=== PATIENT | male | born 1940 | race Caucasian/White ===

== ENCOUNTER → 2020-06-30 10:16 | Outpatient (BNVA) | payer MEDICARE, BC, SELFPAY | PROVIDERS: PCP Internal Medicine; Referring Provider Internal Medicine; Visit Provider Internal Medicine Cardiovascular Disease | DX: I42.9 Cardiomyopathy, unspecified (principal); I49.3 Ventricular premature depolarization; I71.4 Abdominal aortic aneurysm, without rupture; I10 Essential (primary) hypertension | CPT/HCPCS: 99214 ==

== ENCOUNTER 2020-07-20 07:56 | Outpatient (REF) | payer MEDICARE, BC, SELFPAY ==
--- NOTE | 2020-07-20 08:01 | US_ITS ---
EXAMINATION: US RETROPERITONEAL LIMITED (AORTA) CLINICAL INFORMATION: AAA without rupture. COMPARISON: None. TECHNIQUE: Farley-scale, color Doppler and spectral Doppler evaluation of the abdominal aorta. FINDINGS: The aorta is normal. The measurements of the aorta in maximum AP and transverse dimensions respectively are as follows: Proximal: 3.7 x 3.3 cm. Mid: 2.8 x 3.1 cm. Distal: 4.2 x 4.3 cm. PSV: 39.1 cm/s. The measurements of the common iliac arteries in maximum AP and TRV dimensions are as follows: AP: Right: 1.6 cm. Left: 1.6 cm. TRANS: Right: 1.8 cm. Left: 1.7 cm. US/US aorta IMPRESSION: Distal abdominal aortic aneurysm measuring 4.3 cm. The lumen measures 3.5 cm in AP and 3.8 cm in transverse dimension. There is surrounding thrombus noted.
--- NOTE | 2020-07-20 08:33 | CA_ITS ---
Transthoracic Echocardiogram Patient (Last, First, Middle): Hill Lin A Gender: Male Date of : 1940 Age: 80 Procedure Date: 07/20/2020 Procedure Type: Transthoracic Echocardiogram Location: OP Height: 180.34 cm Weight: 90.72 kg BSA: 2.11 m2 Heart Rate: bpm BP: 134 / 70 mmHg Platform Loader: Lauro MD: Irineo Kimble MD Symptoms: I42.9 - Cardiomyopathy, unspecified Conclusions: - The left ventricular systolic function is mildly decreased. Estimated LVEF about 50%. - There is mild calcification of the aortic valve. - No obvious valvular pathology seen on this study. Findings Left Ventricle Normal left ventricular cavity size. There is normal left ventricular wall thickness. The left ventricular systolic function is mildly decreased. There is no evidence of regional wall motion abnormalities. Evidence suggests grade I (mild) diastolic dysfunction. Estimated LVEF about 50%. Right Ventricle Normal right ventricular cavity size. There is low normal right ventricular systolic function. Atria Both atria are normal in size. Aortic Valve There is a normal trileaflet aortic valve. There is mild calcification of the aortic valve. There is no aortic valve stenosis. Mitral Valve The mitral valve appears normal. There is trace mitral valve regurgitation. There is no mitral valve stenosis. Pulmonic Valve The pulmonic valve was not well visualized. There is trace pulmonic valve regurgitation. Tricuspid Valve Normal tricuspid valve structure. There is mild tricuspid valve regurgitation. The pulmonary artery systolic pressure is normal. Great Vessels The asc aorta is normal in size. Venous The inferior vena cava is normal in size and collapses greater than 50% with inspiration. Pericardium/Pleural There is no evidence of pericardial effusion. Prior Study Comparison No prior study available for comparison. Recommendations, Care & Conclusions No obvious valvular pathology seen on this study. Measurements 2D Linear Measurements RVADd: 0.57 RVIDd: 3.23 IVSd: 0.95 0.6-0.9/0.6-1.0 cm LVIDd: 5.31 3.9-5.3/4.2-5.9 cm LVIDs: 3.72 2.0-3.6 cm LVPWd: 1.12 0.7-1.1 cm Ao Root: 3.80 2.1-3.5 cm LA Diam: 4.50 2.7-3.8/3.0-4.0 cm LV Mass: 263.15 67-162/88-224 g LVOT Diam: 2.53 3.0+(-)1.3 cm Mitral Valve MV Pk E: 0.40 MV PK A: 0.65 MV Decel Time: 327.30 E/A: 0.61 E'Lateral: 0.06 E'Medial: 0.05 Decel Trego: 1.22 Aortic Valve AoV Pk Will: 1.90 AoV Mn Will: 1.27 AoV VTI: 0.41 AoV Pk Grad: 14.44 Aov Mn Grad: 7.26 LVOT LVOT Pk Will: 0.97 LVOT Mn Will: 0.62 LVOT VTI: 0.20 LVOT Pk Grad: 3.78 LVOT Mn Grad: 1.80 LVOT Diam: 2.53 LVOT Area: 5.01 Diastolic Function MV Pk E: 0.40 MV Pk A: 0.65 E/A: 0.61 E'Medial: 0.05 E' Laterial: 0.06 Right Ventricle TAPSE (mm): 160.00 Tricuspid Valve TR Pk Will: 2.49 TR Pk Grad: 24.72 RA Press: 8.00 Great Vessels Aorta Ao Root-2D: 3.80 2.0-3.7 cm Ao Asc: 3.47 2.1-3.4 cm Ao Arch: 3.70 Updated in Other Vendor System with Status of Final Kirt Valerio MD electronically signed on 07/20/2020 11:16:35 AM with status of Final
--- NOTE | 2020-07-20 08:33 | ECG_ITS ---
Hook-up date: 2020-07-20 09:40:00 Duration: 25:57:00 Test Indications: CARDIOMYOPATHY, UNSPEC. Medications: 015705 QRS complexes 52256 Ventricular ectopics which represent 11 % of total QRS comp. 106 Supraventricular ectopics which represent <1 % of total QRS comp. * Paced QRS complexs which represent % of total QRS comp. VENTRICULAR ECTOPY 8030 Isolated 163 Bigeminal Cycles 1731 Couplets 76 Runs 230 Beats in Runs 4 Beats LONGEST at 154 BPM at 10:58:25 2020-07-20 3 Beats FASTEST at 166 BPM at 10:43:39 2020-07-20 SUPRAVENTRICULAR ECTOPY 98 Isolated 4 Couplets 0 Runs 0 Beats in Runs * Beats LONGEST at * BPM at :: -- * Beats FASTEST at * BPM at :: -- HEART RATES 46 MIN at 01:52:54 2020-07-21 66 AVG 101 MAX at 08:48:57 2020-07-21 LONGEST RR 1.3040 secs at 07:23:46 2020-07-21 S-T LEVELS Channel 1 - 128 mm at 09:40:00 2020-07-20 - 128 mm at 09:40:00 2020-07-20 Channel 2 - 128 mm at 09:40:00 2020-07-20 - 128 mm at 09:40:00 2020-07-20 Channel 3 - 128 mm at 02:85:91 -- - 128 mm at 02:85:91 Basic rhythm Normal sinus rhythm No long pause or profound bradycardia Frequent Premature ventricular complexes , 12% of total beats Frequent NSVT with longest 4 beat at 154 bpm Patient did not report any symptoms in the diary Referred By: Irineo Kimble Overread By: MICHAEL FAULKNER MD
== END 2020-07-20 07:57 | disposition home or self-care (01) ==
LOC: HO.US 07:56
PROVIDERS: PCP Internal Medicine; Visit Provider Internal Medicine Cardiovascular Disease
DX: I71.4 Abdominal aortic aneurysm, without rupture (principal); I49.3 Ventricular premature depolarization; I42.9 Cardiomyopathy, unspecified
CPT/HCPCS: 76775; 93225; 93226; 93306

== ENCOUNTER → 2020-08-05 09:24 | Outpatient (BNVA) | payer MEDICARE, BC, SELFPAY | PROVIDERS: PCP Internal Medicine; Visit Provider Internal Medicine Cardiovascular Disease | DX: I42.9 Cardiomyopathy, unspecified (principal); I49.3 Ventricular premature depolarization; I71.4 Abdominal aortic aneurysm, without rupture; I10 Essential (primary) hypertension; Z79.899 Other long term (current) drug therapy | CPT/HCPCS: 99212 ==

== ENCOUNTER 2020-09-21 10:30 | Outpatient (REF) | payer MEDICARE, BC, SELFPAY ==
--- NOTE | 2020-09-21 10:37 | XR_ITS ---
EXAMINATION: XR KNEE, RIGHT CLINICAL INFORMATION: Pain COMPARISON: None TECHNIQUE: Two views of the right knee. FINDINGS: Bone alignment is normal. No fracture or dislocation is seen. There are small osteophytes at the patellofemoral joint. There is a small joint effusion. XR/XR knee RT 2V IMPRESSION: Degenerative changes of the patellofemoral joint and small joint effusion.
== END 2020-09-21 10:31 | disposition home or self-care (01) ==
LOC: HO.HMGCLDS 10:30
PROVIDERS: PCP Internal Medicine; Visit Provider Internal Medicine
DX: M25.561 Pain in right knee (principal)
CPT/HCPCS: 73560

== ENCOUNTER → 2020-10-04 12:05 | Outpatient (BNVA) | payer MEDICARE, BC, SELFPAY | PROVIDERS: PCP Internal Medicine; Visit Provider Orthopaedic Surgery | DX: M25.561 Pain in right knee (principal) | CPT/HCPCS: 20610; 99202; J1100 ==

== ENCOUNTER 2020-11-23 09:43 | Outpatient (REF) | payer MEDICARE, BC, SELFPAY ==
[2020-11-23 12:07] LABS: Alanine Aminotransferase 18 U/L (0-40); Albumin Level 4.2 g/dL (3.5-5.0); Alkaline Phosphatase 94 U/L (39-117); Aspartate Amino Transferase 17 U/L (5-37); Bilirubin Direct 0.2 mg/dL (0.0-0.5); Bilirubin Total 0.5 mg/dL (0.0-1.0); Total Protein 6.5 g/dL (6.5-8.0)
== END 2020-11-23 09:44 | disposition home or self-care (01) ==
LOC: HO.HMGCLDS 09:43
PROVIDERS: PCP Internal Medicine; Visit Provider Internal Medicine
DX: R79.89 Other specified abnormal findings of blood chemistry (principal)
CPT/HCPCS: 36415; 80076

== ENCOUNTER → 2020-11-30 11:35 | Outpatient (BNVA) | payer MEDICARE, BC, SELFPAY | PROVIDERS: PCP Internal Medicine; Visit Provider Physician Assistant | DX: K57.92 Diverticulitis of intestine, part unspecified, without perforation or abscess without bleeding (principal); R68.81 Early satiety | CPT/HCPCS: 99212 ==

== ENCOUNTER → 2020-12-02 09:18 | Outpatient (BNVA) | payer MEDICARE, BC, SELFPAY | PROVIDERS: PCP Internal Medicine; Visit Provider Surgery Vascular Surgery | DX: I71.4 Abdominal aortic aneurysm, without rupture (principal) | CPT/HCPCS: 99202 ==

== ENCOUNTER → 2020-12-13 14:32 | Outpatient (BNVA) | payer MEDICARE, BC, SELFPAY | PROVIDERS: PCP Internal Medicine; Visit Provider Internal Medicine Cardiovascular Disease | DX: I49.3 Ventricular premature depolarization (principal); I42.9 Cardiomyopathy, unspecified; I10 Essential (primary) hypertension | CPT/HCPCS: 99212 ==

== ENCOUNTER → 2020-12-16 08:26 | Outpatient (REF) | payer MEDICARE, BC, SELFPAY ==
--- NOTE | ~2020-12-16 | NM_ITS ---
EXERCISE MYOCARDIAL PERFUSION STUDY INDICATION: Abnormal EKG, cardiomyopathy, assess for coronary disease and ischemia TECHNIQUE: The patient was brought in for an exercise perfusion study on 12/16/2020. Patient performed exercise as per Joby protocol and was injected 30 mCi of sestamibi once target heart rate was achieved. Images were obtained using the SPECT gamma camera interlaced with the gating device. Images were obtained in supine position. Resting perfusion study was performed on 12/17/2020. Patient was administered 30 mCi of sestamibi intravenously at rest. Images were then obtained in supine position. Total DLP 48mGy-cm. Images were processed with the software and compared side to side in short axis, horizontal long axis and vertical long axis views. FINDINGS: Raw images were reviewed. The stress perfusion study showed mildly diminished tracer uptake in the distal inferior wall. With CT attenuation correction this abnormality still present. Gating not performed due to PVCs. Resting study shows diminished tracer uptake along the inferior wall most prominent towards the distal part. Gating not performed due to PVCs. The findings are consistent with no reversible defects. Fixed defect in the distal inferior wall. NM/NM cardiolite stress test IMPRESSION: 1. Myocardial perfusion imaging study shows no evidence of any ischemia. Fixed defect in the distal inferior wall. This could be either artifactual or from a nontransmural infarct. Due to lack of gating, cannot differentiate. 2. Gated not performed due to PVCs. EKG component of the test reported separately.
--- NOTE | 2020-12-16 08:29 | CA_ITS ---
Acquisition Time: 2020-12-16 08:35:02 Total Exercise Time: 00:05:02 Test Indications: Abnormal ECG Medications: Protocol: MICHELLE Max HR: 146 BPM 105% of Pred: 139 BPM Max BP: 172/082 mmHG Max Work Load: 7.0 METS Exercise stress test using Michelle protocol, total of 5 min 2 sec. METS 7.00 and TAPHR up to 105 %. Pt tolerated well, denies any anginal sx. EKG with PVC at rest that incresed during exercise, and were unchanged during recovery. Pt denies any sx with it during rest, exercsie or in recovery. Mild upsloping ST depressions seen in leads V4 and V5, and mild horizontal ST depressions seen in lead 2,3 and V6. Suggestive of ischemia, however freqent PVC's, hard to read. Nuclear images to follow. Normotensive response to exercsie. Test reviewed with Dr. Valerio. Referred By: Irineo Kimble Overread By: Sapna Sims NP
== END ==
LOC: HO.CARD 08:26
PROVIDERS: Visit Provider Internal Medicine Cardiovascular Disease
DX: I42.9 Cardiomyopathy, unspecified (principal)
CPT/HCPCS: 78452; 93016; 93017; 93018; A9500

== ENCOUNTER → 2020-12-21 10:50 | Outpatient (BNVA) | payer MEDICARE, BC, SELFPAY | PROVIDERS: PCP Internal Medicine; Visit Provider Nurse Practitioner Family | DX: I49.3 Ventricular premature depolarization (principal); I42.9 Cardiomyopathy, unspecified; I10 Essential (primary) hypertension; R94.39 Abnormal result of other cardiovascular function study; Z79.899 Other long term (current) drug therapy | CPT/HCPCS: 99212 ==

== ENCOUNTER 2020-12-22 09:15 | Outpatient (REF) | payer MEDICARE, BC, SELFPAY ==
[2020-12-22 11:27] LABS: Prothrombin Time 11.6 SEC (10.8-13.0)
[2020-12-22 11:28] LABS: Hematocrit 44.3 % (42-52); Hemoglobin 14.1 g/dl (14.0-18.0); Mean Corpuscular HGB Conc 31.8 g/dl (31.0-36.0); Mean Corpuscular Volume 97.4 fL (80-98); Mean Platelet Volume 10.9 fL (9.4-12.4); Platelet Count 180 X10*3/uL (160-400); Red Blood Count 4.55 X10*6/uL (4.60-5.80); Red Cell Distribution Width 13.3 % (11.0-16.0); White Blood Count 6.1 X10*3/uL (4.8-10.8)
[2020-12-22 11:45] LABS: Anion Gap 16 (12-20); Blood Urea Nitrogen 14 mg/dL (9-16); Calcium 8.7 mg/dL (8.4-10.2); Carbon Dioxide 27 mmol/L (22-29); Chloride 104 mmol/L (96-108); Estimated Glomerular Filt Rate > 60; Glucose Random 105 mg/dL (60-115); Potassium 4.8 mmol/L (3.3-5.1); Sodium 142 mmol/L (135-145)
== END 2020-12-22 09:16 | disposition home or self-care (01) ==
LOC: HO.HMGCLDS 09:15
PROVIDERS: PCP Internal Medicine; Visit Provider Internal Medicine Cardiovascular Disease
DX: R94.39 Abnormal result of other cardiovascular function study (principal)
CPT/HCPCS: 36415; 80048; 85027; 85610

== ENCOUNTER 2021-04-08 09:00 | Inpatient (IN) | payer MEDICARE, BC, SELFPAY ==
[2021-04-08] VITALS (8 sets, daily range): BP systolic 92–146; BP diastolic 55–86; PULSE 89–107; RESP 16–26; TEMP 36.8–38.7; O2SAT 91–98; BMI 27.8
--- NOTE | ~2021-04-08 | US_ITS ---
EXAMINATION: US RETROPERITONEAL LIMITED (RENAL ONLY) CLINICAL INFORMATION: Question pyelonephritis. COMPARISON: None TECHNIQUE: Real-time imaging of the kidneys. FINDINGS: RIGHT KIDNEY: 13.8 x 6.1 x 5.4 cm (SAG x AP x TRV). The kidney is normal in size, contour, and echogenicity. Renal cortical thickness is normal. There is a large 7 x 8 x 6 cm cyst exophytic to the lower pole. There is a smaller subcentimeter cyst in the midpole. No renal calculi or hydronephrosis. There is no perinephric collection. LEFT KIDNEY: 10.4 x 5.0 x 4.5 cm (SAG x AP x TRV). The kidney is normal in size, contour, and echogenicity. Renal cortical thickness is normal. No calculi or focal parenchymal lesions. No hydronephrosis. There is no perinephric collection. US/US renal BI IMPRESSION: Right renal cysts. No ultrasound evidence of biloma nephritis seen.
--- NOTE | ~2021-04-08 | CT_ITS ---
EXAMINATION: CT ABDOMEN AND PELVIS WITH CONTRAST CLINICAL INFORMATION: Fever/bacteremia of unknown origin. COMPARISON: Renal ultrasound dated 04/08/2021. TECHNIQUE: Multidetector CT volumetric acquisition of the abdomen and pelvis was performed after the administration of 85 mL of intravenous Omnipaque 350. The data set was reformatted in the sagittal and coronal planes and reviewed on an independent workstation. This CT examination was performed using dose optimization techniques as appropriate, variously including the following: *Automated exposure control *Adjustment of mA and/or kV according to patient size (this includes techniques or standardized protocols for targeted exams where dose is matched to indication/reason for exam; i.e. extremities or head) *Use of iterative reconstruction technique DLP: 739 mGy-cm. FINDINGS: LOWER CHEST: Bilateral pleural calcifications are seen. Mild scattered atelectatic changes in the lung bases are also noted. LIVER, GALLBLADDER, BILIARY TREE: Liver normal size and attenuation. No focal cystic or solid mass or intra-or extrahepatic ductal dilatation. Hepatic and portal veins patent. Gallbladder partially distended and within normal limits. PANCREAS: Normal. No ductal dilatation, mass, or surrounding stranding. SPLEEN: Normal size and appearance. Splenic vein patent. ADRENAL GLANDS AND KIDNEYS: Adrenal glands normal. Kidneys bilaterally symmetric in size and function. There is a thin-walled exophytic lower pole right renal 7.7 x 7 cm benign-appearing cyst with no wall thickening or nodularity or enhancing component. Other scattered smaller sub one half centimeters sized low-attenuation masses are seen in the kidneys bilaterally, too small to characterize, presumably representing tiny cysts. No suspicious focal mass, hydronephrosis, nephrolithiasis or perinephric stranding. URETERS AND BLADDER: Ureters decompressed and within normal limits diffuse bladder wall thickening is seen, of uncertain significance, presumably simply related to near complete decompression. However, there does appear to be subtle pericystic fat stranding and edema and subtle interstitial cystitis cannot be entirely excluded. A fibrous urachal remnant is seen extending up to the umbilicus. PELVIC ORGANS: Unremarkable. GASTROINTESTINAL TRACT: There is moderate sigmoid colonic diverticulosis. A duodenal diverticulum is seen in the vicinity of the pancreatic head. Additional small diverticula are seen in the proximal small bowel. Small and large bowel loops decompressed. Appendix in right lower quadrant normal. ABDOMINAL WALL: There is a tiny fat-containing umbilical hernia. LYMPHOVASCULAR STRUCTURES: There is aneurysmal dilatation of the distal descending thoracic aorta with maximal AP diameter of 3.5 cm.. Abdominal aorta is also aneurysmal, measuring 3.5 cm proximally with fusiform enlargement to 4.5 x 4.4 cm distally. Eccentric soft thrombus is seen within the distal abdominal aortic aneurysm. Dense atherosclerotic calcifications are noted. There is also ectasia and aneurysmal dilatation of the iliac arteries bilaterally with dense atherosclerotic calcification seen. No periaortic collections. No abdominal or pelvic adenopathy or free fluid collection. BONES: The patient is status post intervertebral disc spacer placement and posterior spinal fusion at L4-5 and L5-S1. Grade 1 anterolisthesis of L4 on L5 and L5 on S1 is noted. Mild to moderate degenerative disc disease is seen throughout the lumbar spine. Osteopenia is noted. CT/CT abdomen pelvis w con IMPRESSION: 1. Question of subtle diffuse bladder wall thickening and minimal surrounding pericystic fat infiltration versus artifactual appearance related to underdistention of the bladder. Close clinical correlation is requested.. Findings poorly assessed due to underdistention of the bladder but do raise the suspicion of subtle interstitial cystitis. 2. Multiple incidental findings, including the following: - Descending thoracic and abdominal aortic aneurysm. Distal abdominal aorta measures up to 4.5 cm in maximum diameter. Associated atherosclerotic dense calcifications noted. - Aneurysmal dilatation of both iliac arteries. -Bilateral renal cysts, appearing benign and requires no specific imaging follow-up. -Moderate sigmoid colonic diverticulosis and duodenum/proximal small bowel diverticula.
--- NOTE | ~2021-04-08 | XR_ITS ---
EXAMINATION: XR CHEST CLINICAL INFORMATION: Weakness COMPARISON: None TECHNIQUE: Frontal view of the chest was obtained. FINDINGS: Patient is rotated to the left. The cardiac and silhouette does not appear enlarged. The aortic arch may be tortuous and ectatic. Some of these changes may be due to patient positioning. Hilar and mediastinal contours are otherwise unremarkable. The lungs are clear. There is no pleural effusion or pneumothorax. Old bilateral clavicle fractures. XR/XR chest 1V IMPRESSION: No evidence for acute disease in the chest.
--- NOTE | 2021-04-08 09:27 | ED_ITS ---
HPI - Male Genitourinary General Chief complaint: Urogenital-Male Stated complaint: urinary Problem Time Seen by Provider: 04/08/21 09:26 Source: patient and old records reviewed Mode of arrival: ambulatory Limitations: no limitations History of Present Illness HPI Narrative: 80 yo male with hx of GERD, cardiomyopathy, PVCs, AAA, HTN here with 1 day of dysuria, weakness, chills - no prior UTI no recent instrumentation MD Complaint: dysuria Onset (ago): day(s) (1) Duration: constant and progressively worsening Location: penis Severity: moderate Quality: burning Relieving factors: none Exacerbating factors: none Associated symptoms: Reports fever (100.4), nausea/vomiting and other (chills, weakness) Related Data Home Medications Medication Instructions Recorded Confirmed calcium carbonate 600 mg calcium 600 mg PO DAILY tab 06/30/20 03/22/21 (1,500 mg) tablet latanoprost 0.005 % eye drops drp OPHTHALMIC (EYE) DAILY ml 06/30/20 03/22/21 flu vacc 2019-(65yr IM 09/21/20 03/22/21 up)-MF59C(PF) 60 mcg(15 mcgx4)/0.5 mL IM syringe aspirin 81 mg tablet,delayed 81 mg PO DAILY 12/13/20 03/22/21 release lisinopril 5 mg tablet 5 mg PO DAILY 03/22/21 03/22/21 metoprolol succinate 25 mg 25 mg PO QPM 03/22/21 03/22/21 tablet,extended release 24 hr Allergies Allergy/AdvReac Type Severity Reaction Status Date / Time timolol [From Betimol] AdvReac Affected Verified 03/22/21 09:59 vision Review of Systems Review of Systems: Constitutional : No Weight loss, pos Fever, pos Chills, No Fatigue, No Malaise ENT/Mouth : No sore throat, No Rhinorrhea Eyes: No Eye Pain, No Swelling, No Redness Cardiovascular : No Chest Pain, No SOB, No Dyspnea on Exertion, No Orthopnea, No Edema, No Palpitations Respiratory : No Cough, No Sputum, No Wheezing Gastrointestinal : pos Nausea, No Vomiting, No Diarrhea, No Constipation, No abdominal Pain, No Hematochezia, No Melena Genitourinary : pos Dysuria, No Urinary Frequency, No Hematuria, Musculoskeletal : No joint pain, No Myalgias, No Joint Swelling Skin : No Skin Lesions, No rash Neuro : pos Weakness, No Numbness, No Dizziness, No Headache Psych : No Anxiety/Panic, No Depression Heme/Lymph: No Bruising, No Bleeding,No Lymphadenopathy Endocrine : No Polyuria, No Polydipsia All other systems reviewed and are negative FOR[facility]LY [facility], [facility] Past Medical History Attestation statement: The following information was validated with the patient. Medical History AAA (abdominal aortic aneurysm) Cardiomyopathy Hypertension Knee pain, right PVC (premature ventricular contraction) Surgical History History of hand surgery (~2001) History of prostate surgery (~2013) History of spinal fusion (~2016) Family History Family History Father No problems noted. Mother No problems noted. Other Substance use disorder Social History Social History Household Members: Spouse Alcohol intake: never Substance Use Type: Marijuana Advance Directives: No Advance Directives Information Provided: No Current occupational status: retired Current occupation: right handed Physical Exam Vital Signs: Vital Signs: Last Vital Signs Temp 98.4 F 04/08/21 09:53 Pulse 107 H 04/08/21 09:53 Resp 16 04/08/21 09:53 BP 146/86 H 04/08/21 09:53 Pulse Ox 93 04/08/21 09:53 Body Mass Index 27.8 Appearance: Alert. Oriented X3. + chills mild acute distress. Eyes: Pupils equal, round and reactive to light. ENT: Pharynx mild dry MM Neck: Normal inspection. Neck supple. CVS: tachycardic heart rate and rhythm. Pulses normal. Respiratory: No respiratory distress. Breath sounds normal. Abdomen: Soft and nontender. Back: no CVA ttp Skin: Skin warm and dry. Normal skin color. Normal skin turgor. Extremities: No lower extremity edema. No calf ttp Neuro: Oriented X 3. No motor deficit. No sensory deficit. Course Course Course Narrative: elevated WBC count, HR 110 + UTI patient looks unwell will admit for UTI likely sepsis MDM - Male Genitourinary MDM Narrative Medical decision making narrative: 80 yo male with hx of GERD, cardiomyopathy, PVCs, AAA, HTN here with 1 day of dysuria, weakness, chills - no prior UTI no recent instrumentation at this time suspected UTI will obtain basic labs, cultures, lactic acid, empiric rocephin he has no pain or CVA ttp to suggest obstructive lesion such as stone, dispo per results and findings. Lab Data Result diagrams: 04/08/21 09:59 04/08/21 10:00 Labs: Lab Results 04/08/21 04/08/21 04/08/21 Range/Units 09:59 10:00 10:00 WBC 19.7 H (4.8-10.8) X10*3/uL RBC 4.54 L (4.60-5.80) X10*6/uL Hgb 14.3 (14.0-18.0) g/dl Hct 42.8 (42-52) % MCV 94.3 (80-98) fL MCH 31.5 (27.0-33.0) pg MCHC 33.4 (31.0-36.0) g/dl RDW 13.2 (11.0-16.0) % Plt Count 160 (160-400) X10*3/uL MPV 9.9 (9.4-12.4) fL Immature Gran % (Auto) 0.7 H (0.0-0.4) % Neut % (Auto) 89.4 H (45-73) % Lymph % (Auto) 4.9 L (20-40) % [place] % (Auto) 4.8 (2-11) % Eos % (Auto) 0.1 (0-4) % Baso % (Auto) 0.1 (0-2) % Lymph # (Auto) 1.0 L (1.2-4.9) X10*3/uL [place] # (Auto) 0.9 (0.1-1.2) X10*3/uL Eos # (Auto) 0.0 (0.0-0.4) X10*3/uL Baso # (Auto) 0.0 (0.0-0.2) X10*3/uL Abs Immat Gran (auto) 0.13 H (0.00-0.03) X10*3/uL Absolute Neuts (auto) 17.6 H (2.0-8.3) X10*3/uL Absolute Nucleated RBC 0.000 (0.0-0.012) X10*3/uL Nucleated RBC % (auto) 0.0 (0.0-0.2) /100WBC Sodium 140 (135-145) mmol/L Potassium 4.3 (3.3-5.1) mmol/L Chloride 103 (96-108) mmol/L Carbon Dioxide 26 (22-29) mmol/L Anion Gap 15 (12-20) BUN 13 (9-16) mg/dL Creatinine 1.06 (0.5-1.4) mg/dL Estim Creat Clear Calc 62.9 Estimated GFR > 60 Random Glucose 132 H (60-115) mg/dL Lactic Acid (0.5-2.0) mmol/L Calcium 9.3 D (8.4-10.2) mg/dL Magnesium 1.8 (1.6-2.6) mg/dL Total Bilirubin 1.1 H (0.0-1.0) mg/dL Direct Bilirubin 0.4 (0.0-0.5) mg/dL AST 15 (5-37) U/L ALT 13 (0-40) U/L Alkaline Phosphatase 126 H D (39-117) U/L Total Protein 6.7 (6.5-8.0) g/dL Albumin 4.3 (3.5-5.0) g/dL Lipase 17 (8-78) U/L Urine Color Urine Appearance Urine pH (5.0-8.0) Ur Specific [place] (1.005-1.025) Urine Protein (NEG-TRACE) MG/DL Urine Glucose (UA) (NEG) MG/DL Urine Ketones (NEG) MG/DL Urine Blood (NEG) Urine Nitrite (NEG) Ur Leukocyte Esterase (NEG) Urine RBC (0) /HPF Urine WBC (0-4) /HPF Ur Squamous Epith Cells /LPF Urine Bacteria /LPF Urine Mucus /LPF COVID-19 (JESSICA) (Negative) COVID-19 Clin Com 04/08/21 04/08/21 04/08/21 Range/Units 10:00 10:00 10:00 WBC (4.8-10.8) X10*3/uL RBC (4.60-5.80) X10*6/uL Hgb (14.0-18.0) g/dl Hct (42-52) % MCV (80-98) fL MCH (27.0-33.0) pg MCHC (31.0-36.0) g/dl RDW (11.0-16.0) % Plt Count (160-400) X10*3/uL MPV (9.4-12.4) fL Immature Gran % (Auto) (0.0-0.4) % Neut % (Auto) (45-73) % Lymph % (Auto) (20-40) % [place] % (Auto) (2-11) % Eos % (Auto) (0-4) % Baso % (Auto) (0-2) % Lymph # (Auto) (1.2-4.9) X10*3/uL [place] # (Auto) (0.1-1.2) X10*3/uL Eos # (Auto) (0.0-0.4) X10*3/uL Baso # (Auto) (0.0-0.2) X10*3/uL Abs Immat Gran (auto) (0.00-0.03) X10*3/uL Absolute Neuts (auto) (2.0-8.3) X10*3/uL Absolute Nucleated RBC (0.0-0.012) X10*3/uL Nucleated RBC % (auto) (0.0-0.2) /100WBC Sodium (135-145) mmol/L Potassium (3.3-5.1) mmol/L Chloride (96-108) mmol/L Carbon Dioxide (22-29) mmol/L Anion Gap (12-20) BUN (9-16) mg/dL Creatinine (0.5-1.4) mg/dL Estim Creat Clear Calc Estimated GFR Random Glucose (60-115) mg/dL Lactic Acid 1.8 (0.5-2.0) mmol/L Calcium (8.4-10.2) mg/dL Magnesium (1.6-2.6) mg/dL Total Bilirubin (0.0-1.0) mg/dL Direct Bilirubin (0.0-0.5) mg/dL AST (5-37) U/L ALT (0-40) U/L Alkaline Phosphatase (39-117) U/L Total Protein (6.5-8.0) g/dL Albumin (3.5-5.0) g/dL Lipase (8-78) U/L Urine Color DARK YELLOW Urine Appearance TURBID Urine pH 7.0 (5.0-8.0) Ur Specific [place] 1.015 (1.005-1.025) Urine Protein 2+ H (NEG-TRACE) MG/DL Urine Glucose (UA) NEG (NEG) MG/DL Urine Ketones NEG (NEG) MG/DL Urine Blood 3+ H (NEG) Urine Nitrite NEG (NEG) Ur Leukocyte Esterase 2+ H (NEG) Urine RBC 10-14 H (0) /HPF Urine WBC TNTC H (0-4) /HPF Ur Squamous Epith Cells 1+ /LPF Urine Bacteria 3+ /LPF Urine Mucus 1+ /LPF COVID-19 (JESSICA) Negative (Negative) COVID-19 Clin Com See Note ECG Data Attestation: I personally reviewed and interpreted this ECG as follows: ECG interpretation date: 04/08/21 ECG interpretation time: 09:44 Interpretation: Rate: 107 Rhythm: sinus tachycardia [place]: left, LVH Normal P waves. Normal RAFA. Normal QRS complex. ST T wave : no ROSALBA, inverted in I and aVL qTC: normal prior studies: no significant change The study has been interpreted contemporaneously by me. . Discharge Plan Discharge Clinical Impression: Urinary tract infection, Leukocytosis, Weakness Patient Disposition: Admitted As Inpatient Prescriptions: No Action Fluad Quad (65y up)(PF) 60 mcg (15 mcg x 4)/0.5 mL syringe IM RF: 0 metoprolol succinate 25 mg tablet extended release 24 hr 25 mg PO QPM RF: 0 lisinopril 5 mg tablet 5 mg PO DAILY RF: 0 latanoprost 0.005 % drops ophthalmic (eye) DAILY RF: 0 calcium carbonate [Calcium 600] 600 mg calcium (1,500 mg) tablet 600 mg PO DAILY RF: 0 aspirin [Adult Low Dose Aspirin] 81 mg tablet,delayed release (DR/EC) 81 mg PO DAILY RF: 0
--- NOTE | 2021-04-08 09:32 | ECG_ITS ---
Test Reason : GENERAL MEDICINE Blood Pressure : / mmHG Vent. Rate : 107 BPM Atrial Rate : 107 BPM P-R Int : 174 ms QRS Dur : 132 ms QT Int : 342 ms P-R-T Axes : 010 -40 111 degrees QTc Int : 456 ms Sinus tachycardia Left axis deviation Left ventricular hypertrophy with QRS widening and repolarization abnormality Abnormal ECG No previous ECGs available Referred By: Marylin Blanca Electronically Signed By:Irineo Kimble
[2021-04-08 10:13] LABS: MANUAL DIFF FLAG NO
[2021-04-08] MEDS: 0.9 % Sodium Chloride 500 ML IV (10:14)
[2021-04-08] MEDS: Acetaminophen 325 MG TABLET 650 MG PO ×2 (10:19→18:06)
[2021-04-08] MEDS: cefTRIAXone sodium 1 GM in 0.9 % Sodium Chloride 50 ML IV (10:19)
[2021-04-08] MEDS: ondansetron HCL 4 MG/2 ML VIAL IVPUSH (10:20)
[2021-04-08 10:21] LABS: Glucose Urine UA NEG (NEG); Leukocyte Esterase Urine 2+ (NEG); Nitrite Urine NEG (NEG); Specific Gravity - Urine 1.015 (1.005-1.025); UACC Culture Trigger YES; Urine Blood 3+ (NEG); Urine Ketones NEG (NEG); Urine Protein 2+ MG/DL (NEG-TRACE)
[2021-04-08 10:21] LABS: Basophils Percent Auto 0.1 % (0-2); Eosinophils Percent Auto 0.1 % (0-4); Hematocrit 42.8 % (42-52); Hemoglobin 14.3 g/dl (14.0-18.0); Imm Gran Abs Auto 0.13 X10*3/uL (0.00-0.03); Imm Gran Pct Auto 0.7 % (0.0-0.4); Lymphocytes Percent Auto 4.9 % (20-40); Mean Corpuscular HGB Conc 33.4 g/dl (31.0-36.0); Mean Corpuscular Hemoglobin 31.5 pg (27.0-33.0); Mean Corpuscular Volume 94.3 fL (80-98); Mean Platelet Volume 9.9 fL (9.4-12.4); Monocytes Absolute Auto 0.9 X10*3/uL (0.1-1.2); Monocytes Percent Auto 4.8 % (2-11); Neutrophils Absolute Auto 17.6 X10*3/uL (2.0-8.3); Neutrophils Percent Auto 89.4 % (45-73); Platelet Count 160 X10*3/uL (160-400); Red Blood Count 4.54 X10*6/uL (4.60-5.80); Red Cell Distribution Width 13.2 % (11.0-16.0); White Blood Count 19.7 X10*3/uL (4.8-10.8)
[2021-04-08 10:29] LABS: COVID-19 Test Negative (Negative); IDNOW Serial# 9DD0AD1C
[2021-04-08 10:32] LABS: Lactic Acid 1.8 mmol/L (0.5-2.0)
[2021-04-08 10:37] LABS: Anion Gap 15 (12-20); Blood Urea Nitrogen 13 mg/dL (9-16); Calcium 9.3 mg/dL (8.4-10.2); Carbon Dioxide 26 mmol/L (22-29); Chloride 103 mmol/L (96-108); Creatinine Clr Calc Pharmacy 62.9; Estimated Glomerular Filt Rate > 60; Glucose Random 132 mg/dL (60-115); Potassium 4.3 mmol/L (3.3-5.1); Sodium 140 mmol/L (135-145)
[2021-04-08 10:38] LABS: Appearance Urine TURBID; Color Urine DARK YELLOW
[2021-04-08 10:39] LABS: Bacteria Urine 3+ /LPF; Mucus Urine 1+ /LPF; Squamous Epithelial Cell Urine 1+ /LPF; WBC Urine TNTC /HPF (0-4)
[2021-04-08 10:40] LABS: Alanine Aminotransferase 13 U/L (0-40); Albumin Level 4.3 g/dL (3.5-5.0); Alkaline Phosphatase 126 U/L (39-117); Aspartate Amino Transferase 15 U/L (5-37); Bilirubin Direct 0.4 mg/dL (0.0-0.5); Bilirubin Total 1.1 mg/dL (0.0-1.0); Lipase 17 U/L (8-78); Magnesium 1.8 mg/dL (1.6-2.6); Total Protein 6.7 g/dL (6.5-8.0)
[2021-04-08] MEDS: Enoxaparin Sodium 40 MG/0.4 ML SYRINGE SUBCUT (13:57)
--- NOTE | 2021-04-08 14:10 | P.HPHOSP_ITS ---
History of Present Illness Date of Service: 04/08/21 Chief Complaint: fever, malaise, dysuria Mr Lin is an 80 year-old male patient of Dr Cantu with history of cardiomyopathy (low-normal EF), frequent PVCs, AAA, and prostatism s/p laser TURP who presents with a 2-day history of fever to 101, chills, malaise, dysuria, incomplete voiding, and urinary urgency. No recent urinary catheterization and no history of nephrolithiasis. No rectal pain. No prior UTI or pyelonephritis. He denies hematuria or flank pain. No chest pain or dyspnea. In the ED, he was septic by virtue of leukocytosis and tachycardia. Urinalysis showed pyuria and bacteruria. He was given a dose of ceftriaxone along with 500 mL of NS. BP was 113/57. Review of Systems Review of Systems: Yes all other systems are reviewed and are negative [facility] Medical History AAA (abdominal aortic aneurysm) Cardiomyopathy Hypertension Knee pain, right PVC (premature ventricular contraction) Family History Father No problems noted. Mother No problems noted. Other Substance use disorder Surgical History History of hand surgery (~2001) History of prostate surgery (~2013) History of spinal fusion (~2017) Social History Household Members: Spouse Alcohol intake: never Patient Tobacco Use Status: Never used Tobacco Use of substances other than those prescribed or required for medical reasons: No Substance Use Type: Marijuana Advance Directives: No Advance Directives Information Provided: No Current occupational status: retired Current occupation: right handed Meds Allergies Allergy/AdvReac Type Severity Reaction Status Date / Time timolol [From Betimol] AdvReac Affected Verified 03/22/21 09:59 vision Active Medications: Current Medications Generic Name Dose Route Start Last Admin Trade Name Freq PRN Reason Stop Dose Admin Acetaminophen 650 mg 04/08/21 13:31 Acetaminophen 325 Mg Tablet PO Q6H PRN Pain, Mild (Pain Scale 1-3) Aspirin 81 mg 04/09/21 09:00 Aspirin Enteric Coated 81 Mg Tablet.Dr PO DAILY [facility] Calcium Carbonate 500 mg 04/09/21 09:00 Calcium Carbonate 500 Mg Tablet PO DAILY [facility] Enoxaparin Sodium 40 mg 04/08/21 13:45 04/08/21 13:57 Enoxaparin Sodium 40 Mg/0.4 Ml Syringe SUBCUT 40 mg Q24H [facility] Administration Ceftriaxone Sodium 1 gm/ 50 mls @ 100 mls/hr 04/09/21 10:00 Sodium Chloride IV Q24H [facility] Latanoprost 1 drop 04/08/21 21:00 Latanoprost 0.005 % Ophth Carleen 2.5 Ml Drops EYE-BOTH BEDTIME [facility] Lisinopril 5 mg 04/09/21 09:00 Lisinopril 5 Mg Tablet PO DAILY [facility] Protocol Metoprolol Succinate 12.5 mg 04/08/21 21:00 Metoprolol Succinate Er 12.5 Mg Halftab.Er.24h PO BEDTIME [facility] Protocol Ondansetron HCl 4 mg 04/08/21 13:31 Ondansetron Hcl 4 Mg/2 Ml Vial IVPUSH Q8H PRN Nausea and Vomiting Pharmacy Consult 1 each 04/08/21 11:13 Consult Rx Perform Med Rec MISCELLANE ONCE PRN Consult order Sodium Chloride 3 ml 04/08/21 16:00 0.9 % Sodium Chloride Flush 3 Ml Syringe IVFLUSH QSHIFT [facility] Home Medications Medication Instructions Recorded Confirmed Last Taken Type latanoprost 0.005 % eye drops 1 drp OPHTHALMIC (EYE) BEDTIME ml 06/30/20 0 04/08/21 04/07/21 History aspirin 81 mg tablet,delayed 81 mg PO DAILY 12/13/20 04/08/21 04/07/21 History release metoprolol succinate 25 mg 12.5 mg PO QPM 03/22/21 04/08/21 04/07/21 History tablet,extended release 24 hr calcium carbonate 500 mg PO DAILY 04/08/21 04/08/21 04/07/21 History lisinopril 0.5 tab PO DAILY 04/08/21 04/08/21 04/07/21 History Physical Exam Vital Signs and Narrative: Vital Signs: Last Vital Signs Temp 98.9 F 04/08/21 13:00 Pulse 90 04/08/21 13:00 Resp 16 04/08/21 13:00 BP 113/57 L 04/08/21 13:00 Pulse Ox 96 04/08/21 13:00 Body Mass Index 27.8 Gen: tired-appearing but ambulatory HEENT: sclera anicteric, dry mucus membranes Neck: supplen, no adenopathy or goiter Lungs: clear to auscultation bilaterally Heart: regular rate and rhythm, no murmurs Abd: soft, non-tender, non-distended : no CVA tenderness Ext: no edema Skin: warm/well-perfused Neuro: alert and oriented x3, no focal findings Psych: appropriate affect Results Labs CBC and Chem 7: 04/08/21 09:59 04/08/21 10:00 Labs: Laboratory Results - last 24 hr 04/08/21 04/08/21 04/08/21 09:59 10:00 10:00 MCV 94.3 MCH 31.5 MCHC 33.4 RDW 13.2 Plt Count 160 MPV 9.9 Immature Gran % (Auto) 0.7 H Neut % (Auto) 89.4 H Lymph % (Auto) 4.9 L [place] % (Auto) 4.8 Eos % (Auto) 0.1 Baso % (Auto) 0.1 Lymph # (Auto) 1.0 L [place] # (Auto) 0.9 Eos # (Auto) 0.0 Baso # (Auto) 0.0 Abs Immat Gran (auto) 0.13 H Absolute Neuts (auto) 17.6 H Absolute Nucleated RBC 0.000 Nucleated RBC % (auto) 0.0 Anion Gap 15 Estim Creat Clear Calc 62.9 Estimated GFR > 60 Random Glucose 132 H Lactic Acid Calcium 9.3 D Magnesium 1.8 Total Bilirubin 1.1 H Direct Bilirubin 0.4 AST 15 ALT 13 Alkaline Phosphatase 126 H D Total Protein 6.7 Albumin 4.3 Lipase 17 Urine Color Urine Appearance Urine pH Ur Specific Reading Urine Protein Urine Glucose (UA) Urine Ketones Urine Blood Urine Nitrite Ur Leukocyte Esterase Urine RBC Urine WBC Ur Squamous Epith Cells Urine Bacteria Urine Mucus COVID-19 (JESSICA) COVID-19 Clin Com 04/08/21 04/08/21 04/08/21 10:00 10:00 10:00 MCV MCH MCHC RDW Plt Count MPV Immature Gran % (Auto) Neut % (Auto) Lymph % (Auto) [place] % (Auto) Eos % (Auto) Baso % (Auto) Lymph # (Auto) [place] # (Auto) Eos # (Auto) Baso # (Auto) Abs Immat Gran (auto) Absolute Neuts (auto) Absolute Nucleated RBC Nucleated RBC % (auto) Anion Gap Estim Creat Clear Calc Estimated GFR Random Glucose Lactic Acid 1.8 Calcium Magnesium Total Bilirubin Direct Bilirubin AST ALT Alkaline Phosphatase Total Protein Albumin Lipase Urine Color DARK YELLOW Urine Appearance TURBID Urine pH 7.0 Ur Specific Reading 1.015 Urine Protein 2+ H Urine Glucose (UA) NEG Urine Ketones NEG Urine Blood 3+ H Urine Nitrite NEG Ur Leukocyte Esterase 2+ H Urine RBC 10-14 H Urine WBC TNTC H Ur Squamous Epith Cells 1+ Urine Bacteria 3+ Urine Mucus 1+ COVID-19 (JESSICA) Negative COVID-19 Clin Com See Note Imaging Radiologist's Impressions: Impressions Chest X-Ray 04/08/21 09:32 IMPRESSION: No evidence for acute disease in the chest. Assessment and Plan (1) Sepsis: Status: Acute 80 year-old male with history of cardiomyopathy (low-normal EF), frequent PVCs, AAA, and prostatism s/p laser TURP presenting with sepsis due to UTI # UTI - admit to telemetry, follow BCx/UCx, give ceftriaxone, check renal US, give IV fluids # cardiomyopathy # CAD - continue lisinopril + metoprolol succinate. cardiac cath on 12/28/20 at [facility] [place] 60% RCA stenosis # PVCs - continue metoprolol succinate # VTE ppx - LMWH # code - per pt, DNR/DNI Quality Stroke Does the patient have a stroke diagnosis?: No VTE Prior VTE?: No VTE Risk Level:: Medical - moderate - high VTE Device Contraindication: N/A - Device Ordered VTE Drug Contraindication: N/A - Med Ordered
[2021-04-08] MEDS: 0.9 % Sodium Chloride 1,000 ML 75 ML IVCONT (15:44)
--- NOTE | 2021-04-08 20:44 | PC.NURSE ---
METOPROLOL NOT GIVEN D/T LOW B/P. PT AWAKE AND WATCHING TV. PT DENIES ANY COMPLAINTS. WILL CONTINUE TO MONITOR PT.
--- NOTE | 2021-04-08 22:14 | PC.NURSE ---
report given to floor. Pt awaiting for transport to floor at this time. VS obtained and WNL.
[2021-04-09] VITALS (8 sets, daily range): BP systolic 100–119; BP diastolic 52–64; PULSE 69–82; RESP 18; TEMP 36.4–37.2; O2SAT 92–93
[2021-04-09 06:09] LABS: Hematocrit 35.9 % (42-52); Hemoglobin 11.9 g/dl (14.0-18.0); Mean Corpuscular HGB Conc 33.1 g/dl (31.0-36.0); Mean Corpuscular Hemoglobin 31.9 pg (27.0-33.0); Mean Corpuscular Volume 96.2 fL (80-98); Mean Platelet Volume 10.3 fL (9.4-12.4); Platelet Count 127 X10*3/uL (160-400); Red Blood Count 3.73 X10*6/uL (4.60-5.80); Red Cell Distribution Width 13.4 % (11.0-16.0); White Blood Count 20.7 X10*3/uL (4.8-10.8)
[2021-04-09 06:51] LABS: Anion Gap 14 (12-20); Blood Urea Nitrogen 16 mg/dL (9-16); Calcium 8.1 mg/dL (8.4-10.2); Carbon Dioxide 24 mmol/L (22-29); Chloride 105 mmol/L (96-108); Creatinine Clr Calc Pharmacy 68.8; Estimated Glomerular Filt Rate > 60; Glucose Random 141 mg/dL (60-115); Magnesium 1.7 mg/dL (1.6-2.6); Potassium 3.9 mmol/L (3.3-5.1); Sodium 139 mmol/L (135-145)
[2021-04-09] MEDS: Aspirin Enteric Coated 81 MG TABLET.DR PO (08:25)
[2021-04-09] MEDS: lisinopriL 5 MG TABLET PO (08:25)
[2021-04-09] MEDS: 0.9 % Sodium Chloride Flush 3 ML SYRINGE IVFLUSH ×2 (08:29→16:44)
[2021-04-09] MEDS: iohexoL 350 MG/ML 100 ML INFUS..BTL IV (09:55)
[2021-04-09 10:09] LABS: C Reactive Protein 21.85 mg/dL (< or = 0.50)
[2021-04-09] MEDS: cefTRIAXone sodium 1 GM in 0.9 % Sodium Chloride 50 ML IV (10:47)
--- NOTE | 2021-04-09 12:06 | HO.PM.IMPN ---
Subjective Subjective Date of Service: 04/09/21 Interval History: Febrile to 101.7 overnight but feels better this AM Dysuria + urgency improving UCx + BCx growing GNRs Physical Exam Vital Signs: Vital Signs: Last Vital Signs Temp 69 F L 04/09/21 11:26 Pulse 69 04/09/21 11:26 Resp 18 04/09/21 11:26 BP 103/57 L 04/09/21 11:26 Pulse Ox 92 04/09/21 11:26 Body Mass Index 27.8 Gen: tired-appearing but ambulatory HEENT: sclera anicteric, dry mucus membranes Neck: supple, no adenopathy or goiter Lungs: clear to auscultation bilaterally Heart: regular rate and rhythm, no murmurs Abd: soft, non-tender, non-distended : no CVA tenderness Ext: no edema Skin: warm/well-perfused Neuro: alert and oriented x3, no focal findings Psych: appropriate affect Objective Data Current Medications Generic Name Dose Route Start Last Admin Trade Name Freq PRN Reason Stop Dose Admin Acetaminophen 650 mg 04/08/21 13:31 04/08/21 18:06 Acetaminophen 325 Mg Tablet PO 650 mg Q6H PRN Administration Pain, Mild (Pain Scale 1-3) Aspirin 81 mg 04/09/21 09:00 04/09/21 08:25 Aspirin Enteric Coated 81 Mg Tablet. PO 81 mg DAILY [facility] Administration Calcium Carbonate 500 mg 04/09/21 09:00 04/09/21 08:25 Calcium Carbonate 500 Mg Tablet PO 500 mg DAILY [facility] Administration Enoxaparin Sodium 40 mg 04/08/21 13:45 04/08/21 13:57 Enoxaparin Sodium 40 Mg/0.4 Ml Syringe SUBCUT 40 mg Q24H [facility] Administration Ceftriaxone Sodium 1 gm/ 50 mls @ 100 mls/hr 04/09/21 10:00 04/09/21 11:34 Sodium Chloride IV Infused Q24H [facility] Infusion Latanoprost 1 drop 04/08/21 21:00 04/08/21 20:34 Latanoprost 0.005 % Ophth Carleen 2.5 Ml Drops EYE-BOTH Not Given BEDTIME [facility] Lisinopril 5 mg 04/09/21 09:00 04/09/21 08:25 Lisinopril 5 Mg Tablet PO 5 mg DAILY [facility] Administration Protocol Metoprolol Succinate 12.5 mg 04/08/21 21:00 04/08/21 20:43 Metoprolol Succinate Er 12.5 Mg Halftab.Er.24h PO Not Given BEDTIME [facility] Protocol Ondansetron HCl 4 mg 04/08/21 13:31 Ondansetron Hcl 4 Mg/2 Ml Vial IVPUSH Q8H PRN Nausea and Vomiting Pharmacy Consult 1 each 04/08/21 11:13 Consult Rx Perform Med Rec MISCELLANE ONCE PRN Consult order Sodium Chloride 3 ml 04/08/21 16:00 04/09/21 08:29 0.9 % Sodium Chloride Flush 3 Ml Syringe IVFLUSH 3 ml QSHIFT [facility] Administration Labs CBC & Chem 7: 04/09/21 04:58 04/09/21 04:58 Labs: Laboratory Results - last 24 hr 04/09/21 04/09/21 04:58 04:58 WBC 20.7 H RBC 3.73 L Hgb 11.9 L Hct 35.9 L MCV 96.2 MCH 31.9 MCHC 33.1 RDW 13.4 Plt Count 127 L MPV 10.3 Absolute Nucleated RBC 0.000 Nucleated RBC % (auto) 0.0 Sodium 139 Potassium 3.9 Chloride 105 Carbon Dioxide 24 Anion Gap 14 BUN 16 Creatinine 0.97 Estim Creat Clear Calc 68.8 Estimated GFR > 60 Random Glucose 141 H Calcium 8.1 L D Magnesium 1.7 C-Reactive Protein 21.85 H Impressions Renal Ultrasound 04/08/21 15:48 IMPRESSION: Right renal cysts. No ultrasound evidence of biloma nephritis seen. Microbiology Microbiology Results: Microbiology 04/08/21 Unknown Urine Culture - Preliminary Urine clean catch - Urine alston top Gram negative becca 04/08/21 10:14 Blood Culture - Preliminary Blood - Venous Prelim: GNR Gram Stain only Quality Stroke Does the patient have a stroke diagnosis?: No VTE Prior VTE?: No VTE Risk Level:: Medical - moderate - high VTE Device Contraindication: N/A - Device Ordered VTE Drug Contraindication: N/A - Med Ordered Assessment and Plan (1) Sepsis: Status: Acute (2) Urinary tract infection: Status: Acute Assessment and Plan: hospital d#2 80 year-old male with history of cardiomyopathy (low-normal EF), frequent PVCs, AAA, and prostatism s/p laser TURP in 2014 presenting with sepsis due to UTI/bacteremia # GNR bacteremia/UTI - follow speciation/susceptibilities - ceftriaxone IV d#2 - will obtain CT A/P - bladder scan: 137 mL # prostatism - s/p laser TURP 2014. consider Urology f/u, alpha blockade # cardiomyopathy # CAD - continue lisinopril + metoprolol succinate. cardiac cath on 12/28/20 at [facility] showed 60% RCA stenosis # PVCs - continue metoprolol succinate # VTE ppx - LMWH
[2021-04-09] MEDS: Enoxaparin Sodium 40 MG/0.4 ML SYRINGE SUBCUT (12:59)
[2021-04-09] MEDS: Acetaminophen 325 MG TABLET 650 MG PO (21:27)
[2021-04-09] MEDS: Latanoprost 0.005 % Ophth Sol 2.5 ML DROPS 1 DROP EYE-BOTH (22:13)
[2021-04-10 03:28] VITALS: BP 121/71; PULSE 67; RESP 18; TEMP 36.6; O2SAT 92
[2021-04-10] MEDS: 0.9 % Sodium Chloride Flush 3 ML SYRINGE IVFLUSH ×3 (03:30→16:28)
[2021-04-10 05:21] LABS: Hematocrit 35.4 % (42-52); Hemoglobin 11.7 g/dl (14.0-18.0); Mean Corpuscular HGB Conc 33.1 g/dl (31.0-36.0); Mean Corpuscular Hemoglobin 31.7 pg (27.0-33.0); Mean Corpuscular Volume 95.9 fL (80-98); Mean Platelet Volume 10.5 fL (9.4-12.4); Platelet Count 127 X10*3/uL (160-400); Red Blood Count 3.69 X10*6/uL (4.60-5.80); Red Cell Distribution Width 13.5 % (11.0-16.0); White Blood Count 13.1 X10*3/uL (4.8-10.8)
[2021-04-10 05:50] LABS: Anion Gap 10 (12-20); Blood Urea Nitrogen 14 mg/dL (9-16); Calcium 8.3 mg/dL (8.4-10.2); Carbon Dioxide 28 mmol/L (22-29); Chloride 108 mmol/L (96-108); Creatinine Clr Calc Pharmacy 78.5; Estimated Glomerular Filt Rate > 60; Glucose Random 102 mg/dL (60-115); Potassium 3.9 mmol/L (3.3-5.1); Sodium 142 mmol/L (135-145)
[2021-04-10 07:46] VITALS: BP 119/61; PULSE 71; RESP 18; TEMP 36.6; O2SAT 93
[2021-04-10 08:34] VITALS: BP 119/61; PULSE 71
[2021-04-10] MEDS: lisinopriL 5 MG TABLET PO (08:34)
[2021-04-10] MEDS: Aspirin Enteric Coated 81 MG TABLET.DR PO (08:34)
--- NOTE | 2021-04-10 11:09 | HO.PM.IMPN ---
Subjective Subjective Date of Service: 04/10/21 Interval History: fever resolved dysuria/urgency resolved no abd pain Physical Exam Vital Signs: Vital Signs: Last Vital Signs Temp 97.9 F 04/10/21 07:46 Pulse 71 04/10/21 08:34 Resp 18 04/10/21 07:46 BP 119/61 04/10/21 08:34 Pulse Ox 93 04/10/21 07:46 Body Mass Index 27.8 Gen: NAD HEENT: sclera anicteric, dry mucus membranes Neck: supple, no adenopathy or goiter Lungs: clear to auscultation bilaterally Heart: regular rate and rhythm, no murmurs Abd: soft, non-tender, non-distended : no CVA tenderness Ext: no edema Skin: warm/well-perfused Neuro: alert and oriented x3, no focal findings Psych: appropriate affect Objective Data Current Medications Generic Name Dose Route Start Last Admin Trade Name Freq PRN Reason Stop Dose Admin Acetaminophen 650 mg 04/08/21 13:31 04/09/21 21:27 Acetaminophen 325 Mg Tablet PO 650 mg Q6H PRN Administration Pain, Mild (Pain Scale 1-3) Aspirin 81 mg 04/09/21 09:00 04/10/21 08:34 Aspirin Enteric Coated 81 Mg Tablet.Dr PO 81 mg DAILY [facility] Administration Calcium Carbonate 500 mg 04/09/21 09:00 04/10/21 08:33 Calcium Carbonate 500 Mg Tablet PO 500 mg DAILY [facility] Administration Enoxaparin Sodium 40 mg 04/08/21 13:45 04/09/21 12:59 Enoxaparin Sodium 40 Mg/0.4 Ml Syringe SUBCUT 40 mg Q24H [facility] Administration Ceftriaxone Sodium 1 gm/ 50 mls @ 100 mls/hr 04/09/21 10:00 04/09/21 11:34 Sodium Chloride IV Infused Q24H [facility] Infusion Latanoprost 1 drop 04/08/21 21:00 04/09/21 22:13 Latanoprost 0.005 % Ophth Carleen 2.5 Ml Drops EYE-BOTH 1 drop BEDTIME [facility] Administration Lisinopril 5 mg 04/09/21 09:00 04/10/21 08:34 Lisinopril 5 Mg Tablet PO 5 mg DAILY [facility] Administration Protocol Metoprolol Succinate 12.5 mg 04/08/21 21:00 04/09/21 21:28 Metoprolol Succinate Er 12.5 Mg Halftab.Er.24h PO Not Given BEDTIME [facility] Protocol Ondansetron HCl 4 mg 04/08/21 13:31 Ondansetron Hcl 4 Mg/2 Ml Vial IVPUSH Q8H PRN Nausea and Vomiting Pharmacy Consult 1 each 04/08/21 11:13 Consult Rx Perform Med Rec MISCELLANE ONCE PRN Consult order Sodium Chloride 3 ml 04/08/21 16:00 04/10/21 08:34 0.9 % Sodium Chloride Flush 3 Ml Syringe IVFLUSH 3 ml QSHIFT [facility] Administration Labs CBC & Chem 7: 04/10/21 04:48 04/10/21 04:48 Labs: Laboratory Results - last 24 hr 04/10/21 04/10/21 04:48 04:48 WBC 13.1 H RBC 3.69 L Hgb 11.7 L Hct 35.4 L MCV 95.9 MCH 31.7 MCHC 33.1 RDW 13.5 Plt Count 127 L MPV 10.5 Absolute Nucleated RBC 0.000 Nucleated RBC % (auto) 0.0 Sodium 142 Potassium 3.9 Chloride 108 Carbon Dioxide 28 Anion Gap 10 L BUN 14 Creatinine 0.85 Estim Creat Clear Calc 78.5 Estimated GFR > 60 Random Glucose 102 Calcium 8.3 L Microbiology Microbiology Results: Microbiology 04/08/21 Unknown Urine Culture - Final Urine clean catch - Urine alston top Escherichia coli 04/08/21 10:14 Blood Culture - Preliminary Blood - Venous Gram negative becca 04/08/21 09:59 Blood Culture - Preliminary Blood - Venous No growth after 24 hours. Quality Stroke Does the patient have a stroke diagnosis?: No VTE Prior VTE?: No VTE Risk Level:: Medical - moderate - high VTE Device Contraindication: N/A - Device Ordered VTE Drug Contraindication: N/A - Med Ordered Assessment and Plan (1) Sepsis: Status: Acute (2) Urinary tract infection: Status: Acute Assessment and Plan: hospital d#3 80 year-old male with history of cardiomyopathy (low-normal EF), frequent PVCs, AAA, and prostatism s/p laser TURP in 2014 presenting with sepsis due to E coli UTI/bacteremia # E coli UTI/bacteremia - UCx growing rubio-sensitive E coli; BCx pending speciation - ceftriaxone IV d#3 # prostatism - s/p laser TURP 2014. consider Urology f/u, alpha blockade if retaining urine # cardiomyopathy # CAD - continue lisinopril + metoprolol succinate. cardiac cath on 12/28/20 at [facility] [place] showed 60% RCA stenosis # PVCs - continue metoprolol succinate 12.5 mg daily # AAA - 4.[address] yesterday, 4.3 cm on US 07/14/20, followed yearly by Dr Brown [Vasc Surg] # VTE ppx - LMWH
[2021-04-10] MEDS: cefTRIAXone sodium 1 GM in 0.9 % Sodium Chloride 50 ML IV (11:17)
[2021-04-10 11:27] VITALS: BP 138/63; PULSE 63; RESP 18; TEMP 36.8; O2SAT 95
[2021-04-10] MEDS: Enoxaparin Sodium 40 MG/0.4 ML SYRINGE SUBCUT (13:36)
--- NOTE | 2021-04-10 14:34 | MHC.CM.PN ---
CM MET WITH PT, FAMILY MEMBERS WERE AT BEDSIDE. 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 PT DENIES USE OF DME OR SERVICES. PT REPORTS HE HAS A HCP AT HOME AND HE CONFIRMS HIS PCP IS RASHI CORONA. IMM DELIVERED CURRENT DC PLAN IS HOME WITH NO SERVICES FAMILY TO TRANSPORT
[2021-04-10 15:34] VITALS: BP 123/59; PULSE 56; RESP 18; TEMP 36.9; O2SAT 94
[2021-04-10 19:00] VITALS: BP 125/65; PULSE 60; RESP 18; TEMP 36.9; O2SAT 95
[2021-04-10] MEDS: Latanoprost 0.005 % Ophth Sol 2.5 ML DROPS 1 DROP EYE-BOTH (21:37)
[2021-04-11] VITALS: BP 116/66; PULSE 84; RESP 18; TEMP 37.1; O2SAT 93
[2021-04-11] MEDS: 0.9 % Sodium Chloride Flush 3 ML SYRINGE IVFLUSH ×2 (02:22→08:44)
[2021-04-11 03:07] VITALS: BP 124/71; PULSE 72; RESP 20; TEMP 36.7; O2SAT 92
[2021-04-11 07:23] VITALS: BP 160/96; PULSE 82; RESP 18; TEMP 36.6; O2SAT 96
[2021-04-11 08:44] VITALS: BP 160/96; PULSE 82
[2021-04-11] MEDS: lisinopriL 5 MG TABLET PO (08:44)
[2021-04-11] MEDS: Aspirin Enteric Coated 81 MG TABLET.DR PO (08:44)
[2021-04-11 11:15] VITALS: BP 138/74; PULSE 72; RESP 18; TEMP 36.9; O2SAT 95
[2021-04-11] MEDS: cefTRIAXone sodium 1 GM in 0.9 % Sodium Chloride 50 ML IV (11:32)
--- NOTE | 2021-04-11 12:11 | MHC.CM.PN ---
04/11/21 MALE 80 DX UTI ANTICIPATE DC LATER TODAY PER MD ROUNDS. CULTURES ARE PENDING. ID CONSULT HAS BEEN ORDERED. CM WILL FOLLOW.
--- NOTE | 2021-04-11 14:56 | P.DS_ITS ---
DS: Providers Provider Date of Service: 04/11/21 Date of admission: 04/08/21 13:31 Primary care physician: Crystal Cantu MD Consults: 04/11/21 08:13 Consult to Infectious Diseases Routine Consulting Provider: Liz Delgado Reason for consultation: uti/gram neg bacteremia Has provider been notified: No DS: Diagnosis Discharge Diagnosis (1) Sepsis: Status: Acute (2) Urinary tract infection: Status: Acute DS: Medications Discharge Medications Home Medications: Home Medications Medication Instructions Recorded Confirmed latanoprost 0.005 % eye drops 1 drp OPHTHALMIC (EYE) BEDTIME ml 06/30/20 04/08/21 aspirin 81 mg tablet,delayed 81 mg PO DAILY 12/13/20 04/08/21 release metoprolol succinate 25 mg 12.5 mg PO QPM 03/22/21 04/08/21 tablet,extended release 24 hr calcium carbonate 500 mg PO DAILY 04/08/21 04/08/21 lisinopril 0.5 tab PO DAILY 04/08/21 04/08/21 DS: Summary Hospital Course Hospital Course: 80 year-old male patient of Dr Cantu with history of cardiomyopathy (low-normal EF), frequent PVCs, AAA, and prostatism s/p laser TURP who presents with a 2-day history of fever to 101, chills, malaise, dysuria, incomplete voiding, and urinary urgency. No recent urinary catheterization and no history of nephrolithiasis. No rectal pain. No prior UTI or pyelonephritis. He denies hematuria or flank pain. No chest pain or dyspnea. In the ED, he was septic by virtue of leukocytosis and tachycardia. Urinalysis showed pyuria and bacteruria. He was given a dose of ceftriaxone along with 500 mL of NS. BP was 113/57. Hospital Course problem lugo section: 80 year-old male with history of cardiomyopathy (low-normal EF), frequent PVCs, AAA, and prostatism s/p laser TURP in 2014 presenting with sepsis due to E coli UTI/bacteremia 1.E coli UTI/bacteremia UCx growing rubio-sensitive E coli; BCx -E coli which is also pansensitive Received ceftriaxone IV d#4, Leukocytosis improving, no fever.patient was seen by infectious disease and subsequently switched to p.o. Ceftin upon discharge, complete Ceftin for 10 more days. 2.prostatism - s/p laser TURP 2014. Patient says that he producing urine okay Patient also follow-up with his urologist out patiently. Follow-up CBC and BMP out patiently with PCP. Above management discussed with the patient in detail length he understand and in agreement with the above plan, time spent 50 minutes and 50% time spent on counseling. Significant findings: As above. Procedures performed: None. Treatment and response: As above. Complications: None. Time Spent with Patient Time attestation: Total time spent providing and/or coordinating discharge services: Discharge coordination time: Less than 30 minutes Quality: Stroke Does the patient have a stroke diagnosis?: No Physical Exam Vital Signs: Vital Signs: Last Vital Signs Temp 98.5 F 04/11/21 11:15 Pulse 72 04/11/21 11:15 Resp 18 04/11/21 11:15 BP 138/74 04/11/21 11:15 Pulse Ox 95 04/11/21 11:15 Body Mass Index 27.8 Physical exam: HEENT: sclera anicteric, dry mucus membranes Neck: supple, no adenopathy or goiter Lungs: clear to auscultation bilaterally Heart: regular rate and rhythm, no murmurs Abd: soft, non-tender, non-distended : no CVA tenderness Ext: no edema Skin: warm/well-perfused Neuro: alert and oriented x3, no focal findings Psych: appropriate affect DS: Data Data Completed and Pending Labs on day of discharge: Preliminary micro results at discharge 04/08/21 09:59 Blood Culture - Preliminary Blood - Venous No growth after 48 hours. Discharge Plan Discharge Patient Disposition: Home, Self-Care Discharge Diagnosis: sepsis/uti Referrals: Crystal Cantu MD [Primary Care Provider] - 1 Week Discharge Medications: New cefuroxime axetil 500 mg tablet 500 mg PO BID Qty: 20 RF: 0 Continued lisinopril 10 mg tablet 0.5 tab PO DAILY RF: 0 calcium carbonate 500 mg calcium (1,250 mg) Tablet 500 mg PO DAILY RF: 0 metoprolol succinate 25 mg tablet extended release 24 hr 12.5 mg PO QPM RF: 0 latanoprost 0.005 % drops 1 drp ophthalmic (eye) BEDTIME RF: 0 aspirin [Adult Low Dose Aspirin] 81 mg tablet,delayed release (DR/EC) 81 mg PO DAILY RF: 0 Discharge Orders: Discharge Order (Routine); Ordered 04/11/21 Ordered By: Abhilash Balderrama Diet: low fat, low cholesterol and low salt diet Activity on Discharge: As tolerated Stand Alone Forms: Patient Portal Discharge page Other Ambulatory Orders: Basic Metabolic Panel Fasting (Routine) Timeframe: 1 Week Facility: [facility] - Location: Laboratory Ordered By: Abhilash Balderrama Complete Blood Count no Diff (Routine) Timeframe: 1 Week Facility: [facility] - Location: Laboratory Ordered By: Abhilash Balderrama Care Plan Goals: Patient admitted with UTI/E coli bacteremia-subsequently started on IV antibiotics seems improving. Patient's IV antibiotic -switched to p.o. upon discharge further management outpatient as per PCP. Patient also follow-up with his urologist out patiently. Health Concerns: As above. Plan of Treatment: As above. Assessment: As above.
[2021-04-11 15:25] VITALS: BP 145/91; PULSE 56; RESP 19; TEMP 36.8; O2SAT 99
--- NOTE | 2021-04-11 16:07 | MHC.CM.PN ---
Patient is discharged to home self care. His brother is providing transportation to home.
== END 2021-04-11 16:43 | disposition home or self-care (01) | DRG 872 ==
LOC: HO.ED 11:15 → HO.EDOVER 13:49 → HO.IMC 20:33
PROVIDERS: Admitting Provider Family Medicine; Emergency Provider Emergency Medicine; PCP Internal Medicine; Visit Provider Internal Medicine
DX: A41.51 Sepsis due to Escherichia coli [E. coli] (principal); I42.9 Cardiomyopathy, unspecified; N39.0 Urinary tract infection, site not specified; I25.10 Atherosclerotic heart disease of native coronary artery without angina pectoris; N40.0 Benign prostatic hyperplasia without lower urinary tract symptoms; B96.20 Unspecified Escherichia coli [E. coli] as the cause of diseases classified elsewhere; I71.4 Abdominal aortic aneurysm, without rupture; I49.3 Ventricular premature depolarization; Z20.822 Contact with and (suspected) exposure to COVID-19; D72.829 Elevated white blood cell count, unspecified; Z79.82 Long term (current) use of aspirin; Z79.899 Other long term (current) drug therapy; Z66 Do not resuscitate
CPT/HCPCS: 36415; 71045; 74177; 76775; 80048; 80076; 81001; 81003; 83605; 83690; 83735; 85025; 85027; 86140; 87040; 87077; 87086; 87088; 87186; 87205; 87635; 93005; 97161; 99285; J0696; J1650; J2405; Q9967

== ENCOUNTER 2021-04-18 07:03 | Outpatient (REF) | payer MEDICARE, BC, SELFPAY ==
[2021-04-18 11:22] LABS: Hematocrit 38.8 % (42-52); Hemoglobin 12.7 g/dl (14.0-18.0); Mean Corpuscular HGB Conc 32.7 g/dl (31.0-36.0); Mean Corpuscular Hemoglobin 31.5 pg (27.0-33.0); Mean Corpuscular Volume 96.3 fL (80-98); Platelet Count 273 X10*3/uL (160-400); Red Blood Count 4.03 X10*6/uL (4.60-5.80); Red Cell Distribution Width 13.3 % (11.0-16.0); White Blood Count 5.6 X10*3/uL (4.8-10.8)
[2021-04-18 11:33] LABS: Alanine Aminotransferase 22 U/L (0-40); Albumin Level 3.7 g/dL (3.5-5.0); Alkaline Phosphatase 97 U/L (39-117); Anion Gap 11 (12-20); Aspartate Amino Transferase 17 U/L (5-37); Bilirubin Total 0.4 mg/dL (0.0-1.0); Blood Urea Nitrogen 15 mg/dL (9-16); Calcium 8.9 mg/dL (8.4-10.2); Carbon Dioxide 29 mmol/L (22-29); Chloride 108 mmol/L (96-108); Estimated Glomerular Filt Rate > 60; Glucose Fasting 93 mg/dL (60-99); Potassium 4.5 mmol/L (3.3-5.1); Sodium 143 mmol/L (135-145); Total Protein 5.9 g/dL (6.5-8.0)
== END 2021-04-18 07:04 | disposition home or self-care (01) ==
LOC: HO.HMGCLDS 07:03
PROVIDERS: PCP Internal Medicine; Visit Provider Internal Medicine
DX: I10 Essential (primary) hypertension (principal); I49.3 Ventricular premature depolarization; A41.9 Sepsis, unspecified organism; N39.0 Urinary tract infection, site not specified
CPT/HCPCS: 36415; 80048; 80053; 82248; 85027

== ENCOUNTER 2021-04-25 08:16 | Outpatient (REF) | payer MEDICARE, BC, SELFPAY ==
[2021-04-25 11:31] LABS: Glucose Urine UA NEG (NEG); Leukocyte Esterase Urine NEG (NEG); Nitrite Urine NEG (NEG); Specific Gravity - Urine 1.015 (1.005-1.025); Urine Blood NEG (NEG); Urine Ketones NEG (NEG); Urine Protein NEG (NEG-TRACE)
[2021-04-25 11:39] LABS: Appearance Urine CLEAR; Color Urine YELLOW
== END 2021-04-25 08:17 | disposition home or self-care (01) ==
LOC: HO.HMGCLDS 08:16
PROVIDERS: PCP Internal Medicine; Visit Provider Internal Medicine
DX: N30.01 Acute cystitis with hematuria (principal)
CPT/HCPCS: 81003

== ENCOUNTER → 2021-05-17 14:06 | Outpatient (BNVA) | payer MEDICARE, BC, SELFPAY | PROVIDERS: PCP Internal Medicine; Referring Provider Internal Medicine; Visit Provider Nurse Practitioner Family | DX: Z01.810 Encounter for preprocedural cardiovascular examination (principal); I49.3 Ventricular premature depolarization; I42.9 Cardiomyopathy, unspecified; I10 Essential (primary) hypertension; I25.10 Atherosclerotic heart disease of native coronary artery without angina pectoris | CPT/HCPCS: 99212 ==

== ENCOUNTER → 2021-06-02 12:20 | Day surgery (SDC) | payer MEDICARE, BC, SELFPAY ==
[2021-05-26 08:52] VITALS: BMI 28.5
--- NOTE | 2021-06-01 10:16 | HO.ANESPROP2 ---
HPI - Anesthesia Eval Consult details Narrative: 80yo M for ?Upper Endoscopy and Colonoscopy Cardiac cleared cx'd 06/02/21 d/t poor prep PMFSH Active Problems Active Problems: All Active Problems (Updated 05/26/21 @ 08:59 by Marisel Antonio RN) Diverticulitis (Acute) Hospital discharge follow-up (Acute) LFT elevation (Acute) Acid reflux (Acute) Early satiety (Acute) Abnormal stress test (Acute) Urinary tract infection (Acute) Leukocytosis (Acute) Weakness (Acute) Sepsis (Acute) Preop cardiovascular exam (Acute) Coronary artery disease (Acute) Knee pain, right (Acute) Cardiomyopathy (Acute) PVC (premature ventricular contraction) (Acute) AAA (abdominal aortic aneurysm) (Acute) Hypertension (Acute) Past Medical History Medical History (Updated 05/26/21 @ 08:59 by Marisel Antonio RN) AAA (abdominal aortic aneurysm) Cardiomyopathy Coronary artery disease COVID-19 vaccine series completed Hypertension Knee pain, right PVC (premature ventricular contraction) Family History Family History Father No problems noted. Mother No problems noted. Other Substance use disorder Surgical History Surgical History History of hand surgery (~2001) History of prostate surgery (~2013) History of spinal fusion (~2016) Social History Social History (Updated 05/26/21 @ 09:00 by Marisel Antonio RN) Household Members: Spouse Housing: Condominium Do you presently have visiting nurse or other home services: No Alcohol intake: never Patient Tobacco Use Status: Former Tobacco user Quit Date: 2000 Tobacco use type: Cigarette Years Smoked: 30 e-Cigarette/Vaping Use: Never Used Use of substances other than those prescribed or required for medical reasons: No Substance Use Type: Former Substance User and Marijuana Have you been hit, kicked, punched, or otherwise hurt by someone within the past year? If so, by whom?: No Are you DNR?: No Advance Directives Information Provided: Yes (states is his ) Advance Directives on File: No Recently lost weight without trying: No Eating poorly because of decreased appetite: No Nutrition Risks: Surgical patient >75years Current occupational status: retired Current occupation: right handed Meds Allergies Allergy/AdvReac Type Severity Reaction Status Date / Time timolol [From Betimol] AdvReac hypotension Verified 05/17/21 14:22 Home Medications Medication Instructions Recorded Confirmed Last Taken Type latanoprost 0.005 % eye drops 1 drp OPHTHALMIC (EYE) BEDTIME ml 06/30/20 05/26/21 04/07/21 History aspirin 81 mg tablet,delayed 81 mg PO DAILY 12/13/20 05/26/21 04/07/21 History release (Adult Low Dose Aspirin) calcium carbonate 500 mg calcium 500 mg PO DAILY 04/08/21 05/26/21 04/07/21 History (1,250 mg) tablet Exam Exam Date and Time: June 01, 2021 1016 Height,Weight and Vital Signs: Height 5 ft 11 in Weight 92.986 kg Narrative Narrative: EKG 03/2021: Vent. Rate : 107 BPM ? ? Atrial Rate : 107 BPM ?? P-R Int : 174 ms? QRS Dur : 132 ms ? ? QT Int : 342 ms ? ? ? P-R-T Axes : 010 -40 111 degrees ?? QTc Int : 456 ms ? Sinus tachycardia Left axis deviation Left ventricular hypertrophy with QRS widening and repolarization abnormality Abnormal ECG No previous ECGs available Holter monitor.? PVCs 11%, 3-4 beat NSVT runs noted.? He does report heart palpitations.? Echocardiogram 07/20/2020 shows EF 50%, calcific aortic valve. Exercise stress test on 12/16/2020 showing exercise 5 minutes with an increased PVC burden, borderline EKG changes with nuclear imaging showing no ischemia, fixed inferior wall defect which could be diaphragm attenuation.? cardiac cath on 12/28/20 showing nonobstructive RCA stenosis.? Assessment and Plan Assessment Anesthesia Assessment: Chart Reviewed
[2021-06-02 12:31] VITALS: BP 143/99; PULSE 73; RESP 18; TEMP 36.5; O2SAT 96
== END ==
PROVIDERS: PCP Internal Medicine; Visit Provider Internal Medicine Gastroenterology
DX: K57.92 Diverticulitis of intestine, part unspecified, without perforation or abscess without bleeding (principal); R68.81 Early satiety; Z53.8 Procedure and treatment not carried out for other reasons

== ENCOUNTER → 2021-06-24 11:22 | Outpatient (REF) | payer MEDICARE, BC, SELFPAY ==
--- NOTE | 2021-06-24 11:25 | CA_ITS ---
Transthoracic Echocardiogram Patient (Last, First, Middle): Hill Lin A Gender: Male Date of : 1940 Age: 80 Procedure Date: 06/24/2021 Procedure Type: Transthoracic Echocardiogram Location: OP Height: 180.34 cm Weight: 90.72 kg BSA: 2.11 m2 Heart Rate: bpm BP: 120 / 90 mmHg Hospital Coder: MEHRDAD Referring MD: Sherly Blacn INSTALLER METAL FLOORINGTrudy Symptoms: I25.10 - Atherosclerotic heart disease of [place] coronary... Study Quality: Fair ECG Rhythm: Sinus Conclusions: - Visually estimated LVEF about 50%. - There is mild calcification of the aortic valve. - There is mild dilatation of the ascending aorta measuring 4.00 cm. Findings Left Ventricle Normal left ventricular cavity size. There is mildly increased left ventricular wall thickness. The left ventricular systolic function is mildly decreased. There is borderline global hypokinesis. E/E prime ratio is between 8 and 15 consistent with indeterminate filling pressures. Evidence suggests grade I (mild) diastolic dysfunction. Visually estimated LVEF about 50%. Right Ventricle Normal right ventricular cavity size and systolic function. Atria Both atria are normal in size. Aortic Valve There is a normal trileaflet aortic valve. There is mild calcification of the aortic valve. There is no aortic valve stenosis. There is trace (trivial) aortic valve regurgitation. Mitral Valve The mitral valve appears normal. There is trace mitral valve regurgitation. There is no mitral valve stenosis. Pulmonic Valve The pulmonic valve was not well visualized. There is trace pulmonic valve regurgitation. Tricuspid Valve Normal tricuspid valve structure. There is trace tricuspid valve regurgitation. The pulmonary artery systolic pressure is normal. Great Vessels The asc aorta is normal in size. There is mild dilatation of the ascending aorta measuring 4.00 cm. Venous The inferior vena cava is normal in size and collapses greater than 50% with inspiration. Pericardium/Pleural There is no evidence of pericardial effusion. Prior Study Comparison Changes noted compared to prior study dated: 07/20/2020. Slight increase in ascending aortic size. Measurements 2D Linear Measurements IVSd: 1.22 0.6-0.9/0.6-1.0 cm LVIDd: 3.47 3.9-5.3/4.2-5.9 cm LVIDd Index: 1.64 2.4-3.2/2.2-3.1 cm/m2 LVIDs: 2.73 2.0-3.6 cm LVPWd: 1.08 0.7-1.1 cm Ao Root: 4.10 2.1-3.5 cm LA Diam: 3.70 2.7-3.8/3.0-4.0 cm LAIDs Index: 1.75 1.5-2.3 cm/m2 LV Mass: 156.33 67-162/88-224 g LV Mass Index: 74.09 43-95/49-115 g/m2 LVOT Diam: 2.40 3.0+(-)1.3 cm 2D Systolic Function EF 4C: 50.60 >55% EF 2C: 53.60 >55% EF BiP: 53.00 >55% Mitral Valve MV Pk E: 0.56 MV PK A: 0.82 MV Decel Time: 430.00 E/A: 0.70 E'Lateral: 7.51 E'Medial: 4.03 E/E' Med: 13.90 E/E' Lat: 7.50 PHT: 126.00 MVA PHT: 1.75 Decel [place]: 1.30 Aortic Valve AoV Pk Will: 1.59 AoV Mn Will: 1.12 AoV VTI: 0.32 AoV Pk Grad: 10.00 Aov Mn Grad: 6.00 MARIA ELENA Cont.VTI: 2.34 LVOT LVOT Pk Will: 0.80 LVOT Mn Will: 0.58 LVOT VTI: 0.17 LVOT Pk Grad: 3.00 LVOT Mn Grad: 1.00 LVOT Diam: 2.40 LVOT Area: 4.52 Diastolic Function MV Pk E: 0.56 MV Pk A: 0.82 E/A: 0.70 E'Medial: 4.03 E/E' Med: 13.90 E' Laterial: 7.51 E/E' Lat: 7.50 Right Ventricle TAPSE (mm): 2.35 TVS' Will: 9.14 Tricuspid Valve TR Pk Will: 2.39 TR Pk Grad: 23.00 RA Press: 3.00 RVSP: 26.00 Great Vessels Aorta Ao Root-2D: 4.10 2.0-3.7 cm Ao Asc: 4.00 2.1-3.4 cm Ao Arch: 3.30 Updated in Other Vendor System with Status of Final Kirt Valerio MD electronically signed on 06/24/2021 1:42:47 PM with status of Final
== END ==
LOC: HO.CARD 11:22
PROVIDERS: PCP Internal Medicine; Visit Provider Nurse Practitioner Family
DX: I25.10 Atherosclerotic heart disease of native coronary artery without angina pectoris (principal); I49.3 Ventricular premature depolarization
CPT/HCPCS: 93306

== ENCOUNTER → 2021-07-18 13:24 | Outpatient (BNVA) | payer MEDICARE, BC, SELFPAY | PROVIDERS: PCP Internal Medicine; Referring Provider Internal Medicine; Visit Provider Internal Medicine Cardiovascular Disease | DX: I49.3 Ventricular premature depolarization (principal); I42.9 Cardiomyopathy, unspecified | CPT/HCPCS: 99212 ==

== ENCOUNTER → 2021-09-29 11:03 | Outpatient (BNVA) | payer MEDICARE, BC, SELFPAY | PROVIDERS: PCP Internal Medicine; Visit Provider Urology | DX: N32.0 Bladder-neck obstruction (principal) | CPT/HCPCS: 99202 ==

== ENCOUNTER → 2021-10-28 09:38 | Outpatient (BNVA) | payer MEDICARE, BC, SELFPAY | PROVIDERS: PCP Internal Medicine; Visit Provider Urology | DX: N32.0 Bladder-neck obstruction (principal) | CPT/HCPCS: 52000; 99212 ==

== ENCOUNTER 2021-11-21 10:21 | Outpatient (REF) | payer MEDICARE, BC, SELFPAY ==
--- NOTE | ~2021-11-21 | US_ITS ---
EXAMINATION: US RETROPERITONEAL LIMITED (AORTA) CLINICAL INFORMATION: Follow-up abdominal aortic aneurysm. COMPARISON: CT abdomen 04/09/2021 TECHNIQUE: Farley-scale, color Doppler and spectral Doppler evaluation of the abdominal aorta. FINDINGS: The measurements of the aorta in maximum AP and transverse dimensions respectively are as follows: Proximal: 2.9 x 2.5 cm. Mid: 3.0 x 3.0 cm. Distal: 4.6 x 4.4 cm. There is eccentric mural thrombus. The luminal diameter is 2.7 x 2.7 cm. PSV: 48 cm/s. The measurements of the common iliac arteries in maximum AP and TRV dimensions are as follows: Right Common Iliac Artery: 1.6 x 1.8 cm. Left Common Iliac Artery: 1.5 x 1.7 cm. US/US abdominal aortic aneurysm IMPRESSION: Stable infrarenal abdominal aortic aneurysm measuring 4.6 x 4.4 cm (previously 4.5 x 4.4 cm).
== END 2021-11-21 10:22 | disposition home or self-care (01) ==
LOC: HO.US 10:21
PROVIDERS: PCP Internal Medicine; Visit Provider Surgery Vascular Surgery
DX: I71.4 Abdominal aortic aneurysm, without rupture (principal)
CPT/HCPCS: 76706

== ENCOUNTER 2021-11-28 07:06 | Day surgery (SDC) | payer MEDICARE, BC, SELFPAY ==
[2021-11-22 13:10] VITALS: BMI 29.7
[2021-11-28 08:08] VITALS: BP 161/83; PULSE 62; RESP 18; TEMP 36.1; O2SAT 95
--- NOTE | 2021-11-28 09:24 | HO.ANESPROP2 ---
HPI - Anesthesia Eval Consult details Narrative: 81 yo male patient for Cytoscopy, bladder neck incision PMFSH Active Problems Active Problems: All Active Problems (Updated 11/22/21 @ 13:10 by Marisel Antonio RN) Diverticulitis (Acute) Hospital discharge follow-up (Acute) LFT elevation (Acute) Acid reflux (Acute) Early satiety (Acute) Abnormal stress test (Acute) Urinary tract infection (Acute) Leukocytosis (Acute) Weakness (Acute) Sepsis (Acute) Preop cardiovascular exam (Acute) Bladder outlet obstruction (Acute) Bladder neck stricture (Acute) Coronary artery disease (Acute) Knee pain, right (Acute) Cardiomyopathy (Acute) PVC (premature ventricular contraction) (Acute) AAA (abdominal aortic aneurysm) (Acute) Hypertension (Acute) Past Medical History Medical History (Updated 11/22/21 @ 13:10 by Marisel Antonio RN) AAA (abdominal aortic aneurysm) Cardiomyopathy Coronary artery disease COVID-19 vaccine series completed Hypertension Knee pain, right PVC (premature ventricular contraction) Family History Family History Father No problems noted. Mother No problems noted. Other Substance use disorder Family history of problems with anesthesia: No Surgical History Surgical History History of hand surgery (~2001) History of prostate surgery (~2013) History of spinal fusion (~2017) History of Problems with Anesthesia: No Social History Social History Household Members: Spouse Housing: Condominium Do you presently have visiting nurse or other home services: No Alcohol intake: never Patient Tobacco Use Status: Former Tobacco user Quit Date: 2000 Tobacco use type: Cigarette Years Smoked: 30 e-Cigarette/Vaping Use: Never Used Substance Use Type: Former Substance User and Marijuana Advance Directives Information Provided: Yes (brochure mailed) Advance Directives on File: No Current occupational status: retired Current occupation: right handed Meds Allergies Allergy/AdvReac Type Severity Reaction Status Date / Time timolol [From Betimol] AdvReac hypotension Verified 10/28/21 09:49 Home Medications Medication Instructions Recorded Confirmed Last Taken Type latanoprost 0.005 % eye drops 1 drp OPHTHALMIC (EYE) BEDTIME ml 10/07/20 03/01/22 07/15/21 History calcium carbonate 500 mg calcium 500 mg PO DAILY 04/08/21 11/22/21 04/07/21 History (1,250 mg) tablet Exam Exam Date and Time: November 28, 2021 0924 Height,Weight and Vital Signs: Height 5 ft 11 in Weight 96.62 kg Last Vital Signs Temp 97 F 11/28/21 08:08 Pulse 62 11/28/21 08:08 Resp 18 11/28/21 08:08 BP 161/83 H 11/28/21 08:08 Pulse Ox 95 11/28/21 08:08 Airway Mallampati Class: II TM Dist: >3cm Neck ROM: Full Denture: Upper and Lower Heart: RRR Lungs: CTAB Assessment and Plan Assessment Anesthesia Assessment: Anesthesia Plan Discussed and Chart Reviewed Final Anesthetic Review Family History of Problems with Anesthesia: No History of Problems with Anesthesia: No NPO: Yes ASA Class: III Final Preanesthetic Review: No Changes in Pt Med Stat, Meds/Allgs Chart Reviewed, Consent Obtained/Reviewed and Anes Risks/Benef Reviewed Patient Risk: Intermediate Procedure Risk: Low Assessment/Block/Sedation in SS: Assess/Block/Sedation-SS Anesthetic Plan Anesthetic Plan: GA Disposition: Standard PACU
--- NOTE | 2021-11-28 09:24 | MHC.SHP ---
Pre-Procedural Eval Section A Date of Service: 11/28/21 The patient is an INPATIENT: No Changes since office visit: No Cold of Flu in the past 2 weeks, No New Medical Problems, No Changes in Medication and No Patient answered all questions The History & Physical has been completed within 30 days and I have reviewed it.: No Section B Chief Complaint: bladder neck obstruction Details of Present Illness: bladder neck contraction from prior TURP Relevant Family History (Specify if Yes): No Relevant Social History: None Present Medications: see Short Stay Collaborative assessment Medical History: No relevant PMH History of Previous Operations: Relevant previous surgery/procedure and date(s) Allergies: Allergies Allergy/AdvReac Type Severity Reaction Status Date / Time timolol [From Betimol] AdvReac hypotension Verified 10/28/21 09:49 Review of Systems Sugical H&P ROS: Negative: Constitution, Cardiovascular, Respiratory, Neurological, Psychiatric, Hem-Onc, Allergic/Immunologic, Gastrointestinal, Genitourinary, Musculoskeletal, Integumentary, Endocrine and Eyes/Ears/Nose/Throat Exam Surgical H&P Exam: Normal: HEENT, Normal: Heart, Normal: Lungs, Normal: Extremities, Normal: Abdomen, Normal: Skin and Normal: Neurological Plan Diagnosis/Plan: Unchanged ( cystoscopy with bladder neck incision) I have reviewed the history and physical and performed a pertinent physical examination on my patient. No changes have occurred unless specified.
[2021-11-28] MEDS: Lactated Ringers 1,000 ML 100 ML IVCONT (09:36)
--- NOTE | 2021-11-28 10:03 | W.PM.OPN ---
Operative Note Operative Note Date of Service: 11/28/21 Narrative: PreOperative Diagnosis: bladder neck contraction Post Operative Diagnosis: bladder neck contraction Procedure: cystoscopy bladder neck incision Surgeon: Dr Jean Carlos Napoles Anesthesia: LMA Indications for procedure: prior TURP. Weakness of stream. Cystoscopy in office revealed bladder neck contraction to 18 Dominican. Recommendation for bladder neck incision. He is aware of the risks Primarily regarding incontinence. Procedure: After informed consent was verified the patient was brought to the operating room and placed in a supine position. anesthesia was administered per protocol. patient was placed in modified dorsal lithotomy position and prepped and draped in sterile fashion. Safety pause time-out was performed. Resectoscope with visual obturator was passed per meatus. No abnormality noted the anterior posterior urethra. Within the prostate the anterior pad the prostate was open. There was prior TURP defect. Bladder neck contracture was clearly visible. Incisions were made at the 09:00 o'clock and 3 o'clock position allowing passage of the resectoscope into the bladder. Bladder had moderate to severe trabeculation but not ureter orifice normal position. The resectoscope was removed. A 22 Dominican, 10 cc balloon catheter was placed without difficulty and inflated. A cap will be used for bladder emptying. Pathology: [] Drains: []
[2021-11-28 10:18] VITALS: BP 124/63; PULSE 70; RESP 16; TEMP 36.6; O2SAT 95
[2021-11-28 10:23] VITALS: BP 108/72; PULSE 75; RESP 16; O2SAT 94
[2021-11-28 10:28] VITALS: BP 113/68; PULSE 59; RESP 16; O2SAT 94
[2021-11-28 10:33] VITALS: BP 95/67; PULSE 69; RESP 16; TEMP 36.3
[2021-11-28 10:51] VITALS: BP 94/54; PULSE 68; RESP 16; O2SAT 94
== END 2021-11-28 11:55 | disposition home or self-care (01) ==
PROVIDERS: PCP Internal Medicine; Visit Provider Urology
PROC: 0T9C8ZZ Drainage of Bladder Neck, Via Natural or Artificial Opening Endoscopic (ICD-10-PCS; CPT 52276; principal; 2021-11-28 09:20)
DX: N32.0 Bladder-neck obstruction (principal); I71.4 Abdominal aortic aneurysm, without rupture; I25.10 Atherosclerotic heart disease of native coronary artery without angina pectoris; I11.9 Hypertensive heart disease without heart failure; I42.9 Cardiomyopathy, unspecified; I49.3 Ventricular premature depolarization; Z87.891 Personal history of nicotine dependence; Z88.0 Allergy status to penicillin; Z98.890 Other specified postprocedural states
CPT/HCPCS: 52276; J1956; J2370; J3010

== ENCOUNTER → 2021-12-01 08:48 | Outpatient (BNVA) | payer MEDICARE, BC, SELFPAY | PROVIDERS: PCP Internal Medicine; Visit Provider Urology | DX: Z13.89 Encounter for screening for other disorder (principal) ==

== ENCOUNTER → 2021-12-15 13:41 | Outpatient (BNVA) | payer MEDICARE, BC, SELFPAY | PROVIDERS: PCP Internal Medicine; Referring Provider Internal Medicine; Visit Provider Nurse Practitioner Family | DX: I49.3 Ventricular premature depolarization (principal); I25.10 Atherosclerotic heart disease of native coronary artery without angina pectoris; I42.9 Cardiomyopathy, unspecified; I71.4 Abdominal aortic aneurysm, without rupture; I10 Essential (primary) hypertension; Z79.899 Other long term (current) drug therapy | CPT/HCPCS: 99212 ==

== ENCOUNTER → 2021-12-22 15:09 | Outpatient (BNVA) | payer MEDICARE, BC, SELFPAY | PROVIDERS: PCP Internal Medicine; Visit Provider Surgery Vascular Surgery | DX: I71.4 Abdominal aortic aneurysm, without rupture (principal) | CPT/HCPCS: 99212 ==

== ENCOUNTER → 2022-02-01 14:11 | Outpatient (BNVA) | payer MEDICARE, BC, SELFPAY | PROVIDERS: PCP Internal Medicine; Visit Provider Urology | DX: N40.1 Benign prostatic hyperplasia with lower urinary tract symptoms (principal); R39.12 Poor urinary stream; R33.9 Retention of urine, unspecified | CPT/HCPCS: 99212 ==

== ENCOUNTER → 2022-05-16 09:18 | Outpatient (REF) | payer MEDICARE, BC, SELFPAY ==
--- NOTE | 2022-05-16 09:24 | CA_ITS ---
Transthoracic Echocardiogram Patient (Last, First, Middle): Hill Lin A Gender: Male Date of : 1940 Age: 81 Procedure Date: 05/16/2022 Procedure Type: Transthoracic Echocardiogram Location: OP Height: 180.34 cm Weight: 92.99 kg BSA: 2.13 m2 Heart Rate: bpm BP: 130 / 70 mmHg Security Solutions Engineer: TO Referring MD: Sherly Blanc [employer] GENERATING POWERPLANT MECHANIC-C Logistics Engineering Manager: Irineo Kimble MD Symptoms: I42.9 - Cardiomyopathy, unspecified Study Quality: Fair Conclusions: - Normal left ventricular cavity size. There is mildly increased left ventricular wall thickness. The left ventricular systolic function is mildly decreased. The visually estimated ejection fraction is between 40-45%. - The basal inferior and mid inferior segments are akinetic. - In some views the anteroseptum also appears hypokinetic. Findings Left Ventricle Normal left ventricular cavity size. There is mildly increased left ventricular wall thickness. The left ventricular systolic function is mildly decreased. The visually estimated ejection fraction is between 40-45%. There is evidence of regional wall motion abnormalities. Abnormal diastolic function is noted. Spectral Doppler is indicative of an impaired relaxation filling pattern. Wall Motion Rest Echo Findings The basal inferior and mid inferior segments are akinetic. Right Ventricle Normal right ventricular cavity size. There is borderline right ventricular systolic function. Atria The left atrium is mildly dilated. The right atrium is mildly dilated. Aortic Valve There is a normal trileaflet aortic valve. There is mild calcification of the aortic valve. There is no aortic valve stenosis. There is no aortic valve regurgitation. Mitral Valve The mitral valve appears normal. There is no mitral valve regurgitation. There is no mitral valve stenosis. Pulmonic Valve Normal pulmonic valve structure and function. There is trace pulmonic valve regurgitation. Tricuspid Valve Normal tricuspid valve structure and function. There is trace tricuspid valve regurgitation. Normal right atrial pressure. There is no evidence of pulmonary hypertension. Great Vessels There is mild dilatation of the sinuses of Valsalva measuring 4.02 cm and mild dilatation of the ascending aorta measuring 3.90 cm. The visualized portions of the pulmonary artery and branches are normal. Venous The inferior vena cava is normal in size and collapses greater than 50% with inspiration. Pericardium/Pleural There is no evidence of pericardial effusion. Prior Study Comparison Changes noted compared to prior study dated: 06/24/2021. Inferior wall appears akinetic and in some views the anteroseptal wall is also hypokinetic. EF 40-45%. Measurements 2D Linear Measurements IVSd: 1.23 0.6-0.9/0.6-1.0 cm LVIDd: 4.36 3.9-5.3/4.2-5.9 cm LVIDd Index: 2.05 2.4-3.2/2.2-3.1 cm/m2 LVIDs: 3.35 2.0-3.6 cm LVPWd: 1.20 0.7-1.1 cm LA Diam: 3.20 2.7-3.8/3.0-4.0 cm LAIDs Index: 1.50 1.5-2.3 cm/m2 LV Mass: 239.37 67-162/88-224 g LV Mass Index: 112.38 43-95/49-115 g/m2 LVOT Diam: 2.50 3.0+(-)1.3 cm 2D Systolic Function EF 4C: 55.30 >55% EF 2C: 56.10 >55% Mitral Valve MV Pk E: 0.42 MV PK A: 0.81 MV Decel Time: 223.00 E/A: 0.50 E'Lateral: 5.98 E'Medial: 5.66 E/E' Med: 7.40 E/E' Lat: 7.00 PHT: 65.00 MVA PHT: 3.38 Decel [place]: 1.89 Aortic Valve AoV Pk Will: 1.82 AoV Mn Will: 1.35 AoV VTI: 0.40 AoV Pk Grad: 13.00 Aov Mn Grad: 8.00 MARIA ELENA Cont.VTI: 2.40 LVOT LVOT Pk Will: 0.91 LVOT Mn Will: 0.58 LVOT VTI: 0.20 LVOT Pk Grad: 3.00 LVOT Mn Grad: 2.00 LVOT Diam: 2.50 LVOT Area: 4.91 Diastolic Function MV Pk E: 0.42 MV Pk A: 0.81 E/A: 0.50 E'Medial: 5.66 E/E' Med: 7.40 E' Laterial: 5.98 E/E' Lat: 7.00 Right Ventricle TAPSE (mm): 19.10 TVS' Will: 8.27 Tricuspid Valve TR Pk Will: 2.28 TR Pk Grad: 21.00 RA Press: 8.00 RVSP: 29.00 Great Vessels Aorta Sinus of Valsalva: 4.02 2.0-3.[address] [place]: 2.89 1.7-3.4 cm Ao Asc: 3.90 2.1-3.4 cm Updated in Other Vendor System with Status of Final Irineo Kimble MD electronically signed on 05/17/2022 12:49:54 PM with status of Final
== END ==
LOC: HO.CARD 09:18
PROVIDERS: PCP Internal Medicine; Visit Provider Internal Medicine Cardiovascular Disease
DX: I42.9 Cardiomyopathy, unspecified (principal)
CPT/HCPCS: 93306

== ENCOUNTER 2022-06-14 12:10 | Outpatient (REF) | payer MEDICARE, BC, SELFPAY ==
[2022-06-14 14:48] LABS: Hematocrit 43.7 % (42.0-52.0); Hemoglobin 14.5 g/dl (14.0-18.0); Mean Corpuscular HGB Conc 33.2 g/dl (31.0-36.0); Mean Corpuscular Hemoglobin 31.7 pg (27.0-33.0); Mean Corpuscular Volume 95.4 fL (80.0-98.0); Mean Platelet Volume 10.7 fL (9.4-12.4); Platelet Count 197 X10*3/uL (160-400); Prothrombin Time 11.1 SEC (10.0-13.1); Red Blood Count 4.58 X10*6/uL (4.60-5.80); Red Cell Distribution Width 13.5 % (11.0-16.0); White Blood Count 8.1 X10*3/uL (4.8-10.8)
[2022-06-14 15:04] LABS: Alanine Aminotransferase 13 U/L (0-40); Albumin Level 4.3 g/dL (3.5-5.0); Alkaline Phosphatase 138 U/L (39-117); Aspartate Amino Transferase 17 U/L (5-37); Bilirubin Direct 0.2 mg/dL (0.0-0.5); Bilirubin Total 0.5 mg/dL (0.0-1.0); Total Protein 6.8 g/dL (6.5-8.0)
[2022-06-14 15:25] LABS: TSH reflex Free T4 1.49 uIU/mL (0.32-4.0)
== END 2022-06-14 12:11 | disposition home or self-care (01) ==
LOC: HO.LAB 12:10
PROVIDERS: PCP Internal Medicine; Visit Provider Internal Medicine Cardiovascular Disease
DX: I20.0 Unstable angina (principal); I49.3 Ventricular premature depolarization
CPT/HCPCS: 36415; 80076; 84443; 85027; 85610; 93005; 99212

== ENCOUNTER → 2022-06-26 14:47 | Outpatient (BNVA) | payer MEDICARE, BC, SELFPAY | PROVIDERS: PCP Internal Medicine; Referring Provider Internal Medicine; Visit Provider Internal Medicine Cardiovascular Disease | DX: I49.3 Ventricular premature depolarization (principal); I42.9 Cardiomyopathy, unspecified | CPT/HCPCS: 93005; 99212 ==

== ENCOUNTER → 2022-07-05 11:28 | Outpatient (REF) | payer MEDICARE, BC, SELFPAY ==
--- NOTE | 2022-07-05 11:31 | HM_ITS ---
* Total monitoring time 3 days and 3 hours. * Underlying rhythm is sinus. Average rate 62/Min. Range 36-91/min. * About 44% the time, rate less than 60/Min. * Frequent PVCs, burden of 9.3%. Some couplets, bigeminy, trigeminy, short runs. Longest 3 beats. * Very rare PACs with minimal burden. * No significant pauses or AV blocks. * No patient diary. MTDD
== END ==
LOC: HO.CARD 11:28
PROVIDERS: PCP Internal Medicine; Visit Provider Internal Medicine Cardiovascular Disease
DX: I49.3 Ventricular premature depolarization (principal); I42.9 Cardiomyopathy, unspecified
CPT/HCPCS: 93242

== ENCOUNTER 2022-08-02 07:24 | Outpatient (REF) | payer MEDICARE, BC, SELFPAY ==
[2022-08-02 11:45] LABS: Estimated Average Glucose 120 mg/dL; Hemoglobin A1c % 5.8 %
[2022-08-02 11:59] LABS: Alanine Aminotransferase 14 U/L (0-40); Albumin Level 4.1 g/dL (3.5-5.0); Alkaline Phosphatase 138 U/L (39-117); Anion Gap 14 (12-20); Aspartate Amino Transferase 17 U/L (5-37); Bilirubin Total 0.6 mg/dL (0.0-1.0); Blood Urea Nitrogen 14 mg/dL (9-16); Calcium 9.1 mg/dL (8.4-10.2); Carbon Dioxide 28 mmol/L (22-29); Chloride 105 mmol/L (96-108); Estimated Glomerular Filt Rate > 60; Glucose Fasting 91 mg/dL (60-99); Potassium 4.2 mmol/L (3.3-5.1); Sodium 143 mmol/L (135-145); Total Protein 6.5 g/dL (6.5-8.0)
== END 2022-08-02 07:25 | disposition home or self-care (01) ==
LOC: HO.HMGCLDS 07:24
PROVIDERS: PCP Internal Medicine; Visit Provider Internal Medicine
DX: R79.89 Other specified abnormal findings of blood chemistry (principal); Z83.3 Family history of diabetes mellitus
CPT/HCPCS: 36415; 80053; 83036

== ENCOUNTER → 2022-08-09 14:08 | Outpatient (BNVA) | payer MEDICARE, BC, SELFPAY | PROVIDERS: PCP Internal Medicine; Visit Provider Urology | DX: N32.0 Bladder-neck obstruction (principal); R39.12 Poor urinary stream | CPT/HCPCS: 51798; 99212 ==

== ENCOUNTER → 2022-10-04 13:38 | Outpatient (BNVA) | payer MEDICARE, BC, SELFPAY | PROVIDERS: PCP Internal Medicine; Referring Provider Internal Medicine; Visit Provider Internal Medicine Cardiovascular Disease | DX: I49.3 Ventricular premature depolarization (principal); I42.9 Cardiomyopathy, unspecified | CPT/HCPCS: 99212 ==

== ENCOUNTER → 2022-10-10 07:49 | Outpatient (REF) | payer MEDICARE, BC, SELFPAY ==
--- NOTE | 2022-10-10 08:02 | CA_ITS ---
Transthoracic Echocardiogram Patient (Last, First, Middle): Hill Lin A Gender: Male Date of : 1940 Age: 82 Procedure Date: 10/10/2022 Procedure Type: Transthoracic Echocardiogram Location: OP Height: 180.34 cm Weight: 90.72 kg BSA: 2.11 m2 Heart Rate: bpm BP: 125 / 80 mmHg Research Archaeologist: TO Referring MD: Irineo Kimble MD Line Cleaner: Irineo Kimble MD Symptoms: I42.9 - Cardiomyopathy, unspecified Study Quality: Fair Conclusions: - Normal left ventricular cavity size. There is normal left ventricular wall thickness. The left ventricular systolic function is borderline reduced. The visually estimated ejection fraction is between 45-50%. - Normal right ventricular cavity size and systolic function. - There is mild dilatation of the sinuses of Valsalva measuring 4.15 cm and mild dilatation of the ascending aorta measuring 4.10 cm. Findings Left Ventricle Normal left ventricular cavity size. There is normal left ventricular wall thickness. The left ventricular systolic function is borderline reduced. The visually estimated ejection fraction is between 45-50%. There is paradoxical septal motion consistent with a left bundle branch block. Diastolic function is indeterminate on the basis of available data. Right Ventricle Normal right ventricular cavity size and systolic function. Atria The left atrium is likely dilated. Aortic Valve There is a normal trileaflet aortic valve. There is no aortic valve stenosis. There is trace (trivial) aortic valve regurgitation. Mitral Valve The mitral valve appears normal. There is no mitral valve regurgitation. There is no mitral valve stenosis. Pulmonic Valve The pulmonic valve is likely normal. There is trace pulmonic valve regurgitation. Tricuspid Valve Normal tricuspid valve structure. There is trace tricuspid valve regurgitation. Normal right atrial pressure. There is no evidence of pulmonary hypertension. Great Vessels There is mild dilatation of the sinuses of Valsalva measuring 4.15 cm and mild dilatation of the ascending aorta measuring 4.10 cm. The visualized portions of the pulmonary artery and branches are normal. Venous The inferior vena cava is normal in size and collapses greater than 50% with inspiration. Pericardium/Pleural There is no evidence of pericardial effusion. Prior Study Comparison Changes noted compared to prior study dated: 05/16/2022. No significant changes. Previous RWMA was probably due to bundle branch block and dyssynchrony. Measurements 2D Linear Measurements IVSd: 1.15 0.6-0.9/0.6-1.0 cm LVIDd: 5.40 3.9-5.3/4.2-5.9 cm LVIDd Index: 2.56 2.4-3.2/2.2-3.1 cm/m2 LVIDs: 3.96 2.0-3.6 cm LVPWd: 0.91 0.7-1.1 cm LA Diam: 3.10 2.7-3.8/3.0-4.0 cm LAIDs Index: 1.47 1.5-2.3 cm/m2 LV Mass: 268.35 67-162/88-224 g LV Mass Index: 127.18 43-95/49-115 g/m2 LVOT Diam: 2.30 3.0+(-)1.3 cm 2D Systolic Function EF 4C: 43.10 >55% EF 2C: 46.30 >55% EF BiP: 44.40 >55% Mitral Valve MV Pk E: 0.41 MV PK A: 0.60 MV Decel Time: 216.00 E/A: 0.70 E'Lateral: 5.77 E'Medial: 4.24 E/E' Med: 9.60 E/E' Lat: 7.10 PHT: 63.00 MVA PHT: 3.49 Decel [place]: 1.88 Aortic Valve AoV Pk Will: 1.82 AoV Mn Will: 1.36 AoV VTI: 0.41 AoV Pk Grad: 13.00 Aov Mn Grad: 8.00 MARIA ELENA Cont.VTI: 1.95 LVOT LVOT Pk Will: 0.98 LVOT Mn Will: 0.58 LVOT VTI: 0.19 LVOT Pk Grad: 4.00 LVOT Mn Grad: 2.00 LVOT Diam: 2.30 LVOT Area: 4.15 Diastolic Function MV Pk E: 0.41 MV Pk A: 0.60 E/A: 0.70 E'Medial: 4.24 E/E' Med: 9.60 E' Laterial: 5.77 E/E' Lat: 7.10 Right Ventricle TAPSE (mm): 21.70 TVS' Will: 9.36 Tricuspid Valve TR Pk Will: 2.25 TR Pk Grad: 20.00 RA Press: 3.00 RVSP: 23.00 Great Vessels Aorta Sinus of Valsalva: 4.15 2.0-3.[address] [place]: 3.18 1.7-3.4 cm Ao Asc: 4.10 2.1-3.4 cm Updated in Other Vendor System with Status of Final Irineo Kimble MD electronically signed on 10/10/2022 7:04:40 PM with status of Final
== END ==
LOC: HO.CARD 07:49
PROVIDERS: PCP Internal Medicine; Visit Provider Internal Medicine Cardiovascular Disease
DX: I42.9 Cardiomyopathy, unspecified (principal)
CPT/HCPCS: 93306

== ENCOUNTER 2022-12-01 08:17 | Outpatient (REF) | payer MEDICARE, BC, SELFPAY ==
--- NOTE | ~2022-12-01 | US_ITS ---
EXAMINATION: US RETROPERITONEAL LIMITED (AORTA) CLINICAL INFORMATION: Abdominal aortic aneurysm, without rupture. COMPARISON: Ultrasound abdominal aortic aneurysm dated 11/21/2021. CT abdomen and pelvis with contrast dated 04/09/2021. TECHNIQUE: Farley-scale, color Doppler and spectral Doppler evaluation of the abdominal aorta. FINDINGS: There is atherosclerotic disease. The measurements of the aorta in maximum AP and transverse dimensions respectively are as follows: Proximal: 3.3 x 3.2 cm. Mid: 2.9 x 3.0 cm. Distal: 5.0 x 4.9 cm. PSV: 48.8 cm/s. The measurements of the common iliac arteries in maximum AP and TRV dimensions are as follows: Right Common Iliac Artery: 1.5 x 1.6 cm. Left Common Iliac Artery: 1.6 x 1.3 cm. US/US abdominal aortic aneurysm IMPRESSION: Infrarenal abdominal aortic aneurysm measuring up to 5.0 cm (previously 4.6 x 4.4 cm). Based on published guidelines in J Am Cecilia Radiol 2013; 10(10):789-794 and J Vasc Surg. 2018; 67:2-77, the recommendation for an abdominal aortic aneurysm with diameter 4.5-5.4 cm is vascular consultation and subsequent follow up every 6 months.
== END 2022-12-01 08:18 | disposition home or self-care (01) ==
LOC: HO.HMGCX 08:17
PROVIDERS: PCP Internal Medicine; Visit Provider Surgery Vascular Surgery
DX: I71.40 Abdominal aortic aneurysm, without rupture, unspecified (principal)
CPT/HCPCS: 76706

== ENCOUNTER → 2022-12-25 12:44 | Outpatient (BNVA) | payer MEDICARE, BC, SELFPAY | PROVIDERS: PCP Internal Medicine; Visit Provider Surgery Vascular Surgery | DX: I71.40 Abdominal aortic aneurysm, without rupture, unspecified (principal); Z98.890 Other specified postprocedural states | CPT/HCPCS: 99212 ==

== ENCOUNTER → 2023-01-01 12:54 | Outpatient (BNVA) | payer MEDICARE, BC, SELFPAY | PROVIDERS: PCP Internal Medicine; Referring Provider Internal Medicine; Visit Provider Internal Medicine Cardiovascular Disease | DX: I49.3 Ventricular premature depolarization (principal); I42.9 Cardiomyopathy, unspecified; I71.40 Abdominal aortic aneurysm, without rupture, unspecified | CPT/HCPCS: 93005; 99212 ==

== ENCOUNTER 2023-01-04 13:47 | Outpatient (REF) | payer MEDICARE, BC, SELFPAY ==
[2023-01-04 16:49] LABS: Blood Urea Nitrogen 15 mg/dL (9-16); Estimated Glomerular Filt Rate > 60
== END 2023-01-04 13:48 | disposition home or self-care (01) ==
LOC: HO.HMGCLDS 13:47
PROVIDERS: PCP Internal Medicine; Visit Provider Surgery Vascular Surgery
DX: I71.40 Abdominal aortic aneurysm, without rupture, unspecified (principal)
CPT/HCPCS: 36415; 82565; 84520

== ENCOUNTER 2023-01-05 08:54 | Outpatient (REF) | payer MEDICARE, BC, SELFPAY ==
--- NOTE | ~2023-01-05 | CT_ITS ---
EXAMINATION: CT ANGIOGRAPHY ABDOMEN AND PELVIS WITHOUT AND WITH CONTRAST CLINICAL INFORMATION: Abdominal aortic aneurysm COMPARISON: CT abdomen/pelvis 04/09/2020 TECHNIQUE: Initial noncontrast localizing city solicitor images were obtained. A timing bolus at the level of the celiac artery was calculated. Subsequently, arterial phase multidetector volumetric imaging was performed through the abdomen and pelvis following the administration of 100 mL Omnipaque 350 intravenous contrast. No contrast reaction reported. Sagittal and coronal reformatted images were obtained on the technologist workstation. After extensive post-processing on a dedicated 3-D workstation, 3-D reformatted images were uploaded to PACS and reviewed as well. This CT examination was performed using dose optimization techniques as appropriate, variously including the following: *Automated exposure control *Adjustment of mA and/or kV according to patient size (this includes techniques or standardized protocols for targeted exams where dose is matched to indication/reason for exam; i.e. extremities or head) *Use of iterative reconstruction technique DLP: 317 mGy-cm FINDINGS: VASCULAR: 1. Thoracoabdominal aorta (at the hiatus): 34 x 34 mm 2. Supraceliac Abdominal Aorta: 36 x 33 mm 3. Infrarenal Abdominal Aorta: Just above the aneurysm, aorta measures 30 x 32 mm. Infrarenal abdominal aortic aneurysm measures 52 x 48 mm (AP x TV) for a length of 78 mm (CC). There is significant eccentric nonflow limiting intraluminal thrombus versus plaque extending from the 10:00 position to the 8:00 position on the axial view. 4. 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 Left common iliac borderline aneurysmal measuring 1.7 cm. Bilateral common iliac arteries are severely tortuous in course, but patent. Bilateral external iliac arteries with mild atherosclerotic disease, but patent. Bilateral internal iliac arteries patent. 5. Mesenteric Arteries: Celiac artery is patent. Superior mesenteric artery patent. Inferior mesenteric artery patent. 6. Renal arteries: Single renal arteries bilaterally. Renal arteries are patent and without stenosis or other vascular anomaly. NONVASCULAR: Lung Bases: The visualized lung bases are clear. Liver: Homogeneous in attenuation. Normal in size. Gallbladder: Noninflamed. Biliary System: No intrahepatic or extrahepatic biliary dilation. Pancreas: Homogeneous in attenuation. Spleen: Normal in size. Genitourinary: Bilateral kidneys demonstrate symmetric enhancement. Simple cyst arising from the lower pole kidney measuring 7.5 x 7.5 cm; no follow-up needed. No perinephric fluid collection.. No renal calculi. No hydroureteronephrosis. Adrenal Glands: Unremarkable. Reproductive: Prostatic calcifications present. Gastrointestinal: The visualized alimentary tract is normal in course. No evidence of obstruction. Appendix: The appendix is seen in its entirety and is unremarkable. Peritoneum: No pneumoperitoneum. No intra-abdominal fluid collection. Lymph Nodes: No pathologically enlarged abdominal or pelvic lymph nodes. Soft Tissues/Musculoskeletal: Redemonstrated intervertebral disc spacer posterior spinal fusion at L4-L5 and L5-S1. Stable grade 1 anterolisthesis of L5 and L5 on S1. L1-L2 degenerative disc disease. CT/CT angio abdomen pelvis IMPRESSION: 1. Descending thoracoabdominal aneurysm, most pronounced infrarenal where there is interval enlargement and measures 5.2 x 4.8 x 7.8 cm (AP x TV x CC) with significant eccentric nonflow limiting intraluminal luminal thrombus. On previous study in 2020, the maximal aortic dimension was 4.5 cm. 2. Tortuous aorta-iliac junction and bilateral common iliac arteries. Right common iliac artery is aneurysmal measuring 2.4 cm, whereas the left common iliac artery is borderline at 1.7 cm. Fleischner guidelines were followed.
[2023-01-05] MEDS: iohexoL 350 MG/ML 100 ML INFUS..BTL IV (09:20)
== END 2023-01-05 08:55 | disposition home or self-care (01) ==
LOC: HO.CT 08:54
PROVIDERS: PCP Internal Medicine; Visit Provider Surgery Vascular Surgery
DX: I71.40 Abdominal aortic aneurysm, without rupture, unspecified (principal)
CPT/HCPCS: 74174; Q9967

== ENCOUNTER → 2023-01-09 08:48 | Outpatient (BNVA) | payer MEDICARE, BC, SELFPAY | PROVIDERS: PCP Internal Medicine; Visit Provider Surgery Vascular Surgery | DX: I71.40 Abdominal aortic aneurysm, without rupture, unspecified (principal); I25.10 Atherosclerotic heart disease of native coronary artery without angina pectoris; I10 Essential (primary) hypertension | CPT/HCPCS: 99212 ==

== ENCOUNTER → 2023-01-18 11:14 | Outpatient (BNVA) | payer MEDICARE, BC, SELFPAY | PROVIDERS: PCP Internal Medicine; Visit Provider Orthopaedic Surgery | DX: M17.11 Unilateral primary osteoarthritis, right knee (principal) | CPT/HCPCS: 20610; 99212; J1100 ==

== ENCOUNTER 2023-01-22 07:45 | Inpatient (IN) | payer MEDICARE, BC, SELFPAY ==
--- NOTE | 2023-01-17 13:12 | HO.ANESPROP2 ---
Documented by User: Aliya Cowan NP 01/18/23 13:48 HPI - Anesthesia Eval Consult details Narrative: 82yo M for Aortic Endovascular Repair Cardiac cleared [facility] Active Problems Active Problems: All Active Problems (Updated 01/17/23 @ 13:11 by Marisel Antonio RN) Diverticulitis (Acute) Hospital discharge follow-up (Acute) LFT elevation (Acute) Acid reflux (Acute) Early satiety (Acute) Abnormal stress test (Acute) Urinary tract infection (Acute) Leukocytosis (Acute) Weakness (Acute) Sepsis (Acute) Preop cardiovascular exam (Acute) Bladder outlet obstruction (Acute) Bladder neck stricture (Acute) Weak urinary stream (Acute) Incomplete emptying of bladder due to benign prostatic hyperplasia (Acute) Medicare annual wellness visit, subsequent (Acute) Frequent PVCs (Acute) Unstable angina (Acute) Family history of diabetes mellitus in first degree relative (Acute) Coronary artery disease (Acute) Knee pain, right (Acute) Cardiomyopathy (Acute) PVC (premature ventricular contraction) (Acute) AAA (abdominal aortic aneurysm) (Acute) Hypertension (Acute) Past Medical History Medical History (Updated 01/18/23 @ 12:03 by Philip Harris) AAA (abdominal aortic aneurysm) Arthritis Back pain Bladder neck stricture Cardiomyopathy Coronary artery disease COVID-19 vaccine series completed Difficulty swallowing GERD (gastroesophageal reflux disease) Hypertension Knee pain, right PVC (premature ventricular contraction) Skin cancer Family History Family History Father No problems noted. Mother No problems noted. Other Substance use disorder Family history of problems with anesthesia: No Surgical History Surgical History (Updated 01/17/23 @ 13:15 by Marisel Antonio RN) H/O colonoscopy History of cardiac cath History of hand surgery (~2001) History of prostate surgery (~2013) History of spinal fusion (~2016) Hx of bilateral inguinal hernia repair Hx of cystoscopy History of Problems with Anesthesia: No Social History Social History Household Members: Spouse Housing: Condominium Are you a primary cardiac care nurse to a significant other at home: No Do you presently have visiting nurse or other home services: No Alcohol intake: never Patient Tobacco Use Status: Former Tobacco user Quit Date: age 39 Tobacco use type: Cigarette Years Smoked: 30 e-Cigarette/Vaping Use: Never Used Substance Use Type: Former Substance User and Marijuana Current occupational status: retired Current occupation: right handed Cognitive needs: No Hearing needs: No Vision needs: No Narrative Narrative: No recent illness No CP/SOB. Meds Allergies Allergy/AdvReac Type Severity Reaction Status Date / Time amiodarone AdvReac Intermediate Constipatio Verified 01/16/23 11:24 n timolol [From Betimol] AdvReac Intermediate hypotension Verified 01/16/23 11:24 Home Medications Medication Instructions Recorded Confirmed Last Taken Type latanoprost 0.005 % eye drops 1 drp ophthalmic (eye) BEDTIME 06/30/20 01/17/23 01/21/23 History calcium carbonate 600 mg-vitamin 1 tab PO DAILY 01/17/23 01/17/23 01/21/23 History D3 5 mcg (200 unit) tablet lisinopril 10 mg tablet 10 mg PO QPM 01/17/23 01/17/23 01/21/23 History Exam Exam Date and Time: January 17, 2023 1312 Height,Weight and Vital Signs: Height 5 ft 11 in Weight 95.254 kg Vital Signs Pulse Rate 62 01/17/23 13:21 Respiratory Rate 20 01/17/23 13:21 Blood Pressure 142/58 H 01/17/23 13:21 Pulse Oximetry 96 01/17/23 13:21 Oxygen Delivery Method Room Air 01/17/23 13:21 Pertinent Lab Results Pertinent Lab Results: Lab Results 01/17/23 01/17/23 01/17/23 Range/Units 14:00 14:00 14:00 WBC 7.7 (4.8-10.8) X10*3/uL RBC 4.57 L (4.60-5.80) X10*6/uL Hgb 14.5 (14.0-18.0) g/dl Hct 43.3 (42.0-52.0) % MCV 94.7 (80.0-98.0) fL MCH 31.7 (27.0-33.0) pg MCHC 33.5 (31.0-36.0) g/dl RDW 13.3 (11.0-16.0) % Plt Count 175 (160-400) X10*3/uL MPV 10.0 (9.4-12.4) fL Absolute Nucleated RBC 0.000 (0.0-0.012) X10*3/uL Nucleated RBC % (auto) 0.0 (0.0-0.2) /100WBC PT 10.7 (10.0-13.1) SEC INR 0.9 (0.9-1.1) APTT 26.9 (26.0-36.4) SEC Sodium 141 (135-145) mmol/L Potassium 4.2 (3.3-5.1) mmol/L Chloride 106 (96-108) mmol/L Carbon Dioxide 28 (22-29) mmol/L Anion Gap 11 L (12-20) BUN 17 H (9-16) mg/dL Creatinine 0.95 (0.5-1.4) mg/dL Estim Creat Clear Calc 69.4 Estimated GFR > 60 Random Glucose 100 (60-115) mg/dL Calcium 8.9 (8.4-10.2) mg/dL Blood Type Antibody Screen 01/17/23 Range/Units 14:00 WBC (4.8-10.8) X10*3/uL RBC (4.60-5.80) X10*6/uL Hgb (14.0-18.0) g/dl Hct (42.0-52.0) % MCV (80.0-98.0) fL MCH (27.0-33.0) pg MCHC (31.0-36.0) g/dl RDW (11.0-16.0) % Plt Count (160-400) X10*3/uL MPV (9.4-12.4) fL Absolute Nucleated RBC (0.0-0.012) X10*3/uL Nucleated RBC % (auto) (0.0-0.2) /100WBC PT (10.0-13.1) SEC INR (0.9-1.1) APTT (26.0-36.4) SEC Sodium (135-145) mmol/L Potassium (3.3-5.1) mmol/L Chloride (96-108) mmol/L Carbon Dioxide (22-29) mmol/L Anion Gap (12-20) BUN (9-16) mg/dL Creatinine (0.5-1.4) mg/dL Estim Creat Clear Calc Estimated GFR Random Glucose (60-115) mg/dL Calcium (8.4-10.2) mg/dL Blood Type A Positive Antibody Screen NEGATIVE Narrative Narrative: ECHO 09/2022 Conclusions: - Normal left ventricular cavity size.? There is normal left ? ? ventricular wall thickness.? The left ventricular systolic ? ? ? function is borderline reduced.? The visually estimated ejection fraction is between 45-50%.? - Normal right ventricular cavity size and systolic function.? ? - There is mild dilatation of the sinuses of Valsalva measuring? 4.15 cm and mild dilatation of the ascending aorta measuring 4.10 cm.? EKG 12/2022 Sinus bradycardia 68 beats per minute normal left ventricular hypertrophy, premature ventricular complexes, QTC 431 milliseconds. Holter 06/2022 Total monitoring time 3 days and 3 hours. Underlying rhythm is sinus.? Average rate 62/Min.? Range 36-91/min. About 44% the time, rate less than 60/Min. Frequent PVCs, burden of 9.3%.? Some couplets, bigeminy, trigeminy, short runs.? Longest 3 beats. Very rare PACs with minimal burden. No significant pauses or AV blocks. No patient diary. Airway Mallampati Class: III TM Dist: >3cm Neck ROM: Full Denture: Upper and Lower Heart: irreg Lungs: CTAB Assessment and Plan Assessment Anesthesia Assessment: Anesthesia Plan Discussed and PAT Visit Final Anesthetic Review Family History of Problems with Anesthesia: No History of Problems with Anesthesia: No Documented by User: Elena Wallace MD 01/22/23 07:19 [facility] Past Medical History Medical History (Updated 01/18/23 @ 12:03 by Philip Harris) AAA (abdominal aortic aneurysm) Arthritis Back pain Bladder neck stricture Cardiomyopathy Coronary artery disease COVID-19 vaccine series completed Difficulty swallowing GERD (gastroesophageal reflux disease) Hypertension Knee pain, right PVC (premature ventricular contraction) Skin cancer Family History Family History Father No problems noted. Mother No problems noted. Other Substance use disorder Surgical History Surgical History (Updated 01/17/23 @ 13:15 by Marisel Antonio RN) H/O colonoscopy History of cardiac cath History of hand surgery (~2001) History of prostate surgery (~2013) History of spinal fusion (~2016) Hx of bilateral inguinal hernia repair Hx of cystoscopy Social History Social History Household Members: Spouse Housing: Condominium Are you a primary cardiac care nurse to a significant other at home: No Do you presently have visiting nurse or other home services: No Alcohol intake: never Patient Tobacco Use Status: Former Tobacco user Quit Date: age 39 Tobacco use type: Cigarette Years Smoked: 30 e-Cigarette/Vaping Use: Never Used Substance Use Type: Former Substance User and Marijuana Current occupational status: retired Current occupation: right handed Cognitive needs: No Hearing needs: No Vision needs: No Meds Allergies Allergy/AdvReac Type Severity Reaction Status Date / Time amiodarone AdvReac Intermediate Constipatio Verified 01/16/23 11:24 n timolol [From Betimol] AdvReac Intermediate hypotension Verified 01/16/23 11:24 Home Medications Medication Instructions Recorded Confirmed Last Taken Type latanoprost 0.005 % eye drops 1 drp ophthalmic (eye) BEDTIME 06/30/20 01/17/23 01/21/23 History calcium carbonate 600 mg-vitamin 1 tab PO DAILY 01/17/23 01/17/23 01/21/23 History D3 5 mcg (200 unit) tablet lisinopril 10 mg tablet 10 mg PO QPM 01/17/23 01/17/23 01/21/23 History Assessment and Plan Assessment Anesthesia Assessment: Chart Reviewed Final Anesthetic Review NPO: Yes ASA Class: III Final Preanesthetic Review: No Changes in Pt Med Stat, Meds/Allgs Chart Reviewed, Consent Obtained/Reviewed and Anes Risks/Benef Reviewed Patient Risk: Intermediate Procedure Risk: Intermediate Anesthetic Plan Anesthetic Plan: GA Disposition: Standard PACU
[2023-01-17 13:21] VITALS: BP 142/58; PULSE 62; RESP 20; O2SAT 96; BMI 29.2
[2023-01-17 14:26] LABS: Hematocrit 43.3 % (42.0-52.0); Hemoglobin 14.5 g/dl (14.0-18.0); Mean Corpuscular HGB Conc 33.5 g/dl (31.0-36.0); Mean Corpuscular Hemoglobin 31.7 pg (27.0-33.0); Mean Corpuscular Volume 94.7 fL (80.0-98.0); Platelet Count 175 X10*3/uL (160-400); Red Blood Count 4.57 X10*6/uL (4.60-5.80); Red Cell Distribution Width 13.3 % (11.0-16.0); White Blood Count 7.7 X10*3/uL (4.8-10.8)
[2023-01-17 14:33] LABS: INTERNATIONAL NORM RATIO 0.9 (0.9-1.1); Prothrombin Time 10.7 SEC (10.0-13.1)
[2023-01-17 14:36] LABS: Partial Thromboplastin Time 26.9 SEC (26.0-36.4)
[2023-01-17 14:49] LABS: Anion Gap 11 (12-20); Blood Urea Nitrogen 17 mg/dL (9-16); Calcium 8.9 mg/dL (8.4-10.2); Carbon Dioxide 28 mmol/L (22-29); Chloride 106 mmol/L (96-108); Creatinine Clr Calc Pharmacy 69.4; Estimated Glomerular Filt Rate > 60; Glucose Random 100 mg/dL (60-115); Potassium 4.2 mmol/L (3.3-5.1); Sodium 141 mmol/L (135-145)
[2023-01-22] VITALS (20 sets, daily range): BP systolic 90–127; BP diastolic 46–81; PULSE 61–111; RESP 15–27; TEMP 35.9–36.7; O2SAT 91–97
--- NOTE | ~2023-01-22 | FL_ITS ---
EXAMINATION: XR FLUOROSCOPY WITH IMAGES CLINICAL INFORMATION: History of abdominal aortic aneurysm COMPARISON: CT angiography from 01/05/2023 TECHNIQUE: Fluoroscopy Supervised By: Dr Brown Fluoroscopy Time: 50.2 min Cumulative Dose: 760 mGy. DAP: 199 Gycm2. Images: 11 series of images are saved FL/FL guidance in OR FINDINGS AND IMPRESSION: This report is provided to document use of fluoroscopic imaging equipment in the operating room during vascular procedures. The patient underwent aortobiiliac stent placement for treatment of known infrarenal abdominal aorta aneurysm.
[2023-01-22 06:30] LABS: COVID-19 Test Negative (Negative); IDNOW Serial# BCCEAD1C
[2023-01-22 06:44] LABS: INTERNATIONAL NORM RATIO 0.9 (0.9-1.1); Prothrombin Time 10.8 SEC (10.0-13.1)
[2023-01-22] MEDS: Lactated Ringers 1,000 ML 100 ML IVCONT (06:45)
[2023-01-22 06:47] LABS: Partial Thromboplastin Time 27.6 SEC (26.0-36.4)
[2023-01-22 07:05] LABS: Hematocrit 41.1 % (42.0-52.0); Hemoglobin 13.8 g/dl (14.0-18.0); Mean Corpuscular HGB Conc 33.6 g/dl (31.0-36.0); Mean Corpuscular Hemoglobin 31.5 pg (27.0-33.0); Mean Corpuscular Volume 93.8 fL (80.0-98.0); Mean Platelet Volume 10.2 fL (9.4-12.4); Platelet Count 173 X10*3/uL (160-400); Red Blood Count 4.38 X10*6/uL (4.60-5.80); Red Cell Distribution Width 13.3 % (11.0-16.0); White Blood Count 6.5 X10*3/uL (4.8-10.8)
--- NOTE | 2023-01-22 07:45 | MHC.SHP ---
Pre-Procedural Eval Section A Date of Service: 01/22/23 The patient is an INPATIENT: No Changes since office visit: Yes Patient answered all questions The History & Physical has been completed within 30 days and I have reviewed it.: Yes Section B Chief Complaint: Abdominal aortic aneurysm, without rupture, unspec Allergies: Allergies Allergy/AdvReac Type Severity Reaction Status Date / Time amiodarone AdvReac Intermediate Constipatio Verified 01/16/23 11:24 n timolol [From Betimol] AdvReac Intermediate hypotension Verified 01/16/23 11:24 Plan I have reviewed the history and physical and performed a pertinent physical examination on my patient. No changes have occurred unless specified. Time Spent With Patient Time: Total time managing care of this patient today ____ minutes.
[2023-01-22 07:54] LABS: Anion Gap 10 (12-20); Blood Urea Nitrogen 16 mg/dL (9-16); Calcium 9.5 mg/dL (8.4-10.2); Carbon Dioxide 29 mmol/L (22-29); Chloride 108 mmol/L (96-108); Creatinine Clr Calc Pharmacy 70.8; Estimated Glomerular Filt Rate > 60; Potassium 4.2 mmol/L (3.3-5.1); Sodium 143 mmol/L (135-145)
[2023-01-22 12:00] LABS: Glucose Random 102 mg/dL (60-115)
--- NOTE | 2023-01-22 12:09 | P.OP_ITS ---
Operative Note Operative Note Date of Service: 01/22/23 Narrative: Operative note by [facility] Preoperative diagnosis: Abdominal aortic aneurysm Postoperative diagnosis: Same Procedure:1. Right common femoral percutaneous puncture 2. Bilateral femoral cutdowns 2. Endovascular aortic aneurysm repair (Endologix AFX2) Surgeon:Marcos Brown M.D. Picker Feeder: Dr. Us Anesthesia: General Specimens: None Drains: None Estimated blood loss: 1000 mL with 500 given back as Cell Saver Indications: 82-year-old gentleman with aneurysm measuring over 5.[address] scan due to its saccular nature and tortuosity decision was made to repair. Patient was in agreement and would like to move forward. The patient has signed the informed consent after reviewing risks, complications, benefits, and alternatives previously discussed with the patient. The patient was given the opportunity to ask any additional questions or voice any concerns. All questions were answered to the patient's satisfaction. Procedure in detail: Patient was brought to the operating room prior to which a time-out was called for patient identification site verification abdomen and groins were prepped and draped in standard surgical fashion we initially made a left femoral cutdown and did a percutaneous puncture on the right common femoral. At this time 8000 units of systemic heparin was administered. Due to the duration of the case 2 additional 1000 units of heparin boluses were administered throughout the case. The right side we used ultrasound guidance and used a 4 Brazilian precision sheath with micropuncture wire. We were able to advance a Bentson wire. Up the left side we had significant difficulty with the tortuosity and we were able to finally advance a wire sheath and we exchanged out for long 7 Brazilian sheath on left side. We then performed an angiogram to measure vessel length and characterize the anatomy and it staff pocket fee. We exchanged out the left side for a Lunderquist wire this was met with significant difficulty due to the tortuosity. We were unable to advance this. We had to switch of for stiff Amplatzer wire. Through this left side we initially tried to bring up the sheath which is a 19 Brazilian OD a FX introducer sheath we were unable to do so. Multiple attempts were made multiple orthogonal views we would just were unable to do this with multiple wire exchanges we then turned our attention to the right-sided we then performed a right femoral cutdown. Through the right femoral the a FX bifurcated device was loaded on to the stiff wire and advanced the contralateral wire up through the 19 Brazilian outer diameter sheath using wire guide. Contralateral wire was snared through the left side and pulled out the contra side. A FX 2 bifurcated device was transferred into the a FX introducer sheath and advanced under fluoro guidance until the distal limbs were above the aortic bifurcation releasing the limbs of the graft. We pulled the entire system down on to the aortic bifurcation. We deployed the main body of the graft by pulling on the control cord handle. We then deployed the contralateral limb by pulling the yellow cover off the left side and then advancing a pigtail catheter over the contra wire until the tip was in contact with the wire lock. We held the pigtail in place and pulled on the contra wire to release it from the wire lock. We then deployed the hips heal in by planning the inner core and retracting the a FX introducer sheath. We advanced and deployed a super renal 34 x 100 infrarenal extension. We performed an angiogram to visualize the renal arteries and insure that this was in appropriate position. We did do a Mag view with little cranial caudal on the gantry. Once this was the we then plasty this entire area with AQ 50 balloon to ensure good wall apposition. We removed the extension delivery device from the a FX introducer sheath and an. We performed a final angiogram, removed catheters and sheath. An close the vascular access. Bilateral groin cutdowns were closed over with 6 0 Prolene hemostasis was achieved. Tisseel sealant was then placed. We reapproximated deep layer using 2 0 Polysorb superficial layer with 3-0 poly Sorb and finally skin with skin clips. Sterile dressings were applied. At the end of the case sponge instrument counts were correct. Patient tolerated the procedure well. Returned to recovery with stable vitals. Interpretation of films: 1. Ultrasound demonstrated appropriate puncture 2. Initial aortogram demonstrated the aneurysm along with extremely tortuous iliacs in particular the left iliac. 3. Completion angiogram demonstrated appropriate placement the AFX 2 device with no evidence of endoleak. Conclusion: Successful placement of Endologix AFX 2 aortic endograft This note is constructed using voice recognition software. While every effort has been made to ensure accuracy, merchandising execution associate errors may have been included. Thank you for allowing me to participate in the care of your patient. Yours sincerely, Marcos Brown MD, FACS, R.P.V.I.
[2023-01-22 12:56] LABS: Basophils Percent Auto 0.1 % (0-2); Hematocrit 35.4 % (42.0-52.0); Hemoglobin 11.8 g/dl (14.0-18.0); Imm Gran Abs Auto 0.05 X10*3/uL (0.00-0.03); Imm Gran Pct Auto 0.3 % (0.0-0.4); Lymphocytes Absolute Auto 0.5 X10*3/uL (1.2-4.9); Lymphocytes Percent Auto 3.1 % (20-40); MANUAL DIFF FLAG SCAN; Mean Corpuscular HGB Conc 33.3 g/dl (31.0-36.0); Mean Corpuscular Hemoglobin 31.4 pg (27.0-33.0); Mean Corpuscular Volume 94.1 fL (80.0-98.0); Mean Platelet Volume 10.2 fL (9.4-12.4); Monocytes Absolute Auto 0.2 X10*3/uL (0.1-1.2); Neutrophils Absolute Auto 14.3 x10*3/uL (2.0-8.3); Neutrophils Percent Auto 95.5 % (45-73); Platelet Count 144 X10*3/uL (160-400); Red Blood Count 3.76 X10*6/uL (4.60-5.80); Red Cell Distribution Width 13.4 % (11.0-16.0); SCAN SMEAR FLAG 1
[2023-01-22 13:13] LABS: SLIDE REVIEW VERIFIED
[2023-01-22] MEDS: ceFAZolin Sodium/Dextrose,Iso 2 GM/50 ML PIGGYBACK IV (13:15)
[2023-01-22] MEDS: Morphine Sulfate 2 MG/ML CARTRIDGE IVPUSH ×2 (13:32→23:45)
[2023-01-22] MEDS: 0.9 % Sodium Chloride 1,000 ML 80 ML IVCONT (13:35)
--- NOTE | 2023-01-22 13:55 | P.HPCC_ITS ---
History of Present Illness Date of Service: 01/22/23 Chief Complaint: status post elective endovascular AAA repair 82-year-old gentleman with underlying history of of Maureen EF, CAD, hypertension, large PVC burden now postoperative day 0 after an elective endovascular AAA repair being monitored in the intensive care unit. Review of Systems Constitutional: Constitutional: Denies daytime sleepiness, Denies excessive sweating, Denies fatigue, Denies fever(s), Denies lethargy, Denies malaise, Denies night sweats, Denies snoring and Denies weight loss Eyes: Eyes: Denies blurry vision and Denies itchy eyes ENT: Denies nasal congestion, Denies post nasal drip, Denies sinus pain, Denies sinus pressure and Denies other ( Thrush) Cardiovascular: Cardiovascular: Denies chest pain, Denies pedal edema, Denies dyspnea, Denies orthopnea and Denies paroxysmal nocturnal dyspnea Respiratory: Respiratory: Denies cough, Denies hemoptysis, Denies excessive phlegm production, Denies dyspnea, Denies snoring and Denies wheezing Gastrointestinal: Gastrointestinal: Denies abdominal pain and Denies heartburn Musculoskeletal: Musculoskeletal: Denies myalgias Integumentary/Breasts: Skin/Breast: Denies rash Neurologic: Denies memory loss and Denies seizure-like activity Psychiatric: Psychiatric: Denies abnormal sleep pattern, Denies anxiety and Denies memory loss Endocrine: Endocrine: Denies excessive sweating, Denies fatigue and Denies heat intolerance Hematologic/Lymphatic: Hematologic/Lymphatic: Denies easy bruising Allergic/Immunologic: Allergic/Immunologic: Denies itchy eyes, Denies seasonal rhinorrhea and Denies wheezing PMFSH Past Medical History Medical History (Updated 01/18/23 @ 12:03 by Philip Harris) AAA (abdominal aortic aneurysm) Arthritis Back pain Bladder neck stricture Cardiomyopathy Coronary artery disease COVID-19 vaccine series completed Difficulty swallowing GERD (gastroesophageal reflux disease) Hypertension Knee pain, right PVC (premature ventricular contraction) Skin cancer Family History Family History Father No problems noted. Mother No problems noted. Other Substance use disorder Surgical History Surgical History (Updated 01/22/23 @ 13:57 by Rickey Hahn MD) H/O colonoscopy History of cardiac cath History of hand surgery (~2001) History of prostate surgery (~2013) History of spinal fusion (~2017) Hx of bilateral inguinal hernia repair Hx of cystoscopy Social History Social History Household Members: Spouse Housing: Condominium Are you a primary client care manager to a significant other at home: No Do you presently have visiting nurse or other home services: No Alcohol intake: never Patient Tobacco Use Status: Former Tobacco user Quit Date: age 39 Tobacco use type: Cigarette Years Smoked: 30 Smoked in Last 30 Days: No e-Cigarette/Vaping Use: Never Used Use of substances other than those prescribed or required for medical reasons: Yes 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 If so, by whom?: No Do you feel safe in your current relationship?: Yes Is there a partner from a previous relationship who is making you feel unsafe now?: No Are you made to feel afraid or neglected: No Are you DNR?: No Advance Directives Information Provided: Yes (as above noted) Advance Directives on File: No Do you have thoughts of harming others: None Do you have a plan to hurt others: No Plan Recently lost weight without trying: No Eating poorly because of decreased appetite: No Nutrition Risks: Surgical patient >75years Poor oral hygiene: No Current occupational status: retired Current occupation: right handed Cognitive needs: No Hearing needs: No Vision needs: No Meds Allergies Allergy/AdvReac Type Severity Reaction Status Date / Time amiodarone AdvReac Intermediate Constipatio Verified 01/16/23 11:24 n timolol [From Betimol] AdvReac Intermediate hypotension Verified 01/16/23 11:24 Active Medications: Current Medications Acetaminophen (Acetaminophen 325 Mg Tablet) 650 mg PO Q6H PRN PRN Reason: Pain, Mild (Pain Scale 1-3) Aspirin (Aspirin Enteric Coated 81 Mg Tablet.) 81 mg PO DAILY KIKO Sodium Chloride (Ns) 1,000 mls @ 80 mls/hr IVCONT .[id number] KIKO Last Admin: 01/22/23 13:35 Dose: 80 mls/hr Cefazolin Sodium/Dextrose (Ancef) 2 gm in 50 mls @ 100 mls/hr IV POSTOP ONE Stop: 01/22/23 14:29 Last Infusion: 01/22/23 13:49 Dose: Infused Latanoprost (Latanoprost 0.005 % Ophth Carleen 2.5 Ml Drops) 1 drop EYE-BOTH BEDTIME [facility] Lisinopril (Lisinopril 10 Mg Tablet) 10 mg PO BEDTIME KIKO; Protocol Morphine Sulfate (Morphine Sulfate 2 Mg/Ml Cartridge) 2 mg IVPUSH Q4H PRN; Protocol PRN Reason: Pain, Severe (Pain Scale 8-10) Last Admin: 01/22/23 13:32 Dose: 2 mg Ondansetron HCl (Ondansetron Hcl 4 Mg/2 Ml Vial) 4 mg IVPUSH ONCE PRN PRN Reason: Nausea and Vomiting Oxycodone HCl (Oxycodone Hcl Immed Release 5 Mg Tablet) 5 mg PO Q4H PRN PRN Reason: Pain, Moderate (Pain Scale 4-6 Sodium Chloride (0.9 % Sodium Chloride Flush 3 Ml Syringe) 3 ml IVFLUSH QSHIFT [facility] Home Medications Medication Instructions Recorded Confirmed Last Taken Type latanoprost 0.005 % eye drops 1 drp ophthalmic (eye) BEDTIME 06/30/20 01/17/23 01/21/23 History calcium carbonate 600 mg-vitamin 1 tab PO DAILY 01/17/23 01/17/23 01/21/23 History D3 5 mcg (200 unit) tablet lisinopril 10 mg tablet 10 mg PO QPM 01/17/23 01/17/23 01/21/23 History Physical Exam Vital Signs: Vital Signs: Last Vital Signs Temp 96.7 F L 01/22/23 13:32 Pulse 94 01/22/23 13:32 Resp 26 H 01/22/23 13:32 BP 104/60 01/22/23 13:32 Pulse Ox 96 01/22/23 13:32 O2 Del Method Nasal Cannula 01/22/23 13:32 O2 Flow Rate 2 01/22/23 13:32 BMI result Body Mass Index 29.2 Const: General: no acute distress and alert Nutritional Appearance: not obese Orientation/consciousness: Other orientation findings ( oriented) HEENT: Head: Yes atraumatic Mouth: no other ( thrush) Throat: No postnasal drainage Eyes: General: appearance normal, both eyes and all related structures Sclerae: sclerae normal EOM: EOMs intact bilaterally Neck: Neck: Yes supple Lymphatic: no lymphadenopathy noted Resp: Effort & Inspection: normal respiratory effort and no use of accessory muscles Auscultation: clear to auscultation bilaterally Cardio: Rate: regular rate Rhythm: regular rhythm Heart sounds: no gallops, no murmurs and no rubs GI: Palpation (GI): Soft to palpation and Other GI palpation findings present ( nontender) Skin: General skin exam: other ( warm) Rashes: no rashes Extrem: General: No clubbing, No cyanosis, No edema and Yes other ( Bilateral femoral access sites without hematoma) Results Labs 01/22/23 12:47 01/22/23 06:29 Labs: Laboratory Results - last 24 hr 01/22/23 01/22/23 01/22/23 06:10 06:29 06:29 MCV 93.8 MCH 31.5 MCHC 33.6 RDW 13.3 Plt Count 173 MPV 10.2 Immature Gran % (Auto) Neut % (Auto) Lymph % (Auto) [place] % (Auto) Eos % (Auto) Baso % (Auto) Lymph # (Auto) [place] # (Auto) Eos # (Auto) Baso # (Auto) Abs Immat Gran (auto) Absolute Neuts (auto) Absolute Nucleated RBC 0.000 Nucleated RBC % (auto) 0.0 Smear Tech's Comments PT 10.8 INR 0.9 APTT 27.6 Anion Gap Estim Creat Clear Calc Estimated GFR Random Glucose Calcium COVID-19 (JESSICA) Negative COVID-19 Clin Com See Note 01/22/23 01/22/23 06:29 12:47 MCV 94.1 MCH 31.4 MCHC 33.3 RDW 13.4 Plt Count 144 L MPV 10.2 Immature Gran % (Auto) 0.3 Neut % (Auto) 95.5 H Lymph % (Auto) 3.1 L [place] % (Auto) 1.0 L Eos % (Auto) 0.0 Baso % (Auto) 0.1 Lymph # (Auto) 0.5 L [place] # (Auto) 0.2 Eos # (Auto) 0.0 Baso # (Auto) 0.0 Abs Immat Gran (auto) 0.05 H Absolute Neuts (auto) 14.3 H Absolute Nucleated RBC 0.000 Nucleated RBC % (auto) 0.0 Smear Tech's Comments VERIFIED PT INR APTT Anion Gap 10 L Estim Creat Clear Calc 70.8 Estimated GFR > 60 Random Glucose 102 Calcium 9.5 D COVID-19 (JESSICA) COVID-19 Clin Com Assessment and Plan (1) S/P AAA (abdominal aortic aneurysm) repair: Status: Acute (2) Hypertension: Status: Acute (3) PVC (premature ventricular contraction): Status: Acute Plan Assessment: 82-year-old gentleman postoperative day 0 status post elective endovascular AAA repair Plan: Neuro: No acute issues. Cardiac:postoperative day 0 status post elective endovascular AAA repair. Vascular surgery service care appreciated. Maintain systolic blood pressure under 160. Pulmonary: No acute issues. Renal: No acute issues. Endo: No acute issues. GI: No acute issues. ID: No acute issues Heme/Onc: EBL of 1000 cc. Continue to monitor hemoglobin level. Psych: No acute issues. Miscellaneous: No acute issues. Prophylaxis: Per vascular surgery Diet: per vascular surgery Critical care time spent: Time Spent With Patient Time: Total time managing care of this patient today ____ minutes.
[2023-01-22] MEDS: 0.9 % Sodium Chloride Flush 3 ML SYRINGE IVFLUSH ×2 (15:30→23:57)
[2023-01-22] MEDS: oxyCODONE HCl Immed Release 5 MG TABLET PO (18:01)
[2023-01-22] MEDS: Acetaminophen 325 MG TABLET 650 MG PO (20:18)
[2023-01-22] MEDS: Latanoprost 0.005 % Ophth Sol 2.5 ML DROPS 1 DROP EYE-BOTH (20:19)
[2023-01-23] VITALS (15 sets, daily range): BP systolic 90–111; BP diastolic 50–67; PULSE 67–98; RESP 15–26; TEMP 36.6–36.9; O2SAT 89–97; BMI 29.9
[2023-01-23] MEDS: oxyCODONE HCl Immed Release 5 MG TABLET PO (00:31)
[2023-01-23] MEDS: 0.9 % Sodium Chloride 1,000 ML 80 ML IVCONT (00:32)
[2023-01-23 04:50] LABS: Basophils Percent Auto 0.1 % (0-2); Eosinophils Percent Auto 0.2 % (0-4); Hematocrit 30.3 % (42.0-52.0); Hemoglobin 10.1 g/dl (14.0-18.0); Imm Gran Abs Auto 0.04 X10*3/uL (0.00-0.03); Imm Gran Pct Auto 0.3 % (0.0-0.4); Lymphocytes Absolute Auto 1.7 X10*3/uL (1.2-4.9); Lymphocytes Percent Auto 14.5 % (20-40); MANUAL DIFF FLAG NO; Mean Corpuscular HGB Conc 33.3 g/dl (31.0-36.0); Mean Corpuscular Hemoglobin 31.5 pg (27.0-33.0); Mean Corpuscular Volume 94.4 fL (80.0-98.0); Mean Platelet Volume 10.2 fL (9.4-12.4); Monocytes Absolute Auto 0.9 X10*3/uL (0.1-1.2); Monocytes Percent Auto 7.4 % (2-11); Neutrophils Absolute Auto 9.2 x10*3/uL (2.0-8.3); Neutrophils Percent Auto 77.5 % (45-73); Platelet Count 117 X10*3/uL (160-400); Red Blood Count 3.21 X10*6/uL (4.60-5.80); Red Cell Distribution Width 13.5 % (11.0-16.0); White Blood Count 11.8 X10*3/uL (4.8-10.8)
--- NOTE | 2023-01-23 04:51 | PC.NURSE ---
ASSUMED CARE OF PT AT 2300. PT IS A&O X3. C/O PAIN IN LOWER BACK. RECEIVED MORPHINE SULFATE 2MG IV WITH GOOD EFFECT AND FOLLOWED UP WITH OXYCODONE 5 MG PO. PT REPOSITIONED WITH IMPROVEMENT IN COMFORT. BILAT GROIN FOAM DRESSINGS ARE D&I. PERIPHERAL PULSES PALPABLE. CHRISTOPHER INTACT LEFT RADIAL ARTERY, ZERO TRIMMED AND CALIBRATED. CORRELATES WITH MANUAL. CHRISTOPHER 106/59. MANUAL BP 113/68. BP 100'S-110'S/50'S-60'S BUT AT THIS TIME BP HAS DROPPED TO 90'S SYSTOLIC. IV NS INFUSING AT 80 ML/HR. LOW BP REPORTED TO MARISA HOOVER PA-C. AM LABWORK DRAWN EARLY TO CHECK ON HGB/HCT. RESULTS PENDING. MONITOR SHOWS NSR 80'S-102, FREQ PVC'S NOTED. U/O IS GOOD 75-150ML/HR.
[2023-01-23 05:10] LABS: Magnesium 1.8 mg/dL (1.6-2.6)
[2023-01-23 05:11] LABS: Anion Gap 10 (12-20); Blood Urea Nitrogen 14 mg/dL (9-16); Calcium 8.2 mg/dL (8.4-10.2); Carbon Dioxide 27 mmol/L (22-29); Chloride 108 mmol/L (96-108); Creatinine Clr Calc Pharmacy 83.4; Estimated Glomerular Filt Rate > 60; Glucose Random 130 mg/dL (60-115); Potassium 4.3 mmol/L (3.3-5.1); Sodium 141 mmol/L (135-145)
[2023-01-23 05:13] LABS: INTERNATIONAL NORM RATIO 1.1 (0.9-1.1); Prothrombin Time 12.9 SEC (10.0-13.1)
--- NOTE | 2023-01-23 05:15 | PC.NURSE ---
HGB/HCT RESULTS: 10.30.3 AND REPORTED TO MARISA GUEVARA. NO IMMEDIATE ORDERS AT THIS TIME. WILL REPEAT HGB/HCT AT 0900. PT DENIES DIZZINESS OR ANY SYMPTOMS ACCOCIATED WITH LOW BP.
[2023-01-23] MEDS: Aspirin Enteric Coated 81 MG TABLET.DR PO (07:42)
[2023-01-23] MEDS: 0.9 % Sodium Chloride Flush 3 ML SYRINGE IVFLUSH (07:42)
--- NOTE | 2023-01-23 10:12 | MHC.CM.PN ---
Addendum entered by Erica Longo 01/23/23 13:15: Pt to d/c to home today w/new [facility] skilled RN visits. Dtr here to transport pt to home. Original Note: Met w/pt in ICU following a AAA repair: pt resides w/spouse who has Parkinson's and does not drive. Pt is independent, has no services or DME and drives. Pt requesting C shuttle or Lyft for transport to home: Discussed HCP completion: pt states he will consider and request CM assistance if needed. Referred to [facility] for skilled RN services and assessments per pt request
--- NOTE | 2023-01-23 13:02 | P.DS_ITS ---
DS: Providers Provider Date of Service: 01/23/23 Date of admission: 01/22/23 07:45 Primary care physician: Crystal Cantu MD DS: Diagnosis Discharge Diagnosis (1) S/P AAA (abdominal aortic aneurysm) repair: Status: Acute (2) Hypertension: Status: Acute (3) PVC (premature ventricular contraction): Status: Acute DS: Summary Hospital Course Hospital Course: Patient underwent endovascular aortic aneurysm repair with Endologix a FX 2 device on 01/22/2023. Postoperatively did well. He was observed in the ICU overnight. Postop day 1 A-line and Finch were removed. He was tolerating re gular diet. He was subsequently discharged. Status at Discharge Functional status at discharge: independent ambulation Overall status at discharge: patient is back to baseline Time Spent with Patient Time attestation: Total time managing care of this patient today ____ minutes. Discharge coordination time: Less than 30 minutes Quality: Safe Use of Opioids Does Pt have an Active Cancer Diagnosis on the Problem List?: No Quality: Stroke Does the patient have a stroke diagnosis?: No Physical Exam Vital Signs: Vital Signs: Last Vital Signs Temp 97.9 F 01/23/23 12:00 Pulse 90 01/23/23 12:00 Resp 19 01/23/23 12:00 BP 111/67 01/23/23 12:00 Pulse Ox 91 L 01/23/23 12:00 O2 Del Method Room Air 01/23/23 12:00 O2 Flow Rate 2 01/23/23 08:00 Oxygen Flow Rate 2 01/23/23 07:19 BMI result Body Mass Index 29.9 Const: General: cooperative, healthy appearing and no acute distress Orientation/consciousness: oriented to person, oriented to place and oriented to time HEENT: Head: Yes normal to inspection Neck: Carotids: no bruits Chest: Chest palpation & inspection: normal inspection of the chest Resp: Effort & Inspection: normal respiratory effort and able to speak in complete sentences Auscultation: clear to auscultation bilaterally Cardio: Rate: regular rate Heart sounds: S1 normal heart sound present and S2 normal heart sound present GI: Inspection: Yes normal to inspection Skin: Other: Bilateral groins well-healing General skin exam: no rashes or lesions noted Wounds: no wounds Neuro: General: oriented to person, oriented to place, oriented to time and CN's II-XI intact bilaterally Extrem: General: Yes normal to inspection, Yes full ROM and Yes no clubbing, cyanosis or edema Psych: Appearance: grossly normal and well kempt Speech and movement: Normal speech and movement present Affect: normal affect DS: Data Data Completed and Pending Labs on day of discharge: Laboratory Results - last 24 hr 01/22/23 01/23/23 01/23/23 12:47 04:45 04:45 WBC RBC Hgb Hct MCV MCH MCHC RDW Plt Count MPV Immature Gran % (Auto) 0.3 Neut % (Auto) 95.5 H Lymph % (Auto) 3.1 L Sampson % (Auto) 1.0 L Eos % (Auto) 0.0 Baso % (Auto) 0.1 Lymph # (Auto) 0.5 L [place] # (Auto) 0.2 Eos # (Auto) 0.0 Baso # (Auto) 0.0 Abs Immat Gran (auto) 0.05 H Absolute Neuts (auto) 14.3 H Absolute Nucleated RBC 0.000 Nucleated RBC % (auto) 0.0 Smear Tech's Comments VERIFIED PT 12.9 INR 1.1 Sodium 141 Potassium 4.3 Chloride 108 Carbon Dioxide 27 Anion Gap 10 L BUN 14 Creatinine 0.79 Estim Creat Clear Calc 83.4 Estimated GFR > 60 Random Glucose 130 H Calcium 8.2 L D Phosphorus Magnesium 01/23/23 01/23/23 04:45 04:45 WBC 11.8 H RBC 3.21 L Hgb 10.1 L Hct 30.3 L MCV 94.4 MCH 31.5 MCHC 33.3 RDW 13.5 Plt Count 117 L MPV 10.2 Immature Gran % (Auto) 0.3 Neut % (Auto) 77.5 H Lymph % (Auto) 14.5 L Sampson % (Auto) 7.4 Eos % (Auto) 0.2 Baso % (Auto) 0.1 Lymph # (Auto) 1.7 Sampson # (Auto) 0.9 Eos # (Auto) 0.0 Baso # (Auto) 0.0 Abs Immat Gran (auto) 0.04 H Absolute Neuts (auto) 9.2 H Absolute Nucleated RBC 0.000 Nucleated RBC % (auto) 0.0 Smear Tech's Comments PT INR Sodium Potassium Chloride Carbon Dioxide Anion Gap BUN Creatinine Estim Creat Clear Calc Estimated GFR Random Glucose Calcium Phosphorus 4.0 Magnesium 1.8 Discharge Plan Discharge Anticipated Discharge Date/Time: 01/23/23 12:50 Patient Disposition: Home, Self-Care Discharge Diagnosis: Status post endovascular aneurysm repair Referrals: Crystal Cantu MD [Primary Care Provider] - 1 Week Discharge Medications: New oxycodone 5 mg capsule 5 mg PO Q8H PRN (Reason: pain) Qty: 10 0RF Rx Instructions: Partial Fill upon patient request. Continued calcium carbonate-vitamin D3 600 mg-5 mcg (200 unit) Tablet 1 tab PO DAILY lisinopril 10 mg tablet 10 mg PO QPM latanoprost 0.005 % drops 1 drp ophthalmic (eye) BEDTIME aspirin [Adult Aspirin Regimen] 81 mg tablet,delayed release (DR/EC) 81 mg PO DAILY Qty: 60 3RF Discharge Orders: Discharge Order (Routine); Ordered 01/23/23 Ordered By: Marcos Brown Diet: Advance to usual diet Activity on Discharge: As tolerated Stand Alone Forms: Patient Portal Discharge page Activity Restrictions/Additional Instructions: Skin brissa were used and you may shower as early as . Take it easy today and you may ambulate around the house. Within 24 hours you can resume normal activity You may climb a flight of stairs as tolerated Do not lift anything heavier than a gallon of milk for [address] Brown in follow-up in approximately 2 weeks time for staple removal. You should already have an appointment if not please call my office at [phone] Please use Percocet as needed for pain If you notice excessive bleeding from the groin please immediately call my office or return to the emergency room. Care Plan Goals: Aneurysm follow-up Health Concerns: Abdominal aortic aneurysm Plan of Treatment: Surveillance follow-up of stent graft Assessment: Status post endovascular aneurysm repair
--- NOTE | 2023-01-23 13:58 | HO.POSTANES ---
Post Anesthesia Evaluation Post Anesthesia Evaluation Vital Signs: Vital Signs Temp Pulse Resp BP Pulse Ox O2 Del Method O2 Flow Rate 01/23/23 12:00 97.9 F 90 19 111/67 91 L Room Air 01/23/23 10:00 74 20 94/51 L 91 L Room Air 01/23/23 11:43 96 Room Air 01/23/23 07:19 96 Nasal Cannula 01/23/23 13:00 74 26 H 111/66 91 L Room Air 01/23/23 11:00 73 19 93/57 L 89 L Nasal Cannula 01/23/23 09:00 71 26 H 110/56 L 92 Room Air 01/23/23 08:00 97.8 F 77 25 H 101/60 96 Nasal Cannula 2 01/23/23 07:00 67 16 111/56 L 97 Nasal Cannula 2 01/23/23 06:00 78 15 98/50 L 95 Room Air 01/23/23 05:00 85 22 H 90/52 L 96 Room Air 01/23/23 04:00 98.4 F 92 22 H 94/56 L 95 Room Air 01/23/23 02:00 93 20 105/61 96 Room Air 01/23/23 03:00 88 17 106/63 95 Nasal Cannula 2 Anesthesia: General Mental Status: Awake Pain Control: Satisfactory Nausea/Vomiting: None Hydration: Adequate Anesthesia-Related Issues: No Anes. Related Issues
== END 2023-01-23 14:00 | disposition home or self-care (01) | DRG 271 ==
LOC: HO.SSSA 11:41 → HO.ICU 12:34
PROVIDERS: Nurse Practitioner; Admitting Provider Surgery Vascular Surgery; PCP Internal Medicine; Visit Provider Internal Medicine Pulmonary Disease
PROC: 04V03ZZ Restriction of Abdominal Aorta, Percutaneous Approach (ICD-10-PCS; principal; 2023-01-22 07:30)
DX: I71.40 Abdominal aortic aneurysm, without rupture, unspecified (principal); I42.9 Cardiomyopathy, unspecified; I10 Essential (primary) hypertension; I49.3 Ventricular premature depolarization; I25.10 Atherosclerotic heart disease of native coronary artery without angina pectoris; Z20.822 Contact with and (suspected) exposure to COVID-19; Z98.1 Arthrodesis status; Z87.891 Personal history of nicotine dependence; Z88.8 Allergy status to other drugs, medicaments and biological substances; Z79.82 Long term (current) use of aspirin; Z79.899 Other long term (current) drug therapy
CPT/HCPCS: 36415; 80048; 83735; 84100; 85025; 85027; 85610; 85730; 86850; 86900; 86901; 87635; C1758; C1768; C1769; C1874; C1887; C1894; C2628; J0690; J1100; J1643; J2250; J2270; J2370; J2405; J2795; J3010

== ENCOUNTER 2023-01-26 16:18 | Emergency (ER) | payer MEDICARE, BC, SELFPAY ==
[2023-01-26 16:25] VITALS: BP 124/67; BP 164/104; PULSE 74; PULSE 78; RESP 20; TEMP 36.4; O2SAT 97; BMI 29.9
--- NOTE | 2023-01-26 18:59 | ED.MALEGU ---
HPI - Male Genitourinary General Chief complaint: Urogenital-Male Stated complaint: swollen p Time Seen by Provider: 01/26/23 18:12 Source: patient Mode of arrival: ambulatory Limitations: no limitations History of Present Illness HPI Narrative: 82-year-old male presents with swelling and redness to the genital area. Patient was discharged on January 23 for an elective AAA repair. Patient was observed in the ICU overnight. On postop day 1, the arterial line and Finch catheter removed. He was tolerating regular diet was able to be discharged. Since then, patient has continued to have some soreness in the groin and abdominal area. However, today after trying to defecate, he noted some redness and swelling to the genital area. He was able to urinate without any difficulty. He has no significant pain in the genitals. He is currently not on any blood thinning medications. He has no acute pain, lightheadedness, chest pain or shortness of breath there has been no clear relieving or exacerbating features. Related Data Home Medications Medication Instructions Recorded Confirmed latanoprost 0.005 % eye drops 1 drp ophthalmic (eye) BEDTIME 06/30/20 01/17/23 calcium carbonate 600 mg-vitamin 1 tab PO DAILY 01/17/23 01/17/23 D3 5 mcg (200 unit) tablet lisinopril 10 mg tablet 10 mg PO QPM 01/17/23 01/17/23 Previous Rx's Medication Instructions Recorded aspirin 81 mg tablet,delayed 81 mg PO DAILY #60 tabs 06/14/22 release (Adult Aspirin Regimen) oxycodone 5 mg capsule 5 mg PO Q8H PRN pain #10 caps 01/23/23 Allergies Allergy/AdvReac Type Severity Reaction Status Date / Time amiodarone AdvReac Intermediate Constipatio Verified 01/16/23 11:24 n timolol [From Betimol] AdvReac Intermediate hypotension Verified 01/16/23 11:24 [facility] Past Medical History Medical History AAA (abdominal aortic aneurysm) Arthritis Back pain Bladder neck stricture Cardiomyopathy Coronary artery disease COVID-19 vaccine series completed Difficulty swallowing GERD (gastroesophageal reflux disease) Hypertension Knee pain, right PVC (premature ventricular contraction) Skin cancer Surgical History H/O colonoscopy History of cardiac cath History of hand surgery (~2001) History of prostate surgery (~2013) History of spinal fusion (~2016) Hx of bilateral inguinal hernia repair Hx of cystoscopy Family History Family History Father No problems noted. Mother No problems noted. Other Substance use disorder Social History Social History Household Members: Spouse Housing: [facility] Are you a primary child day care provider to a significant other at home: No Do you presently have visiting nurse or other home services: No Alcohol intake: never Patient Tobacco Use Status: Former Tobacco user Quit Date: age 39 Tobacco use type: Cigarette Years Smoked: 30 e-Cigarette/Vaping Use: Never Used Substance Use Type: Marijuana Advance Directives: Yes Advance Directives Information Provided: No Advance Directives on File: No service: No Current occupational status: retired Current occupation: right handed Cognitive needs: No Hearing needs: No Vision needs: No Physical Exam Vital Signs: Vital Signs: Last Vital Signs Temp 98.4 F 01/26/23 19:31 Pulse 53 01/26/23 19:31 Resp 16 01/26/23 19:31 BP 124/66 01/26/23 19:31 Pulse Ox 97 01/26/23 19:31 O2 Del Method Room Air 01/26/23 19:31 BMI result Body Mass Index 29.9 GEN: Well developed, no acute distress, alert, oriented HEENT: Normocephalic, atraumatic, normal external ears, nose appears normal, no oropharyngeal edema or exudates Eyes: Normal to appearance Neck: Supple, no lymphadenopathy Respiratory: Talks in complete sentences, no respiratory distress, clear to auscultation bilaterally Cardiovascular: Regular rate and rhythm, no murmurs rubs or gallops Abdomen: Soft, nontender, nondistended, no guarding, no rebound : scrotal and penile hematoma. No tenderness Back: No CVA tenderness Extremities: No clubbing cyanosis or edema Neurologic: No focal neurologic deficits, cranial nerves 2-12 intact, strength is 5/5 bilaterally Skin: No rash Course Course Course Narrative: 82-year-old male who is postop AAA repair presents with scrotal hematoma penile hematoma without any significant pain or discomfort. Surgical sites appear well intact. There is no evidence cellulitis. He is not lightheaded, chest pain, palpitations or short of breath. Patient should have a routine laboratory analysis including CBC, basic metabolic panel, PT, PTT to evaluate for significant anemia that might warrant emergent imaging to rule out active graft bleeding. I doubt that this is happening. Patient reports that the surgery was somewhat traumatic but is otherwise doing well. Reevaluation(s) Reevaluation #1: labs look good, anemia stable. Will d/c at this time. Time: 20:50 Consultations Consultation #1: [place] text with Dr. brown reports this is a normal postoperative course given the type of surgery he had. Recommends pain medications and discharged. Will check blood counts just make sure that there are no significant abnormalities or concerns at this time Medical Decision Making Medical Decision Making MDM Narrative: 82-year-old male presents with swelling and redness the scrotum and penis. He has no significant acute pain. His postoperative from a AAA repair. Evaluation is consistent with a scrotal and penile hematoma. He does have a little bit of bruising along the flanks however I would doubt he has retroperitoneal bleeding. I will check blood counts to make sure he is not significantly anemia. If this is the case, would recommend CT scan of the abdomen pelvis to rule out bleeding from the graft. However, he is otherwise asymptomatic. I believe this is most likely just a postoperative finding. Will reach out to the patient's vascular surgeon. Differential Diagnosis Differential Diagnoses: The differential diagnosis associated with the presentation includes (Postoperative finding, postoperative complication, retroperitoneal bleeding) Admission/Observation Consideration of admission/observation: Escalation of care including admission/observation considered Lab Data [facility] Lab Attestation statement: I reviewed the patient's lab results. 01/26/23 19:29 01/26/23 19:29 Labs: Lab Results 01/26/23 01/26/23 01/26/23 Range/Units 19:29 19:29 19:29 WBC 8.5 (4.8-10.8) X10*3/uL RBC 3.21 L (4.60-5.80) X10*6/uL Hgb 10.1 L (14.0-18.0) g/dl Hct 30.5 L (42.0-52.0) % MCV 95.0 (80.0-98.0) fL MCH 31.5 (27.0-33.0) pg MCHC 33.1 (31.0-36.0) g/dl RDW 13.6 (11.0-16.0) % Plt Count 166 D (160-400) X10*3/uL MPV 10.0 (9.4-12.4) fL Immature Gran % (Auto) 0.4 (0.0-0.4) % Neut % (Auto) 71.7 (45-73) % Lymph % (Auto) 18.9 L (20-40) % [place] % (Auto) 7.3 (2-11) % Eos % (Auto) 1.6 (0-4) % Baso % (Auto) 0.1 (0-2) % Lymph # (Auto) 1.6 (1.2-4.9) X10*3/uL [place] # (Auto) 0.6 (0.1-1.2) X10*3/uL Eos # (Auto) 0.1 (0.0-0.4) X10*3/uL Baso # (Auto) 0.0 (0.0-0.2) X10*3/uL Abs Immat Gran (auto) 0.03 (0.00-0.03) X10*3/uL Absolute Neuts (auto) 6.1 (2.0-8.3) x10*3/uL Absolute Nucleated RBC 0.000 (0.0-0.012) X10*3/uL Nucleated RBC % (auto) 0.0 (0.0-0.2) /100WBC PT 11.2 (10.0-13.1) SEC INR 1.0 (0.9-1.1) APTT 26.6 (26.0-36.4) SEC Sodium 142 (135-145) mmol/L Potassium 4.4 (3.3-5.1) mmol/L Chloride 106 (96-108) mmol/L Carbon Dioxide 26 (22-29) mmol/L Anion Gap 14 (12-20) BUN 17 H (9-16) mg/dL Creatinine 0.92 (0.5-1.4) mg/dL Estim Creat Clear Calc 72.2 Estimated GFR > 60 Random Glucose 134 H (60-115) mg/dL Calcium 8.4 (8.4-10.2) mg/dL Independent Historian Clinical information obtained from an independent historian. History obtained from or confirmed by: Spouse External Record Review External record reviewed: Inpatient record Tests considered The following testing was considered but not selected: CT abdomen and pelvis Prescription Management I considered prescription management with: Pain Medication Discharge Plan Discharge Clinical Impression: Hematoma of scrotum Patient Disposition: Home, Self-Care Instructions: Hematoma (ED) Prescriptions: No Action calcium carbonate-vitamin D3 600 mg-5 mcg (200 unit) Tablet 1 tab PO DAILY lisinopril 10 mg tablet 10 mg PO QPM oxycodone 5 mg capsule 5 mg PO Q8H PRN (Reason: pain) Qty: 10 0RF Rx Instructions: Partial Fill upon patient request. latanoprost 0.005 % drops 1 drp ophthalmic (eye) BEDTIME aspirin [Adult Aspirin Regimen] 81 mg tablet,delayed release (DR/EC) 81 mg PO DAILY Qty: 60 3RF Referrals: Marcos Brown MD [Physician] -
[2023-01-26 19:31] VITALS: BP 124/66; PULSE 53; RESP 16; TEMP 36.9; O2SAT 97
[2023-01-26 19:33] LABS: MANUAL DIFF FLAG NO
[2023-01-26 19:34] LABS: Basophils Percent Auto 0.1 % (0-2); Eosinophils Absolute Auto 0.1 X10*3/uL (0.0-0.4); Eosinophils Percent Auto 1.6 % (0-4); Hematocrit 30.5 % (42.0-52.0); Hemoglobin 10.1 g/dl (14.0-18.0); Imm Gran Abs Auto 0.03 X10*3/uL (0.00-0.03); Imm Gran Pct Auto 0.4 % (0.0-0.4); Lymphocytes Absolute Auto 1.6 X10*3/uL (1.2-4.9); Lymphocytes Percent Auto 18.9 % (20-40); Mean Corpuscular HGB Conc 33.1 g/dl (31.0-36.0); Mean Corpuscular Hemoglobin 31.5 pg (27.0-33.0); Monocytes Absolute Auto 0.6 X10*3/uL (0.1-1.2); Monocytes Percent Auto 7.3 % (2-11); Neutrophils Absolute Auto 6.1 x10*3/uL (2.0-8.3); Neutrophils Percent Auto 71.7 % (45-73); Platelet Count 166 X10*3/uL (160-400); Red Blood Count 3.21 X10*6/uL (4.60-5.80); Red Cell Distribution Width 13.6 % (11.0-16.0); White Blood Count 8.5 X10*3/uL (4.8-10.8)
[2023-01-26 19:41] LABS: Prothrombin Time 11.2 SEC (10.0-13.1)
[2023-01-26 19:44] LABS: Partial Thromboplastin Time 26.6 SEC (26.0-36.4)
[2023-01-26 20:01] LABS: Anion Gap 14 (12-20); Blood Urea Nitrogen 17 mg/dL (9-16); Calcium 8.4 mg/dL (8.4-10.2); Carbon Dioxide 26 mmol/L (22-29); Chloride 106 mmol/L (96-108); Creatinine Clr Calc Pharmacy 72.2; Estimated Glomerular Filt Rate > 60; Glucose Random 134 mg/dL (60-115); Potassium 4.4 mmol/L (3.3-5.1); Sodium 142 mmol/L (135-145)
--- NOTE | 2023-01-26 20:21 | PC.NURSE ---
this rn assumed care of pt @ 1900. this rn assisted pt to restroom. pt ambulatory. pt able to provide urine sample. pt repositioned back to bed. pt at bedside.blood work obtained at sent down to lab
--- NOTE | 2023-01-26 21:06 | PC.NURSE ---
pt refused vital signs prior to discharge. pt at bedside at discharge. pt ambulatory at discharge. pt provided with discharge packet. pt verbalized understanding of discharge plan
== END 2023-01-26 21:08 | disposition home or self-care (01) ==
PROVIDERS: Emergency Provider Emergency Medicine; PCP Internal Medicine
DX: S30.22XA Contusion of scrotum and testes, initial encounter (principal); X58.XXXA Exposure to other specified factors, initial encounter; Y93.9 Activity, unspecified; Y92.9 Unspecified place or not applicable; Y99.9 Unspecified external cause status; Z79.899 Other long term (current) drug therapy
CPT/HCPCS: 36415; 80048; 85025; 85610; 85730; 99283; 99284

== ENCOUNTER → 2023-02-06 10:10 | Outpatient (BNVA) | payer MEDICARE, BC, SELFPAY | PROVIDERS: PCP Internal Medicine; Visit Provider Surgery Vascular Surgery | DX: I71.40 Abdominal aortic aneurysm, without rupture, unspecified (principal) | CPT/HCPCS: 99212 ==

== ENCOUNTER → 2023-02-23 10:36 | Outpatient (BNVA) | payer MEDICARE, BC, SELFPAY | PROVIDERS: PCP Internal Medicine; Visit Provider Nurse Practitioner Family | DX: N40.1 Benign prostatic hyperplasia with lower urinary tract symptoms (principal); N32.0 Bladder-neck obstruction; R33.9 Retention of urine, unspecified; R39.12 Poor urinary stream | CPT/HCPCS: 51798; 99212 ==

== ENCOUNTER 2023-03-02 08:47 | Outpatient (REF) | payer MEDICARE, BC, SELFPAY ==
--- NOTE | ~2023-03-02 | CT_ITS ---
EXAMINATION: CT ANGIOGRAM ABDOMEN AND PELVIS EXAMINATION: CT ANGIOGRAPHY ABDOMEN AND PELVIS WITHOUT AND WITH CONTRAST CLINICAL INFORMATION: Abdominal aortic aneurysm, without rupture COMPARISON: CT angiogram abdomen/pelvis 01/05/2023 TECHNIQUE: Initial noncontrast localizing community director images were obtained. A timing bolus at the level of the celiac artery was calculated. Subsequently, arterial phase multidetector volumetric imaging was performed through the abdomen and pelvis following the administration of 80 mL Omnipaque 350 intravenous contrast. No contrast reaction reported. Sagittal and coronal reformatted images were obtained on the technologist workstation. After extensive post-processing on a dedicated 3-D workstation, 3-D reformatted images were uploaded to PACS and reviewed as well. This CT examination was performed using dose optimization techniques as appropriate, variously including the following: *Automated exposure control *Adjustment of mA and/or kV according to patient size (this includes techniques or standardized protocols for targeted exams where dose is matched to indication/reason for exam; i.e. extremities or head) *Use of iterative reconstruction technique DLP: 499 mGy-cm FINDINGS: VASCULAR: Interval placement of ascending aorta-biiliac stent graft with complete exclusion of the aneurysmal sac. The aneurysmal sac is thrombosed without evidence of endoleak on this single phase study. Infrarenal abdominal aortic aneurysm measures 5.1 x 4.8 cm (previously 5.4 x 4.8 cm). 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 There is moderate atherosclerotic calcifications at the origin of the celiac artery without stenosis. Distal perfusion into the hepatic and splenic arteries preserved. Superior mesenteric artery is patent. There is interval occlusion of the inferior mesenteric artery; however, no perfusion is preserved via retrograde flow from the marginal artery. Bilateral renal arteries patent. NONVASCULAR: Lung Bases: Left pleural calcifications. Lungs are clear. Liver: Homogeneous in attenuation. Normal in size. Gallbladder: Noninflamed. Biliary System: No intrahepatic or extrahepatic biliary dilation. Pancreas: Homogeneous in attenuation. Spleen: Normal in size. Genitourinary: Bilateral kidneys demonstrate symmetric enhancement. No perinephric fluid collection. No renal calculi. No hydroureteronephrosis. Size of right lower pole simple renal cyst measuring 8.1 x 7.5 cm; no follow-up needed. Adrenal Glands: Unremarkable. Reproductive: Prostatic calcifications. Gastrointestinal: The visualized alimentary tract is normal in course. No evidence of obstruction. Moderate-severe diverticular disease of the descending and sigmoid colon without evidence of diverticulitis. Peritoneum: No pneumoperitoneum. No intra-abdominal fluid collection. Lymph Nodes: No pathologically enlarged abdominal or pelvic lymph nodes. Soft Tissues/Musculoskeletal: Stable postsurgical changes of posterior spinal fusion at L4-L5 and L5-S1. Multilevel degenerative disc disease and stable anterolisthesis of L4 on L5 and L5 on S1. CT/CT angio abdomen pelvis IMPRESSION: Vascular: 1. Interval placement of aortobiiliac stent graft with completely thrombosed excluded aneurysmal sac. Overall, size of the aneurysm is unchanged. 2. Stable aneurysmal bilateral common iliac arteries, measuring 2.5 cm in the right and 1.6 cm on the left. 3. 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 Distal perfusion preserved from retrograde collaterals. No end organ ischemic changes. Nonvascular: Moderate to severe diverticular disease of the descending and sigmoid colon. Fleischner guidelines were followed.
[2023-03-02] MEDS: iohexoL 350 MG/ML 100 ML INFUS..BTL 80 ML IV (10:09)
== END 2023-03-02 08:48 | disposition home or self-care (01) ==
LOC: HO.CT 08:47
PROVIDERS: PCP Internal Medicine; Visit Provider Surgery Vascular Surgery
DX: I71.40 Abdominal aortic aneurysm, without rupture, unspecified (principal)
CPT/HCPCS: 74174; Q9967

== ENCOUNTER → 2023-03-06 09:37 | Outpatient (BNVA) | payer MEDICARE, BC, SELFPAY | PROVIDERS: PCP Internal Medicine; Visit Provider Surgery Vascular Surgery | DX: I71.40 Abdominal aortic aneurysm, without rupture, unspecified (principal) | CPT/HCPCS: 99212 ==

== ENCOUNTER 2023-05-29 08:52 | Outpatient (REF) | payer MEDICARE, BC, SELFPAY ==
--- NOTE | ~2023-05-29 | CT_ITS ---
STUDY PERFORMED: CTA ABDOMEN AND PELVIS WITHOUT AND WITH CONTRAST HISTORY: Abdominal aortic aneurysm follow-up. DESCRIPTION: Routine abdomen and pelvis CTA protocol with contrast was performed. 80 mL of Omnipaque 350 was administered. 3D POSTPROCESSIN-D MIP images were processed from the initial data set by the cytogenetics technologist on the technologist workstation under concurrent physician supervision. DOSE LOWERING TECHNIQUES: This CT examination was performed using dose optimization techniques as appropriate, variously including the following: - Automated exposure control - Adjustment of mA and/or kV according to patient size (this includes techniques or standardized protocols for targeted exams where dose is matched to indication/reason for exam; i.e. extremities or head) - Use of iterative reconstruction technique DOSE LENGTH PRODUCT: 481.75 mGy-cm COMPARISON: CT abdomen and pelvis 03/02/2023. FINDINGS: VASCULAR: ABDOMINAL AORTA: Infrarenal aortobiiliac stent graft across the infrarenal aortic aneurysm. The excluded aneurysm sac measures 5.0 x 4.7 cm compared to 5.2 x 5.0 cm. No visible endoleak on arterial phase imaging. The delayed phase was not acquired. 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 LEFT ILIAC ARTERY: Left common iliac artery aneurysm measures 2.4 cm, previously 2.2 cm. CELIOMESENTERIC ARTERIES: The celiac artery and superior mesenteric artery are widely patent. The [place] origin appears occluded off the excluded aneurysm sac and then reconstitutes distally through collaterals. RENAL ARTERIES: Mild bilateral renal artery disease. NONVASCULAR: Lung Bases: The visualized lung bases are unremarkable. Liver, Gallbladder and Biliary Tree: The liver is normal in size, shape, and attenuation. No focal hepatic lesion or biliary ductal dilatation is present. The gallbladder is unremarkable with no evidence of radiopaque gallstones, gallbladder wall thickening, or obvious pericholecystic inflammatory changes. Pancreas: No discrete mass. No ductal dilatation. Spleen: Unremarkable. Adrenal Glands: Unremarkable. Kidneys and Ureters: There is a stable simple cyst from the lower pole right kidney measuring 7.5 cm. No follow-up imaging is recommended. Otherwise, the kidneys are normal in size, shape, and attenuation. No hydronephrosis, hydroureter, or calculi seen. No perinephric stranding. Bladder: Unremarkable. Gastrointestinal Tract: The small bowel is normal in caliber. No mesenteric mass or fluid. There is moderate colonic diverticulosis most prominent in the sigmoid. No evidence of acute diverticulitis. Abdominal Wall: Postoperative changes in the bilateral groins including a small seroma on the right. No significant hernia is seen. Lymph Nodes: No adenopathy. Pelvic Viscera: Unremarkable. Osseous Structures: Degenerative changes in the spine. Left hemilaminectomy and fusion at L4-L5 and L5-S1. CT/CT angio abdomen pelvis IMPRESSION: Endovascular aortic repair of infrarenal abdominal aortic aneurysm. The excluded sac measures 5.0 x 4.7 cm, decreased in size from 5.2 x 5.0 cm. No visible endoleak on arterial phase imaging. Fleischner guidelines were followed.
[2023-05-29] MEDS: iohexoL 350 MG/ML 100 ML INFUS..BTL IV (10:03)
[2023-05-29 13:29] LABS: Creatinine POC 0.7 mg/dL (0.5-1.4); GFR POC > 60
== END 2023-05-29 08:53 | disposition home or self-care (01) ==
LOC: HO.CT 08:52
PROVIDERS: PCP Internal Medicine; Visit Provider Surgery Vascular Surgery
DX: I71.40 Abdominal aortic aneurysm, without rupture, unspecified (principal)
CPT/HCPCS: 74174; 82565; Q9967

== ENCOUNTER 2023-06-21 12:59 | Outpatient (AMB) | payer MEDICARE, BC, SELFPAY ==
[2023-06-21 13:01] VITALS: BMI 29.3
--- NOTE | 2023-06-21 13:01 | A.OFFVIS_ITS ---
Intake Vital Signs 06/21/23 13:01 Height 5 ft 11 in Weight 210 lb BMI 29.3 Intake Visit Reasons: 3 mo follow up CTA Abd/pelvis 05/29/23 Intake Note: 3 mo follow up CTA Abd/pelvis 05/29/2023 s/p AAA repair 01/22/2023. Pt states he has been having abdominal pain that has worsened since the procedure. Accompanied by: Self / Same As Patient Allergies amiodarone Adverse Reaction (Intermediate, Verified 06/21/23 13:05) Constipation timolol [From Betimol] Adverse Reaction (Intermediate, Verified 06/21/23 13:05) hypotension HPI 3 mo follow up CTA Abd/pelvis 05/29/23 HPI Details Very pleasant 82-year-old gentleman presents for follow-up status post endovascular aneurysm repair he presents for 3 month follow-up CT scan. Reports no interval issues. Now for follow-up with CT angiogram. [facility] Medical History Skin cancer Back pain Arthritis Difficulty swallowing GERD (gastroesophageal reflux disease) Bladder neck stricture COVID-19 vaccine series completed Coronary artery disease Knee pain, right Cardiomyopathy PVC (premature ventricular contraction) AAA (abdominal aortic aneurysm) Hypertension Surgical History H/O colonoscopy Hx of bilateral inguinal hernia repair Hx of cystoscopy History of cardiac cath History of hand surgery (~2001) History of spinal fusion (~2016) History of prostate surgery (~2013) Family History Father No problems noted. Mother No problems noted. Other Substance use disorder Social History Household Members: Spouse Housing: Condominium Are you a primary youth career specialist to a significant other at home: No Do you presently have visiting nurse or other home services: No Alcohol intake: never Patient Tobacco Use Status: Former Tobacco user Quit Date: age 39 Tobacco use type: Cigarette Years Smoked: 30 e-Cigarette/Vaping Use: Never Used Substance Use Type: Marijuana service: No Current occupational status: retired Current occupation: right handed Cognitive needs: No Hearing needs: No Vision needs: No Review of Systems Const All systems reviewed & are unremarkable except as noted in HPI and below Reports no additional complaints ENT Reports Normal hearing present Card Denies chest pain, Denies chest pain at rest, Denies chest pain with activity and Denies pedal edema Resp Denies cough GI Denies abdominal pain Musc Denies abnormal gait, Denies muscle cramps and Denies radiating pain into limb Skin/Breast Denies skin ulcer and Denies wounds Neuro Reports Normal hearing present and Denies abnormal gait Psych Reports no additional complaints Physical Exam Vital Signs: BMI result Body Mass Index 29.3 Const General: cooperative, healthy appearing and comfortable Orientation/consciousness: oriented to person, oriented to place and oriented to time HEENT Head: Yes normal to inspection Neck Neck: Yes normal visual inspection Carotids: no bruits Chest Chest palpation & inspection: normal inspection of the chest Resp Effort & Inspection: normal respiratory effort and able to speak in complete sentences Auscultation: clear to auscultation bilaterally, no crackles, no rales, no rhonchi and no wheezes Cardio Rate: regular rate Rhythm: regular rhythm Heart sounds: S1 normal heart sound present and S2 normal heart sound present Bruits: no carotid bruits Peripheral pulses: Peripheral pulses 2+ throughout GI Inspection: Yes normal to inspection Skin Wounds: no wounds Hair: normal Neuro General: oriented to person, oriented to place and oriented to time Cranial nerves: Yes CN's II-XII intact bilaterally and Yes Normal hearing present Cognition (Neuro): normal cognition Motor exam (neuro): 5/5 motor strength present throughout Extrem Other: venous exam: No significant superficial varicosities or spider telangiectasias, minimal edema General: No clubbing, No cyanosis and No edema Psych Appearance: grossly normal Mental Status: mental status grossly normal Speech and movement: Normal speech and movement present Results Reviewed Results Reviewed: 05/29/2023 CT angiogram demonstrates stable aortic endograft with excluded sac and no evidence of endoleak. Written report and images were reviewed Assessment & Plan Assessment & Plan (1) S/P AAA (abdominal aortic aneurysm) repair: Code(s): Z98.890 - Other specified postprocedural states; Z86.79 - Personal history of other diseases of the circulatory system Plan: In short patient has stable endovascular repair. We have discussed the pathophysiology of aortic aneurysms and the risk of ruptures. We have discussed rupture risk based on size. In addition we have discussed conservative measures and risk factor modification for prevention of increase in size of the aneurysm. the patient is scheduled for surveillance follow-up in approximately in [address] scan. Thank you for allowing us to participate in the care of this patient Orders: Orders Blood Urea Nitrogen 6 Months Z86.79 - Personal history of other diseases of the circulatory system, Z98.890 - Other specified postprocedural states Creatinine 6 Months Z86.79 - Personal history of other diseases of the circulatory system, Z98.890 - Other specified postprocedural states CT angio abdomen pelvis 6 Months Z86.79 - Personal history of other diseases of the circulatory system, Z98.890 - Other specified postprocedural states Coding Level of Care Code Est Pt Level 4 (44720) Diagnoses S/P AAA (abdominal aortic aneurysm) repair Z98.890; Z86.79
== END 2023-06-21 13:34 | disposition home or self-care (01) ==
PROVIDERS: PCP Internal Medicine; Visit Provider Surgery Vascular Surgery
DX: I71.40 Abdominal aortic aneurysm, without rupture, unspecified (principal); Z98.890 Other specified postprocedural states; Z86.79 Personal history of other diseases of the circulatory system
CPT/HCPCS: 99214

== ENCOUNTER → 2023-06-21 12:59 | Outpatient (BNVA) | payer MEDICARE, BC, SELFPAY | PROVIDERS: PCP Internal Medicine; Visit Provider Surgery Vascular Surgery | DX: Z48.812 Encounter for surgical aftercare following surgery on the circulatory system (principal); Z86.79 Personal history of other diseases of the circulatory system | CPT/HCPCS: 99212 ==

== ENCOUNTER 2023-07-09 13:09 | Outpatient (AMB) | payer MEDICARE, BC, SELFPAY ==
[2023-07-09 13:18] VITALS: BP 130/82; PULSE 70; BMI 28.6
--- NOTE | 2023-07-09 13:18 | MHC.OFFVIS ---
Intake Vital Signs 07/09/23 13:18 Height 5 ft 11 in Weight 205 lb 0.478 oz BMI 28.6 BP 130/82 Blood Pressure Location Lt brachial Position Sitting Pulse 70 Intake Visit Reasons: 6 month follow up Intake Note: 6 month follow-up has had a few times where to heart was skipping was able to capture on the phone Emt Dispatcher Required: No Allergies amiodarone Adverse Reaction (Intermediate, Verified 06/21/23 13:05) Constipation timolol [From Betimol] Adverse Reaction (Intermediate, Verified 06/21/23 13:05) hypotension Medication List - Last Reconciled 07/09/23 by Irineo Kimble MD aspirin (Adult Aspirin Regimen) 81 mg PO DAILY calcium carbonate-vitamin D3 600 mg-5 mcg (200 unit) 1 tab PO DAILY latanoprost 0.005% 1 drp ophthalmic (eye) BEDTIME lisinopril 10 mg PO QPM HPI HPI Comments History of Present Illness Details 82 male here for f/u. He has background of mild cardiomyopathy and PVCs. He has moderate RCA disease which was previously iFR negative. We have tried amiodarone and mexiletine but he could not tolerate due to GI issues. Repeat echo showing EF 45-50%. He previously saw EP but it was felt that the PVC ablation was quite complex and due to lack of symptoms he was medically treated. 07/09/2023: She he returns for follow-up. He said on June 19 and June 25 he had palpitations. He has a cardia device and he recorded his heart rhythm. One time his heart rate was 150 beats per minute in based on the ECG tracings he showed me I could not rule out atrial flutter although SVT is a possibility too. His 2nd tracing clearly was atrial fibrillation. He said on both occasions he had palpitations lasting for many minutes and his heart was racing. These symptoms started within a 2nd and ended like that to pointing to arrhythmia. He has not tolerated many medications in the past. No bleeding concerns recently. [facility] Medical History Skin cancer Back pain Arthritis Difficulty swallowing GERD (gastroesophageal reflux disease) Bladder neck stricture COVID-19 vaccine series completed Coronary artery disease Knee pain, right Cardiomyopathy PVC (premature ventricular contraction) AAA (abdominal aortic aneurysm) Hypertension Surgical History H/O colonoscopy Hx of bilateral inguinal hernia repair Hx of cystoscopy History of cardiac cath History of hand surgery (~2001) History of spinal fusion (~2016) History of prostate surgery (~2013) Family History Father No problems noted. Mother No problems noted. Other Substance use disorder Social History Household Members: Sp[facility] Are you a primary patient care specialist to a significant other at home: No Do you presently have visiting nurse or other home services: No Alcohol intake: never Patient Tobacco Use Status: Former Tobacco user Quit Date: age 39 Tobacco use type: Cigarette Years Smoked: 30 e-Cigarette/Vaping Use: Never Used Substance Use Type: Marijuana service: No Current occupational status: retired Current occupation: right handed Cognitive needs: No Hearing needs: No Vision needs: No Review of Systems Const Denies chills, Denies fatigue, Denies fever(s), Denies frequent falls, Denies weakness, Denies weight gain and Denies weight loss ENT Denies dizziness Card Denies chest pain, Denies leg edema, Denies lightheadedness, Denies palpitations, Denies dyspnea, Denies dyspnea on exertion, Denies orthopnea and Denies other (loss of consciousness) Resp Denies cough, Denies dyspnea and Denies dyspnea on exertion GI Denies hematochezia and Denies change in stool character Musc Denies abnormal gait, Denies muscle weakness, Denies numbness, Denies radiating pain into limb and Denies tingling Neuro Denies abnormal gait, Denies dizziness, Denies frequent falls, Denies numbness, Denies tingling and Denies weakness Endo Denies fatigue and Denies palpitations Physical Exam Vital Signs: Last Vital Signs Pulse 70 07/09/23 13:18 BP 130/82 07/09/23 13:18 BMI result Body Mass Index 28.6 GENERAL APPEARANCE: in no acute distress, well developed, well nourished. NECK/THYROID: no carotid bruit, no jugular venous distention. SKIN: no suspicious lesions, warm and dry. HEART: no murmurs, S1, S2 normal. LUNGS: clear to auscultation bilaterally. ABDOMEN: normal, bowel sounds present, soft, nontender, nondistended. EXTREMITIES: no clubbing, cyanosis, or edema. PERIPHERAL PULSES: equal. NEUROLOGIC: nonfocal, alert and oriented. PSYCH: mood/affect full range. Assessment & Plan Assessment & Plan (1) Hypertension: Code(s): I10 - Essential (primary) hypertension (2) PAF (paroxysmal atrial fibrillation): Code(s): I48.0 - Paroxysmal atrial fibrillation Plan 82-year-old gentleman who is here for follow-up. He had a cardiac device and recorded 2 tracings. One tracing is clearly atrial fibrillation. Both times he had significant palpitations. I discussed with him in detail that given his age and risk for stroke he should be on Eliquis. He is agreeable. We have stopping the baby aspirin and starting him on apixaban 5 mg twice a day. I will add omeprazole just to protect his stomach as he has been experiencing some GI upset over the last few months. He is going to continue to monitor himself with the cardia device. If he had frequent episodes and he will reach out to us. He has not tolerated many medications in the past due to side effects. If he had recurrent episodes then we may have to refer him back to EP. Medications: New omeprazole 20 mg PO DAILY 60 caps 3RF apixaban 5 mg PO BID 60 tabs 5RF Discontinued aspirin (Adult Aspirin Regimen) Discontinued Reason: Doctor's Order 81 mg PO DAILY 60 tabs 3RF I20.0 - Unstable angina Coding Level of Care Code Est Pt Level 4 (98090) Diagnoses Hypertension I10 PAF (paroxysmal atrial fibrillation) I48.0
== END 2023-07-09 14:07 | disposition home or self-care (01) ==
PROVIDERS: PCP Internal Medicine; Visit Provider Internal Medicine Cardiovascular Disease
DX: I10 Essential (primary) hypertension (principal); I48.0 Paroxysmal atrial fibrillation
CPT/HCPCS: 99214

== ENCOUNTER → 2023-07-09 13:09 | Outpatient (BNVA) | payer MEDICARE, BC, SELFPAY | PROVIDERS: PCP Internal Medicine; Visit Provider Internal Medicine Cardiovascular Disease | DX: I48.0 Paroxysmal atrial fibrillation (principal); I10 Essential (primary) hypertension | CPT/HCPCS: 99212 ==

== ENCOUNTER 2023-08-23 11:52 | Outpatient (REF) | payer MEDICARE, BC, SELFPAY ==
[2023-08-23 13:56] LABS: PSA,Total (Free>4and<10) 0.23 ng/mL (0.00-4.00)
== END 2023-08-23 11:53 | disposition home or self-care (01) ==
LOC: HO.HMGCLDS 11:52
PROVIDERS: PCP Internal Medicine; Visit Provider Nurse Practitioner Family
DX: Z12.5 Encounter for screening for malignant neoplasm of prostate (principal); N40.1 Benign prostatic hyperplasia with lower urinary tract symptoms; R33.9 Retention of urine, unspecified; R39.12 Poor urinary stream; N32.0 Bladder-neck obstruction
CPT/HCPCS: 36415; 84153

== ENCOUNTER 2023-08-27 10:38 | Outpatient (AMB) | payer MEDICARE, BC, SELFPAY ==
--- NOTE | 2023-08-27 11:06 | A.OFFVIS_ITS ---
Intake Intake Visit Reasons: 6m/PVR(set) Intake Note: Patient is present for follow up weak urinary system/PVR/PSA (psa 0.23) Urology Medications: none Blood Thinner: none PVR: 0ml's Pizzamaker Required: No Accompanied by: Self / Same As Patient Allergies amiodarone Adverse Reaction (Intermediate, Verified 08/27/23 23:59) Constipation timolol [From Betimol] Adverse Reaction (Intermediate, Verified 08/27/23 23:59) hypotension Medication List - Last Reconciled 08/28/23 by SIENNA Lemus- calcium carbonate-vitamin D3 600 mg-5 mcg (200 unit) 1 tab PO DAILY latanoprost 0.005% 1 drp ophthalmic (eye) BEDTIME lisinopril 10 mg PO QPM omeprazole 20 mg PO DAILY HPI HPI Comments History of Present Illness Details Hill is a pleasant 83-year-old male patient of Dr. Cantu. He has a past medical history of back pain, arthritis, GERD, bladder neck stricture, coronary artery disease, cardiomyopathy, abdominal aortic aneurysm with endovascular aortic aneurysm repair in January of 2023, and hypertension. He presents to the office today for follow-up of his lower urinary tract symptoms and neurogenic bladder. When asked he reports to be doing and feeling well. In office urinalysis results reviewed with the patient today. PVR 0 mL. Patient with a previous [employer] laser in [place] approximately 10 years ago as well as bladder neck incision 12/[address] Napoles. He denies any issues with his urination. When asked he denies urinary urgency, urinary frequency, incontinence, nocturia, hematuria, dysuria, foul smelling urine, changes to urinary stream, flank pain, fever, and or chills. He is happy with his current voiding parameters. Recent PSA results reviewed with the patient today 08/16- 0.2 He otherwise denies any issues or concerns at this time. 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 [facility] Medical History Skin cancer Back pain Arthritis Difficulty swallowing GERD (gastroesophageal reflux disease) Bladder neck stricture COVID-19 vaccine series completed Coronary artery disease Knee pain, right Cardiomyopathy PVC (premature ventricular contraction) AAA (abdominal aortic aneurysm) Hypertension Surgical History H/O colonoscopy Hx of bilateral inguinal hernia repair Hx of cystoscopy History of cardiac cath History of hand surgery (~2001) History of spinal fusion (~2016) History of prostate surgery (~2013) Family History Father No problems noted. Mother No problems noted. Other Substance use disorder Social History Household Members: Spouse Housing: [facility] Are you a primary medicare sales representative to a significant other at home: No Do you presently have visiting nurse or other home services: No Alcohol intake: never Patient Tobacco Use Status: Former Tobacco user Quit Date: age 39 Tobacco use type: Cigarette Years Smoked: 30 e-Cigarette/Vaping Use: Never Used Substance Use Type: Marijuana service: No Current occupational status: retired Current occupation: right handed Cognitive needs: No Hearing needs: No Vision needs: No Review of Systems Const Reports no additional complaints Eyes Reports no additional complaints ENT Reports no additional complaints Card Reports as per HPI Resp Reports no additional complaints GI Reports as per HPI Reports as per HPI Musc Reports as per HPI Neuro Reports no additional complaints Psych Reports no additional complaints Endo Reports no additional complaints Lg/Lymph Reports no additional complaints Aller/Immun Reports no additional complaints Physical Exam Const General: cooperative, healthy appearing, comfortable, no acute distress, well developed, alert and awake Orientation/consciousness: patient oriented x3 Limitations: no limitations HEENT Head: Yes normal to inspection, Yes normocephalic and Yes atraumatic Ears: hearing grossly normal bilaterally Eyes General: appearance normal, both eyes and all related structures Neck Neck: Yes normal visual inspection and Yes trachea midline Chest Chest palpation & inspection: normal inspection of the chest Resp Effort & Inspection: normal respiratory effort and able to speak in complete sentences Cardio Rate: regular rate GI Inspection: Yes normal to inspection General: Yes no CVA tenderness Back/Spine/Pelvis Back: no CVA tenderness Skin General skin exam: no rashes or lesions noted Neuro General: patient oriented x3 Extrem General: Yes normal to inspection Psych Appearance: grossly normal and well kempt Mental Status: mental status grossly normal Speech and movement: Normal speech and movement present and Clear speech present Affect: normal affect Attitude: cooperative Thought process: Normal thought process present Thought content: Normal thought content present Insight: Fair insight present (Psych) Judgement: Fair judgement present (Psych) Office Procedures Post Void Residual Post Residual Void Post Void Residual (PVR): 0 [id number] Void Residual by ultrasound Results AMB Urinalysis, Automated UA Leukoctes 0 Yong/uL Last Edit by [employer] on 08/27/23 11:22 UA Nitrite Negative Last Edit by [employer] on 08/27/23 11:22 UA Urobilinogen 0.2 mg/dL Last Edit by [employer] on 08/27/23 11:22 UA Protein 0 mg/dL Last Edit by [employer] on 08/27/23 11:22 UA pH 5.5 Last Edit by [employer] on 08/27/23 11:22 UA Blood 10 Demetrius/uL Last Edit by [employer] on 08/27/23 11:22 UA Specific [place] 1.025 Last Edit by [employer] on 08/27/23 11:22 UA Ketone Negative Last Edit by [employer] on 08/27/23 11:22 UA Bilirubin 0 mg/dL Last Edit by [employer] on 08/27/23 11:22 UA Glucose 0 mg/dL Last Edit by [employer] on 08/27/23 11:22 Results Reviewed Results Reviewed: Laboratory Last Values Urine pH (Auto) 5.5 08/27/23 11:10 Specific [place] (Auto) 1.025 08/27/23 11:10 Urine Protein (Auto) 0 mg/dL 08/27/23 11:10 Glucose (UA)(Auto) 0 mg/dL 08/27/23 11:10 Urine Ketones (Auto) Negative 08/27/23 11:10 Urine Blood (Auto) 10 Demetrius/uL 08/27/23 11:10 Urine Nitrite (Auto) Negative 08/27/23 11:10 Urine Bilirubin (Auto) 0 mg/dL 08/27/23 11:10 Urine Urobilinogen (Auto) 0.2 mg/dL 08/27/23 11:10 Leukocyte Esterase (Auto) 0 Yong/uL 08/27/23 11:10 Assessment & Plan Assessment & Plan (1) Incomplete emptying of bladder due to benign prostatic hyperplasia: Code(s): N40.1 - Benign prostatic hyperplasia with lower urinary tract symptoms; R33.9 - Retention of urine, unspecified (2) Weak urinary stream: Code(s): R39.12 - Poor urinary stream (3) Bladder neck stricture: Code(s): N32.0 - Bladder-neck obstruction (4) Bladder outlet obstruction: Code(s): N32.0 - Bladder-neck obstruction Plan In office urinalysis results reviewed with the patient today. PVR 0 mL. Recent PSA results reviewed with the patient today; as noted above. Patient denies any issues with his urination at this time. Patient is happy with current voiding parameters Educated, instructed, encouraged to continue drinking adequate amount of water daily. PSA in 1 year Follow-up in 1 year with lab to be completed prior; or sooner with any issues, concerns, and or questions. Orders: Orders AMB Urinalysis Automated 08/27/23 Z13.9 - Encounter for screening, unspecified Prostate Specific Antigen 364 Days N40.1 - Benign prostatic hyperplasia with lower urinary tract symptoms, R33.9 - Retention of urine, unspecified, R39.12 - Poor urinary stream AMB Post Void Residual by ultrasound 08/27/23 N40.1 - Benign prostatic hyperplasia with lower urinary tract symptoms, R33.9 - Retention of urine, unspecified Patient Instructions: The patient had an opportunity to ask questions regarding the treatment plan. All questions were answered. Physical exam, labs, and imaging were discussed and reviewed in detail. As well as risks, benefits, and discussion of treatment choices. No major barriers to understanding were identified. The patient expressed understanding and agreement with the above treatment plan. The patient was made aware they should contact our office by phone for worsening of their current condition, the appearance of new symptoms, or with any questions or concerns. Compliance is encouraged with any medications and follow up testing that is ordered. It is a privilege to be allowed the opportunity to participate in? your urological care.? Again, if you have any questions or concerns If you have any questions or concerns please do not hesitate to contact me. The office is [phone]. This note is constructed using voice recognition software. While every effort has been made to ensure accuracy mat puncher errors may have been included. Yours sincerely, JOHANA Lemus Coding Level of Care Code Est Pt Level 3 (76985) Diagnoses Incomplete emptying of bladder due to benign prostatic hyperplasia N40.1; R33.9 Weak urinary stream R39.12 Bladder neck stricture N32.0 Bladder outlet obstruction N32.0 CPT Codes Post Residual Void - PVR CPT Code: 23918-Upjv Void Residual by ultrasound ([id number])
== END 2023-08-27 11:47 | disposition home or self-care (01) ==
PROVIDERS: PCP Internal Medicine; Visit Provider Nurse Practitioner Family
DX: N40.1 Benign prostatic hyperplasia with lower urinary tract symptoms (principal); R33.9 Retention of urine, unspecified; R39.12 Poor urinary stream; N32.0 Bladder-neck obstruction
CPT/HCPCS: 99213

== ENCOUNTER → 2023-08-27 10:38 | Outpatient (BNVA) | payer MEDICARE, BC, SELFPAY | PROVIDERS: PCP Internal Medicine; Visit Provider Nurse Practitioner Family | DX: N40.1 Benign prostatic hyperplasia with lower urinary tract symptoms (principal); N13.8 Other obstructive and reflux uropathy; R33.9 Retention of urine, unspecified; R39.12 Poor urinary stream; N32.0 Bladder-neck obstruction | CPT/HCPCS: 51798; 81003; 99212 ==

== ENCOUNTER 2023-10-10 10:37 | Outpatient (AMB) | payer MEDICARE, BC, SELFPAY ==
[2023-10-10 10:58] VITALS: BP 112/70; PULSE 43; BMI 38.4
--- NOTE | 2023-10-10 10:58 | A.OFFVIS_ITS ---
Intake Vital Signs 10/10/23 10:58 Height 5 ft 1 in Weight 203 lb 4.259 oz BMI 38.4 BP 112/70 Blood Pressure Location Lt brachial Position Sitting Pulse 43 L Pulse Source Pulse Oximeter Intake Visit Reasons: 3 mth f/up Intake Note: 3 mnth f/up pt its feeling fine. 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 He has background of mild cardiomyopathy and PVCs. He has moderate RCA disease which was previously iFR negative. We have tried amiodarone and mexiletine but he could not tolerate due to GI issues. Repeat echo showing EF 45-50%. He previously saw EP but it was felt that the PVC ablation was quite complex and due to lack of symptoms he was medically treated. 07/09/2023: She he returns for follow-u p. He said on June 19 and June 25 he had palpitations. He has a cardia device and he recorded his heart rhythm. One time his heart rate was 150 beats per minute in based on the ECG tracings he showed me I could not rule out atrial flutter although SVT is a possibility too. His 2nd tracing clearly was atrial fibrillation. He said on both occasions he had palpitations lasting for many minutes and his heart was racing. These symptoms started within a 2nd and ended like that to pointing to arrhythmia. He has not tolerated many medications in the past. No bleeding concerns recently. 10/10/2023: He returns for follow-up. On last visit he shared his rhythm strips from [employer] device. Once drip was clearly atrial fibrillation. He was advised to start anticoagulation given his risk for stroke. He was also started on omeprazole because he was having significant GI issues and was concerned about bleeding. It appears he did not start apixaban because he was concerned about his abdominal aortic aneurysm. He had endovascular repair and recent CT scan has not shown endoleak. He was worried that the leaking may get worse with anticoagulation. He also took omeprazole for 3 weeks and was having some GI issues due to that too. He is denying diarrhea but had significant urgency to go to bathroom when he was taking omeprazole. [facility] Medical History Skin cancer Back pain Arthritis Difficulty swallowing GERD (gastroesophageal reflux disease) Bladder neck stricture COVID-19 vaccine series completed Coronary artery disease Knee pain, right Cardiomyopathy PVC (premature ventricular contraction) AAA (abdominal aortic aneurysm) Hypertension Surgical History H/O colonoscopy Hx of bilateral inguinal hernia repair Hx of cystoscopy History of cardiac cath History of hand surgery (~2001) History of spinal fusion (~2016) History of prostate surgery (~2013) Family History Father No problems noted. Mother No problems noted. Other Substance use disorder Social History Household Members: [facility] Are you a primary patient centered care specialist to a significant other at home: No Do you presently have visiting nurse or other home services: No Alcohol intake: never Patient Tobacco Use Status: Former Tobacco user Quit Date: age 39 Tobacco use type: Cigarette Years Smoked: 30 e-Cigarette/Vaping Use: Never Used Substance Use Type: Marijuana service: No Current occupational status: retired Current occupation: right handed Cognitive needs: No Hearing needs: No Vision needs: No Review of Systems Const Reports chills, Reports fatigue, Reports fever(s), Reports frequent falls, Reports weakness, Reports weight gain and Reports weight loss ENT Reports dizziness Card Reports chest pain, Reports leg edema, Reports lightheadedness, Reports palpitations, Reports dyspnea and Reports dyspnea on exertion Resp Reports cough, Reports dyspnea and Reports dyspnea on exertion GI Reports hematochezia Musc Reports abnormal gait, Reports muscle weakness, Reports numbness, Reports radiating pain into limb and Reports tingling Neuro Reports abnormal gait, Reports dizziness, Reports frequent falls, Reports numbness, Reports tingling and Reports weakness Endo Reports fatigue and Reports palpitations Physical Exam Vital Signs: Last Vital Signs Pulse 43 L 10/10/23 10:58 BP 112/70 10/10/23 10:58 BMI result Body Mass Index 38.4 GENERAL APPEARANCE: in no acute distress, well developed, well nourished. NECK/THYROID: no carotid bruit, no jugular venous distention. SKIN: no suspicious lesions, warm and dry. HEART: no murmurs, S1, S2 normal. LUNGS: clear to auscultation bilaterally. ABDOMEN: normal, bowel sounds present, soft, nontender, nondistended. EXTREMITIES: no clubbing, cyanosis, or edema. PERIPHERAL PULSES: equal. NEUROLOGIC: nonfocal, alert and oriented. PSYCH: mood/affect full range. Heart rate 60s with PVCs. Assessment & Plan Assessment & Plan (1) PAF (paroxysmal atrial fibrillation): Code(s): I48.0 - Paroxysmal atrial fibrillation (2) S/P AAA (abdominal aortic aneurysm) repair: Code(s): Z98.890 - Other specified postprocedural states; Z86.79 - Personal history of other diseases of the circulatory system (3) PVC (premature ventricular contraction): Comment: referred to by -ablation not done due to danger in area involved Code(s): I49.3 - Ventricular premature depolarization (4) Cardiomyopathy: Comment: follows w/ Code(s): I42.9 - Cardiomyopathy, unspecified Plan [age] gentleman is here for follow-up. He has background history of cardiomyopathy with EF 45-50%. He has frequent premature ventricular complexes. These were arising from the left side and were around the aortic valve annulus. He was tried on medication including amiodarone, mexiletine and beta blockers but he could not tolerate them. After discussion he was just left turn lisinopril as he had no heart failure symptoms and EF was also stable. Last visit he brought heart rhythm strips recorded from [employer] device. These clearly showed atrial fibrillation. We discussed that he has stroke risk and after discussion I started him on Eliquis. It appears he has endograft repair of abdominal aortic aneurysm performed previously and there was some discussion done with him about concerns for endograft leak. He felt that taking a blood thinner may worsen the leakage and he did not start the Eliquis. I have explained to him that he does not have any endoleak and anticoagulation will not worsen or improve that as that has a mechanical issue. He understands this and is agreeable to start Eliquis. We will send a script to his pharmacy. Thank you for allowing me to participate in the care of your patient. Please feel free to contact me if you have any questions. Medications: New apixaban 5 mg PO BID 60 tabs 6RF I48.0 - Paroxysmal atrial fibrillation esomeprazole magnesium 20 mg PO DAILY 30 caps 3RF I48.0 - Paroxysmal atrial fibrillation Coding Level of Care Code Est Pt Level 4 (47156) Diagnoses PAF (paroxysmal atrial fibrillation) I48.0 S/P AAA (abdominal aortic aneurysm) repair Z98.890; Z86.79 PVC (premature ventricular contraction) I49.3 Cardiomyopathy I42.9
== END 2023-10-10 11:43 | disposition home or self-care (01) ==
PROVIDERS: PCP Internal Medicine; Visit Provider Internal Medicine Cardiovascular Disease
DX: I48.0 Paroxysmal atrial fibrillation (principal); Z98.890 Other specified postprocedural states; Z86.79 Personal history of other diseases of the circulatory system; I49.3 Ventricular premature depolarization; I42.9 Cardiomyopathy, unspecified
CPT/HCPCS: 99214

== ENCOUNTER → 2023-10-10 10:37 | Outpatient (BNVA) | payer MEDICARE, BC, SELFPAY | PROVIDERS: PCP Internal Medicine; Visit Provider Internal Medicine Cardiovascular Disease | DX: I48.0 Paroxysmal atrial fibrillation (principal); I49.3 Ventricular premature depolarization; I42.9 Cardiomyopathy, unspecified; Z86.79 Personal history of other diseases of the circulatory system; Z98.890 Other specified postprocedural states | CPT/HCPCS: 99212 ==

== ENCOUNTER 2023-11-19 19:09 | Emergency (ER) | payer MEDICARE, BC, SELFPAY ==
--- NOTE | 2023-11-19 | ECG_ITS ---
Test Reason : TACHY Blood Pressure : / mmHG Vent. Rate : 137 BPM Atrial Rate : 000 BPM P-R Int : 000 ms QRS Dur : 126 ms QT Int : 272 ms P-R-T Axes : 000 -47 139 degrees QTc Int : 410 ms Atrial fibrillation with rapid ventricular response Left axis deviation Left ventricular hypertrophy with QRS widening ( R in aVL , Brian product ) T wave abnormality, consider lateral ischemia Abnormal ECG When compared with ECG of 08-APR-2021 09:43, Atrial fibrillation has replaced Sinus rhythm Referred By: Generic ED Physician Electronically Signed By:STEFANIE DIAZ
[2023-11-19 19:21] VITALS: BP 130/90; PULSE 160; O2SAT 95
[2023-11-19 19:24] VITALS: BP 105/60; PULSE 135; RESP 29; TEMP 37.1; O2SAT 93; BMI 27.5
--- NOTE | 2023-11-19 19:39 | PC.NURSE ---
pt brought into ED room 5 by ems, HR 110-140s Afib on monitor, pt speaking clear full sentences in no apparent respiratory distress. #18g field iv RFA, #18g field IV LAC. 1000ml normal saline bolus started as ordered, ekg done, labs being obtained by PCT. call villalpando within reach plan of care ongoing . pt denies chest pain
[2023-11-19 19:43] VITALS: BP 103/60; PULSE 112; RESP 22; TEMP 36.7; O2SAT 93
[2023-11-19] MEDS: 0.9 % Sodium Chloride 1,000 ML 999 ML IV ×2 (19:44→20:56)
--- NOTE | 2023-11-19 19:47 | ED_ITS ---
HPI - General Adult General Chief complaint: Arrhythmia/Palpitations Stated complaint: sustained afib over 1 day, hx of afib Time Seen by Provider: 11/19/23 19:17 Source: patient, RN notes reviewed and old records reviewed Limitations: no limitations History of Present Illness HPI narrative: 83-year-old male past medical history significant for paroxysmal AFib maintained on Eliquis, history of AAA repair, osteoarthritis, cardiomyopathy followed by Dr. Kimble, hypertension, coronary artery disease presents for evaluation of ?AFib. ? Sat here distant AFib for the last 2 days at least. He reports that he felt chest heaviness and felt like his heart was racing He reports despite the history of paroxysmal AFib he has never sustained for a long period of time Currently he does not have any chest pain or feel palpitations but his heart rate is still anywhere from 100-135 For EMS reports the patient's heart rate was maintaining around 160 throughout the transport Per Dr. Kimble's last cardiology note from October 10, 2023 the patient's last EF is 45-50% Currently the patient has no complaints or concerns Related Data Home Medications Medication Instructions Recorded Confirmed latanoprost 0.005 % eye drops 1 drp ophthalmic (eye) BEDTIME 06/30/20 10/10/23 calcium carbonate 600 mg-vitamin 1 tab PO DAILY 01/17/23 10/10/23 D3 5 mcg (200 unit) tablet lisinopril 10 mg tablet 10 mg PO QPM 01/17/23 10/10/23 Previous Rx's Medication Instructions Recorded apixaban 5 mg tablet 5 mg PO BID #60 tabs 10/10/23 esomeprazole magnesium 20 mg 20 mg PO DAILY #30 caps 10/10/23 capsule,delayed release Allergies Allergy/AdvReac Type Severity Reaction Status Date / Time amiodarone AdvReac Intermediate Constipatio Verified 11/19/23 19:28 n timolol [From Betimol] AdvReac Intermediate hypotension Verified 11/19/23 19:28 Review of Systems 2 Constitutional: Constitutional: Denies chills and Denies fever(s) ENT: Denies vertigo Cardiovascular: Cardiovascular: Denies chest pain, Denies rapid heart rate, Denies palpitations and Denies dyspnea Respiratory: Respiratory: Denies cough and Denies dyspnea Gastrointestinal: Gastrointestinal: Denies abdominal pain, Denies nausea and Denies vomiting Musculoskeletal: Musculoskeletal: Denies back pain Integumentary/Breasts: Skin/Breast: Denies rash Neurologic: Denies vertigo Endocrine: Endocrine: Denies palpitations FOR[facility]LY [facility] Past Medical History Medical History Skin cancer Back pain Arthritis Difficulty swallowing GERD (gastroesophageal reflux disease) Bladder neck stricture COVID-19 vaccine series completed Coronary artery disease Knee pain, right Cardiomyopathy PVC (premature ventricular contraction) AAA (abdominal aortic aneurysm) Hypertension Surgical History H/O colonoscopy Hx of bilateral inguinal hernia repair Hx of cystoscopy History of cardiac cath History of hand surgery (~2001) History of spinal fusion (~2016) History of prostate surgery (~2013) Family History Family History Father No problems noted. Mother No problems noted. Other Substance use disorder Social History Social History Household Members: Spouse [facility]: [facility] Are you a primary housekeeper child care to a significant other at home: No Do you presently have visiting nurse or other home services: No Alcohol intake: never Patient Tobacco Use Status: Former Tobacco user Quit Date: age 39 Tobacco use type: Cigarette Years Smoked: 30 Smoked in Last 30 Days: No e-Cigarette/Vaping Use: Never Used Substance Use Type: Marijuana Substance Use Frequency: Daily Last Used Substance: Days (ago) Any prior treatment program specific to substance use: No Advance Directives: No Advance Directives Information Provided: No service: No Current occupational status: retired Current occupation: right handed Cognitive needs: No Hearing needs: No Vision needs: No Physical Exam ED Vital Signs: Vital Signs - 24 hr 11/19/23 19:24 11/19/23 19:43 11/19/23 23:05 Temperature 98.7 F 98.1 F 99.2 F Pulse Rate 135 H 112 H 90 Respiratory Rate 29 H 22 H 22 H Blood Pressure 105/60 103/60 141/78 H Pulse Oximetry 93 93 95 Oxygen Delivery Method Room Air Room Air Room Air BMI result Body Mass Index 27.5 Const General: healthy appearing, comfortable, no acute distress, alert and awake Nutritional Appearance: well nourished Orientation/consciousness: patient oriented x3 HENMT Head: Yes normocephalic and Yes atraumatic Eyes Eyelids: Yes eyelids normal Conjunctivae: conjunctivae normal Sclerae: sclerae normal Corneas: corneas normal Pupils: Equal, round and reactive pupils present EOM: EOMs intact bilaterally Neck Neck: Yes full ROM Resp Effort & Inspection: normal respiratory effort, able to speak in complete sentences and not labored Cardio Rate: abnormal rate and tachycardic Rhythm: abnormal rhythm irregularly irregular GI Inspection: No distended Palpation (GI): Soft to palpation, not firm, nontender, no guarding and not rigid Skin General skin exam: elasticity normal Neuro General: patient oriented x3 Cranial nerves: Yes Equal, round and reactive pupils present and Yes Bilaterally intact EOM present Cognition (Neuro): normal cognition Extrem Other: Moving all extremities well without any obvious deformities Course Reevaluation(s) Reevaluation #1: Patient's initial troponin was 104.1, repeat troponin was equivocal at 104.9. This is likely related to the rate of 160 that he was sustained apparently for the entire transport. Patient appeared to be back in sinus rhythm on the monitor repeat EKG confirmed sinus rhythm. The patient's blood pressure is adequate at 141/78 Time: 23:30 Medications Administered Discontinued Medications Generic Name Dose Route Start Last Admin Trade Name Freq PRN Reason Stop Dose Admin Sodium Chloride 1,000 mls @ 999 mls/hr 11/19/23 19:30 11/19/23 20:48 Ns IV 11/19/23 20:30 Infused .Q1H1M KIKO Infusion Sodium Chloride 1,000 mls @ 999 mls/hr 11/19/23 21:00 11/19/23 21:53 Ns IV 11/19/23 22:00 Infused .Q1H1M KIKO Infusion Medical Decision Making Medical Decision Making MDM Narrative: 83-year-old male past medical history as documented above presents for evaluation of atrial fibrillation. On arrival to the ED his EKG shows AFib at 137. Blood pressure was slightly low at 1055/60. Per EMS the patient seemed to have improvement with IV fluids alone. Given the slightly low blood pressure we will start with additional fluids. The patient's ejection fraction 45-50% should be able to handle the additional fluids with low risk for heart failure. Plan for labs, chest x-ray. The patient reports drinking fluids all day and has not had urinated since this morning. Plan for bladder scan. He does not have any suprapubic pelvic fullness or lower abdominal pain to suggest urinary retention. Differential Diagnosis Differential Diagnoses: The differential diagnosis associated with the presentation includes Paroxysmal AFib Tachycardia Demand ischemia Dehydration GAB Urinary retention Gastroenteritis Admission/Observation Consideration of admission/observation: Escalation of care including admission/observation considered Considered admission for atrial fibrillation with RVR Lab Data MDM Lab Attestation statement: I reviewed the patient's lab results. Patient has mild pancytopenia with a white count of 4.4. He has a mild anemia with a hemoglobin 13.8 and hematocrit of 39.6. This is improved compared to his recent labs from January of last year. Patient's troponin is elevated to 104.1 initially. He has a chloride slightly elevated to 112, CO2 of 19 and an anion gap of 11. BUN 22 with a normal creatinine of 0.97 11/19/23 19:38 11/19/23 19:38 Labs: Lab Results 11/19/23 11/19/23 Range/Units 19:38 22:38 WBC 4.4 L (4.8-10.8) X10*3/uL RBC 4.37 L D (4.60-5.80) X10*6/uL Hgb 13.8 L D (14.0-18.0) g/dl Hct 39.6 L D (42.0-52.0) % MCV 90.6 (80.0-98.0) fL MCH 31.6 (27.0-33.0) pg MCHC 34.8 (31.0-36.0) g/dl RDW 13.7 (11.0-16.0) % Plt Count 113 L D (160-400) X10*3/uL MPV 9.8 (9.4-12.4) fL Immature Gran % (Auto) 0.5 H (0.0-0.4) % Neut % (Auto) 90.4 H (45-73) % Lymph % (Auto) 5.5 L (20-40) % Reeves % (Auto) 3.4 (2-11) % Eos % (Auto) 0.0 (0-4) % Baso % (Auto) 0.2 (0-2) % Lymph # (Auto) 0.2 L (1.2-4.9) X10*3/uL Reeves # (Auto) 0.2 (0.1-1.2) X10*3/uL Eos # (Auto) 0.0 (0.0-0.4) X10*3/uL Baso # (Auto) 0.0 (0.0-0.2) X10*3/uL Abs Immat Gran (auto) 0.02 (0.00-0.03) X10*3/uL Absolute Neuts (auto) 4.0 (2.0-8.3) x10*3/uL Absolute Nucleated RBC 0.000 (0.0-0.012) X10*3/uL Nucleated RBC % (auto) 0.0 (0.0-0.2) /100WBC Smear Tech's Comments VERIFIED PT 16.2 H (11.1-13.3) SEC INR 1.3 H (0.9-1.1) Sodium 139 (135-145) mmol/L Potassium 3.3 (3.3-5.1) mmol/L Chloride 112 H (96-108) mmol/L Carbon Dioxide 19 L (22-29) mmol/L Anion Gap 11 L (12-20) BUN 22 H (9-16) mg/dL Creatinine 0.97 (0.5-1.4) mg/dL Estim Creat Clear Calc 60.3 Estimated GFR > 60 Random Glucose 119 H (60-115) mg/dL Calcium 7.2 L D (8.4-10.2) mg/dL Total Bilirubin 0.4 (0.0-1.0) mg/dL Direct Bilirubin 0.1 (0.0-0.5) mg/dL AST 25 (5-37) U/L ALT 10 (0-40) U/L Alkaline Phosphatase 88 (39-117) U/L Troponin I High Sens 104.1 H* 104.9 H* (<3.5-35.0) ng/L Total Protein 5.2 L (6.5-8.0) g/dL Albumin 3.1 L (3.5-5.0) g/dL Lipase 16 (8-78) U/L Independent Interpretation I performed an independent interpretation of an: EKG (AFib with RVR, rate of 137. The patient does have isoelectric T-waves in the lateral leads with a question of very slight ST depressions in the same leads.) Discharge Plan Discharge Clinical Impression: Atrial fibrillation with rapid ventricular response Patient Disposition: Home, Self-Care Instructions: Sushma-fib (Atrial Fibrillation) (ED) Additional Instructions: You presented with an arrhythmia of rapid AFib. This converted to sinus rhythm with IV fluids only. You were not given any antiarrhythmic drugs I recommend you call your wet press tender, Dr. Kimble tomorrow to discuss what happened Tell him that you are in rapid AFib for about 1 day but your back in sinus rhythm You may need some medication adjustment to prevent future episodes of rapid AFib Prescriptions: No Action calcium carbonate-vitamin D3 600 mg-5 mcg (200 unit) Tablet 1 tab PO DAILY lisinopril 10 mg tablet 10 mg PO QPM latanoprost 0.005 % drops 1 drp ophthalmic (eye) BEDTIME apixaban 5 mg tablet 5 mg PO BID Qty: 60 6RF esomeprazole magnesium 20 mg capsule,delayed release(DR/EC) 20 mg PO DAILY Qty: 30 3RF Referrals: Irineo Kimble MD [Physician] - (Rapid AFib)
[2023-11-19 19:49] LABS: Basophils Percent Auto 0.2 % (0-2); Hematocrit 39.6 % (42.0-52.0); Hemoglobin 13.8 g/dl (14.0-18.0); Imm Gran Abs Auto 0.02 X10*3/uL (0.00-0.03); Imm Gran Pct Auto 0.5 % (0.0-0.4); Lymphocytes Absolute Auto 0.2 X10*3/uL (1.2-4.9); Lymphocytes Percent Auto 5.5 % (20-40); MANUAL DIFF FLAG SCAN; Mean Corpuscular HGB Conc 34.8 g/dl (31.0-36.0); Mean Corpuscular Hemoglobin 31.6 pg (27.0-33.0); Mean Corpuscular Volume 90.6 fL (80.0-98.0); Mean Platelet Volume 9.8 fL (9.4-12.4); Monocytes Absolute Auto 0.2 X10*3/uL (0.1-1.2); Monocytes Percent Auto 3.4 % (2-11); Neutrophils Percent Auto 90.4 % (45-73); Platelet Count 113 X10*3/uL (160-400); Red Blood Count 4.37 X10*6/uL (4.60-5.80); Red Cell Distribution Width 13.7 % (11.0-16.0); SCAN SMEAR FLAG 1; White Blood Count 4.4 X10*3/uL (4.8-10.8)
[2023-11-19 19:55] LABS: INTERNATIONAL NORM RATIO 1.3 (0.9-1.1); Prothrombin Time 16.2 SEC (11.1-13.3)
[2023-11-19 20:01] LABS: Alanine Aminotransferase 10 U/L (0-40); Albumin Level 3.1 g/dL (3.5-5.0); Alkaline Phosphatase 88 U/L (39-117); Anion Gap 11 (12-20); Aspartate Amino Transferase 25 U/L (5-37); Bilirubin Direct 0.1 mg/dL (0.0-0.5); Bilirubin Total 0.4 mg/dL (0.0-1.0); Blood Urea Nitrogen 22 mg/dL (9-16); Calcium 7.2 mg/dL (8.4-10.2); Carbon Dioxide 19 mmol/L (22-29); Chloride 112 mmol/L (96-108); Creatinine Clr Calc Pharmacy 60.3; Estimated Glomerular Filt Rate > 60; Glucose Random 119 mg/dL (60-115); Lipase 16 U/L (8-78); Potassium 3.3 mmol/L (3.3-5.1); Sodium 139 mmol/L (135-145); Total Protein 5.2 g/dL (6.5-8.0)
[2023-11-19 20:12] LABS: Troponin-I High Sensitivity 104.1 ng/L (<3.5-35.0)
[2023-11-19 20:28] LABS: SLIDE REVIEW VERIFIED
[2023-11-19 23:05] VITALS: BP 141/78; PULSE 90; RESP 22; TEMP 37.3; O2SAT 95
[2023-11-19 23:10] LABS: Troponin-I High Sensitivity 104.9 ng/L (<3.5-35.0)
--- NOTE | 2023-11-19 23:14 | ECG_ITS ---
Test Reason : AFIB Blood Pressure : / mmHG Vent. Rate : 090 BPM Atrial Rate : 090 BPM P-R Int : 210 ms QRS Dur : 130 ms QT Int : 398 ms P-R-T Axes : 044 -39 180 degrees QTc Int : 486 ms Sinus rhythm with 1st degree A-V block Left axis deviation Left ventricular hypertrophy with QRS widening and repolarization abnormality ( R in aVL , Brian product ) Abnormal ECG When compared with ECG of 19-NOV-2023 19:23, Sinus rhythm has replaced Atrial fibrillation Vent. rate has decreased BY 47 BPM T wave inversion now evident in Anterior leads Referred By: Dhaval Mascorro Electronically Signed By:STEFANIE DIAZ
[2023-11-19 23:48] VITALS: BP 136/78; PULSE 89; RESP 19; O2SAT 96
== END 2023-11-19 23:51 | disposition home or self-care (01) ==
PROVIDERS: Physician Assistant; Emergency Provider Emergency Medicine
DX: I48.0 Paroxysmal atrial fibrillation (principal); I25.10 Atherosclerotic heart disease of native coronary artery without angina pectoris; I10 Essential (primary) hypertension; D64.9 Anemia, unspecified; Z79.01 Long term (current) use of anticoagulants
CPT/HCPCS: 36415; 51798; 80048; 80076; 83690; 84484; 85025; 85610; 93005; 96360; 96361; 99284; 99285

== ENCOUNTER → 2023-11-19 19:23 | Outpatient (BNV) | payer MEDICARE, BC, SELFPAY | PROVIDERS: Emergency Provider Emergency Medicine; Visit Provider Internal Medicine | DX: I44.0 Atrioventricular block, first degree (principal); I48.0 Paroxysmal atrial fibrillation; R94.31 Abnormal electrocardiogram [ECG] [EKG] | CPT/HCPCS: 93010 ==

== ENCOUNTER 2023-11-27 08:43 | Outpatient (REF) | payer MEDICARE, BC, SELFPAY ==
--- NOTE | ~2023-11-27 | CT_ITS ---
EXAMINATION: CT ANGIOGRAM ABDOMEN AND PELVIS CLINICAL INFORMATION: AAA repair COMPARISON: CTA Abdomen and pelvis TECHNIQUE: Multiple axial images were obtained through the abdomen and pelvis following the administration of 70 mL of Omnipaque 350 intravenous contrast. MIPS images were created and reviewed. This CT examination was performed using dose optimization techniques as appropriate, variously including the following: *Automated exposure control *Adjustment of mA and/or kV according to patient size (this includes techniques or standardized protocols for targeted exams where dose is matched to indication/reason for exam; i.e. extremities or head) *Use of iterative reconstruction technique DLP: 423 mGy-cm VASCULAR: ABDOMINAL AORTA: Abdominal aortic infra renal-bilateral iliac stent graft. Patent stent, no endoleak. RIGHT ILIAC ARTERY: Tortuous iliac arteries, no stenosis, moderate atherosclerotic disease. LEFT ILIAC ARTERY: Tortuous iliac arteries, no stenosis, moderate atherosclerotic disease. CELIOMESENTERIC ARTERIES: The celiac artery, SMA, and KAMLESH are patent. RENAL ARTERIES: Single renal arteries are patent bilaterally. NONVASCULAR: Lung Bases: The visualized lung bases are unremarkable. Liver, Gallbladder and Biliary Tree: The liver is normal in size, shape, and attenuation. No focal hepatic lesion or biliary ductal dilatation is present. The gallbladder is unremarkable with no evidence of radiopaque gallstones, gallbladder wall thickening, or obvious pericholecystic inflammatory changes. Pancreas: Unremarkable. Spleen: Unremarkable. Adrenal Glands: Unremarkable. Kidneys and Ureters: Right lower pole renal cyst measuring 8.0cm. The kidneys are normal in size, shape, and attenuation. No hydronephrosis, hydroureter, or calculi seen. No perinephric stranding. Bladder: Unremarkable. Gastrointestinal Tract: The small and large bowel are unremarkable. Colonic diverticulosis is noted. Abdominal Wall: No significant hernia is appreciated. Lymph Nodes: Normal. Pelvic Viscera: Unremarkable. Osseous Structures: Unremarkable. CT/CT angio abdomen pelvis IMPRESSION: Patent abdominal aortic stent graft. No endoleak. Fleischner guidelines were followed.
[2023-11-27] MEDS: iohexoL 350 MG/ML 100 ML INFUS..BTL IV (09:27)
== END 2023-11-27 08:44 | disposition home or self-care (01) ==
LOC: HO.CT 08:43
PROVIDERS: PCP Internal Medicine; Visit Provider Surgery Vascular Surgery
DX: Z86.79 Personal history of other diseases of the circulatory system (principal); Z98.890 Other specified postprocedural states
CPT/HCPCS: 74174; Q9967

== ENCOUNTER 2024-01-03 11:13 | Outpatient (AMB) | payer MEDICARE, BC, SELFPAY ==
--- NOTE | 2024-01-03 11:17 | MHC.OFFVIS ---
Intake Vital Signs 01/03/24 11:18 Height 5 ft 11 in Weight 197 lb BMI 27.5 Intake Visit Reasons: 6 mo follow up s/p CTA AAA 11/27/2023 Intake Note: 6 mo follow up CTA Abd 11/27/23 for AAA s/p AAA repair 01/2023. Pt states no complaints Accompanied by: Self / Same As Patient Allergies amiodarone Adverse Reaction (Intermediate, Verified 01/03/24 11:21) Constipation timolol [From Betimol] Adverse Reaction (Intermediate, Verified 01/03/24 11:21) hypotension HPI 6 mo follow up s/p CTA AAA 11/27/2023 HPI Details Very pleasant 82-year-old gentleman presents for routine surveillance follow-up regarding his aortic aneurysm. He would undergone endovascular repair back in January of 2023. He reports no interval issues. Reports that he is doing fairly well. Now presents for routine follow-up. [facility] Medical History Skin cancer Back pain Arthritis Difficulty swallowing GERD (gastroesophageal reflux disease) Bladder neck stricture COVID-19 vaccine series completed Coronary artery disease Knee pain, right Cardiomyopathy PVC (premature ventricular contraction) AAA (abdominal aortic aneurysm) Hypertension Surgical History H/O colonoscopy Hx of bilateral inguinal hernia repair Hx of cystoscopy History of cardiac cath History of hand surgery (~2001) History of spinal fusion (~2016) History of prostate surgery (~2013) Family History Father No problems noted. Mother No problems noted. Other Substance use disorder Social History Household Members: Spouse Housing: Condominium Are you a primary health care sanitary technician to a significant other at home: No Do you presently have visiting nurse or other home services: No Alcohol intake: never Patient Tobacco Use Status: Former Tobacco user Quit Date: age 39 Tobacco use type: Cigarette Years Smoked: 30 e-Cigarette/Vaping Use: Never Used Substance Use Type: Marijuana service: No Current occupational status: retired Current occupation: right handed Cognitive needs: No Hearing needs: No Vision needs: No Review of Systems Const All systems reviewed & are unremarkable except as noted in HPI and below Reports no additional complaints ENT Reports Normal hearing present Card Denies chest pain, Denies chest pain at rest, Denies chest pain with activity and Denies pedal edema Resp Denies cough GI Denies abdominal pain Musc Denies abnormal gait, Denies muscle cramps and Denies radiating pain into limb Skin/Breast Denies skin ulcer and Denies wounds Neuro Reports Normal hearing present and Denies abnormal gait Psych Reports no additional complaints Physical Exam Vital Signs: BMI result Body Mass Index 27.5 Const General: cooperative, healthy appearing and comfortable Orientation/consciousness: oriented to person, oriented to place and oriented to time HEENT Head: Yes normal to inspection Neck Neck: Yes normal visual inspection Carotids: no bruits Chest Chest palpation & inspection: normal inspection of the chest Resp Effort & Inspection: normal respiratory effort and able to speak in complete sentences Auscultation: clear to auscultation bilaterally, no crackles, no rales, no rhonchi and no wheezes Cardio Rate: regular rate Rhythm: regular rhythm Heart sounds: S1 normal heart sound present and S2 normal heart sound present Bruits: no carotid bruits Peripheral pulses: Peripheral pulses 2+ throughout GI Inspection: Yes normal to inspection Skin Wounds: no wounds Hair: normal Neuro General: oriented to person, oriented to place and oriented to time Cranial nerves: Yes CN's II-XII intact bilaterally and Yes Normal hearing present Cognition (Neuro): normal cognition Motor exam (neuro): 5/5 motor strength present throughout Extrem Other: venous exam: No significant superficial varicosities or spider telangiectasias, minimal edema General: No clubbing, No cyanosis and No edema Psych Appearance: grossly normal Mental Status: mental status grossly normal Speech and movement: Normal speech and movement present Results Reviewed Results Reviewed: CT angiogram dated 11/27/2023 demonstrates appropriate placement of endograft with no evidence of endoleak. Written report and images were reviewed. Assessment & Plan Assessment & Plan (1) AAA (abdominal aortic aneurysm): Comment: 01/22/2023 - endovascular aortic aneurysm repair with Endologix AFX 2 Code(s): I71.4 - Abdominal aortic aneurysm, without rupture Qualifiers: Abdominal aorta location: infrarenal aorta Presence of rupture: without rupture Qualified Code(s): I71.43 - Infrarenal abdominal aortic aneurysm, without rupture Plan: In short patient has stable aortic endograft. We have discussed the pathophysiology of aortic aneurysms and the risk of ruptures. We have discussed rupture risk based on size. In addition we have discussed conservative measures and risk factor modification for prevention of increase in size of the aneurysm. the patient is scheduled for surveillance follow-up in approximately 1 year. Thank you for allowing us to participate in the care of this patient Orders: Orders Creatinine 1 Year I71.43 - Infrarenal abdominal aortic aneurysm, without rupture Blood Urea Nitrogen 1 Year I71.43 - Infrarenal abdominal aortic aneurysm, without rupture CT angio abdomen pelvis 1 Year I71.43 - Infrarenal abdominal aortic aneurysm, without rupture Coding Level of Care Code Est Pt Level 4 (79031) Diagnoses Infrarenal abdominal aortic aneurysm (AAA) without rupture I71.43 Abdominal aorta location: infrarenal aorta Presence of rupture: without rupture
[2024-01-03 11:18] VITALS: BMI 27.5
== END 2024-01-03 11:32 | disposition home or self-care (01) ==
PROVIDERS: Visit Provider Surgery Vascular Surgery
DX: I71.43 Infrarenal abdominal aortic aneurysm, without rupture (principal)
CPT/HCPCS: 99214

== ENCOUNTER → 2024-01-03 11:13 | Outpatient (BNVA) | payer MEDICARE, BC, SELFPAY | PROVIDERS: Visit Provider Surgery Vascular Surgery | DX: I71.43 Infrarenal abdominal aortic aneurysm, without rupture (principal) | CPT/HCPCS: 99212 ==

== ENCOUNTER 2024-01-18 09:54 | Outpatient (AMB) | payer MEDICARE, BC, SELFPAY ==
[2024-01-18 09:54] VITALS: BP 134/78; PULSE 81; TEMP 36.5; O2SAT 96; BMI 27.4
--- NOTE | 2024-01-18 09:54 | MHC.OFFWIV ---
Intake Vital Signs 01/18/24 09:54 Height 5 ft 11 in Weight 196 lb 6 oz BMI 27.4 BP 134/78 Blood Pressure Location Lt brachial Position Sitting Pulse 81 Pulse Source Pulse Oximeter Temp 97.7 F Temp Source Oral Pulse Oximetry (%) 96 Oxygen Delivery Method Room Air Intake Visit Reasons: EP ?Sinus infection Intake Note: Pt presents to the office today for c/o sinus infection. He states he has sinus pressure, runny nose, cough. Patient Tobacco Use Status: Former Tobacco user Quit Date: age 39 Allergies amiodarone Adverse Reaction (Intermediate, Verified 01/18/24 09:58) Constipation timolol [From Betimol] Adverse Reaction (Intermediate, Verified 01/18/24 09:58) hypotension HPI HPI Comments History of Present Illness Details 83 y/o male patient who presents to walk in clinic with c/o URI symptoms. Reports runny nose, sneezing and dry itchy eyes. Reports symptoms started months ago. [facility] Medical History Skin cancer Back pain Arthritis Difficulty swallowing GERD (gastroesophageal reflux disease) Bladder neck stricture COVID-19 vaccine series completed Coronary artery disease Knee pain, right Cardiomyopathy PVC (premature ventricular contraction) AAA (abdominal aortic aneurysm) Hypertension Surgical History H/O colonoscopy Hx of bilateral inguinal hernia repair Hx of cystoscopy History of cardiac cath History of hand surgery (~2001) History of spinal fusion (~2016) History of prostate surgery (~2013) Family History Father No problems noted. Mother No problems noted. Other Substance use disorder Social History Household Members: Spouse Housing: Condominium Are you a primary child care development specialist to a significant other at home: No Do you presently have visiting nurse or other home services: No Alcohol intake: never Patient Tobacco Use Status: Former Tobacco user Quit Date: age 39 Tobacco use type: Cigarette Years Smoked: 30 e-Cigarette/Vaping Use: Never Used Substance Use Type: Marijuana service: No Current occupational status: retired Current occupation: right handed Cognitive needs: No Hearing needs: No Vision needs: No Review of Systems Const All systems reviewed & are unremarkable except as noted in HPI and below Physical Exam Vital Signs: Last Vital Signs Temp 97.7 F 01/18/24 09:54 Pulse 81 01/18/24 09:54 BP 134/78 01/18/24 09:54 Pulse Ox 96 01/18/24 09:54 Oxygen Delivery Method Room Air 01/18/24 09:54 BMI result Body Mass Index 27.4 Const General: comfortable and no acute distress Nutritional Appearance: well nourished Orientation/consciousness: patient oriented x3 HEENT Head: Yes normocephalic Ears: external ears normal and TM abnormal bulging and with fluid behind the TM bilateral; not bullous, not erythematous, not perforated and not retracted General nose exam: Abnormal mucous membranes and turbinates present boggy, erythematous and pale and Nasal discharge present Face and sinus: Yes sinuses nontender Mouth: moist mucous membranes Throat: Yes posterior oropharynx normal Resp Effort & Inspection: normal respiratory effort and able to speak in complete sentences Auscultation: clear to auscultation bilaterally, no crackles, no rales, no rhonchi and no wheezes Cardio Rate: regular rate Rhythm: regular rhythm Neuro General: patient oriented x3, gait normal and moves all extremities Psych Speech and movement: Normal speech and movement present Assessment & Plan Assessment & Plan (1) Upper respiratory infection: Code(s): J06.9 - Acute upper respiratory infection, unspecified Qualifiers: URI type: acute nasopharyngitis (common cold) Qualified Code(s): J00 - Acute nasopharyngitis [common cold] Plan: - OTC cold remedies -Rest and hydrate well with warm fluids - Acetaminophen for pain relief (2) Allergic rhinitis: Code(s): J30.9 - Allergic rhinitis, unspecified Qualifiers: Allergic rhinitis trigger: unspecified Allergic rhinitis seasonality: seasonal Qualified Code(s): J30.2 - Other seasonal allergic rhinitis Plan: - Take medications as directed. Orders: Orders SARS-CoV2/FLU/RSV Today J00 - Acute nasopharyngitis [common cold], R09.89 - Other specified symptoms and signs involving the circulatory and respiratory systems Medications: New cetirizine (Zyrtec) 10 mg PO DAILY PRN 60 tabs 0RF allergy symptoms J30.2 - Other seasonal allergic rhinitis fluticasone furoate 27.5 mcg/actuation (Flonase Sensimist) into each nostril 1 spray intranasal BID 6.6 mL 0RF J30.2 - Other seasonal allergic rhinitis acetaminophen 1,000 mg (2 x 500 mg) PO Q6H PRN 30 caps 0RF pain, moderate J00 - Acute nasopharyngitis [common cold] Coding Level of Care Code Est Pt Level 3 (46620) Diagnoses Acute nasopharyngitis J00 URI type: acute nasopharyngitis (common cold) Seasonal allergic rhinitis, unspecified trigger J30.2 Allergic rhinitis trigger: unspecified Allergic rhinitis seasonality: seasonal Time Spent (min) 15
== END 2024-01-18 10:29 | disposition home or self-care (01) ==
PROVIDERS: Visit Provider Nurse Practitioner Family
DX: J00 Acute nasopharyngitis [common cold] (principal); J30.2 Other seasonal allergic rhinitis
CPT/HCPCS: 99213

== ENCOUNTER 2024-01-18 10:12 | Outpatient (REF) | payer MEDICARE, BC, SELFPAY ==
[2024-01-18 14:47] LABS: Influenza A PCR NEGATIVE (Negative); Influenza B PCR NEGATIVE (Negative); Resp Syncy Virus RNA Qual PCR NEGATIVE (Negative); SARS COV2 PCR INHOUSE POSITIVE (Negative)
== END 2024-01-18 10:13 | disposition home or self-care (01) ==
LOC: HO.LAB 10:12
PROVIDERS: Visit Provider Nurse Practitioner Family
DX: J00 Acute nasopharyngitis [common cold] (principal); R09.89 Other specified symptoms and signs involving the circulatory and respiratory systems; J06.9 Acute upper respiratory infection, unspecified
CPT/HCPCS: 0241U

== ENCOUNTER 2024-02-27 13:13 | Outpatient (AMB) | payer MEDICARE, BC, SELFPAY ==
[2024-02-27 13:40] VITALS: BP 150/70; PULSE 79; O2SAT 96; BMI 27.3
--- NOTE | 2024-02-27 13:40 | A.OFFVIS_ITS ---
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 Accompanied by: Self / Same As Patient Allergies amiodarone Adverse Reaction (Intermediate, Verified 01/18/24 09:58) Constipation timolol [From Betimol] Adverse Reaction (Intermediate, Verified 01/18/24 09:58) hypotension Medication List - Last Reconciled 02/27/24 by Irineo Kimble MD acetaminophen 1,000 mg (2 x 500 mg) PO Q6H PRN aspirin (Adult Low Dose Aspirin) 81 mg PO DAILY calcium carbonate-vitamin D3 600 mg-5 mcg (200 unit) 1 tab PO DAILY cetirizine (Zyrtec) 10 mg PO DAILY PRN fluticasone furoate 27.5 mcg/actuation (Flonase Sensimist) 1 spray intranasal BID latanoprost 0.005% 1 drp ophthalmic (eye) BEDTIME lisinopril 10 mg PO DAILY HPI Comments Details: 83 male here for f/u. He has background of mild cardiomyopathy and PVCs. He has moderate RCA disease which was previously iFR negative. We have tried amiodarone and mexiletine but he could not tolerate due to GI issues. Repeat echo showing EF 45-50%. He previously saw EP but it was felt that the PVC ablation was quite complex and due to lack of symptoms he was medically treated. 07/09/2023: She he returns for follow-up. He said on June 19 and June 25 he had palpitations. He has a cardia device and he recorded his heart rhythm. One time his heart rate was 150 beats per minute in based on the ECG tracings he showed me I could not rule out atrial flutter although SVT is a possibility too. His 2nd tracing clearly was atrial fibrillation. He said on both occasions he had palpitations lasting for many minutes and his heart was racing. These symptoms started within a 2nd and ended like that to pointing to arrhythmia. He has not tolerated many medications in the past. No bleeding concerns recently. 10/10/2023: He returns for follow-up. On last visit he shared his rhythm strips from [employer]. Once drip was clearly atrial fibrillation. He was advised to start anticoagulation given his risk for stroke. He was also started on omeprazole because he was having significant GI issues and was concerned about bleeding. It appears he did not start apixaban because he was concerned about his abdominal aortic aneurysm. He had endovascular repair and recent CT scan has not shown endoleak. He was worried that the leaking may get worse with anticoagulation. He also took omeprazole for 3 weeks and was having some GI issues due to that too. He is denying diarrhea but had significant urgency to go to bathroom when he was taking omeprazole. 02/27/2024: he is here for follow-up. In December he had COVID-19 infection and stop the Eliquis and starting aspirin he said that he did not resume medically since then has been taking aspirin only. He has been under lot of stress due to his 's health. He said he had office visit today for her and was quite stressed. He came to the office in his blood pressure is quite elevated. Manual blood pressure 170/110. No significant differences between both ventricles noted. no chest pain or shortness of breath. [facility] Medical History Skin cancer Back pain Arthritis Difficulty swallowing GERD (gastroesophageal reflux disease) Bladder neck stricture COVID-19 vaccine series completed Coronary artery disease Knee pain, right Cardiomyopathy PVC (premature ventricular contraction) AAA (abdominal aortic aneurysm) Hypertension Surgical History H/O colonoscopy Hx of bilateral inguinal hernia repair Hx of cystoscopy History of cardiac cath History of hand surgery (~2001) History of spinal fusion (~2016) History of prostate surgery (~2013) Family History Father No problems noted. Mother No problems noted. Other Substance use disorder Social History Household Members: Spouse Housing: Condominium Are you a primary personal care service provider to a significant other at home: No Do you presently have visiting nurse or other home services: No Alcohol intake: never Patient Tobacco Use Status: Former Tobacco user Tobacco use type: Cigarette Years Smoked: 30 e-Cigarette/Vaping Use: Never Used Substance Use Type: Marijuana service: No Current occupational status: retired Current occupation: right handed Cognitive needs: No Hearing needs: No Vision needs: No Review of Systems Const Denies chills, Denies fatigue, Denies fever(s), Denies frequent falls, Denies weakness, Denies weight gain and Denies weight loss ENT Denies dizziness Card Denies chest pain, Denies leg edema, Denies lightheadedness, Denies palpitations, Denies dyspnea and Denies dyspnea on exertion Resp Denies cough, Denies dyspnea and Denies dyspnea on exertion GI Denies hematochezia Musc Denies abnormal gait, Denies muscle weakness, Denies numbness, Denies radiating pain into limb and Denies tingling Neuro Denies abnormal gait, Denies dizziness, Denies frequent falls, Denies numbness, Denies tingling and Denies weakness Endo Denies fatigue and Denies palpitations Physical Exam Vital Signs: Last Vital Signs Pulse 79 02/27/24 13:40 BP 150/70 H 02/27/24 13:40 Pulse Ox 96 02/27/24 13:40 BMI result Body Mass Index 27.3 GENERAL APPEARANCE: in no acute distress, well developed, well nourished. NECK/THYROID: no carotid bruit, no jugular venous distention. SKIN: no suspicious lesions, warm and dry. HEART: no murmurs, S1, S2 normal. LUNGS: clear to auscultation bilaterally. ABDOMEN: normal, bowel sounds present, soft, nontender, nondistended. EXTREMITIES: no clubbing, cyanosis, or edema. PERIPHERAL PULSES: equal. NEUROLOGIC: nonfocal, alert and oriented. PSYCH: mood/affect full range. Assessment & Plan Assessment & Plan (1) PAF (paroxysmal atrial fibrillation): Code(s): I48.0 - Paroxysmal atrial fibrillation Category: Medical (2) Hypertension: Code(s): I10 - Essential (primary) hypertension Category: Medical Plan Pleasant 83 gentleman with nonischemic cardiomyopathy EF 45-50%, background of frequent premature ventricular complexes, paroxysmal atrial fibrillation and hypertension. Blood pressure is elevated. He is saying it is due to stress as he had under lot of stress due to his 's health and had to take her for couple of appointments today. Blood pressure is quite elevated and I have advised him to increase his li sinopril to 20 mg daily. He will check his blood pressure couple of days and will call us with readings. I have advised him that he has atrial fibrillation and should be on Eliquis. Aspirin is inferior to Eliquis in prevention of stroke with atrial fibrillation. He understands this and will resume Eliquis. I have advised him to stop the aspirin at that stage. Thank you for allowing me to participate in the care of your patient. Please feel free to contact me if you have any questions. Medications: New apixaban 5 mg PO BID 120 tabs 3RF I48.0 - Paroxysmal atrial fibrillation Changed From lisinopril 10 mg PO DAILY 90 tabs 3RF To lisinopril 20 mg (2 x 10 mg) PO DAILY 90 tabs 3RF Coding Level of Care Code Est Pt Level 4 (97066) Diagnoses PAF (paroxysmal atrial fibrillation) I48.0 Hypertension I10
== END 2024-02-27 14:16 | disposition home or self-care (01) ==
PROVIDERS: PCP Internal Medicine; Visit Provider Internal Medicine Cardiovascular Disease
DX: I48.0 Paroxysmal atrial fibrillation (principal); I10 Essential (primary) hypertension
CPT/HCPCS: 99214

== ENCOUNTER → 2024-02-27 13:13 | Outpatient (BNVA) | payer MEDICARE, BC, SELFPAY | PROVIDERS: PCP Internal Medicine; Visit Provider Internal Medicine Cardiovascular Disease | DX: I48.0 Paroxysmal atrial fibrillation (principal); I10 Essential (primary) hypertension | CPT/HCPCS: 99212 ==

== ENCOUNTER 2024-04-01 08:47 | Outpatient (AMB) | payer MEDICARE, BC, SELFPAY ==
--- NOTE | 2024-04-01 08:48 | AM.OFFVISMDC ---
Intake Vital Signs 04/01/24 08:51 Height 5 ft 11 in Weight 197 lb 6 oz BMI 27.5 BP 146/80 H Blood Pressure Location Lt brachial Position Sitting Pulse 65 Pulse Source Pulse Oximeter Pulse Oximetry (%) 94 Oxygen Delivery Method Room Air Intake Visit Reasons: SWV Allergies amiodarone Adverse Reaction (Intermediate, Verified 04/01/24 08:53) Constipation timolol [From Betimol] Adverse Reaction (Intermediate, Verified 04/01/24 08:53) hypotension Medication List - Last Reconciled 04/01/24 by Crystal Cantu MD acetaminophen 1,000 mg (2 x 500 mg) PO Q6H PRN apixaban 5 mg PO BID calcium carbonate-vitamin D3 600 mg-5 mcg (200 unit) 1 tab PO DAILY cetirizine (Zyrtec) 10 mg PO DAILY PRN fluticasone furoate 27.5 mcg/actuation (Flonase Sensimist) 1 spray intranasal BID latanoprost 0.005% 1 drp ophthalmic (eye) BEDTIME lisinopril 20 mg PO DAILY HPI HPI Comments History of Present Illness Details AWV Medical/social history reviewed Past medical history reviewed [place] of care / care team list updated Surgical/ hospitalization history reviewed Current medications including OTC and supplements reviewed Family history reviewed Tobacco controlled form updated Alcohol use form updated Illicit drug use in social history reviewed Current diagnosis of depression ?screening updated Appropriate PHQ 2/PHQ-9 completed . Vital signs reviewed Alcohol tobacco drug use reviewed and discussed . MMSE completed . ? Fall risk: ?Assessed Fall history: ?None Have you had any falls with injury in the past year?? No Have you had 2 or more falls in the past year?? No Fall risk assessment completed Home safety discussed with the patient Functional ability assessed and discussed and documented Activities of daily living reviewed and appropriate actions taken . HRA filled out by the patient and reviewed by provider and scanned . Appropriate written screening schedule established . Any health advise needed provided . Advance care planning discussed with the patient , necessary paperwork filled Examination IPPE/AWE: Balance intact Romberg intact Tandem walk intact walk-in turn intact rise from sit to stand intact . ?Hearing ?whisper test pass . Medication list reviewed, patient is stable on medications All other providers patient is seeing discussed and noted . COUNT INCLUDES THE [facility] Medical History Skin cancer Back pain Arthritis Difficulty swallowing GERD (gastroesophageal reflux disease) Bladder neck stricture COVID-19 vaccine series completed Coronary artery disease Knee pain, right Cardiomyopathy PVC (premature ventricular contraction) AAA (abdominal aortic aneurysm) Hypertension Surgical History H/O colonoscopy Hx of bilateral inguinal hernia repair Hx of cystoscopy History of cardiac cath History of hand surgery (~2001) History of spinal fusion (~2016) History of prostate surgery (~2013) Family History Father No problems noted. Mother No problems noted. Other Substance use disorder Social History [facility]hold Members: [facility] Are you a primary daycare assistant to a significant other at home: No Do you presently have visiting nurse or other home services: No Alcohol intake: never Patient Tobacco Use Status: Former Tobacco user Tobacco use type: Cigarette Years Smoked: 30 e-Cigarette/Vaping Use: Never Used Substance Use Type: Marijuana service: No Current occupational status: retired Current occupation: right handed Cognitive needs: No Hearing needs: No Vision needs: No Questionnaire Medicare Wellness Checkup What is your age?: 79 or older What gender do you identify with?: male During the past 4 weeks, how much have you been bothered by emotional problems such as feeling anxious, depressed, irritable, sad or downhearted, and blue?: moderately During the past 4 weeks, has your physical & emotional health limited your social activities with family, friends, neighbors, or groups?: not at all During the past 4 weeks, how much bodily pain have you generally had?: very mild pain During the past 4 weeks, was someone available to help you if you needed & wanted help?: yes, as much as I wanted During the past 4 weeks, what was the hardest physical activity you could do for at least 2 minutes?: heavy Can you get to places out of walking distance without help? (For eg., can you travel alone on buses, taxis or drive your car?): Yes Can you go shopping for groceries or clothes without someone's help?: Yes Can you prepare your own meals?: Yes Can you do your housework without help?: Yes Because of any health problems, do you need the help of another person with your personal care needs such as eating, bathing, dressing or getting around the house?: No Can you handle your own money without help?: Yes During the past 4 weeks, how would you rate your health in general?: very good During the past 4 weeks how have things been going for you?: pretty well Are you having difficulties driving your car?: no Do you always fasten your seat belt when you are in a car?: yes, usually During past 4 weeks, have you been bothered by the following: never: Falling or dizzy when standing up and Problems using the telephone?, seldom: Trouble eating well?, Teeth or denture problems? and Tiredness or fatigue? and always: Sexual problems? Have you fallen 2 or more times in the past year?: No Are you afraid of falling?: No Are you a smoker?: no During the past 4 weeks, how many drinks of wine, beer, or other alcoholic beverages did you have?: no alcohol at all Do you exercise for about 20 minutes 3 or more times a week?: yes, some of the time Have you been given information to help with the following?: yes: Hazards in your house that might hurt you? and yes: Keeping track of your medications? How often do you have trouble taking medicines the way you have been told to take them?: I always take medicine as prescribed How confident are you that you can control & manage most of your health problems?: somewhat confident What is your race?: White Mini Mental State Exam (MMSE) Orientation What is the (year) (season) (date) (day) (month)?: year, season, date, day and month Where are we (state) (county) (town or city) (hospital) (floor)?: state, county, town or city, hospital/clinic and floor Score Score: 10 Activity of Daily Living Bathing - sponge bath, tub bath or shower: receives no assistance (gets in/out by self, if usual bathing means Dressing - getting clothes from closets & drawers, including inner/outer garments & fasteners.: gets clothes & gets completely dressed without help Toileting - going to the 'toilet room' for urine/bowel elimination & cleaning self/arranging clothes: goes to toilet room, cleans self, arranges clothes without help Transfer: moves in & out of bed and chair without help (may use support object) Continence: controls urination/bowel movements completely by self Feeding: feeds self without help Total Score: 0 Information obtained from: patient Using telephone: independent Traveling: independent Shopping: independent Preparing meals: independent Housework: independent Taking medicine: independent Managing money: independent PHQ-9 Over the last 2 weeks, how often have you been bothered by any of the following problems? 1. Little interest or pleasure in doing things: several days 2. Feeling down, depressed, or hopeless: several days 3. Trouble falling or staying asleep, or sleeping too much: several days 4. Feeling tired or having little energy: several days 5. Poor appetite or overeating: not at all 6. Feeling bad about yourself - or that you are a failure or have let yourself or your family down: not at all 7. Trouble concentrating on things, such as reading the newspaper or watching television: not at all 8. Moving or speaking so slowly that other people could have noticed. Or the opposite - being so fidgety or restless that you have been moving around a lot more than usual: not at all 9. Thoughts that you would be better off or of hurting yourself in some way: not at all Total score: 4 Depression Screening Interpretation: Negative Depression Screening Done: Yes 32929 - PHQ-9 Billing: Yes Source: Developed by Drs. Mehdi Barahona, Sherine Mosley, Hao Pinto and colleagues, with an educational hank from [employer]. Physical Exam Vital Signs: Last Vital Signs Pulse 65 04/01/24 08:51 BP 146/80 H 04/01/24 08:51 Pulse Ox 94 04/01/24 08:51 Oxygen Delivery Method Room Air 04/01/24 08:51 BMI result Body Mass Index 27.5 Assessment & Plan Assessment & Plan (1) Medicare annual wellness visit, subsequent: Code(s): Z00.00 - Encounter for general adult medical examination without abnormal findings Plan Medicare wellness visit Quality Reporting (2019) Depression/Bipolar (159/160/161/177) PHQ-9: Total score: 4 Coding Level of Care Code Medicare Subsequent (G0439) Diagnoses Medicare annual wellness visit, subsequent Z00.00 CPT Codes Advance Care Planning - Time spent: 1-15 minutes, on File ([id number]) Advance Care Planning Advance Care Planning discussion: Completed/Scanned Forms completed: ELIZABETH Time spent: 1-15 minutes, on File
[2024-04-01 08:51] VITALS: BP 146/80; PULSE 65; O2SAT 94; BMI 27.5
== END 2024-04-01 10:59 | disposition home or self-care (01) ==
PROVIDERS: PCP Internal Medicine; Visit Provider Internal Medicine
DX: Z00.00 Encounter for general adult medical examination without abnormal findings (principal)
CPT/HCPCS: 1123F; G0439

== ENCOUNTER 2024-04-30 13:44 | Outpatient (AMB) | payer MEDICARE, BC, SELFPAY ==
[2024-04-30 13:58] VITALS: BP 120/72; PULSE 71; BMI 27.4
--- NOTE | 2024-04-30 13:58 | MHC.OFFVIS ---
Vital Signs 04/30/24 13:58 Height 5 ft 11 in Weight 196 lb 10.437 oz BMI 27.4 BP 120/72 Blood Pressure Location Rt brachial Position Sitting Pulse 71 Pulse Source Pulse Oximeter Intake Visit Reasons: 2 month follow-up Intake Note: 2 mth f/up Lab Systems Analyst Required: No Accompanied by: Self / Same As Patient Allergies amiodarone Adverse Reaction (Intermediate, Verified 04/01/24 08:53) Constipation timolol [From Betimol] Adverse Reaction (Intermediate, Verified 04/01/24 08:53) hypotension Medication List - Last Reconciled 04/30/24 by Irineo Kimble MD acetaminophen 1,000 mg (2 x 500 mg) PO Q6H PRN aspirin (Adult Low Dose Aspirin) 81 mg PO DAILY calcium carbonate-vitamin D3 600 mg-5 mcg (200 unit) 1 tab PO DAILY cetirizine (Zyrtec) 10 mg PO DAILY PRN fluticasone furoate 27.5 mcg/actuation (Flonase Sensimist) 1 spray intranasal BID latanoprost 0.005% 1 drp ophthalmic (eye) BEDTIME lisinopril 20 mg PO DAILY HPI Comments Details: 83 male here for f/u. He has background of mild cardiomyopathy and PVCs. He has moderate RCA disease which was previously iFR negative. We have tried amiodarone and mexiletine but he could not tolerate due to GI issues. Repeat echo showing EF 45-50%. He previously saw EP but it was felt that the PVC ablation was quite complex and due to lack of symptoms he was medically treated. 07/09/2023: She he returns for follow-up. He said on June 19 and June 25 he had palpitations. He has a cardia device and he recorded his heart rhythm. One time his heart rate was 150 beats per minute in based on the ECG tracings he showed me I could not rule out atrial flutter although SVT is a possibility too. His 2nd tracing clearly was atrial fibrillation. He said on both occasions he had palpitations lasting for many minutes and his heart was racing. These symptoms started within a 2nd and ended like that to pointing to arrhythmia. He has not tolerated many medications in the past. No bleeding concerns recently. 10/10/2023: He returns for follow-up. On last visit he shared his rhythm strips from [employer] device. Once drip was clearly atrial fibrillation. He was advised to start anticoagulation given his risk for stroke. He was also started on omeprazole because he was having significant GI issues and was concerned about bleeding. It appears he did not start apixaban because he was concerned about his abdominal aortic aneurysm. He had endovascular repair and recent CT scan has not shown endoleak. He was worried that the leaking may get worse with anticoagulation. He also took omeprazole for 3 weeks and was having some GI issues due to that too. He is denying diarrhea but had significant urgency to go to bathroom when he was taking omeprazole. 02/27/2024: he is here for follow-up. In December he had COVID-19 infection and stop the Eliquis and starting aspirin he said that he did not resume medically since then has been taking aspirin only. He has been under lot of stress due to his 's health. He said he had office visit today for her and was quite stressed. He came to the office in his blood pressure is quite elevated. Manual blood pressure 170/110. No significant differences between both ventricles noted. no chest pain or shortness of breath. 04/30/2024: He is here for follow-up. Blood pressure is much better once he has increase the lisinopril to 20 mg daily. Denying any chest discomfort shortness of breath. No palpitations. On last visit he was taking aspirin and was not taking Eliquis. We discussed and he agreed to take Eliquis and stop the aspirin. I am looking at the med rec after the patient left and it appears he is taking aspirin not taking Eliquis. We will confirm with him whether he is taking Eliquis or not. [facility] Medical History Skin cancer Back pain Arthritis Difficulty swallowing GERD (gastroesophageal reflux disease) Bladder neck stricture COVID-19 vaccine series completed Coronary artery disease Knee pain, right Cardiomyopathy PVC (premature ventricular contraction) AAA (abdominal aortic aneurysm) Hypertension Surgical History H/O colonoscopy Hx of bilateral inguinal hernia repair Hx of cystoscopy History of cardiac cath History of hand surgery (~2001) History of spinal fusion (~2016) History of prostate surgery (~2013) Family History Father No problems noted. Mother No problems noted. Other Substance use disorder Social History Household Members: [facility] Are you a primary director of healthcare systems to a significant other at home: No Do you presently have visiting nurse or other home services: No Alcohol intake: never Patient Tobacco Use Status: Former Tobacco user Tobacco use type: Cigarette Years Smoked: 30 e-Cigarette/Vaping Use: Never Used Substance Use Type: Marijuana service: No Current occupational status: retired Current occupation: right handed Cognitive needs: No Hearing needs: No Vision needs: No Review of Systems Const Denies chills, Denies fatigue, Denies fever(s), Denies frequent falls, Denies weakness, Denies weight gain and Denies weight loss ENT Denies dizziness Card Denies chest pain, Denies leg edema, Denies lightheadedness, Denies palpitations, Denies dyspnea and Denies dyspnea on exertion Resp Denies cough, Denies dyspnea and Denies dyspnea on exertion GI Denies hematochezia Musc Denies abnormal gait, Denies muscle weakness, Denies numbness, Denies radiating pain into limb and Denies tingling Neuro Denies abnormal gait, Denies dizziness, Denies frequent falls, Denies numbness, Denies tingling and Denies weakness Endo Denies fatigue and Denies palpitations Physical Exam Vital Signs: Last Vital Signs Pulse 71 04/30/24 13:58 BP 120/72 04/30/24 13:58 BMI result Body Mass Index 27.4 GENERAL APPEARANCE: in no acute distress, well developed, well nourished. NECK/THYROID: no carotid bruit, no jugular venous distention. SKIN: no suspicious lesions, warm and dry. HEART: no murmurs, S1, S2 normal. LUNGS: clear to auscultation bilaterally. ABDOMEN: normal, bowel sounds present, soft, nontender, nondistended. EXTREMITIES: no clubbing, cyanosis, or edema. PERIPHERAL PULSES: equal. NEUROLOGIC: nonfocal, alert and oriented. PSYCH: mood/affect full range. Assessment & Plan Assessment & Plan (1) PAF (paroxysmal atrial fibrillation): Code(s): I48.0 - Paroxysmal atrial fibrillation Category: Medical (2) Hypertension: Code(s): I10 - Essential (primary) hypertension Category: Medical (3) AAA (abdominal aortic aneurysm): Comment: 01/22/2023 - endovascular aortic aneurysm repair with Endologix AFX 2 Code(s): I71.4 - Abdominal aortic aneurysm, without rupture Category: Medical Qualifiers: Abdominal aorta location: infrarenal aorta Presence of rupture: without rupture Qualified Code(s): I71.43 - Infrarenal abdominal aortic aneurysm, without rupture (4) PVC (premature ventricular contraction): Comment: referred to by -ablation not done due to danger in area involved Code(s): I49.3 - Ventricular premature depolarization Category: Medical (5) Cardiomyopathy: Comment: follows w/ Code(s): I42.9 - Cardiomyopathy, unspecified Category: Medical Plan Pleasant 83-year-old gentleman who is presenting for follow-up. He has background history of premature ventricular complexes and borderline cardiomyopathy with EF 45-50% based on echocardiography done in 10/13/2022. He also had mild ascending aortic dilatation. He had paroxysmal atrial fibrillation. Previously was started on Eliquis but stopped and started taking aspirin and we had discussion on last visit about stopping aspirin and continuing Eliquis. It appears he is taking aspirin and not taking Eliquis as per med rec. We will call him and discuss with him about this. If in fact he is taking aspirin I think we will need to discuss with him about resuming Eliquis and stopping aspirin like before. Blood pressure is better controlled with lisinopril. Thank you for allowing me to participate in the care of your patient. Please feel free to contact me if you have any questions. Coding Level of Care Code Est Pt Level 4 (75333) Diagnoses PAF (paroxysmal atrial fibrillation) I48.0 Hypertension I10 Infrarenal abdominal aortic aneurysm (AAA) without rupture I71.43 Abdominal aorta location: infrarenal aorta Presence of rupture: without rupture PVC (premature ventricular contraction) I49.3 Cardiomyopathy I42.9
== END 2024-04-30 14:24 | disposition home or self-care (01) ==
PROVIDERS: PCP Internal Medicine; Visit Provider Internal Medicine Cardiovascular Disease
DX: I48.0 Paroxysmal atrial fibrillation (principal); I10 Essential (primary) hypertension; I71.43 Infrarenal abdominal aortic aneurysm, without rupture; I49.3 Ventricular premature depolarization; I42.9 Cardiomyopathy, unspecified
CPT/HCPCS: 99214

== ENCOUNTER → 2024-04-30 13:44 | Outpatient (BNVA) | payer MEDICARE, BC, SELFPAY | PROVIDERS: PCP Internal Medicine; Visit Provider Internal Medicine Cardiovascular Disease | DX: I48.0 Paroxysmal atrial fibrillation (principal); I71.43 Infrarenal abdominal aortic aneurysm, without rupture; I49.3 Ventricular premature depolarization; I42.9 Cardiomyopathy, unspecified; I10 Essential (primary) hypertension | CPT/HCPCS: 99212 ==

== ENCOUNTER 2024-08-12 13:30 | Outpatient (AMB) | payer MEDICARE, BC, SELFPAY ==
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
[2024-08-12 13:47] VITALS: BP 138/80; PULSE 80; O2SAT 95; BMI 27.6
== END 2024-08-12 15:00 | disposition home or self-care (01) ==
PROVIDERS: PCP Internal Medicine; Visit Provider Physician Assistant
DX: S81.802A Unspecified open wound, left lower leg, initial encounter (principal)

== ENCOUNTER → 2024-08-12 13:30 | Outpatient (BNVA) | payer MEDICARE, BC, SELFPAY | PROVIDERS: PCP Internal Medicine; Visit Provider Physician Assistant | DX: S81.802A Unspecified open wound, left lower leg, initial encounter (principal) | CPT/HCPCS: 99212 ==

== ENCOUNTER 2024-08-27 07:54 | Outpatient (REF) | payer MEDICARE, BC, SELFPAY ==
--- OUTSIDE RECORDS SUMMARY | 2024-09-02 16:21 | XMS_ITS ---
[facility] Name [facility] History of Medication Use Medication Directions Dispensed Refills Start Date End Date Stat amiODARONE (PACERONE) 100 MG tablet Take 1 tablet (100 mg total) by mouth daily. 08/06/2024 09/23/9999 active latanoprost (XALATAN) 0.005 % ophthalmic solution INSTILL 1 DROP INTO BOTH EYES ONCE DAILY AT BEDTIME 06/26/2024 active lisinopril (PRINIVIL,ZeSTRIL) 20 MG tablet Take 1 tablet (20 mg total) by mouth. 06/26/2024 active ASPIRIN 81 PO Take by mouth. 06/26/2024 active metoPROLOL SUCCINATE (TOPROL-XL) 25 MG 24 hr tablet Take 1 tablet (25 mg total) by mouth daily. 06/26/2024 active Problems Problem Status Onset Date Problem Type Date of Resoluti on Source PVC (premature ventricular contraction) active EncounterDiagnosisAct HHCCT NICM (nonischemic cardiomyopathy) ([facility]) active EncounterDiagnosisAct HHCCT
== END 2024-08-27 07:55 | disposition home or self-care (01) ==
LOC: HO.HMGCLDS 07:54
PROVIDERS: PCP Internal Medicine; Visit Provider Nurse Practitioner Family
DX: R39.12 Poor urinary stream (principal); N40.1 Benign prostatic hyperplasia with lower urinary tract symptoms; R33.9 Retention of urine, unspecified; R68.82 Decreased libido; N32.0 Bladder-neck obstruction; Z12.5 Encounter for screening for malignant neoplasm of prostate
CPT/HCPCS: 36415; 51798; 81003; 84153; 99212

== ENCOUNTER 2024-08-27 11:12 | Outpatient (AMB) | payer MEDICARE, BC, SELFPAY ==
--- NOTE | 2024-08-27 11:18 | A.OFFVIS_ITS ---
Intake Visit Reasons: 1 yr follow up/PSA/ PVR Intake Note: Patient presents today for follow up on: incomplete bladder emptying, weak urinary system, and psa lab results PSA: 0.20 Urology Medications: none Blood Thinner: none PVR: 44ml's Digital Experience Manager Required: No Accompanied by: Self / Same As Patient Allergies amiodarone Adverse Reaction (Intermediate, Verified 08/27/24 11:45) Constipation timolol [From Betimol] Adverse Reaction (Intermediate, Verified 08/27/24 11:45) hypotension Medication List - Last Reconciled 08/27/24 by SIENNA Lemus-GERMAN acetaminophen 1,000 mg (2 x 500 mg) PO Q6H PRN aspirin (Adult Low Dose Aspirin) 81 mg PO DAILY calcium carbonate-vitamin D3 600 mg-5 mcg (200 unit) 1 tab PO DAILY cetirizine (Zyrtec) 10 mg PO DAILY PRN fluticasone furoate 27.5 mcg/actuation (Flonase Sensimist) 1 spray intranasal BID latanoprost 0.005% 1 drp ophthalmic (eye) BEDTIME lisinopril 20 mg PO DAILY HPI Comments Details: Hill is a pleasant 84-year-old male patient of Dr. Cantu. He has a past medical history of back pain, arthritis, GERD, bladder neck stricture, coronary artery disease, cardiomyopathy, abdominal aortic aneurysm with endovascular aortic aneurysm repair in January of 2023, and hypertension. He presents to the office today for follow-up of his lower urinary tract symptoms and neurogenic bladder. When asked he reports to be doing and feeling well. In office urinalysis results reviewed with the patient today. PVR 44 mL. Patient with a previous [employer] laser in [place] approximately 10 years ago as well as bladder neck incision 12/[address] Napoles. He denies any issues with his urination. When asked he denies urinary urgency, urinary frequency, incontinence, nocturia, hematuria, dysuria, foul smelling urine, changes to urinary stream, flank pain, fever, and or chills. He does report noting urinary dribbling. He is happy with his current voiding parameters. PSAs are as follows: 08/16-0.2, 08/17 0.2 He does discuss feeling low libido and is enquiring further workup. He otherwise denies any issues or concerns at this time. ------ Previous Visit-------- 08/07/22 Feels the bladder neck incision is helping Has minimal sensation when bladder is full Any using timed voiding every 3-4 hours Feels stream is appropriate and is not weakening Will continue to follow every 6 months given inability to sense full bladder Lower urinary tract symptoms GreenLight laser 2010 in [place] Had been doing well with urination for many years Starting to have weakness of stream and some degree of leakage 12/13 cystoscopy with bladder neck narrowing bladder trabeculations moderate, underwent bladder neck incision 12/13. [facility] Medical History Skin cancer Back pain Arthritis Difficulty swallowing GERD (gastroesophageal reflux disease) Bladder neck stricture COVID-19 vaccine series completed Coronary artery disease Knee pain, right Cardiomyopathy PVC (premature ventricular contraction) AAA (abdominal aortic aneurysm) Hypertension Surgical History H/O colonoscopy Hx of bilateral inguinal hernia repair Hx of cystoscopy History of cardiac cath History of hand surgery (~2001) History of spinal fusion (~2016) History of prostate surgery (~2013) Family History Father No problems noted. Mother No problems noted. Other Substance use disorder Social History Household Members: Spouse Housing: Condominium Are you a primary geriatric personal care aide to a significant other at home: No Do you presently have visiting nurse or other home services: No Alcohol intake: never Patient Tobacco Use Status: Former Tobacco user Tobacco use type: Cigarette Years Smoked: 30 e-Cigarette/Vaping Use: Never Used Substance Use Type: Marijuana service: No Current occupational status: retired Current occupation: right handed Cognitive needs: No Hearing needs: No Vision needs: No Review of Systems Const Reports no additional complaints Eyes Reports no additional complaints ENT Reports no additional complaints Card Reports as per HPI Resp Reports no additional complaints GI Reports as per HPI Reports as per HPI Musc Reports as per HPI Neuro Reports no additional complaints Psych Reports no additional complaints Endo Reports no additional complaints Lg/Lymph Reports no additional complaints Aller/Immun Reports no additional complaints Physical Exam Const General: cooperative, healthy appearing, comfortable, no acute distress, well developed, alert and awake Orientation/consciousness: patient oriented x3 Limitations: no limitations HEENT Head: Yes normal to inspection, Yes normocephalic and Yes atraumatic Ears: hearing grossly normal bilaterally Eyes General: appearance normal, both eyes and all related structures Neck Neck: Yes normal visual inspection and Yes trachea midline Chest Chest palpation & inspection: normal inspection of the chest Resp Effort & Inspection: normal respiratory effort and able to speak in complete sentences Cardio Rate: regular rate GI Inspection: Yes normal to inspection General: Yes no CVA tenderness Back/Spine/Pelvis Back: no CVA tenderness Skin General skin exam: no rashes or lesions noted Neuro General: patient oriented x3 Extrem General: Yes normal to inspection Psych Appearance: grossly normal and well kempt Mental Status: mental status grossly normal Speech and movement: Normal speech and movement present and Clear speech present Affect: normal affect Attitude: cooperative Thought process: Normal thought process present Thought content: Normal thought content present Insight: Fair insight present (Psych) Judgement: Fair judgement present (Psych) Office Procedures Post Void Residual Post Residual Void Post Void Residual (PVR): 44 [id number] Void Residual by ultrasound Results AMB Urinalysis, Automated UA Leukoctes 0 Yong/uL Last Edit by USConnect Vickey on 08/27/24 11:38 UA Nitrite Last Edit by Pedro Hurd on 08/27/24 11:38 UA Urobilinogen 0.2 mg/dL Last Edit by ArtistForce on 08/27/24 11:38 UA Protein 0 mg/dL Last Edit by Teblajarod Hurd on 08/27/24 11:38 UA pH 6.0 Last Edit by Teblajarod Hurd on 08/27/24 11:38 UA Blood 10 Demetrius/uL Last Edit by Teblajarod Hurd on 08/27/24 11:38 UA Specific [place] 1.020 Last Edit by CristoferGennius Vickey on 08/27/24 11:38 UA Ketone Negative Last Edit by Pedro Hurd on 08/27/24 11:38 UA Bilirubin 0 mg/dL Last Edit by Pedro Hurd on 08/27/24 11:38 UA Glucose 0 mg/dL Last Edit by Pedro Hurd on 08/27/24 11:38 Results Reviewed Results Reviewed: Laboratory Last Values Urine pH (Auto) 6.0 08/27/24 11:29 Specific [place] (Auto) 1.020 08/27/24 11:29 Urine Protein (Auto) 0 mg/dL 08/27/24 11:29 Glucose (UA)(Auto) 0 mg/dL 08/27/24 11:29 Urine Ketones (Auto) Negative 08/27/24 11:29 Urine Blood (Auto) 10 Demetrius/uL 08/27/24 11:29 Urine Bilirubin (Auto) 0 mg/dL 08/27/24 11:29 Urine Urobilinogen (Auto) 0.2 mg/dL 08/27/24 11:29 Leukocyte Esterase (Auto) 0 Yong/uL 08/27/24 11:29 Assessment & Plan Assessment & Plan (1) Low libido: Code(s): R68.82 - Decreased libido Category: Medical (2) Bladder outlet obstruction: Code(s): N32.0 - Bladder-neck obstruction Category: Medical (3) Bladder neck stricture: Code(s): N32.0 - Bladder-neck obstruction Category: Medical (4) Weak urinary stream: Code(s): R39.12 - Poor urinary stream Category: Medical (5) Incomplete emptying of bladder due to benign prostatic hyperplasia: Code(s): N40.1 - Benign prostatic hyperplasia with lower urinary tract symptoms; R33.9 - Retention of urine, unspecified Category: Medical Plan In office urinalysis results reviewed with the patient today. PVR 44 mL. Recent PSA results reviewed with the patient today; as noted above. Patient denies any issues with his urination at this time. Patient is happy with current voiding parameters Educated, instructed, encouraged to continue drinking adequate amount of water daily. Will obtain testosterone free and total for further assessment evaluation Follow-up in 1-3 months with lab to be completed prior; or sooner with any issues, concerns, and or questions. Orders: Orders AMB Urinalysis Automated Today Z13.9 - Encounter for screening, unspecified AMB Post Void Residual by ultrasound Today R39.12 - Poor urinary stream Testosterone, Free/Total Today R68.82 - Decreased libido Patient Instructions: The patient had an opportunity to ask questions regarding the treatment plan. All questions were answered. Physical exam, labs, and imaging were discussed and reviewed in detail. As well as risks, benefits, and discussion of treatment choices. No major barriers to understanding were identified. The patient expressed understanding and agreement with the above treatment plan. The patient was made aware they should contact our office by phone for worsening of their current condition, the appearance of new symptoms, or with any questions or concerns. Compliance is encouraged with any medications and follow up testing that is ordered. It is a privilege to be allowed the opportunity to participate in? your urological care.? Again, if you have any questions or concerns If you have any questions or concerns please do not hesitate to contact me. The office is [phone]. This note is constructed using voice recognition software. While every effort has been made to ensure accuracy master at arms errors may have been included. Yours sincerely, JOHANA Lemus Coding Level of Care Code Est Pt Level 3 (83251) Complex EM visit Add On G2211 Diagnoses Low libido R68.82 Bladder outlet obstruction N32.0 Bladder neck stricture N32.0 Weak urinary stream R39.12 Incomplete emptying of bladder due to benign prostatic hyperplasia N40.1; R33.9 CPT Codes Post Residual Void - PVR CPT Code: 52776-Acrz Void Residual by ultrasound ([id number])
== END 2024-08-27 11:47 | disposition home or self-care (01) ==
PROVIDERS: PCP Internal Medicine; Visit Provider Nurse Practitioner Family
DX: N40.1 Benign prostatic hyperplasia with lower urinary tract symptoms (principal); R68.82 Decreased libido; N32.0 Bladder-neck obstruction; R39.12 Poor urinary stream; R33.9 Retention of urine, unspecified; Z13.9 Encounter for screening, unspecified
CPT/HCPCS: 99213; G2211

== ENCOUNTER 2024-09-01 10:40 | Outpatient (REF) | payer MEDICARE, BC, SELFPAY ==
[2024-09-06 09:28] LABS: Testosterone, Total 114 ng/dL (250-1100)
== END 2024-09-01 10:41 | disposition home or self-care (01) ==
LOC: HO.HMGCLDS 10:40
PROVIDERS: PCP Internal Medicine; Visit Provider Nurse Practitioner Family
DX: R68.82 Decreased libido (principal)
CPT/HCPCS: 36415; 84402; 84403

== ENCOUNTER 2024-09-02 13:08 | Emergency (ER) | payer MEDICARE, BC, SELFPAY ==
[2024-09-02] VITALS (9 sets, daily range): BP systolic 105–130; BP diastolic 65–90; PULSE 99–115; RESP 18–22; TEMP 36.8–37.4; O2SAT 92–95; BMI 27.1
--- NOTE | ~2024-09-02 | CT_ITS ---
EXAMINATION: CT ABDOMEN AND PELVIS WITHOUT CONTRAST CLINICAL INFORMATION: Left lower abdominal pain. Diarrhea. COMPARISON: Most recent CTA abdomen/pelvis dated 11/27/2023. TECHNIQUE: Multidetector volumetric imaging was performed from the superior aspect of the liver through the pubic symphysis. Sagittal and coronal reformatted images were obtained on the technologist's workstation. This CT examination was performed using dose optimization techniques as appropriate, variously including the following: *Automated exposure control *Adjustment of mA and/or kV according to patient size (this includes techniques or standardized protocols for targeted exams where dose is matched to indication/reason for exam; i.e. extremities or head) *Use of iterative reconstruction technique DLP: 617 mGy-cm FINDINGS: LUNG BASES: The visualized lung bases are unremarkable. LIVER, GALLBLADDER, AND BILIARY TREE: The liver is normal in size, shape, and attenuation. No focal hepatic lesion or biliary ductal dilatation is present. The gallbladder is unremarkable with no evidence of radiopaque gallstones, gallbladder wall thickening, or obvious pericholecystic inflammatory changes. PANCREAS: Unremarkable. SPLEEN: Unremarkable. ADRENAL GLANDS: Unremarkable. KIDNEYS AND URETERS: The kidneys are normal in size, shape, and attenuation. No hydronephrosis, hydroureter, or calculi seen. Simple right renal cyst. Findings are not clinically significant and no dedicated follow-up imaging is recommended. No perinephric stranding. BLADDER: Unremarkable. GASTROINTESTINAL TRACT: No small or large bowel obstruction. Fluid within nondilated small bowel loops as well as moderate fluid and stool within the colon. No bowel wall thickening or inflammatory change. Findings could represent mild enteritis in the appropriate clinical setting. Unremarkable appendix. PERITONEAL CAVITY: No intra-abdominal free air or free fluid. No intra-abdominal mass or organized fluid collection/abscess formation. ABDOMINAL WALL: No significant hernia is appreciated. LYMPH NODES: No lymphadenopathy. VASCULAR: Abdominal aortic vascular graft with dilatation of the abdominal aorta and common iliac arteries, unchanged when compared to the prior examination. Prominent atherosclerotic calcifications. Unremarkable IVC. PELVIC VISCERA: Small prostate calcifications. OSSEOUS STRUCTURES: No acute osseous abnormality. CT/CT abdomen pelvis wo IV con IMPRESSION: 1. No small or large bowel obstruction. Fluid within nondilated small bowel loops as well as moderate fluid and stool within the colon. No bowel wall thickening or inflammatory change. Findings could represent mild enteritis in the appropriate clinical setting. Unremarkable appendix. 2. No intra-abdominal mass, lymphadenopathy, or ascites. 3. Additional chronic findings are unchanged. Fleischner guidelines were followed. Electronically signed by: Randolph Conway MD 09/02/2024 04:48 PM VANI
--- NOTE | 2024-09-02 13:33 | ED.GENADULT ---
HPI - General Adult General Chief complaint: Nausea/Vomiting/Diarrhea Stated complaint: N/V/D X5H PER EMS Time Seen by Provider: 09/02/24 13:31 Source: patient and EMS Mode of arrival: EMS Limitations: no limitations History of Present Illness ED Provider: DR. Santoro HPI narrative: 84-year-old male brought in by ambulance for evaluation of multiple episodes of nonbloody watery explosive diarrhea since this morning associated with left lower quadrant abdominal pain symptoms started since this morning then patient started to have nausea and vomiting with the diarrhea, ate salmon fish last night with his no other sick contacts, no recent travel, no recent use of antibiotic. Patient is prone to dehydration which usually trigger rapid AFib, no recent use of antibiotic, patient is not on AC. Intra-abdominal surgery significant for AAA repair with ultrasound postoperative monitoring by Dr. Brown. Related Data Home Medications ?Medication ?Instructions ?Recorded ?Confirmed latanoprost 0.005 % eye drops 1 drp ophthalmic (eye) BEDTIME 06/30/20 04/30/24 calcium 600 mg (as 1 tab PO DAILY 01/17/23 04/30/24 carbonate)-vitamin D3 5 mcg (200 unit) tablet aspirin 81 mg tablet,delayed 81 mg PO DAILY 04/30/24 04/30/24 release (Adult Low Dose Aspirin) Previous Rx's ?Medication ?Instructions ?Recorded acetaminophen 500 mg capsule 1,000 mg (2 x 500 mg) PO Q6H PRN 01/18/24 pain, moderate #30 caps cetirizine 10 mg tablet (Zyrtec) 10 mg PO DAILY PRN allergy 01/18/24 symptoms #60 tabs fluticasone furoate 27.5 1 spray intranasal BID #6.6 mL 01/18/24 mcg/actuation nasal spray,suspension (Flonase Sensimist) lisinopril 20 mg tablet 20 mg PO DAILY #90 tabs 03/13/24 Allergies Allergy/AdvReac Type Severity Reaction Status Date / Time amiodarone AdvReac Intermediate Constipatio Verified 09/02/24 13:48 n mexiletine AdvReac Intermediate Diarrhea Verified 09/02/24 13:48 timolol [From Betimol] AdvReac Intermediate hypotension Verified 09/02/24 13:48 Review of Systems Review of Systems: All other systems are reviewed and are negative Constitutional: Reports as per HPI and Reports no additional constitutional complaints Eyes: Reports as per HPI and Reports no additional eye complaints Reports system reviewed and no additional complaints, except as documented Cardiovascular: Reports as per HPI and Reports no additional cardiovascular complaints Respiratory: Reports as per HPI and Reports no additional respiratory complaints Gastrointestinal: Reports as per HPI and Reports no additional gastrointestinal complaints Genitourinary: Reports no additional female genitourinary complaints Musculoskeletal: Reports no additional musculoskeletal complaints Skin/Breast: Reports system reviewed and no additional complaints, except as docu Psychiatric: Reports no additional psychiatric complaints Endocrine: Reports no additional endocrine complaints Hematologic/Lymphatic: Reports no additional hematologic/lymphatic complaints Allergic/Immunologic: Reports no additional allergic/immunologic complaints Reports system reviewed and no additional complaints, except as documented and Reports Abnormal speech present [facility] Past Medical History Medical History Skin cancer Back pain Arthritis Difficulty swallowing GERD (gastroesophageal reflux disease) Bladder neck stricture COVID-19 vaccine series completed Coronary artery disease Knee pain, right Cardiomyopathy PVC (premature ventricular contraction) AAA (abdominal aortic aneurysm) Hypertension Surgical History H/O colonoscopy Hx of bilateral inguinal hernia repair Hx of cystoscopy History of cardiac cath History of hand surgery (~2001) History of spinal fusion (~2017) History of prostate surgery (~2013) Family History Family History Father No problems noted. Mother No problems noted. Other Substance use disorder Social History Social History Household Members: Spouse Housing: [facility] Are you a primary care aide to a significant other at home: No Do you presently have visiting nurse or other home services: No Alcohol intake: never Patient Tobacco Use Status: Former Tobacco user Tobacco use type: Cigarette Years Smoked: 30 Smoked in Last 30 Days: No e-Cigarette/Vaping Use: Never Used Use of substances other than those prescribed or required for medical reasons: No Substance Use Type: Marijuana Advance Directives: No Advance Directives Information Provided: Yes Do you have a plan to hurt others: No Plan service: No Current occupational status: retired Current occupation: right handed Cognitive needs: No Hearing needs: No Vision needs: No Physical Exam ED Vital Signs: Vital Signs - 24 hr 09/02/24 13:39 09/02/24 14:06 09/02/24 14:08 Temperature 99.4 F Pulse Rate 105 H 99 105 H Respiratory Rate 18 Blood Pressure 124/66 129/70 119/66 Pulse Oximetry 94 Oxygen Delivery Method Room Air Oxygen Flow Rate 09/02/24 14:09 09/02/24 14:29 09/02/24 16:11 Temperature 99.4 F Pulse Rate 114 H 105 H 107 H Respiratory Rate 18 22 H Blood Pressure 122/67 110/70 114/67 Pulse Oximetry 93 92 Oxygen Delivery Method Room Air Room Air Oxygen Flow Rate 92 BMI result Body Mass Index 27.1 Vital signs have been reviewed and appear to be correct. Blood pressure elevated. Heart rate normal. Respiratory rate normal. Temperature normal. Oxygen saturation normal. Appearance: Alert. Oriented X3. No acute distress. Head: Normal external exam. Normocephalic. Atraumatic. No More[place] signs noted. No raccoon eyes noted Eyes: PERRLA. EOMI. Conjunctiva and sclera normal. Eyelids normal. ENT: TM's Normal. Pharynx normal. Uvula midline. Moist mucous membranes. No trismus noted. No drooling noted. No muffled voice noted. Neck: Normal inspection. Neck supple. FROM. No adenopathy. Thyroid Normal. No meningeal signs. No neck mass noted. CVS: Normal heart rate and rhythm. Heart sound normal. No murmurs noted. Pulses normal throughout. Respiratory: No respiratory distress. Painless inspiration. Breath sounds normal. No wheezes/rales/rhonchi noted. Chest nontender. No accessory muscle usage noted or decreased air movement noted. Abdomen: Soft, mild left lower quadrant tenderness, no rebound tenderness, no guarding. Bowel sounds normal in all 4 quadrants. No distention noted. No organomegaly noted. No visible injury noted. Rectal exam: Brown stool, guaiac negative. Back: No CVA tenderness. Full range of motion noted. Skin: Skin warm and dry. Normal skin color. Normal skin turgor. No rashes/lesions/lacerations noted. Extremities: No lower extremity edema. Extremities exhibit normal range of motion. Extremities nontender. Neuro: Oriented X 3. Cranial nerve exam: II-XII are grossly intact No motor deficit. No sensory deficit. Reflexes normal. Course Reevaluation(s) Reevaluation #1: Patient feels better, take, without nausea or vomiting or diarrhea, labs are unremarkable, CT abdomen pelvis shows no acute intra-abdominal pathology. Time: 17:30 Medications Administered Discontinued Medications Generic Name Dose Route Start Last Admin Trade Name Freq PRN Reason Stop Dose Admin Al Hydroxide/Mg Hydroxide 30 ml 09/02/24 13:51 09/02/24 14:11 Magnesium Hydrox/Alum Hydrox 30 Ml Oral.Susp PO 09/02/24 13:52 30 ml ONCE ONE Administration Famotidine 20 mg 09/02/24 13:51 09/02/24 14:11 Famotidine/Pf 20 Mg/2 Ml Vial IVPUSH 09/02/24 13:52 20 mg ONCE ONE Administration Sodium Chloride 1,000 mls @ 999 mls/hr 09/02/24 13:42 09/02/24 15:29 Ns IV 09/02/24 14:42 Infused .Q1H1M ONE Infusion Loperamide HCl 2 mg 09/02/24 13:51 09/02/24 14:11 Loperamide Hcl 2 Mg Capsule PO 09/02/24 13:52 2 mg ONCE ONE Administration Ondansetron HCl 4 mg 09/02/24 13:51 09/02/24 14:11 Ondansetron Hcl 4 Mg/2 Ml Vial IVPUSH 09/02/24 13:52 4 mg ONCE ONE Administration Medical Decision Making Differential Diagnosis Differential Diagnoses: The differential diagnosis associated with the presentation includes (Colitis, appendicitis, pancreatitis, gastroenteritis, food poisoning, dehydration, electrolyte derangement, severe anemia.) Admission/Observation Consideration of admission/observation: Escalation of care including admission/observation considered Lab Data MDM Lab Attestation statement: I reviewed the patient's lab results. 09/02/24 14:04 09/02/24 14:04 Labs: Lab Results 09/02/24 09/02/24 09/02/24 Range/Units 14:04 14:05 14:06 WBC 10.1 (4.8-10.8) X10*3/uL RBC 4.31 L (4.60-5.80) X10*6/uL Hgb 13.8 L (14.0-18.0) g/dl Hct 40.7 L (42.0-52.0) % MCV 94.4 (80.0-98.0) fL MCH 32.0 (27.0-33.0) pg MCHC 33.9 (31.0-36.0) g/dl RDW 13.7 (11.0-16.0) % Plt Count 156 L D (160-400) X10*3/uL MPV 10.1 (9.4-12.4) fL Immature Gran % (Auto) 0.2 (0.0-0.4) % Neut % (Auto) 93.2 H (45-73) % Lymph % (Auto) 3.6 L (20-40) % [place] % (Auto) 2.6 (2-11) % Eos % (Auto) 0.2 (0-4) % Baso % (Auto) 0.2 (0-2) % Lymph # (Auto) 0.4 L (1.2-4.9) X10*3/uL [place] # (Auto) 0.3 (0.1-1.2) X10*3/uL Eos # (Auto) 0.0 (0.0-0.4) X10*3/uL Baso # (Auto) 0.0 (0.0-0.2) X10*3/uL Abs Immat Gran (auto) 0.02 (0.00-0.03) X10*3/uL Absolute Neuts (auto) 9.4 H (2.0-8.3) x10*3/uL Absolute Nucleated RBC 0.000 (0.0-0.012) X10*3/uL Nucleated RBC % (auto) 0.0 (0.0-0.2) /100WBC Smear Tech's Comments VERIFIED Sodium 143 (135-145) mmol/L Potassium 4.0 D (3.3-5.1) mmol/L Chloride 107 (96-108) mmol/L Carbon Dioxide 28 (22-29) mmol/L Anion Gap 12 (12-20) BUN 20 H (9-16) mg/dL Creatinine 0.92 (0.5-1.4) mg/dL Estim Creat Clear Calc 62.5 Estimated GFR > 60 Random Glucose 118 H (60-115) mg/dL Lactic Acid 1.2 (0.5-2.0) mmol/L Calcium 8.6 D (8.4-10.2) mg/dL Total Bilirubin 0.7 (0.0-1.0) mg/dL Direct Bilirubin 0.2 (0.0-0.5) mg/dL AST 25 (5-37) U/L ALT 16 (0-40) U/L Alkaline Phosphatase 125 H (39-117) U/L Troponin I High Sens 7.8 D (<3.5-35.0) ng/L B-Natriuretic Peptide 54 (<100) pg/mL Total Protein 6.5 (6.5-8.0) g/dL Albumin 3.9 (3.5-5.0) g/dL Lipase 18 (8-78) U/L Stool Occult Blood NEGATIVE (NEGATIVE) Influenza Type A (PCR) NEGATIVE (Negative) Influenza Type B (PCR) NEGATIVE (Negative) RSV RNA Qual (PCR) NEGATIVE (Negative) SARS-CoV-2 RNA (RT-PCR) NEGATIVE (Negative) Independent Interpretation I performed an independent interpretation of an: CT Scan (Abdomen and pelvis:1. No small or large bowel obstruction. Fluid within nondilated small bowel loops as well as moderate fluid and stool within the colon. No bowel wall thickening or inflammatory change. Findings could represent mild enteritis in the appropriate clinical setting. Unremarkable ap) Radiology Impression Discussion of test interpretation with radiology: I have reviewed the radiologist's reading. Discharge Plan Discharge Clinical Impression: Gastroenteritis Patient Disposition: Home, Self-Care Instructions: Gastroenteritis (ED) Prescriptions: No Action lisinopril 20 mg tablet 20 mg PO DAILY Qty: 90 3RF calcium carbonate-vitamin D3 600 mg-5 mcg (200 unit) Tablet 1 tab PO DAILY cetirizine [Zyrtec] 10 mg tablet 10 mg PO DAILY PRN (Reason: allergy symptoms) Qty: 60 0RF Flonase Sensimist 27.5 mcg/actuation spray,suspension 1 spray intranasal BID Qty: 6.6 0RF Rx Instructions: into each nostril acetaminophen 500 mg capsule 1,000 mg PO Q6H PRN (Reason: pain, moderate) Qty: 30 0RF latanoprost 0.005 % drops 1 drp ophthalmic (eye) BEDTIME aspirin [Adult Low Dose Aspirin] 81 mg tablet,delayed release (DR/EC) 81 mg PO DAILY Referrals: Crystal Cantu MD [Primary Care Provider] - Print Language: Slovak
--- NOTE | 2024-09-02 13:43 | ECG_ITS ---
Test Reason : hx of afib Blood Pressure : / mmHG Vent. Rate : 100 BPM Atrial Rate : 100 BPM P-R Int : 186 ms QRS Dur : 134 ms QT Int : 388 ms P-R-T Axes : 022 -37 105 degrees QTc Int : 500 ms Normal sinus rhythm Left axis deviation Left ventricular hypertrophy with QRS widening and repolarization abnormality ( R in aVL , Brian product ) Abnormal ECG When compared to the previous EKG of No significant changes seen Referred By: Christian Santoro Electronically Signed By:MICHAEL FAULKNER MD
[2024-09-02] MEDS: Loperamide HCl 2 MG CAPSULE PO (14:11)
[2024-09-02] MEDS: Famotidine/PF 20 MG/2 ML VIAL IVPUSH (14:11)
[2024-09-02] MEDS: ondansetron HCL 4 MG/2 ML VIAL IVPUSH (14:11)
[2024-09-02] MEDS: Magnesium Hydrox/Alum Hydrox 30 ML ORAL.SUSP PO (14:11)
[2024-09-02] MEDS: 0.9 % Sodium Chloride 1,000 ML 999 ML IV (14:11)
[2024-09-02 14:17] LABS: OBS Int Ctl Valid YES; OBS1 NEGATIVE (NEGATIVE)
[2024-09-02 14:19] LABS: Basophils Percent Auto 0.2 % (0-2); Eosinophils Percent Auto 0.2 % (0-4); Hematocrit 40.7 % (42.0-52.0); Hemoglobin 13.8 g/dl (14.0-18.0); Imm Gran Abs Auto 0.02 X10*3/uL (0.00-0.03); Imm Gran Pct Auto 0.2 % (0.0-0.4); Lymphocytes Absolute Auto 0.4 X10*3/uL (1.2-4.9); Lymphocytes Percent Auto 3.6 % (20-40); MANUAL DIFF FLAG SCAN; Mean Corpuscular HGB Conc 33.9 g/dl (31.0-36.0); Mean Corpuscular Volume 94.4 fL (80.0-98.0); Mean Platelet Volume 10.1 fL (9.4-12.4); Monocytes Absolute Auto 0.3 X10*3/uL (0.1-1.2); Monocytes Percent Auto 2.6 % (2-11); Neutrophils Absolute Auto 9.4 x10*3/uL (2.0-8.3); Neutrophils Percent Auto 93.2 % (45-73); Platelet Count 156 X10*3/uL (160-400); Red Blood Count 4.31 X10*6/uL (4.60-5.80); Red Cell Distribution Width 13.7 % (11.0-16.0); SCAN SMEAR FLAG 1; White Blood Count 10.1 X10*3/uL (4.8-10.8)
[2024-09-02 14:30] LABS: Lactic Acid 1.2 mmol/L (0.5-2.0)
[2024-09-02 14:36] LABS: SLIDE REVIEW VERIFIED
[2024-09-02 14:40] LABS: Alanine Aminotransferase 16 U/L (0-40); Albumin Level 3.9 g/dL (3.5-5.0); Alkaline Phosphatase 125 U/L (39-117); Anion Gap 12 (12-20); Aspartate Amino Transferase 25 U/L (5-37); Bilirubin Direct 0.2 mg/dL (0.0-0.5); Bilirubin Total 0.7 mg/dL (0.0-1.0); Blood Urea Nitrogen 20 mg/dL (9-16); Calcium 8.6 mg/dL (8.4-10.2); Carbon Dioxide 28 mmol/L (22-29); Chloride 107 mmol/L (96-108); Creatinine Clr Calc Pharmacy 62.5; Estimated Glomerular Filt Rate > 60; Glucose Random 118 mg/dL (60-115); Lipase 18 U/L (8-78); Sodium 143 mmol/L (135-145); Total Protein 6.5 g/dL (6.5-8.0)
[2024-09-02 14:43] LABS: B Type Natriuretic Peptide 54 pg/mL (<100); Troponin-I High Sensitivity 7.8 ng/L (<3.5-35.0)
[2024-09-02 15:19] LABS: Influenza A PCR NEGATIVE (Negative); Influenza B PCR NEGATIVE (Negative); Resp Syncy Virus RNA Qual PCR NEGATIVE (Negative); SARS COV2 PCR INHOUSE NEGATIVE (Negative)
--- NOTE | 2024-09-02 17:49 | PC.NURSE ---
Patient admitted via EMS from home for vomiting/diarrhea for the past 5 hours prior to arrival. Patient alert and oriented, stated abdominal pain prior to arrival but denies any pain on arrival. Medications and IVF given as ordered, labs obtained. No vomiting since arrival to unit, 1 episode of diarrhea, C-diff and GI panel obtained. PO fluids and saltines provided to patient, denies any nausea/vomiting at this time. Patient OOB, ambulating to bathroom, gait steady.
[2024-09-02 18:00] LABS: Appearance Urine Clear; Color Urine Yellow; Glucose Urine UA Negative (Negative); Leukocyte Esterase Urine Negative (Negative); Nitrite Urine Negative (Negative); Specific Gravity - Urine 1.025 (1.005-1.025); Urine Blood Negative (Negative); Urine Ketones Trace mg/dL (Negative); Urine Protein Negative (Neg-Trace)
[2024-09-02 20:13] LABS: CDiff Gene PCR NEGATIVE (Negative)
[2024-09-03 10:29] LABS: Adenovirus F 40/41 Not Detected (Not Detect.); Astrovirus Not Detected (Not Detect.); Campylobacter Not Detected (Not Detect.); Cryptosporidium Not Detected (Not Detect.); Cyclospora cayetanensis Not Detected (Not Detect.); E. coli EAEC Not Detected (Not Detect.); E. coli EPEC Not Detected (Not Detect.); E. coli ETEC Not Detected (Not Detect.); E. coli STEC Not Detected (Not Detect.); Entamoeba histolytica Not Detected (Not Detect.); Giardia lamblia Not Detected (Not Detect.); Plesiomonas shigelloides Not Detected (Not Detect.); Rotavirus A Not Detected (Not Detect.); Salmonella Not Detected (Not Detect.); Sapovirus Not Detected (Not Detect.); Shigella sp./EIEC Not Detected (Not Detect.); Vibrio Not Detected (Not Detect.); Vibrio Cholerae Not Detected (Not Detect.); Yersinia enterocolitica Not Detected (Not Detect.)
[2024-09-05 11:18] LABS: Norovirus Stool PCR DETECTED
== END 2024-09-02 19:12 | disposition home or self-care (01) ==
PROVIDERS: Emergency Provider Emergency Medicine; PCP Internal Medicine
DX: K52.9 Noninfective gastroenteritis and colitis, unspecified (principal); R10.32 Left lower quadrant pain; R11.2 Nausea with vomiting, unspecified; I10 Essential (primary) hypertension; I25.10 Atherosclerotic heart disease of native coronary artery without angina pectoris; I71.40 Abdominal aortic aneurysm, without rupture, unspecified; Z79.899 Other long term (current) drug therapy; Z03.818 Encounter for observation for suspected exposure to other biological agents ruled out
CPT/HCPCS: 0241U; 36415; 74176; 80048; 80076; 81003; 82272; 83605; 83690; 83880; 84484; 85025; 87040; 87493; 87507; 93005; 96361; 96374; 96375; 99284; 99285; J2405

== ENCOUNTER → 2024-09-02 13:43 | Outpatient (BNV) | payer MEDICARE, BC, SELFPAY | PROVIDERS: Emergency Provider Emergency Medicine; PCP Internal Medicine; Visit Provider Internal Medicine Cardiovascular Disease | DX: R94.31 Abnormal electrocardiogram [ECG] [EKG] (principal); I44.4 Left anterior fascicular block | CPT/HCPCS: 93010 ==

== ENCOUNTER 2024-11-12 14:47 | Outpatient (AMB) | payer MEDICARE, BC, SELFPAY ==
--- OUTSIDE RECORDS SUMMARY | 2024-11-12 14:50 | XMS_ITS | Encounter Summary ---
Author Organization [facility] Address [address] [place] [address] Care Team Providers Care News Writer Name Role Phone Irineo Kimble MD Primary Care Provider [phone] Reason for Visit * Reason Comments Med Change Request Encounter Details Date Type Department Care Team (Late st Contact Info) Description 07/16/2024 Refill [facility] Heart & Vascular [place] - Electrophysiology [address] [place] [id number] Philip Angel MD [address] [id number] Med Change Request Social History Tobacco Use Types Packs/Day Years Used Date Smoking Tobacco: Former Cigarettes Smokeless Tobacco: Never Alcohol Use Standard Drinks/Week Comments Not Currently 0 (1 standard drink = 0.6 oz pur e alcohol) Sex and Gender Information Value Date Recorded Sex Assigned at Male 05/12/2024 3:54 PM EDT Gender Identity Male 05/12/2024 3:54 PM EDT Sexual Orientation Heterosexual (straight) 05/12 3:54 PM EDT documented as of this encounter Plan of Treatment Not on file documented as of this encounter Visit Diagnoses Diagnosis PVC (premature ventricular contraction) Other premature beats NICM (nonischemic cardiomyopathy) (HCC) documented in this encounter Care Teams News Writer Relationship Specialty Start Date End Date Irineo Kimble MD [address] [place] [address] [address] [place] [address] PCP - General Cardiovascular Disease 05/12/24 documented as of this encounter
--- OUTSIDE RECORDS SUMMARY | 2024-11-12 14:50 | XMS_ITS | Encounter Summary ---
Author Organization [facility] Address [address] [place] [id number] Care Team Providers Care Gauger Chief Delivery Name Role Phone Irineo Kimble MD Primary Care Provider [phone] Encounter Details Date Type Department Care Team (Late st Contact Info) Description 05/14/2024 Scanned Document [place] [id number] Crystal Cantu MD [address] [place] [address] Social History Tobacco Use Types Packs/Day Years Used Date Smoking Tobacco: Never Assessed Sex and Gender Information Value Date Recorded Sex Assigned at Male 05/12/2024 3:54 PM EDT Gender Identity Male 05/12/2024 3:54 PM EDT Sexual Orientation Heterosexual (straight) 05/12 3:54 PM EDT documented as of this encounter Plan of Treatment Not on file documented as of this encounter Visit Diagnoses Not on filedocumented in this encounter Care Teams Gauger Chief Delivery Relationship Specialty Start Date End Date Irineo Kimble MD [address] [place] [address] [address] [place] [address] PCP - General Cardiovascular Disease 05/12/24 documented as of this encounter
--- OUTSIDE RECORDS SUMMARY | 2024-11-12 14:50 | XMS_ITS | Encounter Summary ---
Author Organization [facility] Address [address] [place] [id number] Care Team Providers Care Sole Molding Machine Operator Name Role Phone Irineo Kimble MD Primary Care Provider [phone] Encounter Details Date Type Department Care Team (Late st Contact Info) Description 05/14/2024 Scanned Document [place] [id number] Irineo Kimble MD [address] [place] [address] Social History Tobacco Use Types Packs/Day Years [...] on filedocumented in this encounter Care Teams Sole Molding Machine Operator Relationship Specialty Start Date End Date Irineo Kimble MD [address] [place] [id number] PCP - General Cardiovascular Disease 05/12/24 documented as of this encounter
--- OUTSIDE RECORDS SUMMARY | 2024-11-12 14:50 | XMS_ITS | Data Portability ---
Author Organization [facility]A Garcia s, [facility] Address [address] [place] [address] Care Team Providers Care Metaphysician Name Role Phone [facility] Primary Care Provider Assessment No assessment recorded. Plan of Treatment Reminders Order Date Submit Date Provider Last Modified By Organization Details Last Modified Time Details Appointments None recorded. Lab rapid SARS CoV 2 Ag, QL IA, respiratory specimen 2022 023 [facility] [address]_praveen sami, [address] [place] [address], [phone], 19:00:30 rapid flu (A+B) 2022 023 [facility] [place] [address] _praveen sami, [address] [place] [address], [phone], 3 19:00:30 Referral None recorded. Procedures None recorded. Surgeries None recorded. Imaging None recorded. Medication Orders azithromyci n 250 mg tablet 2022 023 [facility] #[id number], [address] [facility] [place], [address], 19:00:32 Patient TargetsNo targets recorded. Patient Instructions Encounter Date Encounter Id Patient Instructions Last Modified By Organization Details Last Modified Time 10/01/2022 [id number] cough: care instructions [email or web address] Not available 10/01/2022 19:00:30 Reason for Referral None Reported. Results Created Date Observation Date Name Description Value Unit Range Abnormal Flag Note LastModifiedBy Organization Detail LastModifiedTime 10/01/19 23 10/01/2022 rapid SARS CoV 2 Ag, QL IA, respi rator y speci men Unknown Analyte Normal =Negat dov Not Available [address]99patricia [address], [place], [address], 10/01/2022 18:20:10 10/01/19 23 10/01/2022 rapid SARS CoV 2 Ag, QL IA, respi rator y speci men Unknown Analyte negati ve Not Available [address] [place], [place] [address], [address], 10/01/2022 18:20:10 10/01/19 23 10/01/2022 rapid flu (A+B) Unknown Analyte Normal = Negati ve Not Available [address] [place], [place] [address], [address], 10/01/2022 18:20:18 10/01/19 23 10/01/2022 rapid flu (A+B) Unknown Analyte Normal = Negati ve Not Available [address] [place], [address], 10/01/2022 18:20:18 10/01/19 23 10/01/2022 rapid flu (A+B) Unknown Analyte negati ve Not Available [address] [place], [place] [address], [address], 10/01/2022 18:20:18 10/01/19 23 10/01/2022 rapid flu (A+B) Unknown Analyte negati ve Not Available [address] [place], [place] [address], [address], 10/01/2022 18:20:18 Result Notes None recorded. Problems Name Problem SNOMED Code Status Onset Date Resolution Date Notes Provider Name and Address Organization Details Recorded Time Ventricular reji 53193010 Active 023 ADELAIDA KEATING null, [facility] 3 18:16:22 Glaucoma 91903450 Active 023 ADELAIDA KEATING null, [facility] 3 18:16:59 Problem Notes None recorded. Medical Equipment None Reported. Allergies Allergen ID Allergen Name Allergen Category Reaction Reaction Severity Criticality Documentation Date Start Date Code Code System Note Provider Name and Address Organization Details Recorded Time 443592 Betimol medicatio n palpitati ons Not available Not available 10/01/2022 22541 2 RxNorm ADELAIDA KEATING null, [facility] 3 18:14:51 Medications Name Sig Start Date Stop Date Status Note LastModified by Organization Details LastModified Time latanoprost 0.005 % eye drops INSTILL 1 DROP INTO BOTH EYES ONCE DAILY AT BEDTIME active Not Available Not Available No t Available azithromyci n 250 mg tablet Take 1 dose pk every day by oral route as directed for 5 days. 2022 active Not Available Not Available Not Avai lable amiodarone 200 mg tablet TAKE 2 TABLETS BY MOUTH 2 TIMES DAILY X2 WEEK THEN 1 TABLET DAILY 10/01 completed Not Available Not Available Not Available trimethopri m 100 mg tablet TAKE 1 TABLET BY MOUTH EVERY 12 HOURS X10 DAYS active Not Available Not Available No t Available aspirin 81 mg tablet,ruben yed release TAKE 1 TABLET BY MOUTH EVERY DAY active Not Available Not Available No t Available prednisolon e acetate 1 % eye drops,suspe nsion USE 1 DROP IN THE LEFT EYE FOUR TIMES A DAY FOR 4 DAYS active Not Available Not Available No t Available phenazopyri dine 100 mg tablet TAKE 1 TABLET BY MOUTH 3 TIMES A DAY 4 DAYS NEEDED FOR SPASM active Not Available Not Available No t Available mexiletine 150 mg capsule TAKE 1 CAPSULE BY MOUTH EVERY 8 HOURS 10/01 completed Not Available Not Available Not Available lisinopril 10 mg tablet TAKE 1 TABLET BY MOUTH EVERY DAY active Not Available Not Available No t Available Vitals Date Recorded Body height Body mass index (BMI) Body weight Pain severity - 0-10 verbal numeric rating [Score] - Reported Heart rate Respiratory rate Oxygen saturation Oxygen saturation in Arterial blood by Pulse oximetry Body temperature Systolic blood pressure Diastolic blood pressure Provider Name and Address Organization Details Last Updated DateTime 180.34 cm 27.9 kg/m2 91973.4 7 g 0 70 /min 16 /min 96 % 96 % 97.6 [degF] 161 mm[Hg] 80 mm[Hg] ADELAIDA KEATING PA - [facility] 18:19:18 Social History Question Answer Notes LastModified by Organizat ion Details LastModified Time Tobacco Smoking Status Never Smoker ADELAIDA sterling, PA - [facility] 10/01/2022 18:16:37 What Is Your Level Of Alcohol Consumption? None Information not available 10/01/2022 Are You Currently Employed? No Information not available 10/01/2022 Do You Use Any Illicit Or Recreational Drugs? No Information not available 10/01/2022 Have You Recently Traveled Abroad? No Information not available 10/01/2022 Do You Or Have You Ever Used Any Other Forms Of Tobacco Or Nicotine? No Information not available 10/01/2022 Sex: Unknown Functional Status None recorded. Mental Status None recorded. Family History Relationship Description Onset Age of this Age Resolved Age Notes LastModified by Organization Details LastModified Time Father No current problems or disability Not available 10/01 18:16:26 Mother No current problems or disability Not available 10/01 18:16:26 Medical History No medical history recorded. Immunizations Vaccine Type Date Status Note Provider Nam e and Address Organization Details Recorded Time COVID-19, mRNA, LNP-S, PF, 30 mcg/0.3 mL dose, daniele-sucrose 01/13/2022 completed ADELAIDA RISHABH null, PA - [facility] 10/01/2022 18:15:06 Influenza, high-dose, quadrivalent, PF 06/01/2022 completed ADELAIDA RISHABH null, PA - [facility] 10/01/2022 18:15:06 Influenza, adjuvanted, quadrivalent, PF 05/30/2020 completed ADELAIDA RISHABH null, PA - [facility] 10/01/2022 18:15:06 Influenza, high-dose, quadrivalent, PF 06/04/2021 completed ADELAIDA RISHABH null, PA - [facility] 10/01/2022 18:15:06 COVID-19, mRNA, LNP-S, PF, 30 mcg/0.3 mL dose 06/20/2021 completed ADELAIDA RISHABH null, PA - [facility] 10/01/2022 18:15:06 COVID-19, mRNA, LNP-S, PF, 30 mcg/0.3 mL dose 11/26/2020 completed ADELAIDA RISHABH null, PA - [facility] 10/01/2022 18:15:06 COVID-19, mRNA, LNP-S, bivalent, PF, 30 mcg/0.3 mL dose 06/20/2022 completed ADELAIDA RISHABH null, PA - [facility] 10/01/2022 18:15:06 Past Encounters Encounter ID Performer Location Encounter Start Date Encounter Closed Date Diagnosis/Indication Diagnosis SNOMED-CT Code Diagnosis ICD10 Code Diagnosis Note [id number] YOLA WERNER [address] [address] 10/01/2022 17:37:02 10/01/2022 19:08:24 Acute bronchitis 73782602 J20.9 Health Concerns Section Related Observation LastModified by Organization Detai ls LastModified Time None Recorded Concern Status LastModified by Organization Details LastModified Time None Recorded Advance Directives Directive None Recorded Payers Encounter Date Sequence Insurance Name Policy Number Policy Fernandez Covered Member ID Fernandez Member ID Guarantor Name 10/01/2022 2 [place] Hill Lin [id number] Hill Lin 10/01/2022 1 [place] [employer] Hill Lin [id number] Hill Lin Notes Date Note Type Note Provider Name and Address Organization Details Recorded Time 10/01/2022 text/html Hill is an 82 yo M here for evaluation of congestion, cough with associated SOB onset 2 weeks ago but worse in the last few days. Notes he tested negative for covid at home. Here for testing. No fevers, chills, sweats, wheezing, difficulty breathing. Only SOB with cough fits, none at rest. No CP, dizziness. No hx of smoking or asthma. Has tried OTC medication without relief. YOLA CHANEY [address] [place] [address] [place], CHRIS [place], [address], [place] - [facility] 10/01/2022 19:03:43
--- OUTSIDE RECORDS SUMMARY | 2024-11-12 14:50 | XMS_ITS | Clinical Summary ---
Author Organization [facility] Address [address] [place] [address] Care Team Providers Care Advertising Traffic Manager Name Role Phone Irineo Kimble MD Primary Care Provider Allergies Active Allergy Reactions Criticality Noted Date Comments Betaxolol GI Intolerance/Nausea/Vomiting Low 06/24 Medications Medication Sig Dispensed Refills Start Date End Date Status lisinopril (PRINIVIL,ZeSTRIL) 20 MG tablet Take 1 tablet (20 mg total) by mouth. 06/08/2024 Active latanoprost (XALATAN) 0.005 % ophthalmic solution INSTILL 1 DROP INTO BOTH EYES ONCE DAILY AT BEDTIME 03/19/2024 Active ASPIRIN 81 PO Take by mouth. Active amiODARONE (PACERONE) 100 MG tabletIndications:PVC (premature ventricular contraction) Take 1 tablet (100 mg total) by mouth daily. 30 tablet 3 08/04/2024 Active Social History Tobacco Use Types Packs/Day Years Used Date Smoking Tobacco: Former Cigarettes Smokeless Tobacco: Never Tobacco Cessation:Counseling Given: Not Answered Alcohol Use Standard Drinks/Week Comments Not Currently 0 (1 standard drink = 0.6 oz pur e alcohol) Sex and Gender Information Value Date Recorded Sex Assigned at Male 05/12/2024 3:54 PM EDT Gender Identity Male 05/12/2024 3:54 PM EDT Sexual Orientation Heterosexual (straight) 05/12 3:54 PM EDT Last Filed Vital Signs Vital Sign Reading Time Taken Comments Blood Pressure 120/74 08/04/2024 10:05 AM EST Pulse 84 08/04/2024 10:05 AM EST Temperature - - Respiratory Rate - - Oxygen Saturation - - Inhaled Oxygen Concentration - - Weight 86.2 kg (190 lb) 08/04/2024 10:05 AM EST Height 180.3 cm (5' 11 ) 08/04/2024 10:05 AM EST Body Mass Index 26.5 08/04/2024 10:05 AM EST Plan of Treatment Health Maintenance Due Date Last Done Comments DTaP/Tdap/Td Vaccines (1 - Tdap) 1958 Pneumococcal Vaccines 50+ (1 of 1 - PCV) 1989 Zoster (Shingles) Vaccine (1 of 2) 1989 RSV Vaccine 60 years and older and Patients (1 - 1-dose 75+ series) 2014 Influenza Vaccine 04/24/2024 06/01/2022, , 05/30/2020, Additional history exists COVID-19 Vaccine ( season) 2024 06/20/2022, 01/13/2022, 06/20/2021, Additional history exists Hepatitis B Vaccines Aged Out No long er eligible based on patient's age to complete this topic Care Teams Advertising Traffic Manager Relationship Specialty Start Date End Date Irineo Kimble MD [address] [place] [address] Drive [address] [place] [address] PCP - General Cardiovascular Disease 05/12/24
[2024-11-12 15:28] VITALS: BP 122/70; PULSE 107; RESP 20; TEMP 36.7; O2SAT 97; BMI 28.3
--- NOTE | 2024-11-12 15:28 | MHC.OFFWIV ---
Intake Vital Signs 11/12/24 15:28 Height 5 ft 11 in Weight 203 lb BMI 28.3 BP 122/70 Blood Pressure Location Lt brachial Position Sitting Respiration 20 Pulse 107 H Pulse Source Pulse Oximeter Temp 98.0 F Temp Source Oral Pulse Oximetry (%) 97 Oxygen Delivery Method Room Air Intake Visit Reasons: EP severe lower back pain Intake Note: Pt is here today for a walk in visit. Pt c/o severe lower back pain. Pt states that he had spinal fusion 8-10 years ago. Patient Tobacco Use Status: Former Tobacco user Allergies amiodarone Adverse Reaction (Intermediate, Verified 11/12/24 15:31) Constipation mexiletine Adverse Reaction (Intermediate, Verified 11/12/24 15:31) Diarrhea timolol [From Betimol] Adverse Reaction (Intermediate, Verified 11/12/24 15:31) hypotension HPI HPI Comments History of Present Illness Details Patient is an 84yo M who presents to office with back pain Hx spinal fusion 8-10 years ago L4-S1, AAA repair last year on Aspirin He said he had a lot of complications during the AAA repair States every since then he has had intermittent back pain States he started intense pain; worse with sitting down and having the seat touch his lower back He decided to come in today because its worse today No CP, SOB or abdominal pain + nausea without vomiting. No urine or bowel complaints Pain level currently is minimal He has not tried any medicine today for it; tylenol in the pasr helps slightly No numbness or tingling in the legs No radiation of pain PFSH Medical History Skin cancer Back pain Arthritis Difficulty swallowing GERD (gastroesophageal reflux disease) Bladder neck stricture COVID-19 vaccine series completed Coronary artery disease Knee pain, right Cardiomyopathy PVC (premature ventricular contraction) AAA (abdominal aortic aneurysm) Hypertension Surgical History H/O colonoscopy Hx of bilateral inguinal hernia repair Hx of cystoscopy History of cardiac cath History of hand surgery (~2001) History of spinal fusion (~2016) History of prostate surgery (~2013) Family History Father No problems noted. Mother No problems noted. Other Substance use disorder Social History Household Members: [facility] Are you a primary resident care manager to a significant other at home: No Do you presently have visiting nurse or other home services: No Alcohol intake: never Patient Tobacco Use Status: Former Tobacco user Tobacco use type: Cigarette Years Smoked: 30 e-Cigarette/Vaping Use: Never Used Substance Use Type: Marijuana service: No Current occupational status: retired Current occupation: right handed Cognitive needs: No Hearing needs: No Vision needs: No Review of Systems Const Denies chills, Denies fatigue and Denies fever(s) ENT Denies dizziness Card Denies chest pain, Denies rapid heart rate, Denies pedal edema, Denies dyspnea and Reports other (atrial fibrillation) Resp Denies cough and Denies dyspnea GI Denies abdominal pain, Denies GI cramping, Denies diarrhea, Reports nausea and Denies vomiting Denies hematuria and Denies difficulty urinating Musc Reports back pain, Denies numbness, Denies stiffness and Denies tingling Skin/Breast Denies rash Neuro Denies dizziness, Denies numbness and Denies tingling Endo Denies fatigue Physical Exam Vital Signs: Last Vital Signs Temp 98.0 F 11/12/24 15:28 Pulse 107 H 11/12/24 15:28 Resp 20 11/12/24 15:28 BP 122/70 11/12/24 15:28 Pulse Ox 97 11/12/24 15:28 Oxygen Delivery Method Room Air 11/12/24 15:28 BMI result Body Mass Index 28.3 General: Non-toxic, NAD. Speaking full sentences. Skin: Warm dry throughout. No posterior back or flank ecchymosis or vesicular lesions or erythema Eye: EOMI Respiratory: CTA bilaterally. No wheezes, rales or rhonchi Cardiac: regular rate irregular rhythm. No murmur. Noc residential tendernes or pedal edema bilaterally Abdominal: BS present. No pulsitile mass or abdominal distension noted. Non-tender to light and deep palpation. MSK: No midline spinal tenderness. Minimal lumbar bilateral paravertebral muscle ttp. Negative SLR bilaterally. 5/5 strength bilateral great to dorsilflexion. Neurology: Alert. No aphasia or facial droop. Gait without abnormality Psych: Good mood and affect Assessment & Plan Assessment & Plan (1) Lumbar back pain: Code(s): M54.50 - Low back pain, unspecified Plan: Xray lumbar spine: I viewed and it appears that hardware is in place but he has chronic changes in back I see where aorta repair is but unsure if any abnormalities about this and pt is aware xray does not rule out graft abnormality We discussed tht back pain can present from spine but also the aprta He is aware we can not rule out aorta abnormality at this visit but he claims pain ongoing for a while and acute on chronic He was educated on CP, SOB, dizziness, urine/bowel incontinence, abdominal pain, paresthesias or any worsening symptoms to go directly to ER He has a CT with contract for the aorta in another month or two for monitoring; CT scan from august 2024 showed chronic graft dilation without change from previous. [place] PCP was notified via clinical note and asked for referral follow up HR re-evaluated was 70s-80s Pt demonstrated verbal understanding and will have close PCP follow up All questions anwered Orders: Orders XR lumbar spine 2-3V Today M54.50 - Low back pain, unspecified Coding Level of Care Code Est Pt Level 3 (00229) Diagnoses Lumbar back pain M54.50
== END 2024-11-12 16:17 | disposition home or self-care (01) ==
PROVIDERS: PCP Internal Medicine; Visit Provider Physician Assistant
DX: M54.50 Low back pain, unspecified (principal)

== ENCOUNTER 2024-11-12 15:41 | Outpatient (REF) | payer MEDICARE, BC, SELFPAY ==
--- NOTE | ~2024-11-12 | XR_ITS ---
EXAMINATION: XR LUMBOSACRAL SPINE CLINICAL INFORMATION: M54.50 - Low back pain, unspecified COMPARISON: None available. Correlation made with CT abdomen and pelvis 09/02/2024. TECHNIQUE: Three views of the lumbosacral spine. FINDINGS: Minimal levoconvex scoliosis. Normal lordosis. No definite fracture, compression deformity, or suspicious bone lesion. There is osteopenia. There are interspinous fusion devices at L4-5 and L5-S1, along with disc replacements at these levels. No hardware abnormality. Severe disc space degeneration L1-L3 with disc vacuum phenomenon. Multilevel facet degeneration most prominent at L3-S1. There are infrarenal aortobiiliac overlapping stents. Extensive vascular calcifications. XR/XR lumbar spine 2-3V IMPRESSION: 1. No acute findings in the lumbar spine. 2. Osteopenia. 3. Prior fusion L4-5 and L5-S1. No hardware complication evident. 4. Moderate to severe lumbar spondylosis most significant at L3-S1. Associated mild levoconvex scoliosis. 5. Overlapping aortobiiliac stents. Electronically signed by: Haile Gordon MD 11/12/2024 04:28 PM VANI
--- OUTSIDE RECORDS SUMMARY | 2024-11-12 15:44 | XMS_ITS | Clinical Summary ---
Author Organization [facility] Address [address] [place] [address] Care Team Providers Care Occupational Medicine Officer Name Role Phone Irineo Kimble MD Primary Care Provider [phone] Allergies Active Allergy Reactions Criticality Noted Date [...] age to complete this topic Care Teams Occupational Medicine Officer Relationship Specialty Start Date End Date Irinoe Kimble MD [address] [place] [address] Drive [address] [place] [address] PCP - General Cardiovascular Disease 05/12/24
--- OUTSIDE RECORDS SUMMARY | 2024-11-12 15:44 | XMS_ITS | Encounter Summary ---
Author Organization [facility] Address [address] [place] [address] Care Team Providers Care Copra Processor Name Role Phone Irineo Kimble MD Primary Care Provider [phone] Reason for Visit * Reason Comments Med Change Request Encounter Details Date Type Department Care Team (Late st Contact Info) Description 07/16/2024 Refill [facility] Heart & Vascular [place] - Electrophysiology [address] [place] [id number] Philip Angel MD [address] [address] Med Change Request Social History Tobacco Use [...] (HCC) documented in this encounter Care Teams Copra Processor Relationship Specialty Start Date End Date Irineo Kimble MD [address] [place] [address] [address] [place] [address] PCP - General Cardiovascular Disease 05/12/24 documented as of this encounter
--- OUTSIDE RECORDS SUMMARY | 2024-11-12 15:44 | XMS_ITS | Encounter Summary ---
Author Organization [facility] Address [address] [place] [address] Care Team Providers Care Director Of Global Talent Name Role Phone Irineo Kimble MD Primary Care Provider [phone] Encounter Details Date Type Department Care Team (Late st Contact Info) Description 05/14/2024 Scanned Document [place] [id number] Irineo Kimble MD [address] [place] [address] Social History Tobacco Use Types Packs/Day Years [...] on filedocumented in this encounter Care Teams Director Of Global Talent Relationship Specialty Start Date End Date Irineo Kimble MD [address] [place] [address] PCP - General Cardiovascular Disease 05/12/24 documented as of this encounter
== END 2024-11-12 15:42 | disposition home or self-care (01) ==
LOC: HO.HMGCX 15:41
PROVIDERS: PCP Internal Medicine; Visit Provider Physician Assistant
DX: M54.50 Low back pain, unspecified (principal)
CPT/HCPCS: 72100; 99212

== ENCOUNTER → 2024-11-12 15:45 | Outpatient (BNV) | payer MEDICARE, BC, SELFPAY | PROVIDERS: PCP Internal Medicine; Visit Provider Radiology Diagnostic Radiology | DX: M54.50 Low back pain, unspecified (principal); M85.80 Other specified disorders of bone density and structure, unspecified site; M47.896 Other spondylosis, lumbar region | CPT/HCPCS: 72100 ==

== ENCOUNTER 2024-11-28 09:36 | Outpatient (AMB) | payer MEDICARE, BC, SELFPAY ==
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
[2024-11-28 09:46] VITALS: BP 108/70; PULSE 70; RESP 19; O2SAT 96; BMI 28.2
--- OUTSIDE RECORDS SUMMARY | 2024-11-28 10:27 | XMS_ITS | Encounter Summary ---
Author Organization [facility] Address [address] [place] [address] Care Team Providers Care Decating Machine Operator Name Role Phone Irineo Kimble MD Primary Care Provider [phone] Encounter Details Date Type Department Care Team (Late st Contact Info) Description 05/14/2024 Scanned Document [place] [id number] Irineo Kimble MD [address] [place] [id number] Social History Tobacco Use Types Packs/Day Years [...] on filedocumented in this encounter Care Teams Decating Machine Operator Relationship Specialty Start Date End Date Irineo Kimble MD [address] [place] [address] PCP - General Cardiovascular Disease 05/12/24 documented as of this encounter
--- OUTSIDE RECORDS SUMMARY | 2024-11-28 10:27 | XMS_ITS | Patient Health Record ---
Author Organization [facility] [address] Address [address] [place] [address] Care Team Providers Care Can Striper Name Role Phone Kevin Curry M.D. Primary Care Provider Nikolas tikaanju ROSEMARIE STEVENS Unavailable [phone] Allergies Allergen (clinical drug ingredient) Drug/Non Drug Allergy documented on EMR Reaction Allergy Type Onset Date Status timolol Betimol Dizziness Drug Allergy Active Reason For Referral No Information Medications Medication SIG (Take, Route, Frequency, Duration) Notes Start Date End Date Status Lisinopril 10 MG TAKE 1 TABLET BY ZENIA TH EVERY DAY for 90 Active Latanoprost 0.005 % 1 drop into affected eye in the evening Ophthalmic Once a day Active Calcium-Vitamin D , [id number]-CVMY daily 11/11/2012 Active Social History Tobacco Use: Social History Observation Description Date Details (start date - stop date) Former Smoker NA - NA Tobacco Use/Smoking Question Answer Notes Are you a former smoker How long has it been since y ou last smoked? > 10 years Additional Findings: Tobacco User Chews tobacco Additional Findings: Tobacco Non-User Ex -moderate cigarette smoker (10-19/day) Alcohol Screen (Audit-C) Question Answer Notes Did you have a drink containing alcohol in the p ast year? 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 Problem 433982178 Ventricular premature depolarization (I49.3) Active confirmed Problem 72239963 Abdominal aortic aneurysm (AAA) without rupture (I71.4) Active confirmed Problem 58469894 Bradycardia (R00.1) Active confirmed Problem 89273418 Mild aortic valv e regurgitation (I35.1) Active confirmed Problem 33655395 Mild mitral valv e regurgitation (I34.0) Active confirmed Problem 191427833 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) Active confirmed Problem 066549103 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) Active confirmed Problem Atherosclerotic heart disease of [place] coronary artery without angina pectoris (843629631660059) Atherosclerotic heart disease of [place] coronary artery without angina pectoris (I25.10) 017 Active confirmed Problem Preoperative cardiovascular examination (300409811) EXAMINATION, PREOPERATIVE CARDIOVASCULAR (V72.81) 014 Problem resolved confirmed [place] [phone] Plan Of Treatment No Information Insurance Providers Payer Name Payer Address Payer Phone Subscriber Number Group Number Insured Name Patient Relationship to Insured Coverage Start Date Coverage End Date Medicare of [place] / [facility] [address] [place] [address] [id number] Hill Lin Self - patient is the insured /[facility] [address] [place], [place] [address] [phone] [id number] Hill Lin Self - patient is the insured Medical (General) History Medical History History ICD Code Lower Back Pain Atherosclerotic heart diseas e of [place] coronary artery without angina pectoris I25.10 Ischemic cardiomyopathy I25.5 Valvular heart disease I38 Bradycardia R00.1 Ventricular premature depolarization I49 .3 Abdominal aortic aneurysm (AAA) without rupture I71.4 Hypertensive heart disease without heart failure I11.9 Grade I diastolic dysfunction I51.9 Mild aortic valve regurgitation I35.1 Mild mitral valve regurgitation I34.0 Nonrheumatic pulmonary valve insufficien cy I37.1 Mild tricuspid valve regurgitation I07.1 Surgical History Surgery Date(Month/Year) Heart Catheterization 07/2014 Hand Surgery Hernia Repair Nasal Plastic Surgery
--- OUTSIDE RECORDS SUMMARY | 2024-11-28 10:27 | XMS_ITS | Encounter Summary ---
Author Organization [facility] Address [address] [place] [address] Care Team Providers Care Negative Restorer Name Role Phone Irineo Kimble MD Primary Care Provider [phone] Encounter Details Date Type Department Care Team (Late st Contact Info) Description 05/14/2024 Scanned Document [place] [id number] Crystal Cantu MD [address] [place] [address] Social History Tobacco Use Types Packs/Day Years [...] on filedocumented in this encounter Care Teams Negative Restorer Relationship Specialty Start Date End Date Irineo Kimble MD [address] [place] [address] [address] [place] [address] PCP - General Cardiovascular Disease 05/12/24 documented as of this encounter
--- OUTSIDE RECORDS SUMMARY | 2024-11-28 10:27 | XMS_ITS | Data Portability ---
Author Organization [facility] Address [address] [place] [address] Care Team Providers Care Gas Plant Technician Name Role Phone [facility] Primary Care Provider [phone] Assessment No assessment recorded. Plan of Treatment Reminders Order Date Submit Date Provider Last Modified By Organization Details Last Modified Time Details Appointments None recorded. Lab rapid SARS CoV 2 Ag, QL IA, respiratory specimen 2022 023 [facility] [address]_praveen sami, [address] [place] [address], [phone], 19:00:30 rapid flu (A+B) 2022 023 [facility] [place] [address] [facility], [address] [place] [address], [phone], 19:00:30 Referral None recorded. Procedures None recorded. Surgeries None recorded. Imaging None recorded. Medication Orders azithromyci n 250 mg tablet 2022 023 [facility] #[id number], [address] [facility] [place], [address], 19:00:32 Patient TargetsNo targets recorded. Patient Instructions Encounter Date Encounter Id Patient Instructions Last Modified By Organization Details Last Modified Time 10/01/2022 [id number] cough: care instructions jumana [email or web address] Not available 10/01/2022 19:00:30 Reason for Referral None Reported. Results Created Date Observation Date Name Description Value Unit Range Abnormal Flag Note LastModifiedBy Organization Detail LastModifiedTime 10/01/19 23 10/01/2022 rapid SARS CoV 2 Ag, QL IA, respi rator y speci men Unknown Analyte Normal =Negat dov Not Available [address]99patricia [address], [place], [address], 10/01/2022 18:20:10 10/01/19 23 10/01/2022 rapid SARS CoV 2 Ag, QL IA, respi rator y speci men Unknown Analyte negati ve Not Available [address] [place], [place] [address], [address], 10/01/2022 18:20:10 10/01/19 23 10/01/2022 rapid flu (A+B) Unknown Analyte Normal = Negati ve Not Available [address] [place], [place] [address], [address], 10/01/2022 18:20:18 10/01/19 23 10/01/2022 rapid flu (A+B) Unknown Analyte Normal = Negati ve Not Available [address] [place], [address], 10/01/2022 18:20:18 10/01/19 23 10/01/2022 rapid flu (A+B) Unknown Analyte negati ve Not Available [address] [place], [place] [address], [address], 10/01/2022 18:20:18 10/01/19 23 10/01/2022 rapid flu (A+B) Unknown Analyte negati ve Not Available [address] [place], [place] [address], [address], 10/01/2022 18:20:18 Result Notes None recorded. Problems Name Problem SNOMED Code Status Onset Date Resolution Date Notes Provider Name and Address Organization Details Recorded Time Ventricular reji 95182819 Active 023 ADELAIDA KEATING null, [facility] 18:16:22 Glaucoma 26770776 Active 023 ADELAIDA KEATING null, [facility] 18:16:59 Problem Notes None recorded. Medical Equipment None Reported. Allergies Allergen ID Allergen Name Allergen Category Reaction Reaction Severity Criticality Documentation Date Start Date Code Code System Note Provider Name and Address Organization Details Recorded Time 292883 Betimol medicatio n palpitati ons Not available Not available 10/01/2022 02764 2 RxNorm ADELAIAD KEATING null, [facility] 18:14:51 Medications Name [...] Last Updated DateTime 180.34 cm 27.9 kg/m2 67622.4 7 g 0 70 /min 16 /min [...] 30 mcg/0.3 mL dose 11/26/2020 completed ADELAIDA IRSHABH null, [place] - [facility] 10/01/2022 18:15:06 COVID-19, mRNA, LNP-S, bivalent, PF, 30 mcg/0.3 mL dose 06/20/2022 completed ADELAIDA RISHABH null, [place] - [facility] 10/01/2022 18:15:06 Past Encounters Encounter ID Performer Location Encounter Start Date Encounter Closed Date Diagnosis/Indication Diagnosis SNOMED-CT Code Diagnosis ICD10 Code Diagnosis Note [id number] [facility] WERNER [address] [address] 10/01/2022 17:37:02 10/01/2022 19:08:24 Acute bronchitis 34403641 J20.9 Health Concerns Section Related Observation LastModified by Organization Detai ls LastModified Time None Recorded Concern Status LastModified by Organization Details LastModified Time None Recorded Advance Directives Directive None Recorded Payers Encounter Date Sequence Insurance Name Policy Number Policy Fernandez Covered Member ID Fernandez Member ID Guarantor Name 10/01/2022 2 [place] Hill Lin [id number] Hill Lin 10/01/2022 1 [place] [employer] Hill Lin [id number] Hill Lin Notes Date Note Type [...] tried OTC medication without relief. YOLA CHANEY [address] [place] [address] Jose, [place], [address], [place] - [facility] 10/01/2022 19:03:43
--- OUTSIDE RECORDS SUMMARY | 2024-11-28 10:27 | XMS_ITS | Clinical Summary ---
Author Organization [facility] Address [address] [place] [address] Care Team Providers Care Welder Manufacture Name Role Phone Irineo Kimble MD Primary Care Provider [phone] Allergies Active Allergy Reactions Criticality Noted Date [...] age to complete this topic Care Teams Welder Manufacture Relationship Specialty Start Date End Date Irineo Kimble MD [address] [place] [address] Drive 3[address] [place] [address] PCP - General Cardiovascular Disease 05/12/24
--- OUTSIDE RECORDS SUMMARY | 2024-11-28 10:27 | XMS_ITS | Encounter Summary ---
Author Organization [facility] Address [address] [place] [address] Care Team Providers Care Vocational Horticulture Instructor Name Role Phone Irineo Kimble MD Primary Care Provider Reason for Visit * Reason Comments Med Change Request Encounter Details Date Type Department Care Team (Late st Contact Info) Description 07/16/2024 Refill [facility] [place] - Electrophysiology [address] [place] [id number] Philip Angel MD [address] [address] Med Change Request Social History Tobacco Use [...] (HCC) documented in this encounter Care Teams Vocational Horticulture Instructor Relationship Specialty Start Date End Date Irineo Kimble MD [address] [place] [address] [address] [place] [address] PCP - General Cardiovascular Disease 05/12/24 documented as of this encounter
== END 2024-11-28 10:40 | disposition home or self-care (01) ==
PROVIDERS: PCP Internal Medicine; Visit Provider Internal Medicine
DX: R10.9 Unspecified abdominal pain (principal)

== ENCOUNTER → 2024-11-28 09:36 | Outpatient (BNVA) | payer MEDICARE, BC, SELFPAY | PROVIDERS: PCP Internal Medicine; Visit Provider Internal Medicine | DX: R10.9 Unspecified abdominal pain (principal) | CPT/HCPCS: 96127; 99212 ==

== ENCOUNTER 2024-12-24 10:22 | Outpatient (REF) | payer MEDICARE, BC, SELFPAY ==
--- NOTE | ~2024-12-24 | CT_ITS ---
EXAMINATION: CT ABDOMEN PELVIS ANGIOGRAPHY WITH IV CONTRAST HISTORY: I71.43 - Infrarenal abdominal aortic aneurysm, without rupture COMPARISON: There are no prior studies for comparison. TECHNIQUE: CT angiogram of the abdomen and pelvis was performed following administration of 80 Omnipaque 350 using standard departmental protocol. Coronal and sagittal reformatted images were generated and reviewed. The contrast bolus was timed to maximally opacify the vascular system. This CT exam was performed with one or more of the following dose reduction techniques: automated exposure control, adjustment of the mA and/or kV according to patient size, use of iterative reconstruction technique. DLP: 472 mGy-cm FINDINGS: LOWER CHEST: The visualized lung bases are clear. There is no pleural effusion. CARDIOVASCULATURE: The heart is normal in size. There is no pericardial effusion. LIVER: The liver is normal in size and contour. No liver mass is identified. The hepatic and portal veins are patent. GALLBLADDER / BILE DUCTS: The gallbladder is unremarkable. There is no intra or extrahepatic biliary ductal dilatation. SPLEEN: The spleen is normal in size. No focal splenic lesion is identified. PANCREAS: The pancreas is unremarkable in appearance. ADRENAL GLANDS: Within normal limits. KIDNEYS/RETROPERITONEUM: No renal calculi are identified. There is no hydronephrosis. There is an 8.1 cm cyst at the lower pole of the right kidney. LYMPH NODES: No abdominal or pelvic lymphadenopathy. VASCULATURE: An aortobiiliac stent graft is again noted which originates at the level of the renal arteries. The stent is widely patent. There is no definite evidence of an endoleak. [facility] [place] aortic aneurysm measures 4.0 cm in diameter (previously 4.2 cm). MESENTERY/PERITONEUM: No free fluid. No masses. There is no free intraperitoneal gas. STOMACH: The stomach is collapsed, limiting evaluation. SMALL BOWEL: The small bowel is normal in caliber. COLON: There is a large amount of stool throughout the colon. There is extensive colonic diverticulosis without evidence of diverticulitis. APPENDIX: Normal. URINARY BLADDER/PELVIC ORGANS: The urinary bladder is collapsed, limiting evaluation. The prostate is normal in size. BONES / SOFT TISSUES: There is degenerative disc disease of the spine. The patient is status post fusion at the L4-5 and L5-S1 levels with spinous process bands and disc prostheses. CT/CT angio abdomen pelvis IMPRESSION: Patent aortobifemoral stent graft without definite evidence of an endoleak. [facility] [place] aneurysm has further decrease in size and now measures 4.0 cm in diameter. Electronically signed by: Mehdi June MD 12/24/2024 01:04 PM EDT
[2024-12-24] MEDS: iohexoL 350 MG/ML 100 ML INFUS..BTL IV (11:19)
--- OUTSIDE RECORDS SUMMARY | 2024-12-24 12:07 | XMS_ITS | Clinical Summary ---
Author Organization [facility] Address [address] [place] [address] Care Team Providers Care Partnership Manager Name Role Phone Irineo Kimble MD Primary Care Provider [phone] Allergies Active Allergy Reactions Criticality Noted Date [...] age to complete this topic Care Teams Partnership Manager Relationship Specialty Start Date End Date Irineo Kimble MD [address] [place] [address] Drive 3rd [place] [address] PCP - General Cardiovascular Disease 05/12/24
--- OUTSIDE RECORDS SUMMARY | 2024-12-24 12:07 | XMS_ITS | Data Portability ---
Author Organization [facility]OLA Garcia [facility], [facility] Address [address] [place] [address] Care Team Providers Care Panel Assembler Name Role Phone [facility] Primary Care Provider Assessment No assessment recorded. Plan of Treatment Reminders Order Date Submit Date Provider Last Modified By Organization Details Last Modified Time Details Appointments None recorded. Lab rapid SARS CoV 2 Ag, QL IA, respiratory specimen 2022 023 [facility] [address]_praveen sami, [address] [place] [address], [phone], 19:00:30 rapid flu (A+B) 2022 023 [facility] [place] [address] _praveen sami, [address] [place] [address], [phone], 19:00:30 Referral None recorded. Procedures None recorded. Surgeries None recorded. Imaging None recorded. Medication Orders azithromyci n 250 mg tablet 2022 023 [facility] #[id number], [address] [facility] [place], [address], 19:00:32 Patient TargetsNo targets recorded. Patient Instructions Encounter Date Encounter Id Patient Instructions Last Modified By Organization Details Last Modified Time 10/01/2022 [id number] cough: care instructions jumana [email or web address] Not available 10/01/2022 19:00:30 Reason for Referral None Reported. Results Created Date Observation Date Name Description Value Unit Range Abnormal Flag Note LastModifiedBy Organization Detail LastModifiedTime 10/01/19 23 10/01/2022 rapid SARS CoV 2 Ag, QL IA, respi rator y speci men Unknown Analyte Normal =Negat dov Not Available 2099patricia [address], [place], [address], 10/01/2022 18:20:10 10/01/19 23 10/01/2022 rapid SARS CoV 2 Ag, QL IA, respi rator y speci men Unknown Analyte negati ve Not Available [address] [place], [place] [address], [address], 10/01/2022 18:20:10 10/01/19 23 10/01/2022 rapid flu (A+B) Unknown Analyte Normal = Negati ve Not Available [address] [place], [place] [address], [address], 10/01/2022 18:20:18 10/01/19 23 10/01/2022 rapid flu (A+B) Unknown Analyte Normal = Negati ve Not Available [address] [place], [address], 10/01/2022 18:20:18 10/01/19 23 10/01/2022 rapid flu (A+B) Unknown Analyte negati ve Not Available [address] [place], [place] [address], [address], 10/01/2022 18:20:18 10/01/19 23 10/01/2022 rapid flu (A+B) Unknown Analyte negati ve Not Available [address] [place], [place] [address], [address], 10/01/2022 18:20:18 Result Notes None recorded. Problems Name Problem SNOMED Code Status Onset Date Resolution Date Notes Provider Name and Address Organization Details Recorded Time Ventricular reji 78194868 Active 023 ADELAIDA KEATING null, [facility] 3 18:16:22 Glaucoma 19221208 Active 023 ADELAIDA KEATING null, [facility] 18:16:59 Problem Notes None recorded. Medical Equipment None Reported. Allergies Allergen ID Allergen Name Allergen Category Reaction Reaction Severity Criticality Documentation Date Start Date Code Code System Note Provider Name and Address Organization Details Recorded Time 830477 Betimol medicatio n palpitati ons Not available Not available 10/01/2022 80416 2 RxNorm ADELAIDA KEATING null, [facility] 18:14:51 Medications Name Sig [...] Last Updated DateTime 180.34 cm 27.9 kg/m2 85687.4 7 g 0 70 /min 16 /min [...] SNOMED-CT Code Diagnosis ICD10 Code Diagnosis Note [id number] YOLA WERNER [address] [address] 10/01/2022 17:37:02 10/01/2022 19:08:24 Acute bronchitis 95124423 J20.9 Health Concerns Section Related Observation LastModified by Organization Detai ls LastModified Time None Recorded Concern Status LastModified by Organization Details LastModified Time None Recorded Advance Directives Directive None Recorded Payers Encounter Date Sequence Insurance Name Policy Number Policy Fernandez Covered Member ID Fernandez Member ID Guarantor Name 10/01/2022 2 [place] Hill Lin [id number] Hill Lin 10/01/2022 1 [place] [employer] Hill Lin [id number] Hill Lin Notes Date Note Type [...] tried OTC medication without relief. YOLA CHANEY [address] [place] [address] Jose, CHR[place], [address], [place] - [facility] 10/01/2022 19:03:43
--- OUTSIDE RECORDS SUMMARY | 2024-12-24 12:07 | XMS_ITS | Patient Health Record ---
Author Organization [facility] - [address] Address [address] [place] [address] Care Team Providers Care Business Banker Name Role Phone Kevin uCrry M.D. 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 Problem 254267374 Ventricular premature depolarization (I49.3) Active confirmed Problem 32923937 Abdominal aortic aneurysm (AAA) without rupture (I71.4) Active confirmed Problem 84167176 Bradycardia (R00.1) Active confirmed Problem 62193708 Mild aortic valv e regurgitation (I35.1) Active confirmed Problem 31730570 Mild mitral valv e regurgitation (I34.0) Active confirmed Problem 373787760 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) Active confirmed Problem 902128203 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) Active confirmed Problem Atherosclerotic heart disease of [place] coronary artery without angina pectoris (768723305647207) Atherosclerotic heart disease of [place] coronary artery without angina pectoris (I25.10) 017 Active confirmed Problem Preoperative cardiovascular examination (833970016) EXAMINATION, PREOPERATIVE CARDIOVASCULAR (V72.81) 014 Problem resolved confirmed [place] [phone] Plan Of Treatment No Information Insurance Providers Payer Name Payer Address Payer Phone Subscriber Number Group Number Insured Name Patient Relationship to Insured Coverage Start Date Coverage End Date [place] / [facility] [address] [place] [address] [id number] Hill Lin Self - patient is the insured /[facility] [address] [place], [place] [address] [phone] [id number] Hill Lin Self - patient is the insured Medical (General) History Medical History History ICD Code Lower Back Pain Atherosclerotic heart diseas e of [place] coronary artery without angina pectoris I25.10 Ischemic [...]
--- OUTSIDE RECORDS SUMMARY | 2024-12-24 12:07 | XMS_ITS | Encounter Summary ---
Author Organization [facility] Address [address] [place] [address] Care Team Providers Care Patient Day Coordinator Name Role Phone Irineo Kimble MD Primary Care Provider [phone] Reason for Visit * Reason Comments Med Change Request Encounter Details Date Type Department Care Team (Late st Contact Info) Description 07/16/[address] [facility] [place] - Electrophysiology [address] [place] [id number] Philip Angel MD [address] [address] Med Change Request Social History Tobacco Use [...] (HCC) documented in this encounter Care Teams Patient Day Coordinator Relationship Specialty Start Date End Date Irineo Kimble MD [address] [place] [address] 3rd [place] [address] PCP - General Cardiovascular Disease 05/12/24 documented as of this encounter
--- OUTSIDE RECORDS SUMMARY | 2024-12-24 12:07 | XMS_ITS | Encounter Summary ---
Author Organization [facility] Address [address] [place] [address] Care Team Providers Care Funeral Car Driver Name Role Phone Irineo Kimble MD Primary Care Provider Encounter Details Date Type Department Care Team (Late st Contact Info) Description 05/14/2024 Scanned Document [place] [phone] Irineo Kimble MD [address] [place] [id number] Social History Tobacco Use Types Packs/Day Years [...] on filedocumented in this encounter Care Teams Funeral Car Driver Relationship Specialty Start Date End Date Irineo Kimble MD [address] [place] [address] PCP - General Cardiovascular Disease 05/12/24 documented as of this encounter
--- OUTSIDE RECORDS SUMMARY | 2024-12-24 12:07 | XMS_ITS | Encounter Summary ---
Author Organization [facility] Address [address] [place] [address] Care Team Providers Care Plumbing Technician Name Role Phone Irineo Kimble MD Primary Care Provider Encounter Details Date Type Department Care Team (Late st Contact Info) Description 05/14/2024 Scanned Document [place] [id number] Crystal Cantu MD [address] [place] [address] Social History Tobacco Use Types Packs/Day Years [...] on filedocumented in this encounter Care Teams Plumbing Technician Relationship Specialty Start Date End Date Irineo Kimble MD [address] [place] [address] 3[address] [place] [address] PCP - General Cardiovascular Disease 05/12/24 documented as of this encounter
[2024-12-24 13:49] LABS: Creatinine POC 0.7 mg/dL (0.5-1.4); GFR POC > 60
== END 2024-12-24 10:23 | disposition home or self-care (01) ==
LOC: HO.CT 10:22
PROVIDERS: PCP Internal Medicine; Visit Provider Surgery Vascular Surgery
DX: I71.43 Infrarenal abdominal aortic aneurysm, without rupture (principal)
CPT/HCPCS: 74174; 82565; Q9967

== ENCOUNTER → 2024-12-24 10:24 | Outpatient (BNV) | payer MEDICARE, BC, SELFPAY | PROVIDERS: PCP Internal Medicine; Visit Provider Radiology Diagnostic Radiology | DX: I71.43 Infrarenal abdominal aortic aneurysm, without rupture (principal) | CPT/HCPCS: 74174 ==

== ENCOUNTER 2025-01-15 11:07 | Outpatient (AMB) | payer MEDICARE, BC, SELFPAY ==
[2025-01-15 11:09] VITALS: BMI 28.2
--- NOTE | 2025-01-15 11:09 | MHC.OFFVIS ---
Vital Signs 01/15/25 11:09 Height 5 ft 11 in Weight 202 lb BMI 28.2 Intake Visit Reasons: 1yr follow up s/p CTA Pelvis/Abd 12/24/24 Intake Note: 1 yr follow up AAA repair 01/2023 s/p CTA abd/pelvis 12/24/24. No complaints Field Sampling Technician Required: No Accompanied by: Self / Same As Patient Allergies amiodarone Adverse Reaction (Intermediate, Verified 01/15/25 11:11) Constipation mexiletine Adverse Reaction (Intermediate, Verified 01/15/25 11:11) Diarrhea timolol [From Betimol] Adverse Reaction (Intermediate, Verified 01/15/25 11:11) hypotension HPI HPI 1yr follow up s/p CTA Pelvis/Abd 12/24/24: Details: The patient is an 84-year-old male presenting for a routine follow-up following his endovascular aortic aneurysm repair two years ago in 2022. At the time of surgery, the aortic aneurysm was described to be greater than 5 cm, and recent follow-up indicates a reduction in the sac's size from 4.2 cm to 4 cm, suggesting a satisfactory progression post-treatment. The patient does not report any new issues or symptoms related to the repair. He inquired for clarification about the anatomical differences between arteries and veins, which was addressed in our discussion. [facility] Medical History Skin cancer Back pain Arthritis Difficulty swallowing GERD (gastroesophageal reflux disease) Bladder neck stricture COVID-19 vaccine series completed Coronary artery disease Knee pain, right Cardiomyopathy PVC (premature ventricular contraction) AAA (abdominal aortic aneurysm) Hypertension Surgical History H/O colonoscopy Hx of bilateral inguinal hernia repair Hx of cystoscopy History of cardiac cath History of hand surgery (~2001) History of spinal fusion (~2016) History of prostate surgery (~2013) Family History Father No problems noted. Mother No problems noted. Other Substance use disorder Social History Household Members: Spouse Housing: Condominium Are you a primary resident care spec to a significant other at home: No Do you presently have visiting nurse or other home services: No Alcohol intake: never Patient Tobacco Use Status: Former Tobacco user Tobacco use type: Cigarette Years Smoked: 30 e-Cigarette/Vaping Use: Never Used Substance Use Type: Marijuana service: No Current occupational status: retired Current occupation: right handed Cognitive needs: No Hearing needs: No Vision needs: No Review of Systems Const All systems reviewed & are unremarkable except as noted in HPI and below Reports no additional complaints ENT Reports Normal hearing present Card Denies chest pain, Denies chest pain at rest, Denies chest pain with activity and Denies pedal edema Resp Denies cough GI Denies abdominal pain Musc Denies abnormal gait, Denies muscle cramps and Denies radiating pain into limb Skin/Breast Denies skin ulcer and Denies wounds Neuro Reports Normal hearing present and Denies abnormal gait Psych Reports no additional complaints Physical Exam Vital Signs: BMI result Body Mass Index 28.2 Const General: cooperative, healthy appearing and comfortable Orientation/consciousness: oriented to person, oriented to place and oriented to time HEENT Head: Yes normal to inspection Neck Neck: Yes normal visual inspection Carotids: no bruits Chest Chest palpation & inspection: normal inspection of the chest Resp Effort & Inspection: normal respiratory effort and able to speak in complete sentences Auscultation: clear to auscultation bilaterally, no crackles, no rales, no rhonchi and no wheezes Cardio Rate: regular rate Rhythm: regular rhythm Heart sounds: S1 normal heart sound present and S2 normal heart sound present Bruits: no carotid bruits Peripheral pulses: Peripheral pulses 2+ throughout GI Inspection: Yes normal to inspection Skin Wounds: no wounds Hair: normal Neuro General: oriented to person, oriented to place and oriented to time Cranial nerves: Yes CN's II-XII intact bilaterally and Yes Normal hearing present Cognition (Neuro): normal cognition Motor exam (neuro): 5/5 motor strength present throughout Extrem Other: venous exam: No significant superficial varicosities or spider telangiectasias, minimal edema General: No clubbing, No cyanosis and No edema Psych Appearance: grossly normal Mental Status: mental status grossly normal Speech and movement: Normal speech and movement present Results Reviewed Results Reviewed: CT angiogram dated 12/24/2024 demonstrates appropriate stent graft with decrease of sac size down to 4 cm. Assessment & Plan Assessment & Plan (1) AAA (abdominal aortic aneurysm): Comment: 01/22/2023 - endovascular aortic aneurysm repair with Endologix AFX 2 Code(s): I71.4 - Abdominal aortic aneurysm, without rupture Category: Medical Qualifiers: Abdominal aorta location: infrarenal aorta Presence of rupture: without rupture Qualified Code(s): I71.43 - Infrarenal abdominal aortic aneurysm, without rupture Plan: In short patient has stable aortic endograft. We have discussed the pathophysiology of aortic aneurysms and the risk of ruptures. We have discussed rupture risk based on size. In addition we have discussed conservative measures and risk factor modification for prevention of increase in size of the aneurysm. the patient is scheduled for surveillance follow-up in approximately 1 year. Thank you for allowing us to participate in the care of this patient Orders: Orders Blood Urea Nitrogen 1 Year I71.43 - Infrarenal abdominal aortic aneurysm, without rupture CT angio abdomen pelvis 1 Year I71.43 - Infrarenal abdominal aortic aneurysm, without rupture Creatinine 1 Year I71.43 - Infrarenal abdominal aortic aneurysm, without rupture Coding Level of Care Code Est Pt Level 4 (68910) Complex EM visit Add On G2211 Diagnoses Infrarenal abdominal aortic aneurysm (AAA) without rupture I71.43 Abdominal aorta location: infrarenal aorta Presence of rupture: without rupture
--- OUTSIDE RECORDS SUMMARY | 2025-01-15 13:12 | XMS_ITS | Clinical Summary ---
Author Organization [facility] Address [address] [place] [address] Care Team Providers Care Donkey Engine Firer/Fireman Name Role Phone Irineo Kimble MD Primary Care Provider [phone] Allergies Active Allergy Reactions Criticality Noted Date Comments Betaxolol GI Intolerance/Nausea/Vomiting Low 06/24 Medications lisinopril (PRINIVIL,ZeSTRI L) 20 MG tablet Take 1 tablet (20 mg total) by mouth. 06/08/2024 Active latanoprost (XALATAN) 0.005 % ophthalmic solution INSTILL 1 DROP INTO BOTH EYES ONCE DAILY AT BEDTIME 03/19/2024 Active ASPIRIN 81 PO Take by mouth. Active amiODARONE (PACERONE) 100 MG tabletIndication s:PVC (premature ventricular contraction) Take 1 tablet (100 [...] Assigned at Male 05/12/2024 3:54 PM EDT Legal Sex Male 2:16 PM EDT Gender Identity Male 05/12/2024 3:54 [...] on patient's age to complete this topic Insurance MEDICARE PART A & B [facility] Care Teams Donkey Engine Firer/Fireman Relationship Specialty Start Date End Date Irineo Kimble MD [address] [place] [address] [address] Floor [place] [address] PCP - General Cardiovascular Disease 05/12/24
--- OUTSIDE RECORDS SUMMARY | 2025-01-15 13:12 | XMS_ITS | Patient Health Record ---
Author Organization [facility] - [address] Address [address] [place] [address] Care Team Providers Care Mortgage Loan Officer Name Role Phone Kevin Curry M.D. 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 Problem 844326020 Ventricular premature depolarization (I49.3) Active confirmed Problem 58403322 Abdominal aortic aneurysm (AAA) without rupture (I71.4) Active confirmed Problem 59494836 Bradycardia (R00.1) Active confirmed Problem 97521829 Mild aortic valv e regurgitation (I35.1) Active confirmed Problem 24941634 Mild mitral valv e regurgitation (I34.0) Active confirmed Problem 666301278 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) Active confirmed Problem 344453203 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) Active confirmed Problem Atherosclerotic heart disease of [place] coronary artery without angina pectoris (121694364770875) Atherosclerotic heart disease of [place] coronary artery without angina pectoris (I25.10) 017 Active confirmed Problem Preoperative cardiovascular examination (437049040) EXAMINATION, PREOPERATIVE CARDIOVASCULAR (V72.81) 014 Problem resolved confirmed [place] [phone] Plan Of Treatment No Information Insurance Providers Payer Name Payer Address Payer Phone Subscriber Number Group Number Insured Name Patient Relationship to Insured Coverage Start Date Coverage End Date Medicare of [place] / [facility] [address] [place] [address] [id number] Hill Lin Self - patient is the insured /[facility] [address] [place], [place] [address] [id number] Hill Lin Self - patient is the insured Medical (General) History Medical History History ICD Code Lower Back Pain Atherosclerotic heart diseas e of [place] coronary artery without angina pectoris I25.10 Ischemic [...]
--- OUTSIDE RECORDS SUMMARY | 2025-01-15 13:12 | XMS_ITS | Encounter Summary ---
Author Organization [facility] Address [address] [place] [address] Care Team Providers Care Honing Machine Operator Production Name Role Phone Irineo Kimble MD Primary Care Provider [phone] Encounter Details Date Type Department Care Team (Late st Contact Info) Description 05/14/2024 Scanned Document [place] [id number] Crystal Cantu MD 1962 [facility] [place] [address] Social History Tobacco Use Types Packs/Day Years [...] on filedocumented in this encounter Care Teams Honing Machine Operator Production Relationship Specialty Start Date End Date Irineo Kimble MD [address] [place] [address] [address] [place] [address] PCP - General Cardiovascular Disease 05/12/24 documented as of this encounter
--- OUTSIDE RECORDS SUMMARY | 2025-01-15 13:12 | XMS_ITS | Data Portability ---
Author Organization YOLA Garcia s, [address] Address [address] [place] [address] Care Team Providers Care Pilot Name Role Phone [facility] Primary Care Provider [phone] Assessment No assessment recorded. Plan of Treatment Reminders Order Date Submit Date Provider Last Modified By Organization Details Last Modified Time Details Appointments None recorded. Lab rapid SARS CoV 2 Ag, QL IA, respiratory specimen 2022 023 [facility] [address]_praveen sami, [address] [place] [address], [address], 19:00:30 rapid flu (A+B) 2022 023 [facility] [place] [address] _praveen sami, [address] [place] [address], [address], 19:00:30 Referral None recorded. Procedures None recorded. Surgeries None recorded. Imaging None recorded. Medication Orders azithromyci n 250 mg tablet 2022 023 [facility]/Pharmacy #[id number], [address] [facility] [place], [address], 19:00:32 Patient TargetsNo targets recorded. Patient Instructions Encounter Date Encounter Id Patient Instructions Last Modified By Organization Details Last Modified Time 10/01/2022 [id number] cough: care instructions jumana [email or web address] Not available 10/01/2022 19:00:30 Reason for Referral None Reported. Results Created Date Observation Date Name Description Value Unit Range Abnormal Flag Note LastModifiedBy Organization Detail LastModifiedTime 10/01/19 23 10/01/2022 rapid SARS CoV 2 Ag, QL IA, respi rator y speci men Unknown Analyte Normal =Negat dov Not Available 2099patricia [address], [place], [address], 10/01/2022 18:20:10 10/01/19 23 10/01/2022 rapid SARS CoV 2 Ag, QL IA, respi rator y speci men Unknown Analyte negati ve Not Available [address] [place], [place] [address], [address], 10/01/2022 18:20:10 10/01/19 23 10/01/2022 rapid flu (A+B) Unknown Analyte Normal = Negati ve Not Available [address] [place], [place] [address], [address], 10/01/2022 18:20:18 10/01/19 23 10/01/2022 rapid flu (A+B) Unknown Analyte Normal = Negati ve Not Available [address] [place], [address], 10/01/2022 18:20:18 10/01/19 23 10/01/2022 rapid flu (A+B) Unknown Analyte negati ve Not Available [address] [place], [place] [address], [address], 10/01/2022 18:20:18 10/01/19 23 10/01/2022 rapid flu (A+B) Unknown Analyte negati ve Not Available [address] [place], [place] [address], [address], 10/01/2022 18:20:18 Result Notes None recorded. Problems Name Problem SNOMED Code Status Onset Date Resolution Date Notes Provider Name and Address Organization Details Recorded Time Ventricular reji 99420939 Active 023 ADELAIDA KEATING null, [facility] 3 18:16:22 Glaucoma 35744460 Active 023 ADELAIDA KEATING null, [facility] 18:16:59 Problem Notes None recorded. Medical Equipment None Reported. Allergies Allergen ID Allergen Name Allergen Category Reaction Reaction Severity Criticality Documentation Date Start Date Code Code System Note Provider Name and Address Organization Details Recorded Time 767399 Betimol medicatio n palpitati ons Not available Not available 10/01/2022 63820 2 RxNorm ADELAIDA KEATING null, [facility] 3 18:14:51 Medications [...] Last Updated DateTime 180.34 cm 27.9 kg/m2 96021.4 7 g 0 70 /min 16 /min [...] SNOMED-CT Code Diagnosis ICD10 Code Diagnosis Note [id number] YOLA WERNER [address] [address] 10/01/2022 17:37:02 10/01/2022 19:08:24 Acute bronchitis 74950039 J20.9 Health Concerns Section Related Observation LastModified by Organization Detai ls LastModified Time None Recorded Concern Status LastModified by Organization Details LastModified Time None Recorded Advance Directives Directive None Recorded Payers Encounter Date Sequence Insurance Name Policy Number Policy Fernandez Covered Member ID Fernandez Member ID Guarantor Name 10/01/2022 2 [place] Hill Lin [id number] Hill Lin 10/01/2022 1 [place] [employer] Hill Lin [id number] Hill Lin Notes Date Note Type [...] tried OTC medication without relief. YOLA CHANEY [address] [place] [address] [place], [place], [address], [place] - [facility] 10/01/2022 19:03:43
--- OUTSIDE RECORDS SUMMARY | 2025-01-15 13:12 | XMS_ITS | Encounter Summary ---
Author Organization [facility] Address [address] [place] [address] Care Team Providers Care Drapery Rod Assembler Name Role Phone Irineo Kimble MD Primary Care Provider Encounter Details Date Type Department Care Team (Late st Contact Info) Description 05/14/2024 Scanned Document [place] [phone] Irineo Kimble MD [address] [place] [address] Social History Tobacco Use Types Packs/Day Years [...] on filedocumented in this encounter Care Teams Drapery Rod Assembler Relationship Specialty Start Date End Date Irineo Kimble MD [address] [place] [address] PCP - General Cardiovascular Disease 05/12/24 documented as of this encounter
--- OUTSIDE RECORDS SUMMARY | 2025-01-15 13:13 | XMS_ITS | Encounter Summary ---
Author Organization [facility] Address [address] [place] [address] Care Team Providers Care Inspector Glass Or Mirror Name Role Phone Irineo Kimble MD Primary Care Provider [phone] Reason for Visit * Reason Comments Med Change Request Encounter Details Date Type Department Care Team (Late st Contact Info) Description 07/16/2024 Refill [facility] [place] - Electrophysiology [address] [place] [phone] Philip Angel MD [address] [address] Med Change Request Social History Tobacco Use [...] (HCC) documented in this encounter Care Teams Inspector Glass Or Mirror Relationship Specialty Start Date End Date Irineo Kimble MD [address] [place] [address] 3rd [place] [address] PCP - General Cardiovascular Disease 05/12/24 documented as of this encounter
== END 2025-01-15 11:26 | disposition home or self-care (01) ==
LOC: HO.HVS 11:08
PROVIDERS: PCP Internal Medicine; Visit Provider Surgery Vascular Surgery
DX: I71.43 Infrarenal abdominal aortic aneurysm, without rupture (principal)
CPT/HCPCS: 99214; G2211

== ENCOUNTER → 2025-01-15 11:07 | Outpatient (BNVA) | payer MEDICARE, BC, SELFPAY | PROVIDERS: PCP Internal Medicine; Visit Provider Surgery Vascular Surgery | DX: I71.43 Infrarenal abdominal aortic aneurysm, without rupture (principal) | CPT/HCPCS: 99212 ==

== ENCOUNTER 2025-02-02 15:23 | Outpatient (AMB) | payer MEDICARE, BC, SELFPAY ==
--- OUTSIDE RECORDS SUMMARY | 2025-02-02 15:25 | XMS_ITS | Data Portability ---
Author Organization YOLA Garcia s, [address] Address [address] [place] [address] Care Team Providers Care Associate Merchant Name Role Phone [facility] Primary Care Provider [phone] Assessment No assessment recorded. Plan of Treatment Reminders Order Date Submit Date Provider Last Modified By Organization Details Last Modified Time Details Appointments None recorded. Lab rapid SARS CoV 2 Ag, QL IA, respiratory specimen 2022 023 [facility] [address]_praveen sami, [address] [place] [address], [address], 19:00:30 rapid flu (A+B) 2022 023 [facility] [place] [address] _praveen sami, [address] [place] [address], [address], 19:00:30 Referral None recorded. Procedures None recorded. Surgeries None recorded. Imaging None recorded. Medication Orders azithromyci n 250 mg tablet 2022 023 [facility]/Pharmacy #[id number], [address] [facility] [place], [address], 19:00:32 Patient TargetsNo targets recorded. Patient Instructions Encounter Date Encounter Id Patient Instructions Last Modified By Organization Details Last Modified Time 10/01/2022 [id number] cough: care instructions jumana [email or web address] Not available 10/01/2022 19:00:30 Reason for Referral None Reported. Results Created Date Observation Date Name Description Value Unit Range Abnormal Flag Note LastModifiedBy Organization Detail LastModifiedTime 10/01/19 23 10/01/2022 rapid SARS CoV 2 Ag, QL IA, respi rator y speci men Unknown Analyte Normal =Negat dov Not Available 2099patricia [address], [place], [address], 10/01/2022 18:20:10 10/01/19 23 10/01/2022 rapid SARS CoV 2 Ag, QL IA, respi rator y speci men Unknown Analyte negati ve Not Available [address] [place], [place] [address], [address], 10/01/2022 18:20:10 10/01/19 23 10/01/2022 rapid flu (A+B) Unknown Analyte Normal = Negati ve Not Available [address] [place], [place] [address], [address], 10/01/2022 18:20:18 10/01/19 23 10/01/2022 rapid flu (A+B) Unknown Analyte Normal = Negati ve Not Available [address] [place], [address], 10/01/2022 18:20:18 10/01/19 23 10/01/2022 rapid flu (A+B) Unknown Analyte negati ve Not Available [address] [place], [place] [address], [address], 10/01/2022 18:20:18 10/01/19 23 10/01/2022 rapid flu (A+B) Unknown Analyte negati ve Not Available [address] [place], [place] [address], [address], 10/01/2022 18:20:18 Result Notes None recorded. Problems Name Problem SNOMED Code Status Onset Date Resolution Date Notes Provider Name and Address Organization Details Recorded Time Ventricular reji 37339606 Active 023 ADELAIDA KEATING null, [facility] 18:16:22 Glaucoma 37027405 Active 023 ADELAIDA KEATING null, [facility] 18:16:59 Problem Notes None recorded. Medical Equipment None Reported. Allergies Allergen ID Allergen Name Allergen Category Reaction Reaction Severity Criticality Documentation Date Start Date Code Code System Note Provider Name and Address Organization Details Recorded Time 303561 Betimol medicatio n palpitati ons Not available Not available 10/01/2022 43303 2 RxNorm ADELAIDA KEATING null, [facility] 18:14:51 Medications [...] Last Updated DateTime 180.34 cm 27.9 kg/m2 20858.4 7 g 0 70 /min 16 /min 96 % 96 % 97.6 [degF] 161 mm[Hg] 80 mm[Hg] ADELAIDA KEATING [place] - [facility] 18:19:18 Social History Question Answer Notes LastModified by [employer] Details LastModified Time Tobacco Smoking Status Never Smoker ADELAIDA KEATING null, [place] - [facility] 10/01/2022 18:16:37 Have You Recently Traveled Abroad? No Information not available 10/01/2022 Sex: Unknown Functional Status Question Answer Note LastModified by OrganizLong Play Details LastModified Time Do you use any illicit or recreational drugs? No Information not available 10/01/2022 Do you or have you ever used any other forms of tobacco or nicotine? No Information not available 10/01/2022 What is your level of alcohol consumption? None Information not available 10/01/2022 Are you currently employed? No Information not available 10/01/2022 Mental Status None recorded. Family History Relationship [...] SNOMED-CT Code Diagnosis ICD10 Code Diagnosis Note [id number] YOLA WERNER 21005_[facility] [address] [place] [address] 10/01/2022 17:37:02 10/01/2022 19:08:24 Acute bronchitis 83153760 J20.9 Health Concerns Section Related Observation LastModified by Organization Detai ls LastModified Time None Recorded Concern Status LastModified by Organization Details LastModified Time None Recorded Advance Directives Directive None Recorded Payers Insurance Date Sequence Insurance Name Policy Number Policy Fernandez Covered Member ID Fernandez Member ID Guarantor Name 10/01/2022 2 [place] Hill Lin [id number] Hill Lin 10/01/2022 1 MEDIC[place] [employer] Hill Lin [id number] Hill Lin 10/02/2022 2 [place] [employer] Hill Lin [id number] Hill Lin Notes Date Note Type Note [...] tried OTC medication without relief. YOLA CHANEY [facility] [place], [place], [address], [place] - [facility] 10/01/2022 19:03:43
--- OUTSIDE RECORDS SUMMARY | 2025-02-02 15:25 | XMS_ITS | Patient Health Record ---
Author Organization [facility] [address] Address [address] [place] [address] Care Team Providers Care Director Of Medical Education Name Role Phone Kevin Curry M.D. 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 Problem 564933624 Ventricular premature depolarization (I49.3) Active confirmed Problem 94695989 Abdominal aortic aneurysm (AAA) without rupture (I71.4) Active confirmed Problem 51356093 Bradycardia (R00.1) Active confirmed Problem 86605342 Mild aortic valv e regurgitation (I35.1) Active confirmed Problem 23996639 Mild mitral valv e regurgitation (I34.0) Active confirmed Problem 765173553 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) Active confirmed Problem 671161403 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) Active confirmed Problem Atherosclerotic heart disease of [place] coronary artery without angina pectoris (072231805703258) 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 confirmed Problem Preoperative cardiovascular examination (933721632) EXAMINATION, PREOPERATIVE CARDIOVASCULAR (V72.81) 014 Problem resolved confirmed [place] [phone] Plan Of Treatment No Information Insurance Providers Payer Name Payer Address Payer Phone Subscriber Number Group Number Insured Name Patient Relationship to Insured Coverage Start Date Coverage End Date Medicare of [place] / [facility] [address] [place] [address] [id number] Hill Lin Self - patient is the insured /[facility] [address] [place], [place] [address] [id number] Hill Lin Self - patient is the insured Medical (General) History Medical History History ICD Code Lower Back Pain Atherosclerotic heart diseas e of [place] coronary artery without angina pectoris I25.10 Ischemic [...]
--- OUTSIDE RECORDS SUMMARY | 2025-02-02 15:25 | XMS_ITS | Clinical Summary ---
Author Organization [facility] Address [address] [place] [address] Care Team Providers Care Material Loader Name Role Phone Irineo Kimble MD Primary Care Provider [phone] Allergies Active Allergy Reactions Criticality Noted Date [...] Patients (1 - 1-dose 75+ series) 2014 COVID-19 Vaccine (2023- season) 2024 06/20/2022, 01/13/2022, 06/20/2021, Additional history exists Influenza Vaccine 04/24/2025 06/01/2022, , 05/30/2020, Additional history exists Hepatitis B Vaccines Aged Out No long er eligible based on patient's age to complete this topic Insurance MEDICARE PART A & B [facility] Care Teams Material Loader Relationship Specialty Start Date End Date Irineo Kimble MD [address] [place] [address] [address] Floor [place] [address] PCP - General Cardiovascular Disease 05/12/24
--- OUTSIDE RECORDS SUMMARY | 2025-02-02 15:25 | XMS_ITS | Encounter Summary ---
Author Organization [facility] Address [address] [place] [address] Care Team Providers Care Luncheonette Manager Name Role Phone Irineo Kimble MD Primary Care Provider [phone] Encounter Details Date Type Department Care Team (Late st Contact Info) Description 05/14/2024 Scanned Document [place] [phone] Crystal Cantu MD [address] [facility] [place] [address] Social History Tobacco Use Types Packs/Day Years [...] on filedocumented in this encounter Care Teams Luncheonette Manager Relationship Specialty Start Date End Date Irineo Kimble MD [address] [place] [address] [address] [place] [address] PCP - General Cardiovascular Disease 05/12/24 documented as of this encounter
--- OUTSIDE RECORDS SUMMARY | 2025-02-02 15:25 | XMS_ITS | Encounter Summary ---
Author Organization [facility] Address [address] [place] [address] Care Team Providers Care Mold Car Pusher Name Role Phone Irineo Kimble MD Primary Care Provider [phone] Reason for Visit * Reason Comments Med Change Request Encounter Details Date Type Department Care Team (Late st Contact Info) Description 07/16/2024 Refill [facility] Heart & Vascular [place] - Electrophysiology [address] [place] [phone] Philip Angel MD [address] [address] Med Change Request Social History Tobacco Use [...] (HCC) documented in this encounter Care Teams Mold Car Pusher Relationship Specialty Start Date End Date Irineo Kimble MD [address] [place] [address] 3[address] [place] [address] PCP - General Cardiovascular Disease 05/12/24 documented as of this encounter
--- OUTSIDE RECORDS SUMMARY | 2025-02-02 15:25 | XMS_ITS | Encounter Summary ---
Author Organization [facility] Address [address] [place] [address] Care Team Providers Care Primer Powder Blender Wet Name Role Phone Irineo Kimble MD Primary Care Provider [phone] Encounter Details Date Type Department Care Team (Late st Contact Info) Description 05/14/2024 Scanned Document [place] [phone] Irineo Kimble MD [address] [place] [address] Social History Tobacco Use Types Packs/Day Years [...] on filedocumented in this encounter Care Teams Primer Powder Blender Wet Relationship Specialty Start Date End Date Irineo Kimble MD [address] [place] [address] PCP - General Cardiovascular Disease 05/12/24 documented as of this encounter
[2025-02-02 15:42] VITALS: BP 110/60; PULSE 96; BMI 28.4
--- NOTE | 2025-02-02 15:42 | A.OFFVIS_ITS ---
Vital Signs 02/02/25 15:42 Height 5 ft 11 in Weight 203 lb 11.314 oz BMI 28.4 BP 110/60 Blood Pressure Location Lt brachial Position Sitting Pulse 96 Pulse Source Monitor Intake Visit Reasons: 6 mth f/up Intake Note: 6 mth f/up Telesales Specialist Required: No Accompanied by: Self / Same As Patient Allergies amiodarone Adverse Reaction (Intermediate, Verified 01/15/25 11:11) Constipation mexiletine Adverse Reaction (Intermediate, Verified 01/15/25 11:11) Diarrhea timolol [From Betimol] Adverse Reaction (Intermediate, Verified 01/15/25 11:11) hypotension Medication List - Last Reconciled 02/02/25 by Irineo Kimble MD acetaminophen 1,000 mg (2 x 500 mg) PO Q6H PRN aspirin (Adult Low Dose Aspirin) 81 mg PO DAILY calcium carbonate-vitamin D3 600 mg-5 mcg (200 unit) 1 tab PO DAILY cetirizine (Zyrtec) 10 mg PO DAILY PRN fluticasone furoate 27.5 mcg/actuation (Flonase Sensimist) 1 spray intranasal BID latanoprost 0.005% 1 drp ophthalmic (eye) BEDTIME lisinopril 20 mg PO DAILY vitamins A,C,Y-qtzi-mkpyeg 4,296 mcg-226 mg-90 mg (PreserVision AREDS) 1 cap PO BID HPI Comments Details: 84 male here for f/u. He has background of mild cardiomyopathy and PVCs. He has moderate RCA disease which was previously iFR negative. We have tried amiodarone and mexiletine but he could not tolerate due to GI issues. Repeat echo showing EF 45-50%. He previously saw EP but it was felt that the PVC ablation was quite complex and due to lack of symptoms he was medically treated. 07/09/2023: She he returns for follow-up. He said on June 19 and June 25 he had palpitations. He has a cardia device and he recorded his heart rhythm. One time his heart rate was 150 beats per minute in based on the ECG tracings he showed me I could not rule out atrial flutter although SVT is a possibility too. His 2nd tracing clearly was atrial fibrillation. He said on both occasions he had palpitations lasting for many minutes and his heart was racing. These symptoms started within a 2nd and ended like that to pointing to arrhythmia. He has not tolerated many medications in the past. No bleeding concerns recently. 10/10/2023: He returns for follow-up. On last visit he shared his rhythm strips from [employer] device. Once drip was clearly atrial fibrillation. He was advised to start anticoagulation given his risk for stroke. He was also started on omeprazole because he was having significant GI issues and was concerned about bleeding. It appears he did not start apixaban because he was concerned about his abdominal aortic aneurysm. He had endovascular repair and recent CT scan has not shown endoleak. He was worried that the leaking may get worse with anticoagulation. He also took omeprazole for 3 weeks and was having some GI issues due to that too. He is denying diarrhea but had significant urgency to go to bathroom when he was taking omeprazole. 02/27/2024: he is here for follow-up. In December he had COVID-19 infection and stop the Eliquis and starting aspirin he said that he did not resume medically since then has been taking aspirin only. He has been under lot of stress due to his 's health. He said he had office visit today for her and was quite stressed. He came to the office in his blood pressure is quite elevated. Manual blood pressure 170/110. No significant differences between both ventricles noted. no chest pain or shortness of breath. 04/30/2024: He is here for follow-up. Blood pressure is much better once he has increase the lisinopril to 20 mg daily. Denying any chest discomfort shortness of breath. No palpitations. On last visit he was taking aspirin and was not taking Eliquis. We discussed and he agreed to take Eliquis and stop the aspirin. I am looking at the med rec after the patient left and it appears he is taking aspirin not taking Eliquis. We will confirm with him whether he is taking Eliquis or not. 02/02/25: He is here for follow-up. He was seen in April and after that he went to [facility] and saw Dr. Angel. it appears he was given metoprolol which she has not tolerated previously and could not tolerate. He said he wore a Holter montor and wrote down his diary but it was lost when he sent the Holter back. He plans to come back to our practice. He has no CP or SOB. He is planning to restart riding his bike. He has not been taking Apixaban and takes aspirin only. [facility] Medical History Skin cancer Back pain Arthritis Difficulty swallowing GERD (gastroesophageal reflux disease) Bladder neck stricture COVID-19 vaccine series completed Coronary artery disease Knee pain, right Cardiomyopathy PVC (premature ventricular contraction) AAA (abdominal aortic aneurysm) Hypertension Surgical History H/O colonoscopy Hx of bilateral inguinal hernia repair Hx of cystoscopy History of cardiac cath History of hand surgery (~2001) History of spinal fusion (~2016) History of prostate surgery (~2013) Family History Father No problems noted. Mother No problems noted. Other Substance use disorder Social History Household Members: Spouse Housing: [facility] Are you a primary career services representative to a significant other at home: No Do you presently have visiting nurse or other home services: No Alcohol intake: never Patient Tobacco Use Status: Former Tobacco user Tobacco use type: Cigarette Years Smoked: 30 e-Cigarette/Vaping Use: Never Used Substance Use Type: Marijuana service: No Current occupational status: retired Current occupation: right handed Cognitive needs: No Hearing needs: No Vision needs: No Physical Exam Vital Signs: Last Vital Signs Pulse 96 02/02/25 15:42 BP 110/60 02/02/25 15:42 BMI result Body Mass Index 28.4 GENERAL APPEARANCE: in no acute distress, well developed, well nourished. NECK/THYROID: no carotid bruit, no jugular venous distention. SKIN: no suspicious lesions, warm and dry. HEART: no murmurs, S1, S2 normal. LUNGS: clear to auscultation bilaterally. ABDOMEN: normal, bowel sounds present, soft, nontender, nondistended. EXTREMITIES: no clubbing, cyanosis, or edema. PERIPHERAL PULSES: equal. NEUROLOGIC: nonfocal, alert and oriented. PSYCH: mood/affect full range. Office Procedures EKG Details: Sinus rhythm with frequent and consecutive premature ventricular complexes, left ventricular hypertrophy, QTC 482 milliseconds. [id number], Complete Assessment & Plan Assessment & Plan (1) PAF (paroxysmal atrial fibrillation): Code(s): I48.0 - Paroxysmal atrial fibrillation Category: Medical (2) Hypertension: Code(s): I10 - Essential (primary) hypertension Category: Medical (3) PVC (premature ventricular contraction): Comment: referred to by -ablation not done due to danger in area involved Code(s): I49.3 - Ventricular premature depolarization Category: Medical (4) Cardiomyopathy: Comment: follows w/ Code(s): I42.9 - Cardiomyopathy, unspecified Category: Medical Plan Pleasant 84-year-old gentleman who is presenting for follow-up. He has background history of premature ventricular complexes and borderline cardiomyopathy with EF 45-50% based on echocardiography. He also had mild ascending aortic dilatation. we had discussion about starting anticoagulation for atrial fibrillation In the past. He agreed but did not take apixaban and was taking aspirin. He returns and continues to take aspirin. We discussed that given atrial fibrillation he should be on Eliquis or should consider Watchman device if he is unable to tolerate Eliquis. I have explained to him that aspirin is not the recommended treatment for this situation. He has a Kardia device and we will continue to monitor his heart rhythm. I have advised him to do it at least once a week and definitely if he has any symptoms. he will return to office in few months. He will reach out to us in case he develops atrial fibrillation again. Thank you for allowing me to participate in the care of your patient. Please feel free to contact me if you have any questions. Coding Level of Care Code Est Pt Level 4 (56678) Diagnoses PAF (paroxysmal atrial fibrillation) I48.0 Hypertension I10 PVC (premature ventricular contraction) I49.3 Cardiomyopathy I42.9 CPT Codes EKG - CPT: 48795-[id number], Complete ([id number])
== END 2025-02-02 16:12 | disposition home or self-care (01) ==
LOC: HO.HCS 15:23
PROVIDERS: PCP Internal Medicine; Visit Provider Internal Medicine Cardiovascular Disease
DX: I48.0 Paroxysmal atrial fibrillation (principal); I10 Essential (primary) hypertension; I49.3 Ventricular premature depolarization; I42.9 Cardiomyopathy, unspecified
CPT/HCPCS: 93010; 99214

== ENCOUNTER → 2025-02-02 15:23 | Outpatient (BNVA) | payer MEDICARE, BC, SELFPAY | PROVIDERS: PCP Internal Medicine; Visit Provider Internal Medicine Cardiovascular Disease | DX: I48.0 Paroxysmal atrial fibrillation (principal); I10 Essential (primary) hypertension; I49.3 Ventricular premature depolarization; I42.9 Cardiomyopathy, unspecified; I51.7 Cardiomegaly; R94.31 Abnormal electrocardiogram [ECG] [EKG] | CPT/HCPCS: 93005; 99212 ==

== ENCOUNTER 2025-03-13 09:13 | Outpatient (AMB) | payer MEDICARE, BC, SELFPAY ==
[2025-03-13 09:17] VITALS: BP 172/94; PULSE 58; O2SAT 98; BMI 28.7
--- NOTE | 2025-03-13 09:17 | AM.OFFWIN_ITS ---
Intake Vital Signs 03/13/25 09:17 Height 5 ft 10 in Weight 200 lb BMI 28.7 BP 172/94 H Blood Pressure Location Rt brachial Position Supine Pulse 58 Pulse Source Pulse Oximeter Pulse Oximetry (%) 98 Intake Visit Reasons: EP ?Pain center of chest/?Heart attack Patient Tobacco Use Status: Former Tobacco user Allergies amiodarone Adverse Reaction (Intermediate, Verified 01/15/25 11:11) Constipation mexiletine Adverse Reaction (Intermediate, Verified 01/15/25 11:11) Diarrhea timolol (From Betimol) Adverse Reaction (Intermediate, Verified 01/15/25 11:11) hypotension HPI HPI Comments History of Present Illness Details History of Present Illness - The patient is an 84-year-old male pre senting with chest pain. - The chest pain was sudden sharp and in tense pain across the chest, occurring while the patient was riding a bicycle. - The pain was described as a sharp sens ation across the chest, lasting briefly but intensely. - No associated symptoms such as dizzine ss, nausea, shortness of breath, or sweating were reported. - He needed to stop riding his bike and rest. - The pain did resolve with rest. He the n drove his bike home. - Did his own EKG at home and had it on the phone. - The pain did not radiate to the arms o r jaw and resolved spontaneously. - The patient has a history of abnormal cardiac rhythm for over 20 years. - The patient takes aspirin daily at [facility]. - The patient denies any recent dietary changes or consumption of spicy foods that could exacerbate acid reflux. - The patient has experienced leg swelli ng - He denies SOB, abd pain, n/v/d, weakne ss, dizziness, or recent illness. He denies GERD symptoms. Physical Exam General: Cooperative, healthy appearing, comfortable, no acute distress and well developed Eyes: Appearance normal, both eyes and all related structures Neck: Normal visual inspection and Yes full ROM. No carotid bruits noted. Respiratory: Normal respiratory effort and able to speak in complete sentences. Clear to auscultation bilaterally Cardiovascular: Regular rate and rhythm. No m/r/g noted. GI: Normal to inspection. Soft to palpation and nontender. No guarding or rebound tenderness noted. Skin: No rashes or lesions noted Neuro: Patient oriented x3 Extremities: 1+ pitting edema noted on the lower legs bilaterally. Patient was informed and verbally consented to the use of an ambient scribe for clinic note documentation during this visit. [facility] Medical History Skin cancer Back pain Arthritis Difficulty swallowing GERD (gastroesophageal reflux disease) Bladder neck stricture COVID-19 vaccine series completed Coronary artery disease Knee pain, right Cardiomyopathy PVC (premature ventricular contraction) AAA (abdominal aortic aneurysm) Hypertension Surgical History H/O colonoscopy Hx of bilateral inguinal hernia repair Hx of cystoscopy History of cardiac cath History of hand surgery (~2001) History of spinal fusion (~2016) History of prostate surgery (~2013) Family History Father No problems noted. Mother No problems noted. Other Substance use disorder Social History Household Members: Spouse Housing: [facility] Are you a primary child care associate teacher to a significant other at home: No Do you presently have visiting nurse or other home services: No Alcohol intake: never Patient Tobacco Use Status: Former Tobacco user Tobacco use type: Cigarette Years Smoked: 30 e-Cigarette/Vaping Use: Never Used Substance Use Type: Marijuana service: No Current occupational status: retired Current occupation: right handed Cognitive needs: No Hearing needs: No Vision needs: No Review of Systems Const All systems reviewed & are unremarkable except as noted in HPI and below Physical Exam Vital Signs: Last Vital Signs Pulse 58 03/13/25 09:17 BP 172/94 H 03/13/25 09:17 Pulse Ox 98 03/13/25 09:17 BMI result Body Mass Index 28.7 Assessment & Plan Assessment & Plan (1) Chest pain: Code(s): R07.9 - Chest pain, unspecified Qualifiers: Chest pain type: unspecified Qualified Code(s): R07.9 - Chest pain, unspecified Plan Most likely arrhythmia vs AR vs ischemia EKG in the office- no acute ST elevations noted and compared to January 2025, PVCs, depressions noted in I and II Plan - Due to the intensity and sudden onset of chest pain, the patient is advised to go to the emergency room for further evaluation. - pt refused the ambulance offered - AMA form was signed, discussed with him the importance of going by the ambulance due to risk of CP returning - pt will drive himself to the ER in private car - needs a follow with his PCP - also needs to f/u with cardiology Coding Level of Care Code Est Pt Level 3 (83127) Diagnoses Chest pain, unspecified type R07.9 Chest pain type: unspecified
--- OUTSIDE RECORDS SUMMARY | 2025-03-13 09:31 | XMS_ITS | Encounter Summary ---
Author Organization [facility] Address [address] [place] [id number] Care Team Providers Care Apprenticeship Representative Name Role Phone Irineo Kimble MD Primary Care Provider [phone] Encounter Details Date Type Department Care Team (Late st Contact Info) Description 05/14/2024 Scanned Document [place] [id number] Crystal Cantu MD [address] [facility] [place] [address] Social History Tobacco Use Types Packs/Day Years [...] on filedocumented in this encounter Care Teams Apprenticeship Representative Relationship Specialty Start Date End Date Irineo Kimble MD [address] [place] [address] [address] [place] [address] PCP - General Cardiovascular Disease 05/12/24 documented as of this encounter
== END 2025-03-13 09:41 | disposition home or self-care (01) ==
PROVIDERS: PCP Internal Medicine; Visit Provider Physician Assistant Medical
DX: R07.9 Chest pain, unspecified (principal)

== ENCOUNTER → 2025-03-13 09:13 | Outpatient (BNVA) | payer MEDICARE, BC, SELFPAY | PROVIDERS: PCP Internal Medicine; Visit Provider Physician Assistant Medical | DX: R07.9 Chest pain, unspecified (principal) | CPT/HCPCS: 93005; 99212 ==

== ENCOUNTER 2025-03-13 09:55 | Emergency (ER) | payer MEDICARE, BC, SELFPAY ==
--- NOTE | 2025-03-13 | ECG_ITS ---
Test Reason : CHEST PAIN Blood Pressure : */* mmHG Vent. Rate : 71 BPM Atrial Rate : 63 BPM P-R Int : 194 ms QRS Dur : 132 ms QT Int : 416 ms P-R-T Axes : 6 -36 114 degrees QTcB Int : 452 ms Normal sinus rhythm with frequent PVCs Left axis deviation Left ventricular hypertrophy with QRS widening and repolarization abnormality ( R in aVL , Scam[employer] product ) Abnormal ECG When compared with ECG of 02-Sep-2024 13:54, Frequent PVCs present Referred By: Generic ED Physician Electronically Signed By: Irineo Kimble
--- NOTE | ~2025-03-13 | XR_ITS ---
EXAMINATION: XR CHEST CLINICAL INFORMATION: CP COMPARISON: April 08, 2021. TECHNIQUE: Frontal view of the chest was obtained. FINDINGS: Pulmonary reticular nodular pattern. Bilateral apical lung scarring. No consolidation pleural effusion or pneumothorax. Cardiomediastinal silhouette size is normal. Calcified plaque thoracic aorta. Old traumatic deformities in the clavicles. S-shaped curvature of the thoracolumbar spine. Multilevel thoracic spondylosis no fully evaluated due to patient's body habitus. XR/XR chest 1V IMPRESSION: Consider chronic interstitial lung disease with questionable pulmonary granuloma. No acute airspace disease. Electronically signed by: Carter Holguin MD 03/13/2025 10:27 AM EDT
--- NOTE | ~2025-03-13 | CT_ITS ---
EXAMINATION: CT ANGIOGRAM CHEST CLINICAL INFORMATION: Atrial fib, no anticoagulation, chest pain. Rule out PE. COMPARISON: None available. TECHNIQUE: Multiple axial images were obtained through the chest after the administration of 65 mL of Omnipaque 350 intravenous contrast. Extensive vascular post-processing including two-dimensional and three-dimensional reformatted images were created and reviewed on an independent workstation. This CT examination was performed using dose optimization techniques as appropriate, variously including the following: *Automated exposure control *Adjustment of mA and/or kV according to patient size (this includes techniques or standardized protocols for targeted exams where dose is matched to indication/reason for exam; i.e. extremities or head) *Use of iterative reconstruction technique FINDINGS: VASCULAR: Study quality is adequate. There is no evidence of pulmonary embolus. There is no evidence of right heart strain or significant reflux into the hepatic IVC. The aorta is mildly ectatic, uncoiled, and tortuous, without evidence of aneurysm. Moderate calcific atheromatous disease. The great vessels branch normally and are patent. There is mild to moderate cardiac enlargement. There is no pericardial effusion. There are heavy coronary calcifications. LUNGS: Mild to moderate centrilobular emphysema with upper lobe predominance. No evidence of consolidation, or interstitial lung disease. No abnormal groundglass opacities. Minor dependent atelectasis present. No pleural effusion or pneumothorax. No suspicious pulmonary nodule. Mild thickening of the small airways suggesting mild inflammatory/infectious airways disease. There are calcified pleural plaques present. MEDIASTINUM: Mild Global enlargement of the thyroid without discrete nodules seen by CT. No lymphadenopathy or mass within the mediastinum. Mildly patulous appearing esophagus. Central airways are patent. CHEST WALL/AXILLA: No lymphadenopathy or mass. IMAGED UPPER ABDOMEN: Moderate to severe calcific atheromatous disease of the arterial structures. OSSEOUS STRUCTURES: No suspicious lytic or blastic bone lesions. There are degenerative changes of the spine. There is a chronic appearing mild wedge compression deformity of T3. CT/CT angio chest PE protocol IMPRESSION: 1. There is no evidence of pulmonary embolus or acute aortic syndrome. 2. Aorta is ectatic and calcified, without discrete aneurysm. 3. Mild to moderate cardiomegaly. 4. Mild to moderate centrilobular emphysema without acute lung disease. Mild thickening of the small airways, suggesting bronchitis. 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 5. Additional ancillary findings as discussed in the body of the report. Electronically signed by: Haile Gordon MD 03/13/2025 02:54 PM EDT RP
[2025-03-13 09:59] VITALS: BP 157/75; PULSE 58; RESP 18; TEMP 37; O2SAT 94; BMI 27.2
[2025-03-13 10:20] LABS: MANUAL DIFF FLAG NO
--- NOTE | 2025-03-13 10:20 | ED.CHESTPAIN ---
HPI - Chest Pain General Chief Complaint: Chest Pain Stated Complaint: Chest pain Time Seen by Provider: 03/13/25 10:10 Source: patient Mode of arrival: ambulatory Limitations: no limitations History of Present Illness ED Provider: Leonarda Gutiérrez NP HPI narrative: Patient is an 84-year-old male with past medical history of cardiomyopathy, recent EF of 45-50%, PVC, moderate RCA disease, not tolerant to amiodarone and mexiletine secondary to GI issues, history of atrial fibrillation declining to use anticoagulants such as Eliquis as advised by cardiology taking aspirin alternatively, hypertension, AAA, GERD, arthritis who presents emergency department for evaluation of chest pain. He reports that he typically rides his recumbent bike 5-6 miles for about 30 minutes. Today he went out for a ride and after few minutes he developed pain across the middle of his chest, a sharp pain lasting approximately 5 minutes. He ultimately stopped and rested in the pain self resolved and did not return. He was able to ride his bike back home. He presented to an urgent care for evaluation, was advised to come to emergency department for further evaluation. Has not had any return of pain since its initial onset. Denies headache, dizziness, lightheadedness, neck pain, jaw pain, shortness of breath, difficulty breathing, nausea, vomiting, abdominal pain, numbness or tingling of the extremities. Related Data Home Medications ?Medication ?Instructions ?Recorded ?Confirmed latanoprost 0.005 % eye drops 1 drp ophthalmic (eye) BEDTIME 06/30/20 02/02/25 calcium 600 mg (as 1 tab PO DAILY 01/17/23 02/02/25 carbonate)-vitamin D3 5 mcg (200 unit) tablet aspirin 81 mg tablet,delayed 81 mg PO DAILY 04/30/24 02/02/25 release (Adult Low Dose Aspirin) vitamins A,C,O-ankj-rqobiz 4,296 1 cap PO BID 01/15/25 02/02/25 mcg-226 mg-90 mg capsule (PreserVision AREDS) Previous Rx's ?Medication ?Instructions ?Recorded acetaminophen 500 mg capsule 1,000 mg (2 x 500 mg) PO Q6H PRN 01/18/24 pain, moderate #30 caps cetirizine 10 mg tablet (Zyrtec) 10 mg PO DAILY PRN allergy 01/18/24 symptoms #60 tabs fluticasone furoate 27.5 1 spray intranasal BID #6.6 mL 01/18/24 mcg/actuation nasal spray,suspension (Flonase Sensimist) lisinopril 20 mg tablet 20 mg PO DAILY #90 tabs 02/24/25 Allergies Allergy/AdvReac Type Severity Reaction Status Date / Time amiodarone AdvReac Intermediate Constipatio Verified 03/13/25 09:59 n mexiletine AdvReac Intermediate Diarrhea Verified 03/13/25 09:59 timolol (From Betimol) AdvReac Intermediate hypotension Verified 03/13/25 09:59 Review of Systems Review of Systems: Yes all other systems are reviewed and are negative [facility] Past Medical History Attestation statement: The following information was validated with the patient. Source: old records reviewed Medical History Skin cancer Back pain Arthritis Difficulty swallowing GERD (gastroesophageal reflux disease) Bladder neck stricture COVID-19 vaccine series completed Coronary artery disease Knee pain, right Cardiomyopathy PVC (premature ventricular contraction) AAA (abdominal aortic aneurysm) Hypertension Surgical History H/O colonoscopy Hx of bilateral inguinal hernia repair Hx of cystoscopy History of cardiac cath History of hand surgery (~2001) History of spinal fusion (~2016) History of prostate surgery (~2013) Family History Family History Father No problems noted. Mother No problems noted. Other Substance use disorder Social History Social History Household Members: Spouse Housing: Condominium Are you a primary manager medicare marketing to a significant other at home: No Do you presently have visiting nurse or other home services: No Alcohol intake: never Patient Tobacco Use Status: Former Tobacco user Tobacco use type: Cigarette Years Smoked: 30 Smoked in Last 30 Days: No e-Cigarette/Vaping Use: Never Used Use of substances other than those prescribed or required for medical reasons: Yes Substance Use Type: Marijuana Advance Directives: No Advance Directives Information Provided: Yes service: No Current occupational status: retired Current occupation: right handed Cognitive needs: No Hearing needs: No Vision needs: No Physical Exam Vital Signs: Vital Signs: Last Vital Signs Temp 98.4 F 03/13/25 14:00 Pulse 59 03/13/25 14:00 Resp 12 03/13/25 14:00 BP 133/79 03/13/25 14:00 Pulse Ox 94 03/13/25 14:00 O2 Del Method Room Air 03/13/25 14:00 BMI result Body Mass Index 27.2 Appearance: Alert.?Oriented to person, place and time. No acute distress.?Normal affect. Eyes: Pupils equal, round and reactive to light.? ENT: Pharynx normal.?? Neck: Normal inspection.? Neck supple.?? CVS: Heart sounds normal. Normal heart rate and rhythm.? Pulses normal.?? Respiratory: No respiratory distress.? Lung sounds clear, mild rales bilateral bases posteriorly otherwise clear Abdomen: Soft and non-tender. Normoactive bowel sounds. ? Skin: Skin warm and dry.? Normal skin color.? Extremities: No lower extremity edema.? No calf ttp? Neuro: Moves all extremities spontaneously. Sensation intact bilaterally. No focal neuro deficits. Ambulates with normal steady gait. Course Reevaluation(s) Reevaluation #1: Delta troponin is flat. BNP within normal who is. D-dimer is elevated at 1017, given his history of atrial fibrillation no anticoagulation, will obtain CT angio of the chest for evaluation of pulmonary embolism. Time: 13:39 Reevaluation #2: CT angio of the chest without evidence of pulmonary embolism. There is however finding of mild to moderate central lobar emphysema without acute lung disease mild thickening of the small airways suggesting a bronchitis as well as calcified pleural plaques suggesting prior asbestos exposure by his account he has not had any recent cough, sputum production, URI symptoms or shortness of breath, I suspect that this is likely chronic in nature for which she was advised that he should follow up outpatient with his primary care doctor and/or pulmonology. Advised patient he should additionally follow up outpatient with Cardiology. Given strict return precautions. All questions were answered. Stable for discharge Time: 15:33 Medications Administered Discontinued Medications Generic Name Dose Route Start Last Admin Trade Name Freq PRN Reason Stop Dose Admin Aspirin 324 mg 03/13/25 11:04 03/13/25 11:17 Aspirin 81 Mg Tab.Chew PO 03/13/25 11:05 324 mg ONCE ONE Administration Sodium Chloride 1,000 mls @ 999 mls/hr 03/13/25 13:45 03/13/25 13:45 Ns IV 03/13/25 14:45 999 mls/hr .Q1H1M KIKO Administration Iohexol 100 ml 03/13/25 14:13 03/13/25 14:14 Iohexol 350 Mg/Ml 100 Ml Infus..Btl IV 03/13/25 14:14 65 ml ONCE ONE Administration Medical Decision Making Medical Decision Making MDM Narrative: Patient is an 84-year-old male with past medical history of cardiomyopathy, most recent EF 2022 of 45-50%, PVC, moderate RCA disease, not tolerant to amiodarone and mexiletine secondary to GI issues, history of atrial fibrillation declining to use anticoagulants such as Eliquis as advised by cardiology taking aspirin alternatively, hypertension, AAA, GERD, arthritis presenting for episode of chest pain onset while bicycling that resolved with rest and has not reoccurred as per HPI. Overall his well-appearing, nontoxic. He is afebrile, no tachypnea or hypoxia, no recent URI symptoms. No evidence of volume overload or shock on exam. Has history of atrial fibrillation not on anticoagulation, although no shortness of breath hypoxia or tachypnea additionally no tachycardia, will obtain D-dimer to exclude pulmonary embolism. Low suspicion for pneumothorax, thoracic aortic dissection, cardiac effusion / tamponade. No recent trauma or injury, no tracheal deviation, unlikely tension pneumothorax. No abdominal tenderness upon palpation, negative Johns sign, unlikely acute cholecystitis, choledocholithiasis, no fever or jaundice to suggest acute cholangitis, may possibly be biliary colic secondary to cholelithiasis. Denies associated acid reflux, no tenderness upon palpation over the epigastrium or left upper quadrant to suggest gastritis, no recent hematemesis history less likely to suggest PUD. Denies excessive alcohol consumption, history of diabetes, lower suspicion acute pancreatitis. Differential Diagnosis Differential Diagnoses: The differential diagnosis associated with the presentation includes (See narrative above) Admission/Observation Consideration of admission/observation: Escalation of care including admission/observation considered (See narrative above and course narrative for further detail) Lab Data [facility] Lab Attestation statement: I reviewed the patient's lab results. CBC is without leukocytosis, has a normocytic anemia that does not meet transfusion criteria, mild thrombocytopenia 155,000. No electrolyte derangement. No GAB. High sensitive troponin on arrival within normal range. 03/13/25 10:17 03/13/25 10:17 Labs: Lab Results 03/13/25 03/13/25 Range/Units 10:17 13:00 WBC 6.3 (4.8-10.8) X10*3/uL RBC 4.10 L (4.60-5.80) X10*6/uL Hgb 13.2 L (14.0-18.0) g/dl Hct 38.7 L (42.0-52.0) % MCV 94.4 (80.0-98.0) fL MCH 32.2 (27.0-33.0) pg MCHC 34.1 (31.0-36.0) g/dl RDW 13.7 (11.0-16.0) % Plt Count 155 L (160-400) X10*3/uL MPV 9.5 (9.4-12.4) fL Immature Gran % (Auto) 0.3 (0.0-0.4) % Neut % (Auto) 64.7 (45-73) % Lymph % (Auto) 23.6 (20-40) % [place] % (Auto) 8.5 (2-11) % Eos % (Auto) 2.6 (0-4) % Baso % (Auto) 0.3 (0-2) % Lymph # (Auto) 1.5 (1.2-4.9) X10*3/uL [place] # (Auto) 0.5 (0.1-1.2) X10*3/uL Eos # (Auto) 0.2 (0.0-0.4) X10*3/uL Baso # (Auto) 0.0 (0.0-0.2) X10*3/uL Abs Immat Gran (auto) 0.02 (0.00-0.03) X10*3/uL Absolute Neuts (auto) 4.1 (2.0-8.3) x10*3/uL Absolute Nucleated RBC 0.000 (0.0-0.012) X10*3/uL Nucleated RBC % (auto) 0.0 (0.0-0.2) /100WBC PT 11.1 (10.9-12.4) SEC INR 1.0 (0.9-1.1) APTT 27.1 (26.0-36.8) SEC D-Dimer High Sensitivty 1017 NG/ML Sodium 143 (135-145) mmol/L Potassium 4.7 (3.3-5.1) mmol/L Chloride 108 (96-108) mmol/L Carbon Dioxide 28 (22-29) mmol/L Anion Gap 12 (12-20) BUN 13 (9-16) mg/dL Creatinine 0.87 (0.5-1.4) mg/dL Estim Creat Clear Calc 64.0 Estimated GFR > 60 Random Glucose 96 (60-115) mg/dL Calcium 9.4 D (8.4-10.2) mg/dL Total Bilirubin 0.5 (0.0-1.0) mg/dL Direct Bilirubin 0.2 (0.0-0.5) mg/dL AST 27 (5-37) U/L ALT 14 (0-40) U/L Alkaline Phosphatase 130 H (39-117) U/L Troponin I High Sens 5.8 7.2 (<3.5-35.0) ng/L B-Natriuretic Peptide 90 (<100) pg/mL Total Protein 6.8 (6.5-8.0) g/dL Albumin 4.2 (3.5-5.0) g/dL Lipase 24 (8-78) U/L Independent Interpretation I performed an independent interpretation of an: EKG (ECG with ventricular rate of 71, normal RAFA, QTC 452, PVCs with bigeminy (patient reports history of), LVH pattern.) and Plain X-Ray Radiology Impression Discussion of test interpretation with radiology: I have reviewed the radiologist's reading. Radiologist Impression: TECHNIQUE: Frontal view of the chest was obtained. FINDINGS: Pulmonary reticular nodular pattern. Bilateral apical lung scarring. No consolidation pleural effusion or pneumothorax. Cardiomediastinal silhouette size is normal. Calcified plaque thoracic aorta. Old traumatic deformities in the clavicles. S-shaped curvature of the thoracolumbar spine. Multilevel thoracic spondylosis no fully evaluated due to patient's body habitus. XR/XR chest 1V IMPRESSION: Consider chronic interstitial lung disease with questionable pulmonary granuloma. No acute airspace disease. CT/CT angio chest PE protocol IMPRESSION: 1. There is no evidence of pulmonary embolus or acute aortic syndrome. 2. Aorta is ectatic and calcified, without discrete aneurysm. 3. Mild to moderate cardiomegaly. 4. Mild to moderate centrilobular emphysema without acute lung disease. Mild thickening of the small airways, suggesting bronchitis. 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 5. Additional ancillary findings as discussed in the body of the report. External Record Review External record reviewed: Outpatient record Chronic Conditions Patient?s care impacted by: Other (See narrative above) Discharge Plan Discharge Clinical Impression: Chest pain Patient Disposition: Home, Self-Care Instructions: Chest Pain (ED) Additional Instructions: workup today did not show evidence of a heart attack as a cause for her symptoms today, EKG did not show these changes, and to blood tests;, were normal. CT scan did not show evidence of a blood clot in the lungs. There was however findings concerning for lung disease such as a chronic bronchitis, I do not suspect that this is the reason for your symptoms today, however you should have this up to your primary care doctor so that they may further evaluate. 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 Return back to emergency department any new or worsening symptoms or concerns. Prescriptions: No Action lisinopril 20 mg tablet 20 mg PO DAILY Qty: 90 3RF calcium carbonate-vitamin D3 600 mg-5 mcg (200 unit) Tablet 1 tab PO DAILY cetirizine [Zyrtec] 10 mg tablet 10 mg PO DAILY PRN (Reason: allergy symptoms) Qty: 60 0RF Flonase Sensimist 27.5 mcg/actuation spray,suspension 1 spray intranasal BID Qty: 6.6 0RF Rx Instructions: into each nostril acetaminophen 500 mg capsule 1,000 mg PO Q6H PRN (Reason: pain, moderate) Qty: 30 0RF latanoprost 0.005 % drops 1 drp ophthalmic (eye) BEDTIME aspirin [Adult Low Dose Aspirin] 81 mg tablet,delayed release (DR/EC) 81 mg PO DAILY PreserVision AREDS 4,296 mcg-226 mg-90 mg capsule 1 cap PO BID Referrals: Crystal Cantu MD [Primary Care Provider, Internal Medicine] Print Language: Arabic
[2025-03-13 10:22] LABS: Basophils Percent Auto 0.3 % (0-2); Eosinophils Absolute Auto 0.2 X10*3/uL (0.0-0.4); Eosinophils Percent Auto 2.6 % (0-4); Hematocrit 38.7 % (42.0-52.0); Hemoglobin 13.2 g/dl (14.0-18.0); Imm Gran Abs Auto 0.02 X10*3/uL (0.00-0.03); Imm Gran Pct Auto 0.3 % (0.0-0.4); Lymphocytes Absolute Auto 1.5 X10*3/uL (1.2-4.9); Lymphocytes Percent Auto 23.6 % (20-40); Mean Corpuscular HGB Conc 34.1 g/dl (31.0-36.0); Mean Corpuscular Hemoglobin 32.2 pg (27.0-33.0); Mean Corpuscular Volume 94.4 fL (80.0-98.0); Mean Platelet Volume 9.5 fL (9.4-12.4); Monocytes Absolute Auto 0.5 X10*3/uL (0.1-1.2); Monocytes Percent Auto 8.5 % (2-11); Neutrophils Absolute Auto 4.1 x10*3/uL (2.0-8.3); Neutrophils Percent Auto 64.7 % (45-73); Platelet Count 155 X10*3/uL (160-400); Red Cell Distribution Width 13.7 % (11.0-16.0); White Blood Count 6.3 X10*3/uL (4.8-10.8)
--- NOTE | 2025-03-13 10:25 | PC.NURSE ---
patient a&ox3, iv inserted, labs drawn, ekg performed, pt states his pain has resolved once he rested. denies sob/n/v, telemetry monitor applied- sinus with frequent pvcs, pt states he does have a history of bigeminy. call villalpando within reach, plan of care ongoing.
[2025-03-13 10:39] LABS: Anion Gap 12 (12-20); Blood Urea Nitrogen 13 mg/dL (9-16); Calcium 9.4 mg/dL (8.4-10.2); Carbon Dioxide 28 mmol/L (22-29); Chloride 108 mmol/L (96-108); Estimated Glomerular Filt Rate > 60; Glucose Random 96 mg/dL (60-115); Potassium 4.7 mmol/L (3.3-5.1); Sodium 143 mmol/L (135-145)
[2025-03-13 10:41] LABS: Troponin-I High Sensitivity 5.8 ng/L (<3.5-35.0)
[2025-03-13 11:06] LABS: Partial Thromboplastin Time 27.1 SEC (26.0-36.8); Prothrombin Time 11.1 SEC (10.9-12.4)
[2025-03-13] MEDS: Aspirin 81 MG TAB.CHEW 324 MG PO (11:17)
[2025-03-13 11:34] LABS: D Dimer High Sensitivity 1017 NG/ML
[2025-03-13 11:35] LABS: Alanine Aminotransferase 14 U/L (0-40); Albumin Level 4.2 g/dL (3.5-5.0); Alkaline Phosphatase 130 U/L (39-117); Aspartate Amino Transferase 27 U/L (5-37); Bilirubin Direct 0.2 mg/dL (0.0-0.5); Bilirubin Total 0.5 mg/dL (0.0-1.0); Lipase 24 U/L (8-78); Total Protein 6.8 g/dL (6.5-8.0)
[2025-03-13 11:45] LABS: B Type Natriuretic Peptide 90 pg/mL (<100)
[2025-03-13 12:00] VITALS: BP 126/70; PULSE 57; RESP 20; TEMP 36.8; O2SAT 94
[2025-03-13 13:31] LABS: Troponin-I High Sensitivity 7.2 ng/L (<3.5-35.0)
[2025-03-13] MEDS: 0.9 % Sodium Chloride 1,000 ML 999 ML IV (13:45)
[2025-03-13 14:00] VITALS: BP 133/79; PULSE 59; RESP 12; TEMP 36.9; O2SAT 94
[2025-03-13] MEDS: iohexoL 350 MG/ML 100 ML INFUS..BTL IV (14:14)
[2025-03-13 15:46] VITALS: BP 161/95; PULSE 63; RESP 11; TEMP 36.3; O2SAT 95
[2025-03-13 15:58] VITALS: BP 161/95; PULSE 63; RESP 11; TEMP 36.3; O2SAT 95
== END 2025-03-13 15:59 | disposition home or self-care (01) ==
PROVIDERS: Nurse Practitioner Family; Emergency Provider Emergency Medicine; PCP Internal Medicine
DX: R07.89 Other chest pain (principal); I48.91 Unspecified atrial fibrillation; R11.0 Nausea; R06.02 Shortness of breath; I10 Essential (primary) hypertension; Z87.891 Personal history of nicotine dependence; Z79.899 Other long term (current) drug therapy
CPT/HCPCS: 36415; 71045; 71275; 80048; 80076; 83690; 83880; 84484; 85025; 85379; 85610; 85730; 93005; 96360; 99284; 99285; Q9967

== ENCOUNTER → 2025-03-13 09:58 | Outpatient (BNV) | payer MEDICARE, BC, SELFPAY | PROVIDERS: Emergency Provider Emergency Medicine; PCP Internal Medicine; Visit Provider Internal Medicine Cardiovascular Disease | DX: I51.7 Cardiomegaly (principal) | CPT/HCPCS: 93010 ==

== ENCOUNTER → 2025-03-13 10:07 | Outpatient (BNV) | payer MEDICARE, BC, SELFPAY | PROVIDERS: PCP Internal Medicine; Visit Provider Radiology Diagnostic Radiology | DX: J43.2 Centrilobular emphysema (principal); R07.9 Chest pain, unspecified | CPT/HCPCS: 71275 ==

== ENCOUNTER 2025-04-08 08:19 | Outpatient (AMB) | payer MEDICARE, BC, SELFPAY ==
--- NOTE | 2025-04-08 08:21 | A.OFFVIS_ITS ---
Intake Vital Signs 04/08/25 08:22 Height 5 ft 10 in Weight 204 lb BMI 29.3 BP 128/72 Blood Pressure Location Lt brachial Position Sitting Pulse 71 Pulse Source Pulse Oximeter Temp 97.8 F Temp Source Oral Pulse Oximetry (%) 96 Intake Visit Reasons: [facility] [id number] insurance [employer] Required: No Accompanied by: Self / Same As Patient Allergies amiodarone Adverse Reaction (Intermediate, Verified 04/08/25 08:22) Constipation mexiletine Adverse Reaction (Intermediate, Verified 04/08/25 08:22) Diarrhea timolol (From Betimol) Adverse Reaction (Intermediate, Verified 04/08/25 08:22) hypotension Medication List - Last Reconciled 04/08/25 by Crystal Cantu MD acetaminophen 1,000 mg (2 x 500 mg) PO Q6H PRN aspirin (Adult Low Dose Aspirin) 81 mg PO DAILY calcium carbonate-vitamin D3 600 mg-5 mcg (200 unit) 1 tab PO DAILY cetirizine (Zyrtec) 10 mg PO DAILY PRN fluticasone furoate 27.5 mcg/actuation (Flonase Sensimist) 1 spray intranasal BID latanoprost 0.005% 1 drp ophthalmic (eye) BEDTIME lisinopril 20 mg PO DAILY vitamins A,C,H-cqgq-aifzon 4,296 mcg-226 mg-90 mg (PreserVision AREDS) 1 cap PO BID Do you need a note to return to daycare/school/sports/work: No HPI [facility] [id number] insurance HPI Details History - The patient is an 84-year-old male pre senting for a Medicare wellness visit and review of his cardiac history. - he has history of premature ventricula r complexes (PVCs) and borderline cardiomyopathy with an ejection fraction of 45 to 50% based on an echo cardiogram. - Noted to have mild ascending aortic di lation. - The patient has a cardiac device in us e to monitor heart rhythm and mentions being able to feel episodes of atrial fibrillation. - The last appointment with the cardiolo [facility] was in January of the current year. - The patient was previously given antic oagulation therapy options for atrial fibrillation (apixaban and consideration of the Watchman device) but did not take apixaban. - History of iron deficiency anemia with improved hemoglobin levels but occasional rectal bleeding possibly due to hemorrhoids. - The patient denies any new symptoms or problems since the last visit. - blood pressure is stable with lisinopr il 20 mg through Cardiology Medical History: - Premature ventricular complexes - Borderline cardiomyopathy - Atrial fibrillation - Anemia, previously low hemoglobin, cur rently improved - Hemorrhoids, with occasional bleeding - Mild ascending aortic dilation - hypertension Medications: - Lisinopril 20 mg, for hypertension - Cetirizine, as needed for allergies (o efrain the counter) - Flonase, as needed for nasal symptoms Social History: - Resides with who has Parkinson's disease; both manage household tasks together. 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 - Manages personal finances, including o rdering meals. Family History: - has Parkinson's disease. Diagnostic Results: - Labs: Hemoglobin improved to 13.2, kid donna function and electrolytes stable, liver enzymes with one slightly elevated enzyme, consistent with past results. - Cardiology: Echocardiogram indicating borderline cardiomyopathy with ejection fraction 45-50%, mild ascending aortic dilation. Problem List - Atrial Fibrillation - Hypertension - Borderline Cardiomyopathy - Premature Ventricular Complexes - Mild Ascending Aortic Dilation - Hemorrhoids - History of Anemia Patient Instructions - Coordinate rescheduling of cardiology follow-up as needed. - Ensure healthcare proxy documentation is completed and signed by the appointed agent. - Consider using iron supplements to man age anemia, mindful of avoiding constipation to minimize hemorrhoid symptoms. - Maintain up-to-date immunizations. Follow-up 1 year for Medicare wellness visit Only medication patient is taking is prescribed by Cardiology lisinopril 10 mg Review of Systems - General: No fever no chills - Neurological: No headaches no dizziness - Ear nose throat: No sore throat no hearing difficulty no ear pain - Cardiovascular: No syncope, no chest pain, no palpitations - Gastrointestinal: No nausea vomiting or diarrhea - Endocrine: No polyuria polydipsia no heat intolerance - Genitourinary: No dysuria , no blood in urine Physical Exam General: No acute distress HEENT: No acute findings Neck: Supple Respiratory system: Able to talk in full sentences, no audible wheeze Cardiovascular: S1-S2 regular in rate and rhythm Gastrointestinal: No pain Extremities: No new findings 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: Alert awake oriented x3 motor sensory intact, able to stand without touching the chair, able to resolve 360 degree, balance intact, tandem failed Skin: Normal turgor HPI Comments History of Present Illness Details AWV Medical/social history reviewed Past medical history reviewed [place] of care / care team list updated Surgical/ hospitalization history reviewed Current medications including OTC and supplements reviewed Family history reviewed Tobacco controlled form updated Alcohol use form updated Illicit drug use in social history reviewed Current diagnosis of depression ?screening updated Appropriate PHQ 2/PHQ-9 completed . Vital signs reviewed Alcohol tobacco drug use reviewed and discussed . MMSE completed . ? Fall risk: ?Assessed Fall history: ?None Have you had any falls with injury in the past year?? No Have you had 2 or more falls in the past year?? No Fall risk assessment completed Home safety discussed with the patient Functional ability assessed and discussed and documented Activities of daily living reviewed and appropriate actions taken . HRA filled out by the patient and reviewed by provider and scanned . Appropriate written screening schedule established . Any health advise needed provided . Advance care planning discussed with the patient , necessary paperwork filled Examination IPPE/AWE: Balance intact Romberg intact Tandem walk intact walk-in turn intact rise from sit to stand intact . ?Hearing ?whisper test pass . Medication list reviewed, patient is stable on medications All other providers patient is seeing discussed and noted . [facility] Medical History Skin cancer Back pain Arthritis Difficulty swallowing GERD (gastroesophageal reflux disease) Bladder neck stricture COVID-19 vaccine series completed Coronary artery disease Knee pain, right Cardiomyopathy PVC (premature ventricular contraction) AAA (abdominal aortic aneurysm) Hypertension Surgical History H/O colonoscopy Hx of bilateral inguinal hernia repair Hx of cystoscopy History of cardiac cath History of hand surgery (~2001) History of spinal fusion (~2016) History of prostate surgery (~2013) Family History Father No problems noted. Mother No problems noted. Other Substance use disorder Social History Household Members: Spouse Housing: Condominium Are you a primary long term care phlebotomist to a significant other at home: No Do you presently have visiting nurse or other home services: No Alcohol intake: never Patient Tobacco Use Status: Former Tobacco user Tobacco use type: Cigarette Years Smoked: 30 e-Cigarette/Vaping Use: Never Used Substance Use Type: Marijuana service: No Current occupational status: retired Current occupation: right handed Cognitive needs: No Hearing needs: No Vision needs: No Questionnaire Medicare Wellness Checkup What is your age?: 79 or older What gender do you identify with?: male During the past 4 weeks, how much have you been bothered by emotional problems such as feeling anxious, depressed, irritable, sad or downhearted, and blue?: slightly During the past 4 weeks, has your physical & emotional health limited your social activities with family, friends, neighbors, or groups?: not at all During the past 4 weeks, how much bodily pain have you generally had?: mild pain During the past 4 weeks, was someone available to help you if you needed & wanted help?: no, not at all During the past 4 weeks, what was the hardest physical activity you could do for at least 2 minutes?: heavy Can you get to places out of walking distance without help? (For eg., can you travel alone on buses, taxis or drive your car?): Yes Can you go shopping for groceries or clothes without someone's help?: Yes Can you prepare your own meals?: Yes Can you do your housework without help?: Yes Because of any health problems, do you need the help of another person with your personal care needs such as eating, bathing, dressing or getting around the house?: No Can you handle your own money without help?: Yes During the past 4 weeks, how would you rate your health in general?: good During the past 4 weeks how have things been going for you?: good & bad parts about equal Are you having difficulties driving your car?: no Do you always fasten your seat belt when you are in a car?: yes, sometimes During past 4 weeks, have you been bothered by the following: never: Falling or dizzy when standing up, Trouble eating well?, Teeth or denture problems? and Problems using the telephone?, seldom: Tiredness or fatigue? and always: Sexual problems? Have you fallen 2 or more times in the past year?: No Are you afraid of falling?: No Are you a smoker?: no During the past 4 weeks, how many drinks of wine, beer, or other alcoholic beverages did you have?: no alcohol at all Do you exercise for about 20 minutes 3 or more times a week?: yes, most of the time Have you been given information to help with the following?: no: Hazards in your house that might hurt you? and no: Keeping track of your medications? How often do you have trouble taking medicines the way you have been told to take them?: I always take medicine as prescribed How confident are you that you can control & manage most of your health problems?: somewhat confident What is your race?: White Mini Mental State Exam (MMSE) Orientation What is the (year) (season) (date) (day) (month)?: year, season, date, day and month Where are we (state) (county) (town or city) (hospital) (floor)?: state, county, town or city, hospital/clinic and floor Score Score: 10 Activity of Daily Living Bathing - sponge bath, tub bath or shower: receives no assistance (gets in/out by self, if usual bathing means Dressing - getting clothes from closets & drawers, including inner/outer garments & fasteners.: gets clothes & gets completely dressed without help Toileting - going to the 'toilet room' for urine/bowel elimination & cleaning self/arranging clothes: goes to toilet room, cleans self, arranges clothes without help Transfer: moves in & out of bed and chair without help (may use support object) Continence: controls urination/bowel movements completely by self Feeding: feeds self without help Total Score: 0 Information obtained from: patient Using telephone: independent Traveling: independent Shopping: independent Preparing meals: independent Housework: independent Taking medicine: independent Managing money: independent PHQ-9 Over the last 2 weeks, how often have you been bothered by any of the following problems? 1. Little interest or pleasure in doing things: not at all 2. Feeling down, depressed, or hopeless: not at all 3. Trouble falling or staying asleep, or sleeping too much: not at all 4. Feeling tired or having little energy: several days 5. Poor appetite or overeating: not at all 6. Feeling bad about yourself - or that you are a failure or have let yourself or your family down: not at all 7. Trouble concentrating on things, such as reading the newspaper or watching television: not at all 8. Moving or speaking so slowly that other people could have noticed. Or the opposite - being so fidgety or restless that you have been moving around a lot more than usual: not at all 9. Thoughts that you would be better off or of hurting yourself in some way: not at all Total score: 1 Depression Screening Interpretation: Negative Depression Screening Done: Yes 16726 - PHQ-9 Billing: Yes Source: Developed by Drs. Mehdi Barahona, Sherine Mosley, Hao Pinto and colleagues, with an educational hank from [employer]. Physical Exam Vital Signs: Last Vital Signs Temp 97.8 F 04/08/25 08:22 Pulse 71 04/08/25 08:22 BP 128/72 04/08/25 08:22 Pulse Ox 96 04/08/25 08:22 BMI result Body Mass Index 29.3 Assessment & Plan Assessment & Plan (1) Hypertension: Code(s): I10 - Essential (primary) hypertension Qualifiers: Hypertension type: primary hypertension Qualified Code(s): I10 - Essential (primary) hypertension (2) Cardiomyopathy: Comment: follows w/ Code(s): I42.9 - Cardiomyopathy, unspecified Qualifiers: Cardiomyopathy type: other Qualified Code(s): I42.8 - Other cardiomyopathies (3) Coronary artery disease: Code(s): I25.10 - Atherosclerotic heart disease of [place] coronary artery without angina pectoris Qualifiers: Coronary Disease-Associated Artery/Lesion type: [place] artery [place] vs. transplanted heart: ey[place] heart Associated angina: without angina Qualified Code(s): I25.10 - Atherosclerotic heart disease of [place] coronary artery without angina pectoris (4) PAF (paroxysmal atrial fibrillation): Code(s): I48.0 - Paroxysmal atrial fibrillation (5) LFT elevation: Code(s): R79.89 - Other specified abnormal findings of blood chemistry Plan History - The patient is an 84-year-old male presenting for a Medicare wellness visit and review of his cardiac history. - he has history of premature ventricular complexes (PVCs) and borderline cardiomyopathy with an ejection fraction of 45 to 50% based on an echocardiogram. - Noted to have mild ascending aortic dilation. - The patient has a cardiac device in use to monitor heart rhythm and mentions being able to feel episodes of atrial fibrillation. 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 - The patient was previously given anticoagulation therapy options for atrial fibrillation (apixaban and consideration of the Watchman device) but did not take apixaban. - History of iron deficiency anemia with improved hemoglobin levels but occasional rectal bleeding possibly due to hemorrhoids. - The patient denies any new symptoms or problems since the last visit. - blood pressure is stable with lisinopril 20 mg through Cardiology Medical History: - Premature ventricular complexes - Borderline cardiomyopathy - Atrial fibrillation - Anemia, previously low hemoglobin, currently improved - Hemorrhoids, with occasional bleeding - Mild ascending aortic dilation - hypertension Medications: - Lisinopril 20 mg, for hypertension - Cetirizine, as needed for allergies (over the counter) - Flonase, as needed for nasal symptoms Social History: - Resides with who has Parkinson's disease; both manage household tasks together. - Utilizes a meal delivery service called [employer] for dietary needs, which provides one main meal per day. - Manages personal finances, including ordering meals. Family History: - has Parkinson's disease. Diagnostic Results: - Labs: Hemoglobin improved to 13.2, kidney function and electrolytes stable, liver enzymes with one slightly elevated enzyme, consistent with past results. - Cardiology: Echocardiogram indicating borderline cardiomyopathy with ejection fraction 45-50%, mild ascending aortic dilation. Problem List - Atrial Fibrillation - Hypertension - Borderline Cardiomyopathy - Premature Ventricular Complexes - Mild Ascending Aortic Dilation - Hemorrhoids - History of Anemia - elevated alkaline phosphatase stable Patient Instructions - Coordinate rescheduling of cardiology follow-up as needed. - Ensure healthcare proxy documentation is completed and signed by the appointed agent. - Consider using iron supplements to manage anemia, mindful of avoiding constipation to minimize hemorrhoid symptoms. - Maintain up-to-date immunizations. Follow-up 1 year for Medicare wellness visit Only medication patient is taking is prescribed by Cardiology lisinopril 10 mg Quality Reporting (2019) Depression/Bipolar (159/160/161/177) PHQ-9: Total score: 1 Coding Level of Care Code Medicare Subsequent (G0439) Est Pt Level 3 (28830) Diagnoses Primary hypertension I10 Hypertension type: primary hypertension Other cardiomyopathy I42.8 Cardiomyopathy type: other Coronary artery disease involving ey[place] coronary artery of [place] heart without angina pectoris I25.10 Coronary Disease-Associated Artery/Lesion type: [place] artery [place] vs. transplanted heart: [place] heart Associated angina: without angina PAF (paroxysmal atrial fibrillation) I48.0 LFT elevation R79.89 CPT Codes Advance Care Planning - Time spent: 1-15 minutes, on File ([id number]) Additional Codes PHQ-9 - 44435 - PHQ-9 Billing: Yes ([id number]) Advance Care Planning Advance Care Planning discussion: Completed/Scanned Forms completed: MOLST Time spent: 1-15 minutes, on File
[2025-04-08 08:22] VITALS: BP 128/72; PULSE 71; TEMP 36.6; O2SAT 96; BMI 29.3
--- OUTSIDE RECORDS SUMMARY | 2025-04-08 08:22 | XMS_ITS | Encounter Summary ---
Author Organization [facility] Address [address] [place] [id number] Care Team Providers Care Dobie Worker Name Role Phone Irineo Kimble MD Primary Care Provider [phone] Encounter Details Date Type Department Care Team (Late st Contact Info) Description 05/14/2024 Scanned Document [place] [id number] Crystal Cantu MD 1962 [facility] [place] [address] Social History Tobacco Use Types Packs/Day Years [...] on filedocumented in this encounter Care Teams Dobie Worker Relationship Specialty Start Date End Date Irineo Kimble MD [address] [place] [address] [address] [place] [address] PCP - General Cardiovascular Disease 05/12/24 documented as of this encounter
--- OUTSIDE RECORDS SUMMARY | 2025-04-08 08:23 | XMS_ITS ---
Author Name [facility] Organization Unknown History of Medication Use Medication Directions Dispensed Refills Start Date End Date Stat us lisinopril (PRINIVIL,ZeSTRIL) 20 MG tablet Take 1 tablet (20 mg total) by mouth. 06/08/2024 active latanoprost (XALATAN) 0.005 % ophthalmic solution INSTILL 1 DROP INTO BOTH EYES ONCE DAILY AT BEDTIME 03/19/2024 active ASPIRIN 81 PO Take by mouth. act dov Allergies Allergen Reaction Severity Comment Documented Date Source Statu s BETAXOLOL GI INTOLERANCE/NAUSEA/VOMITING 06/24/2024 [facility] active Problems Problem Status Onset Date Problem Type Date of Resoluti on Source NICM (nonischemic cardiomyopathy) (HCC) active EncounterDiagnosisAct [facility] PVC (premature ventricular contraction) active EncounterDiagnosisAct CCT Encounters Encounter Type Encounter Reason Primary Diagnosis Location Date Ambulatory Ventricular prematur e depolarization Ventricular premature depolarization [facility] 08/04/2024 Ambulatory Ventricular prematur e depolarization Ventricular premature depolarization [facility] 07/28/2024 Ambulatory Ventricular prematur e depolarization Ventricular premature depolarization [facility] 06/24/2024 Ambulatory Ventricular prematur e depolarization Ventricular premature depolarization [facility] 06/24/2024 Care Team Organization Name Specialty Phone Email Start Date End Da te [facility] 06/24/2024 12/10/2024 [facility] 05/12/2024
--- OUTSIDE RECORDS SUMMARY | 2025-04-08 08:23 | XMS_ITS | Data Portability ---
Author Organization [facility]A Garcia [facility], [facility] Address [address] [place] [address] Care Team Providers Care Supervisor Accounting Clerks Name Role Phone [facility] Primary Care Provider [phone] Assessment No assessment recorded. Plan of Treatment Reminders Order Date Submit Date Provider Last Modified By Organization Details Last Modified Time Details Appointments None recorded. Lab rapid SARS CoV 2 Ag, QL IA, respiratory specimen 2022 023 [facility]en [facility], [address] [place] [address], [address], 3 19:00:30 rapid flu (A+B) 2022 023 [facility]en [facility], [address] [place] [address], [address], 3 19:00:30 Referral None recorded. Procedures None recorded. Surgeries None recorded. Imaging None recorded. Medication Orders azithromyci n 250 mg tablet 2022 023 [facility] #[id number], [address] [facility] [place], [address], 19:00:32 Patient TargetsNo targets recorded. Patient Instructions Encounter Date Encounter Id Patient Instructions Last Modified By Organization Details Last Modified Time 10/01/2022 [id number] cough: care instructions jumana jd1 Not available 10/01/2022 19:00:30 Reason for Referral None Reported. Results Created Date Observation Date Name Description Value Unit Range Abnormal Flag Note LastModifiedBy Organization Detail LastModifiedTime 10/01/19 23 10/01/2022 rapid SARS CoV 2 Ag, QL IA, respi rator y speci men Unknown Analyte Normal =Negat dov Not Available 2099patricia saldaña [address], [place], [address], 10/01/2022 18:20:10 10/01/19 23 10/01/2022 rapid SARS CoV 2 Ag, QL IA, respi rator y speci men Unknown Analyte negati ve Not Available [id number] [place], [address], 10/01/2022 18:20:10 10/01/19 23 10/01/2022 rapid flu (A+B) Unknown Analyte Normal = Negati ve Not Available [address] [place] [address] [place], [address], 10/01/2022 18:20:18 10/01/19 23 10/01/2022 rapid flu (A+B) Unknown Analyte Normal = Negati ve Not Available [address] [place] [address] [place], [address], 10/01/2022 18:20:18 10/01/19 23 10/01/2022 rapid flu (A+B) Unknown Analyte negati ve Not Available [address] [place] [address] [place], [address], 10/01/2022 18:20:18 10/01/19 23 10/01/2022 rapid flu (A+B) Unknown Analyte negati ve Not Available [address] [place] [address] [place], [address], 10/01/2022 18:20:18 Result Notes None recorded. Problems Name Problem SNOMED Code Status Onset Date Resolution Date Notes Provider Name and Address Organization Details Recorded Time Ventricular bigeminy 78086229 Active 023 ADELAIDA KEATING null, [place] - [facility] 3 18:16:22 Glaucoma 27283620 Active 023 ADELAIDA KEATING null, [place] - [facility] 3 18:16:59 Problem Notes None recorded. Medical Equipment None Reported. Allergies Allergen ID Allergen Name Allergen Category Reaction Reaction Severity Criticality Documentation Date Start Date Code Code System Note Provider Name and Address Organization Details Recorded Time 097874 Betimol medicatio n palpitati ons Not available Not available 10/01/2022 44992 2 RxNorm ADELAIDA KEATING null, [place] - [facility] 3 18:14:51 Medications Name Sig Start [...] height Body mass index (BMI) Body weight Heart rate Respiratory rate Oxygen saturation Oxygen saturation in Arterial blood by Pulse oximetry Body temperature Systolic And Diastolic Provider Name and Address Organization Details Last Updated DateTime 180.34 cm 27.9 kg/m2 17544.4 7 g 70 /min 16 /min 96 % 96 % 97.6 [degF] 161/80 mm[Hg] ADELAIDA RISHABH PA - [facility] 18:19:18 Social History Question Answer Notes LastModified by Organizat ion Details LastModified Time Tobacco Smoking Status Never Smoker ADELAIDA RISHABH null, [place] - [facility] 10/01/2022 18:16:37 Have You Recently Traveled Abroad? No Information not available 10/01/2022 Sex: Unknown Functional Status Question Answer Note LastModified by Organizat ion Details LastModified Time Do you use any [...] SNOMED-CT Code Diagnosis ICD10 Code Diagnosis Note [id number] YOLA WERNER [address] [address] 10/01/2022 17:37:02 10/01/2022 19:08:24 Acute bronchitis 02475842 J20.9 Health Concerns Section Related Observation LastModified by Organization Detai ls LastModified Time None Recorded Concern Status LastModified by Organization Details LastModified Time None Recorded Advance Directives Directive None Recorded Payers Insurance Date Sequence Insurance Name Policy Number Policy Fernandez Covered Member ID Fernandez Member ID Guarantor Name 10/01/2022 2 [facility] [facility] Hill Lin [id number] Hill Lin 10/01/2022 1 [place] [employer] [employer] Hill Lin [id number] Hill Lin 10/02/2022 2 [place] Hill Lin [id number] Hill Lin Notes Date Note Type Note [...] OTC medication without relief. YOLA CHANEY [address] [place], [place] [address]shaun Garcia, [place], [address], [place] - [facility] 10/01/2022 19:03:43
== END 2025-04-08 08:49 | disposition home or self-care (01) ==
PROVIDERS: PCP Internal Medicine; Visit Provider Internal Medicine
DX: Z00.00 Encounter for general adult medical examination without abnormal findings (principal); I10 Essential (primary) hypertension; I42.8 Other cardiomyopathies; I48.0 Paroxysmal atrial fibrillation; I25.10 Atherosclerotic heart disease of native coronary artery without angina pectoris; R79.89 Other specified abnormal findings of blood chemistry

== ENCOUNTER → 2025-04-08 08:19 | Outpatient (BNVA) | payer BC, SELFPAY | PROVIDERS: PCP Internal Medicine; Visit Provider Internal Medicine | DX: Z00.00 Encounter for general adult medical examination without abnormal findings (principal); D50.9 Iron deficiency anemia, unspecified; I10 Essential (primary) hypertension; I42.8 Other cardiomyopathies; I25.10 Atherosclerotic heart disease of native coronary artery without angina pectoris; I48.0 Paroxysmal atrial fibrillation; R79.89 Other specified abnormal findings of blood chemistry | CPT/HCPCS: 96127; 99212 ==

== ENCOUNTER 2025-07-28 09:14 | Outpatient (AMB) | payer MEDICARE, BC, SELFPAY ==
--- NOTE | 2025-07-28 09:18 | MHC.OFFWIV ---
Intake Vital Signs 07/28/25 09:19 Height 5 ft 10 in Weight 210 lb BMI 30.1 BP 130/82 Blood Pressure Location Lt brachial Position Sitting Pulse 73 Pulse Source Pulse Oximeter Temp 98.0 F Temp Source Oral Pulse Oximetry (%) 96 Oxygen Delivery Method Room Air Intake Visit Reasons: EP Left knee pain Intake Note: Patient presents with c/o left knee pain related to his dog causing his knee to jerk about 2 weeks ago. Patient Tobacco Use Status: Former Tobacco user Allergies amiodarone Adverse Reaction (Intermediate, Verified 07/28/25 09:23) Constipation mexiletine Adverse Reaction (Intermediate, Verified 07/28/25 09:23) Diarrhea timolol (From Betimol) Adverse Reaction (Intermediate, Verified 07/28/25 09:23) hypotension Medication List - Last Reconciled 07/28/25 by Crystal Cantu MD acetaminophen 1,000 mg (2 x 500 mg) PO Q6H PRN aspirin (Adult Low Dose Aspirin) 81 mg PO DAILY calcium carbonate-vitamin D3 600 mg-5 mcg (200 unit) 1 tab PO DAILY cetirizine (Zyrtec) 10 mg PO DAILY PRN fluticasone furoate 27.5 mcg/actuation (Flonase Sensimist) 1 spray intranasal BID latanoprost 0.005% 1 drp ophthalmic (eye) BEDTIME lisinopril 20 mg PO DAILY vitamins A,C,T-pkqq-uehsef 4,296 mcg-226 mg-90 mg (PreserVision AREDS) 1 cap PO BID Do you need a note to return to daycare/school/sports/work: No HPI EP Left knee pain HPI Details Patient is 85-year-old gentleman with a history of osteoarthritis bilateral knee Three days ago he had an incidence with his dog who was anxious and started running around ended up wrapping the leash around his knee tightly Patient had slight rotation of his left knee and since then he has been having pain when he walks Patient says that his knee feels better when he wakes up in the morning but as the day goes by it started to hurt On examination there is no swelling of the knee and there is full range of motion Slightly tender all over without inflammation I am prescribing diclofenac for the patient He is to take that with food And return in 2 weeks for follow-up appointment We will also get an x-ray of his knee [facility] Medical History Skin cancer Back pain Arthritis Difficulty swallowing GERD (gastroesophageal reflux disease) Bladder neck stricture COVID-19 vaccine series completed Coronary artery disease Knee pain, right Cardiomyopathy PVC (premature ventricular contraction) AAA (abdominal aortic aneurysm) Hypertension Surgical History H/O colonoscopy Hx of bilateral inguinal hernia repair Hx of cystoscopy History of cardiac cath History of hand surgery (~2001) History of spinal fusion (~2016) History of prostate surgery (~2013) Family History Father No problems noted. Mother No problems noted. Other Substance use disorder Social History Household Members: Spouse Housing: [facility] Are you a primary team primary care physician to a significant other at home: No Do you presently have visiting nurse or other home services: No Alcohol intake: never Patient Tobacco Use Status: Former Tobacco user Tobacco use type: Cigarette Years Smoked: 30 e-Cigarette/Vaping Use: Never Used Substance Use Type: Marijuana service: No Current occupational status: retired Current occupation: right handed Cognitive needs: No Hearing needs: No Vision needs: No Review of Systems Const All systems reviewed & are unremarkable except as noted in HPI and below Physical Exam Vital Signs: Last Vital Signs Temp 98.0 F 07/28/25 09:19 Pulse 73 07/28/25 09:19 BP 130/82 07/28/25 09:19 Pulse Ox 96 07/28/25 09:19 Oxygen Delivery Method Room Air 07/28/25 09:19 BMI result Body Mass Index 30.1 Const General: no acute distress Orientation/consciousness: patient oriented x3 Eyes General: appearance normal, both eyes and all related structures Resp Effort & Inspection: normal respiratory effort and able to speak in complete sentences Auscultation: clear to auscultation bilaterally Neuro General: patient oriented x3 Extrem Elbow/forearm/wrist images:  1. No swelling, no inflammation no skin changes, range of motion intact, slightly discomfort with palpation all over medial and lateral ligament, no pain with patellar movement Psych Mental Status: mental status grossly normal Assessment & Plan Assessment & Plan (1) Knee pain, left: Code(s): M25.562 - Pain in left knee Qualifiers: Chronicity: acute Qualified Code(s): M25.562 - Pain in left knee Plan Patient is 85-year-old gentleman with a history of osteoarthritis bilateral knee Three days ago he had an incidence with his dog who was anxious and started running around ended up wrapping the leash around his knee tightly Patient had slight rotation of his left knee and since then he has been having pain when he walks Patient says that his knee feels better when he wakes up in the morning but as the day goes by it started to hurt On examination there is no swelling of the knee and there is full range of motion Slightly tender all over without inflammation I am prescribing diclofenac for the patient He is to take that with food And return in 2 weeks for follow-up appointment We will also get an x-ray of his knee Orders: Orders XR knee LT 2V Today M25.562 - Pain in left knee Medications: New diclofenac sodium take it with food 75 mg PO QAM 14 tabs 0RF pain 14 days Coding Level of Care Code Est Pt Level 3 (75393) Diagnoses Acute pain of left knee M25.562 Chronicity: acute
[2025-07-28 09:19] VITALS: BP 130/82; PULSE 73; TEMP 36.7; O2SAT 96; BMI 30.1
--- OUTSIDE RECORDS SUMMARY | 2025-07-28 09:57 | XMS_ITS | Encounter Summary ---
Author Organization [facility] Address [address] [place] [address] Care Team Providers Care Cannery Worker Name Role Phone Irineo Kimble MD Primary Care Provider [phone] Encounter Details Date Type Department Care Team (Late st Contact Info) Description 05/14/2024 Scanned Document [place] [id number] Crystal Cantu MD [address] [facility] [place] [address] Social History Tobacco Use Types Packs/Day Years [...] on filedocumented in this encounter Care Teams Cannery Worker Relationship Specialty Start Date End Date Irineo Kimble MD [address] [place] [address] [address] [place] [address] PCP - General Cardiovascular Disease 05/12/24 documented as of this encounter
--- OUTSIDE RECORDS SUMMARY | 2025-07-28 09:57 | XMS_ITS | Encounter Summary ---
Author Organization [facility] Address [address] [place] [address] Care Team Providers Care Collar Trimmer Name Role Phone Irineo Kimble MD Primary Care Provider [phone] Encounter Details Date Type Department Care Team (Late st Contact Info) Description 05/14/2024 Scanned Document [place] [id number] Irineo Kimble MD [address] [place] [address] Social History Tobacco Use Types Packs/Day Years [...] on filedocumented in this encounter Care Teams Collar Trimmer Relationship Specialty Start Date End Date Irineo Kimble MD [address] [place] [address] PCP - General Cardiovascular Disease 05/12/24 documented as of this encounter
--- OUTSIDE RECORDS SUMMARY | 2025-07-28 09:57 | XMS_ITS | Data Portability ---
Author Organization YOLA Garcia s, [facility] Address [address] [place] [address] Care Team Providers Care Crusher Supervisor Name Role Phone [facility] Primary Care Provider Assessment No assessment recorded. Plan of Treatment Reminders Order Date Submit Date Provider Last Modified By Organization Details Last Modified Time Details Appointments None recorded. Lab rapid SARS CoV 2 Ag, QL IA, respiratory specimen 2022 023 [facility] [address]_praveen sanabria, [address] [place] [address], [address], 3 19:00:30 rapid flu (A+B) 2022 023 [facility]ra[facility]en [facility], [address] [place] [address], [address], 3 19:00:30 Referral None recorded. Procedures None recorded. Surgeries None recorded. Imaging None recorded. Medication Orders azithromyci n 250 mg tablet 2022 023 [facility]/Pharmacy #[id number], [address] [place], [address], 3 19:00:32 Patient TargetsNo targets recorded. Patient Instructions Encounter Date Encounter Id Patient Instructions Last Modified By Organization Details Last Modified Time 10/01/2022 [id number] cough: care instructions jumana [email or web address] Not available 10/01/2022 19:00:30 Reason for Referral None Reported. Results Created Date Observation Date Name Description Value Unit Range Abnormal Flag Note LastModifiedBy Organization Detail LastModifiedTime 10/01/19 23 10/01/2022 rapid SARS CoV 2 Ag, QL IA, respi rator y speci men Unknown Analyte Normal =Negat dov Not Available 2099patricia saldaña [address], [place], [address], 10/01/2022 18:20:10 10/01/19 23 10/01/2022 rapid SARS CoV 2 Ag, QL IA, respi rator y speci men Unknown Analyte negati ve Not Available [id number] [place], [address], 10/01/2022 18:20:10 10/01/19 23 10/01/2022 rapid flu (A+B) Unknown Analyte Normal = Negati ve Not Available [address] [place] [address] [place], [address], 10/01/2022 18:20:18 10/01/19 23 10/01/2022 rapid flu (A+B) Unknown Analyte Normal = Negati ve Not Available [address] [place] [address] [place], [address], 10/01/2022 18:20:18 10/01/19 23 10/01/2022 rapid flu (A+B) Unknown Analyte negati ve Not Available [address] [place] [address] [place], [address], 10/01/2022 18:20:18 10/01/19 23 10/01/2022 rapid flu (A+B) Unknown Analyte negati ve Not Available [address] [place] [address] [place], [address], 10/01/2022 18:20:18 Result Notes None recorded. Problems Name Problem SNOMED Code Status Onset Date Resolution Date Notes Provider Name and Address Organization Details Recorded Time Ventricular bigeminy 01372229 Active 023 ADELAIDA KEATING null, PA - [facility] 3 18:16:22 Glaucoma 52866201 Active 023 ADELAIDA KEATING null, PA - [facility] 3 18:16:59 Problem Notes None recorded. Medical Equipment None Reported. Allergies Allergen ID Allergen Name Allergen Category Reaction Reaction Severity Criticality Documentation Date Start Date Code Code System Note Provider Name and Address Organization Details Recorded Time 416779 Betimol medicatio n palpitati ons Not available Not available 10/01/2022 32485 2 RxNorm ADELAIDA KEATING null, [place] - [facility] 3 18:14:51 Medications Name [...] and Address Organization Details Last Updated DateTime 3 180.34 cm 27.9 kg/m2 35102.4 7 g 0 70 /min 16 /min 96 % 96 % 97.6 [degF] 161/80 mm[Hg] ADELAIDA KEATING PA - [facility] [...] Diagnosis SNOMED-CT Code Diagnosis ICD10 Code Diagnosis IMO Codes Diagnosis Note [id number] YOLA WERNER [address] [address] 10/01/2022 17:37:02 10/01/2022 19:08:24 Acute bronchitis 83544249 J20.9 Health Concerns Section Related Observation LastModified by Organization Detai ls LastModified Time None Recorded Concern Status LastModified by Organization Details LastModified Time None Recorded Advance Directives Directive None Recorded Payers Insurance Date Sequence Insurance Name Policy Number Policy Fernandez Covered Member ID Fernandez Member ID Guarantor Name 10/01/2022 2 [place] Hill Lin [id number] Hill Lin 10/01/2022 1 MED[place]: [employer] [employer]MENT [employer] Hill Lin [id number] Hill Lin 10/02/2022 2 [place] Hill Lin [id number] Hill Lin Notes Date Note Type Note [...] tried OTC medication without relief. YOLA CHANEY [address] [place], [place] [address]ress Jose, [place], [address], [place] - [facility] 10/01/2022 19:03:43
--- OUTSIDE RECORDS SUMMARY | 2025-07-28 09:58 | XMS_ITS | Patient Health Record ---
Author Organization [facility] Address [address] [place] [address] Care Team Providers Care Lubrication Equipment Servicer Name Role Phone -Do Not use, PCP Primary Care Provider Unavailab le Allergies Allergen (clinical drug ingredient) Drug/Non Drug Allergy documented on EMR Reaction Allergy Type Onset Date Status timolol Betimol low blood pressure Drug Allergy Active Reason For Referral No Information Medications Medication SIG (Take, Route, Fr equency, Duration) Notes Start Date End Date Status Lisinopril 10 MG 1 tablet Orally Once a day; Duration: 30 day(s) Active Latanoprost 0.005 % 1 drop into affected eye in the evening Ophthalmic Once a day Ac tive Problems Problem Type SNOMED Code ICD Code Onset Dates Problem Status W/U Status Risk Notes Problem Hypertension (45303147) Hypertension (I10) Active confirmed Plan Of Treatment No Information Insurance Providers Payer Name Payer Address Payer Phone Subscriber Number Group Number Insured Name Patient Relationship to Insured Coverage Start Date Coverage End Date [place] of [place] [employer] [address] YOLA KERNS [phone] [id number] Hill Lin Self - patient is the insured 8 DO NOT USE BCBS OF [place] [address] [place] [address] [phone] [id number] Hill Lin Self - patient is the insured 8 Medical (General) History Medical History History ICD Code Hypertension I10 Glaucoma H40.9 Surgical History Surgery Date(Month/Year) spinal fusion 2017 Hand surgery 2000 prostate surgery 2014 [facility] 1979 Hospitalization History Reason Date(Month/Year) Lower leg edema 2016
--- OUTSIDE RECORDS SUMMARY | 2025-07-28 09:58 | XMS_ITS | Encounter Summary ---
Author Organization [facility] Address [address] [place] [address] Care Team Providers Care Operator Cavity Pump Name Role Phone Irineo Kimble MD Primary Care Provider [phone] Reason for Visit * Reason Comments Med Change Request Encounter Details Date Type Department Care Team (Late st Contact Info) Description 07/16/2024 Refill [facility] Heart & V[facility] [place] [facility] - Electrophysiology [address] [place] [id number] Philip Angel MD [address] [address] Med Change Request Social History Tobacco Use [...] (HCC) documented in this encounter Care Teams Operator Cavity Pump Relationship Specialty Start Date End Date Irineo Kimble MD [address] [place] [address] 3rd [place] [address] PCP - General Cardiovascular Disease 05/12/24 documented as of this encounter
--- OUTSIDE RECORDS SUMMARY | 2025-07-28 09:58 | XMS_ITS | Clinical Summary ---
Author Organization [facility] Address [address] [place] [address] Care Team Providers Care Railroad Car Cleaning Supervisor Name Role Phone Irineo Kimble MD Primary Care Provider [phone] Allergies Active Allergy Reactions Criticality Noted Date [...] Health Maintenance Due Date Last Done Comments Advance Care Planning 1940 DTaP/Tdap/Td Vaccines (1 - Tdap) 1958 Pneumococcal Vaccines 50+ (1 of 1 - PCV) 1989 Zoster (Shingles) Vaccine (1 of 2) 1989 RSV Vaccine 50 years and older and Patients (1 - 1-dose 75+ series) 2014 Influenza Vaccine 04/24/2025 06/01/2022, , 05/30/2020, Additional history exists COVID-19 Vaccine (2024- season) 2025 06/20/2022, 01/13/2022, 06/20/2021, Additional history exists Hepatitis B Vaccines Aged Out No long er eligible based on patient's age to complete [place] [address] [place] [phone] [facility] Care Teams Railroad Car Cleaning Supervisor Relationship Specialty Start Date End Date Irineo Kimble MD [address] [place] [address] 3rd [place] [address] PCP - General Cardiovascular Disease 05/12/24
--- OUTSIDE RECORDS SUMMARY | 2025-07-28 09:58 | XMS_ITS | Patient Health Record ---
Author Organization [facility] [address] Address [address] [place] [address] Care Team Providers Care Sidehand Name Role Phone Kevin Curry M.D. Primary Care Provider Nikolas ROSEMARIE Darden Unavailable [phone] Allergies Allergen (clinical drug ingredient) Drug/Non Drug Allergy documented on EMR Reaction Allergy Type Onset Date Status timolol Betimol Dizziness Drug Allergy Active Reason For Referral No Information Medications Medication SIG (Take, Route, Frequency, Duration) Notes Start Date End Date Status Lisinopril 10 MG TAKE 1 TABLET BY ZENIA TH EVERY DAY; Duration: 90 Active Latanoprost 0.005 % 1 drop into affected eye in the evening Ophthalmic Once a day Active Calcium-Vitamin D , [id number] daily 11/11/2012 Active Social History Tobacco Use: [...] Problem Status W/U Status Risk Notes Problem Hypertensive heart disease without congestive heart failure (45999584) Hypertensive heart disease without heart failure (I11.9) Active confirmed Problem Ischemic cardiomyopathy (220864467) Ischemic cardiomyopathy (I25.5) Active confirmed Problem Pulmonary valve disorder (59280265) 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 Problem Ventricular premature depolarization (571255728) Ventricular premature depolarization (I49.3) Active confirmed Problem Abdominal aortic aneurysm without rupture (disorder) (64230259) Abdominal aortic aneurysm (AAA) without rupture (I71.4) Active confirmed Problem Bradycardia (27795045) Bradycardia (R00.1) Active confirmed Problem Mild aortic valve regurgitation (088732479) Mild aortic valve regurgitation (I35.1) Active confirmed Problem Mild mitral valve regurgitation (289451054) Mild mitral valve regurgitation (I34.0) Active confirmed Problem Mild tricuspid valve regurgitation (731824874) 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) Active confirmed Problem Heart disease (31878940) Grade I diastolic dysfunction (I51.9) Active confirmed Problem Atherosclerotic heart disease of [place] coronary artery without angina pectoris (362198983875086) Atherosclerotic heart disease of [place] coronary artery without angina pectoris (I25.10) 017 Active confirmed Problem Preoperative cardiovascular examination (009489138) EXAMINATION, PREOPERATIVE CARDIOVASCULAR (V72.81) 014 Problem resolved confirmed [place] [phone] Plan Of Treatment No Information Insurance Providers Payer Name Payer Address Payer Phone Subscriber Number Group Number Insured Name Patient Relationship to Insured Coverage Start Date Coverage End Date [place] of [place] / [facility] [address] [place] [address] [id number] Hill Lin Self - patient is the insured /[facility] [address] [place] [address] [phone] [id number] Hill Lin Self - patient is the insured Medical (General) History Medical History History ICD Code Lower Back Pain Atherosclerotic heart diseas e of [place] coronary artery without angina pectoris I25.10 Ischemic [...]
--- OUTSIDE RECORDS SUMMARY | 2025-07-28 09:58 | XMS_ITS | Patient Health Record ---
Author Organization [facility] Address [address] [place] [phone] Care Team Providers Care Collection Analyst Name Role Phone Pepe ROMO, Asma Primary Care Provider Mehdi Ureña [phone] Allergies Allergen (clinical drug ingredient) Drug/Non Drug Allergy documented on EMR Reaction Allergy Type Onset Date Status timolol Timolol Unknown Drug Allergy Active omeprazole Omeprazole diarrhea Drug Allergy Activ e mexiletine Mexiletine Unknown Drug Allergy Activ e amiodarone Amiodarone Unknown Drug Allergy Activ e esomeprazole Esomeprazole Magnesium diarrhea Drug Allergy Active Reason For Referral No Information Medications Medication SIG (Take, Route, Fr equency, Duration) Notes Start Date End Date Status Aspirin 81 81 MG 1 tablet Orally Once a day Active Latanoprost 0.005 % Ophthalmic; Duration: 56 Days Active Lisinopril 20 MG Oral; Duration: 90 Days Active Social History Tobacco Use: Social History Observation Description Date Details (start date - stop date) Former Smoker NA - NA Tobacco Control (Standard) Question Answer Notes Tobacco use: Former smoker How long has it been since you last smoked? Grea ter than 10 years AUDIT-C (Standard) Question Answer Notes Did you have a drink containing alcohol in the p ast year? No Points 0 Interpretation Negative Vital Signs Blood pressure diastolic 77 mm Hg 03/26/2025 Height 71 in 03/26/2025 Blood pressure systolic 111 mm Hg 03/26/2025 Weight 195 lbs 03/26/2025 BMI 27.19 kg/m2 03/26/2025 Encounters Encounter Location Date Provider Diagnosis [facility] [address] [place] [phone] 03/26/2025 Mehdi Delgado Abdominal discomfort R10.9 Assessments Encounter Date Diagnosis (ICD Code) Assessment Notes Treatment Notes Treatment Clinical Notes Section Notes 03/26/2025 Abdominal discomfort (ICD-10 - R10.9) Look into a different form of marijuana like a gummy , rather than smoking, if that helps your stomach Stress in relation to youer 's Parkinson's can cause stomach issues as well Call me if things worsen Overall, Cj appears quite well given his age of 84 and some underlying cardiac issues. We did have a detailed discussion today regarding his symptoms and I advised him that there does not appear to be any worrisome issues at the present time. We did discuss the stress associated with his 's illness and how that could certainly be contributing to his GI complaints. Given the fact that his workup with CT scan and laboratories was nonrevealing, his symptoms improve with eating or marijuana, and he has had no other worrisome symptoms such as weight loss or bleeding, I am inclined to hold off on any further testing at this time. I do not think an upper endoscopy or colonoscopy would be helpful for him and given his age with some comorbidities I would be inclined to hold off on those unless they were absolutely needed. I do not think an antispasmodic would be helpful for him given the very mild symptoms and his age. I would not want him to have any complications from the antispasmodics. At this point I did reassure him and that seemed to help him. I did advise him that he could certainly look into other forms of marijuana such as a gummy chewable or other edible, but he should speak with someone at a reputable dispensary about that. We did discuss that if stress and anxiety ever become more problematic for him he should review that with you as well in case he needs something for that. If things are stable I will plan to see him in 6 months just for a follow-up, but I did advise him to definitely call me in the interim if he has any worsening or worrisome complaints. Cj was very comfortable with this plan. Thank you again for allowing me to participate in Cj's care. I shall continue to keep you advised of his progress as needed. Plan Of Treatment Next Appt Details Provider Name:Mehdi Delgado , 09/29/2025 09:30:00 AM, [address], [address], [place], [address], Insurance Providers Payer Name Payer Address Payer Phone Subscriber Number Group Number Insured Name Patient Relationship to Insured Coverage Start Date Coverage End Date MEDICARE OF [employer] [address] [place] [address] [id number] CJ SOLIS Self - patient is the insured 4 [facility] [address] [place] [address] [phone] [id number] CJ SOLIS Self - patient is the insured Medical (General) History Medical History History ICD Code Hypertension Afib-Dr. Kimble AAA-stenting by Dr. Brown Cardiomyopathy/CAD Denies PR,DM,CVA,Lung disease,renal dise ase Surgical History Surgery Date(Month/Year) Bilateral inguinal hernia repair Hand surgery Spinal fusion Prostate for BPHr 2014
== END 2025-07-28 09:39 | disposition home or self-care (01) ==
PROVIDERS: PCP Internal Medicine; Visit Provider Internal Medicine
DX: M25.562 Pain in left knee (principal)

== ENCOUNTER 2025-07-28 09:14 | Outpatient (REF) | payer MEDICARE, BC, SELFPAY ==
--- NOTE | ~2025-07-28 | XR_ITS ---
EXAMINATION: XR KNEE, LEFT CLINICAL INFORMATION: M25.562 - Pain in left knee COMPARISON: None available. TECHNIQUE: AP and lateral of the left knee. FINDINGS: No fracture, dislocation, or suspicious bone lesion. Normal bone mineralization. Normal alignment. Joint spaces are preserved. No significant arthropathy. No significant joint effusion. Soft tissues appear normal aside from vascular calcifications. XR/XR knee LT 2V IMPRESSION: No acute bony or soft tissue abnormality of the left knee. Electronically signed by: Haile Gordon MD 07/28/2025 10:07 AM VANI
== END 2025-07-28 09:15 | disposition home or self-care (01) ==
LOC: HO.HMGCX 09:14
PROVIDERS: PCP Internal Medicine; Visit Provider Internal Medicine
DX: M25.562 Pain in left knee (principal); Z79.899 Other long term (current) drug therapy; Z79.82 Long term (current) use of aspirin; Z87.39 Personal history of other diseases of the musculoskeletal system and connective tissue
CPT/HCPCS: 73560; 99212

== ENCOUNTER → 2025-07-28 09:50 | Outpatient (BNV) | payer MEDICARE, BC, SELFPAY | PROVIDERS: PCP Internal Medicine; Visit Provider Radiology Diagnostic Radiology | DX: M25.562 Pain in left knee (principal) | CPT/HCPCS: 73560 ==

== ENCOUNTER 2025-08-11 09:14 | Outpatient (AMB) | payer MEDICARE, BC, SELFPAY ==
[2025-08-11 09:23] VITALS: BP 122/62; PULSE 65; BMI 29.0
--- NOTE | 2025-08-11 09:23 | MHC.OFFVIS ---
Vital Signs 08/11/25 09:23 Height 5 ft 10 in Weight 202 lb 6.15 oz BMI 29.0 BP 122/62 Blood Pressure Location Lt brachial Position Sitting Pulse 65 Pulse Source Pulse Oximeter Intake Visit Reasons: 6mth f/up Research Chemist Required: No Accompanied by: Self / Same As Patient Allergies amiodarone Adverse Reaction (Intermediate, Verified 08/11/25 09:26) Constipation mexiletine Adverse Reaction (Intermediate, Verified 08/11/25 09:26) Diarrhea timolol (From Betimol) Adverse Reaction (Intermediate, Verified 08/11/25 09:26) hypotension Medication List - Last Reconciled 08/11/25 by JODY Alexander acetaminophen 1,000 mg (2 x 500 mg) PO Q6H PRN aspirin (Adult Low Dose Aspirin) 81 mg PO DAILY calcium carbonate-vitamin D3 600 mg-5 mcg (200 unit) 1 tab PO DAILY cetirizine (Zyrtec) 10 mg PO DAILY PRN diclofenac sodium 75 mg PO QAM 14 days fluticasone furoate 27.5 mcg/actuation (Flonase Sensimist) 1 spray intranasal BID latanoprost 0.005% 1 drp ophthalmic (eye) BEDTIME lisinopril 20 mg PO DAILY vitamins A,C,V-qeaa-zfigke 4,296 mcg-226 mg-90 mg (PreserVision AREDS) 1 cap PO BID HPI HPI 6mth f/up: Details: The patient is an 85-year-old male presenting for follow-up of frequent PVCs, mild cardiomyopathy, coronary artery disease, and paroxysmal atrial fibrillation. His last echocardiogram on 10/10/2022 showed an ejection fraction of 45-50% with a mildly dilated ascending aorta of 4.1 cm, and his last EKG on 03/13/2025 showed sinus rhythm with frequent PVCs and a rate of 71. The patient denies any chest pain, breathing issues, or dizzy spells, but reports occasional feelings of jumping in his chest. He has a Lineback[employer] Mobile device and shows me 2 recordings which show possible atrial fibrillation. Upon my review these strips are infact atrial fibrillation. The patient's history is significant for intolerance to cardiac medications, including mexiletine and amiodarone, which caused significant intestinal side effects. He also reported inability to sleep with wicked dreams while taking metoprolol. He was previously considered for a PVC ablation, but it was deemed too dangerous due to the location of the ectopy. Regarding his medications, the patient self-adjusted his lisinopril dose from 20 mg to 10 mg because the higher dose made him feel unwell. Despite recommendations to take a stronger blood thinner like Eliquis or Xarelto for his atrial fibrillation, he declines and continues to take only baby aspirin, stating he believes it is effective as he bleeds easily from minor cuts. The patient also has a history of an abdominal aortic aneurysm, which was repaired with a stent graft which is followed by Dr Brown. [facility] Medical History Skin cancer Back pain Arthritis Difficulty swallowing GERD (gastroesophageal reflux disease) Bladder neck stricture COVID-19 vaccine series completed Coronary artery disease Knee pain, right Cardiomyopathy PVC (premature ventricular contraction) AAA (abdominal aortic aneurysm) Hypertension Surgical History H/O colonoscopy Hx of bilateral inguinal hernia repair Hx of cystoscopy History of cardiac cath History of hand surgery (~2001) History of spinal fusion (~2016) History of prostate surgery (~2013) Family History Father No problems noted. Mother No problems noted. Other Substance use disorder Social History Household Members: Spouse Housing: [facility] Are you a primary care companion to a significant other at home: No Do you presently have visiting nurse or other home services: No Alcohol intake: never Patient Tobacco Use Status: Former Tobacco user Tobacco use type: Cigarette Years Smoked: 30 e-Cigarette/Vaping Use: Never Used Substance Use Type: Marijuana service: No Current occupational status: retired Current occupation: right handed Cognitive needs: No Hearing needs: No Vision needs: No Review of Systems Const All systems reviewed & are unremarkable except as noted in HPI and below Denies daytime sleepiness, Denies difficulty sleeping, Denies snoring, Denies stops breathing during sleep and Denies weakness Card Details: occassional palpitations Denies chest pain, Denies rapid heart rate, Denies irregular heart rhythm, Denies claudication, Denies leg edema, Denies lightheadedness, Denies palpitations, Denies dyspnea, Denies dyspnea on exertion, Denies orthopnea, Denies paroxysmal nocturnal dyspnea and Denies slow heart rate Resp Denies cough, Denies dyspnea, Denies dyspnea on exertion and Denies snoring GI Reports no additional complaints, Denies hematochezia, Denies change in stool character and Denies dyspepsia Musc Denies abnormal gait, Denies muscle weakness and Denies numbness Neuro Denies abnormal gait, Denies numbness and Denies weakness Endo Denies palpitations Physical Exam Vital Signs: Last Vital Signs Pulse 65 08/11/25 09:23 BP 122/62 08/11/25 09:23 BMI result Body Mass Index 29.0 Const General: cooperative, healthy appearing, comfortable and no acute distress Orientation/consciousness: patient oriented x3 Neck Neck: Yes normal visual inspection Resp Effort & Inspection: normal respiratory effort Auscultation: clear to auscultation bilaterally, no rales, no rhonchi and no wheezes Cardio Rate: regular rate Rhythm: regular rhythm Heart sounds: S1 normal heart sound present, S2 normal heart sound present, no gallops, no murmurs and no rubs Neuro General: patient oriented x3 Extrem General: Yes normal to inspection, No no pedal edema and No calf tenderness Psych Appearance: grossly normal Mental Status: mental status grossly normal Speech and movement: Normal speech and movement present Assessment & Plan Assessment & Plan (1) PAF (paroxysmal atrial fibrillation): Code(s): I48.0 - Paroxysmal atrial fibrillation Category: Medical Plan: Paroxysmal atrial fibrillation treated with rhythm control. He is currently not on any rate slowing agents. He does feel occasional palpitations and his cardio mobile device is showing PAF. Will check a Holter monitor to assess AFib burden. He is taking aspirin and declines the use of anticoagulation. He is aware of the risk of stroke that AFib carries and that aspirin is not strong enough to reduce this risk of stroke. (2) Frequent PVCs: Code(s): I49.3 - Ventricular premature depolarization Category: Medical Plan: History of frequent PVCs with mildly reduced EF. He has been intolerant to mexiletine and amiodarone in the past. He has been referred EP for ablation and deemed not a good candidate to do high risk of the PVC location. He is currently not on any beta-christelle or calcium channel christelle. Checking Holter as above. (3) Cardiomyopathy: Comment: follows w/ Code(s): I42.9 - Cardiomyopathy, unspecified Category: Medical Qualifiers: Cardiomyopathy type: other Qualified Code(s): I42.8 - Other cardiomyopathies Plan: History of mild cardiomyopathy. Last echocardiogram 10/10/2022 showing EF 45-50%, normal LV wall thickness, mildly dilated sinus of Valsalva 4.15 cm, mildly dilated ascending aorta 4.1 cm. He is not fluid overloaded on examination. He is on lisinopril to help with neurohormonal modulation. Will be updating echocardiogram. Plan to call him with results. (4) Hypertension: Code(s): I10 - Essential (primary) hypertension Category: Medical Qualifiers: Hypertension type: primary hypertension Qualified Code(s): I10 - Essential (primary) hypertension Plan: Blood pressure goal less than 130/80. Well controlled at this time. Continue lisinopril at 10 mg daily. (5) Mild ascending aorta dilatation: Code(s): I77.810 - Thoracic aortic ectasia Category: Medical Plan: As above, updating echo Plan I reviewed the patient's home rn cardiac cath strips with him and noted that they appear to show atrial fibrillation. We discussed updating his cardiac testing, as his last echocardiogram was over two years ago. I explained the plan to order a new echocardiogram to re-evaluate his heart function and his mildly dilated ascending aorta, as well as a 3-day Holter monitor to assess his current burden of atrial fibrillation and PVCs. I reiterated the recommendation for him to be on a blood thinner for stroke prevention given his atrial fibrillation, but he understands and continues to decline, preferring to stay on aspirin due to bleeding concerns and history of med intolerances. We also discussed his lisinopril dose, and I agreed to change his prescription to 10 mg daily, as he has been tolerating this dose well and his blood pressure is controlled. I advised him that centralized scheduling will call to arrange his tests and that he should follow up in about 4 months, or sooner if needed. Orders: Orders ECG 3 day holter monitor Today I42.8 - Other cardiomyopathies, I48.0 - Paroxysmal atrial fibrillation, I49.3 - Ventricular premature depolarization CA echo transthoracic complete Today I42.8 - Other cardiomyopathies, I48.0 - Paroxysmal atrial fibrillation, I49.3 - Ventricular premature depolarization Medications: New lisinopril dose reduced 10 mg PO DAILY 90 tabs 3RF Discontinued lisinopril Discontinued Reason: Doctor's Order 20 mg PO DAILY 90 tabs 3RF Patient Instructions: - We are ordering a heart ultrasound (echocardiogram) and a 3-day heart monitor (Holter) to check on your heart. - Our scheduling office will call you to set up appointments for these tests. - Your prescription for lisinopril will be officially changed to 10 mg daily. Continue taking this dose. - We still recommend a stronger blood thinner than aspirin for you, but understand you wish to continue with just aspirin at this time inspite of the increased risk of stroke it carries. - Please schedule a follow-up visit in about 4 months to review the results of your tests. Call us sooner if you have any new or worsening symptoms. Patient was informed and verbally consented to the use of an ambient scribe for clinic note documentation during this visit. Visit time spent on chart review, interview, assessment, orders, documentation. Coding Level of Care Code Est Pt Level 4 (27761) Complex EM visit Add On G2211 Diagnoses PAF (paroxysmal atrial fibrillation) I48.0 Frequent PVCs I49.3 Other cardiomyopathy I42.8 Cardiomyopathy type: other Primary hypertension I10 Hypertension type: primary hypertension Mild ascending aorta dilatation I77.810 Time Spent (min) 30
--- OUTSIDE RECORDS SUMMARY | 2025-08-11 19:14 | XMS_ITS | Data Portability ---
Author Organization [facility] Address [address] [place] [address] Care Team Providers Care Fish Frog Or Oyster Farmer Name Role Phone [facility] Primary Care Provider Assessment No assessment recorded. Plan of Treatment Reminders Order Date Submit Date Provider Last Modified By Organization Details Last Modified Time Details Appointments None recorded. Lab rapid SARS CoV 2 Ag, QL IA, respiratory specimen 2022 023 [facility] [address]en [address]ria, [address] [place] [address], [phone], 3 19:00:30 rapid flu (A+B) 2022 023 [facility] [address], [address] [place] [address], [phone], 3 19:00:30 Referral None recorded. Procedures None recorded. Surgeries None recorded. Imaging None recorded. Medication Orders azithromyci n 250 mg tablet 2022 023 [id number], [address] [facility] [place], [address], 19:00:32 Patient TargetsNo targets recorded. Patient Instructions Encounter Date Encounter Id Patient Instructions Last Modified By Organization Details Last Modified Time 10/01/2022 [id number] cough: care instructions [email or web address] Not available 10/01/2022 19:00:30 Reason for Referral None Reported. Results Created Date Observation Date Name Description Value Unit Range Abnormal Flag Note LastModifiedBy Organization Detail LastModifiedTime 10/01/19 23 10/01/2022 rapid SARS CoV 2 Ag, QL IA, respi rator y speci men Unknown Analyte Normal =Negat dov Not Available 2099patricia saldaña [address], [place], [address], 10/01/2022 18:20:10 10/01/19 23 10/01/2022 rapid SARS CoV 2 Ag, QL IA, respi rator y speci men Unknown Analyte negati ve Not Available [address] [place], [address], 10/01/2022 18:20:10 10/01/19 23 10/01/2022 rapid flu (A+B) Unknown Analyte Normal = Negati ve Not Available [address] [place] [address] [place], [address], 10/01/2022 18:20:18 10/01/19 23 10/01/2022 rapid flu (A+B) Unknown Analyte Normal = Negati ve Not Available [address] [place] [address] [place], [phone], 10/01/2022 18:20:18 10/01/19 23 10/01/2022 rapid flu (A+B) Unknown Analyte negati ve Not Available [address] [place] [address] [place], [address], 10/01/2022 18:20:18 10/01/19 23 10/01/2022 rapid flu (A+B) Unknown Analyte negati ve Not Available [address] [place] [address] [place], [address], 10/01/2022 18:20:18 Result Notes None recorded. Problems Name Problem SNOMED Code Status Onset Date Resolution Date Notes Provider Name and Address Organization Details Recorded Time Ventricular bigeminy 54201429 Active 023 ADELAIDA KEATING null, [place] - [facility] 3 18:16:22 Glaucoma 10494699 Active 023 ADELAIDA KEATING null, [place] - [facility] 3 18:16:59 Problem Notes None recorded. Medical Equipment None Reported. Allergies Allergen ID Allergen Name Allergen Category Reaction Reaction Severity Criticality Documentation Date Start Date Code Code System Note Provider Name and Address Organization Details Recorded Time 032384 Betimol medicatio n palpitati ons Not available Not available 10/01/2022 48207 2 RxNorm ADELAIDA KEATING null, [place] - [facility] 3 18:14:51 Medications Name [...] Updated DateTime 3 180.34 cm 27.9 kg/m2 20717.4 7 g 0 70 /min 16 /min [...] ICD10 Code Diagnosis IMO Codes Diagnosis Note [id number] YOLA WERNER [address] [address] 10/01/2022 17:37:02 10/01/2022 19:08:24 Acute bronchitis 59305915 J20.9 Health Concerns Section Related Observation LastModified by Organization Detai ls LastModified Time None Recorded Concern Status LastModified by Organization Details LastModified Time None Recorded Advance Directives Directive None Recorded Payers Insurance Date Sequence Insurance Name Policy Number Policy Fernandez Covered Member ID Fernandez Member ID Guarantor Name 10/01/2022 2 [place] [id number] Hill Lin 10/01/2022 1 [place] Hill Lin [id number] Hill Lin 10/02/2022 2 [place] Hill Lin [id number] Hill Lin Notes Date Note Type Note [...] tried OTC medication without relief. YOLA CHANEY [address] [place], [place] [address]ress Jose, [place], [address], [place] - [facility] 10/01/2022 19:03:43
== END 2025-08-11 09:54 | disposition home or self-care (01) ==
LOC: HO.HCS 09:15
PROVIDERS: PCP Internal Medicine; Visit Provider Nurse Practitioner Family
DX: I48.0 Paroxysmal atrial fibrillation (principal); I49.3 Ventricular premature depolarization; I42.8 Other cardiomyopathies; I10 Essential (primary) hypertension; I77.810 Thoracic aortic ectasia
CPT/HCPCS: 99214; G2211

== ENCOUNTER → 2025-08-11 09:14 | Outpatient (BNVA) | payer MEDICARE, BC, SELFPAY | PROVIDERS: PCP Internal Medicine; Visit Provider Nurse Practitioner Family | DX: I48.0 Paroxysmal atrial fibrillation (principal); I42.8 Other cardiomyopathies; I49.3 Ventricular premature depolarization; I10 Essential (primary) hypertension; I77.810 Thoracic aortic ectasia | CPT/HCPCS: 99212 ==

== ENCOUNTER 2025-08-12 08:43 | Outpatient (AMB) | payer MEDICARE, BC, SELFPAY ==
--- NOTE | 2025-08-12 08:48 | MHC.PC.OV ---
Vital Signs 08/12/25 08:49 Height 5 ft 10 in Weight 201 lb BMI 28.8 BP 118/62 Blood Pressure Location Lt brachial Position Sitting Pulse 76 Pulse Source Pulse Oximeter Pulse Oximetry (%) 96 Intake Visit Reasons: 2 week follow up knee pain Allergies amiodarone Adverse Reaction (Intermediate, Verified 08/12/25 08:49) Constipation mexiletine Adverse Reaction (Intermediate, Verified 08/12/25 08:49) Diarrhea timolol (From Betimol) Adverse Reaction (Intermediate, Verified 08/12/25 08:49) hypotension Medication List - Last Reconciled 08/12/25 by Crystal Cantu MD acetaminophen 1,000 mg (2 x 500 mg) PO Q6H PRN aspirin (Adult Low Dose Aspirin) 81 mg PO DAILY calcium carbonate-vitamin D3 600 mg-5 mcg (200 unit) 1 tab PO DAILY cetirizine (Zyrtec) 10 mg PO DAILY PRN diclofenac sodium 75 mg PO QAM 14 days fluticasone furoate 27.5 mcg/actuation (Flonase Sensimist) 1 spray intranasal BID latanoprost 0.005% 1 drp ophthalmic (eye) BEDTIME lisinopril 10 mg PO DAILY vitamins A,C,G-vyxp-shikvc 4,296 mcg-226 mg-90 mg (PreserVision AREDS) 1 cap PO BID Tobacco use date assessed: 11/28/24 Fall risk assessment: No Falls in past year Last assessed Fall Risk: 08/12/25 Dental Screening Dental Screen Date: 11/28/24 HPI HPI Comments History of Present Illness Details History of Present Illness The patient is an 85-year-old male presenting for follow-up of left knee pain. Left knee strain: - The patient was seen at a walk-in clinic two weeks ago for pain in his left knee. - The injury occurred when his dog wrapped a leash around his knee and pulled it. - He was prescribed diclofenac and an X-ray of his knee was ordered. - The knee X-ray showed no acute bony or soft tissue abnormality. - The patient's knee condition has improved, and he stopped taking the medication two days ago. - He currently reports feeling a little pain only when he stretches the knee. Medications: - Diclofenac 75 mg: Prescribed for knee pain; the patient stopped taking it two days ago and has five tablets remaining. Social History: - Activity: The patient walks his dog. Diagnostic Results: - Left Knee X-ray: Showed no acute bony or soft tissue abnormality; the joint structure is noted to be well-preserved without significant arthritis. [facility] Medical History Skin cancer Back pain Arthritis Difficulty swallowing GERD (gastroesophageal reflux disease) Bladder neck stricture COVID-19 vaccine series completed Coronary artery disease Knee pain, right Cardiomyopathy PVC (premature ventricular contraction) AAA (abdominal aortic aneurysm) Hypertension Surgical History H/O colonoscopy Hx of bilateral inguinal hernia repair Hx of cystoscopy History of cardiac cath History of hand surgery (~2001) History of spinal fusion (~2016) History of prostate surgery (~2013) Family History Father No problems noted. Mother No problems noted. Other Substance use disorder Social History Household Members: Spouse Housing: [facility] Are you a primary residential care officer to a significant other at home: No Do you presently have visiting nurse or other home services: No Alcohol intake: never Patient Tobacco Use Status: Former Tobacco user Tobacco use type: Cigarette Years Smoked: 30 e-Cigarette/Vaping Use: Never Used Substance Use Type: Marijuana service: No Current occupational status: retired Current occupation: right handed Cognitive needs: No Hearing needs: No Vision needs: No Questionnaire Thrive Questionnaire Date Thrive assessed: 11/28/24 DANNY-7 AMB Questionnaire DANNY-7 Date DANNY - 7 assessed: 11/28/24 Source: Developed by Drs. Mehdi Barahona, Sherine Mosley, Hao Pinto and colleagues, with an educational hank from [employer]. Review of Systems Narrative Review of Systems - Musculoskeletal: Reports mild pain in the left knee only with extreme stretching. - General: Denies any other complaints. - Neurological: No headaches no dizziness - Ear nose throat: No sore throat no hearing difficulty no ear pain - Cardiovascular: No syncope, no chest pain, no palpitations Physical exam (Primary Care) Vital Signs: Last Vital Signs Pulse 76 08/12/25 08:49 BP 118/62 08/12/25 08:49 Pulse Ox 96 11/19/25 08:49 BMI result Body Mass Index 28.8 Tobacco/Smoking Status: Tobacco use Status Tobacco use date assessed 11/28/24 08/12/25 08:50 Patient Tobacco Use Status Former Tobacco user 08/12/25 08:50 Tobacco use type Cigarette 08/12/25 08:50 e-Cigarette/Vaping Use Never Used 08/12/25 08:50 Thrive Assessment: Date of Thrive Assessment Date Thrive assessed 11/28/24 08/12/25 08:50 Narrative Physical Exam General: No acute distress HEENT: No acute findings Neck: Supple Respiratory system: Able to talk in full sentences, no audible wheeze Gastrointestinal: No pain Extremities: Pain in left knee when stretched, but exam Normal STATION ENGINEER: Alert awake oriented x3 motor intact Skin: Normal turgor Coding Level of Care Code Est Pt Level 3 (71645) Diagnoses Acute pain of left knee M25.562 Chronicity: acute Assessment & Plan Assessment & Plan (1) Knee pain, left: Code(s): M25.562 - Pain in left knee Category: Medical Qualifiers: Chronicity: acute Qualified Code(s): M25.562 - Pain in left knee Plan Problem List - Left knee strain Plan - The patient was advised he can use the remaining five tablets of diclofenac 75 mg as needed for knee pain. - The patient was educated that diclofenac is a strong NSAID that should not be used for a long duration due to the risk of stomach and kidney problems. - Physical therapy was offered to strengthen the knee structures, but the patient declined. - Reassurance was provided that the knee is healing well, and the patient was advised to be careful when walking his dog. - No further follow-up is scheduled at this time.
[2025-08-12 08:49] VITALS: BP 118/62; PULSE 76; O2SAT 96; BMI 28.8
--- OUTSIDE RECORDS SUMMARY | 2025-08-12 16:24 | XMS_ITS | Patient Health Record ---
Author Organization [facility] Address [address] [place] [address] Care Team Providers Care Pneumatic Tool Repairer Name Role Phone -Do Not use, PCP [...] Status W/U Status Risk Notes Problem Hypertension (86202924) Hypertension (I10) Active confirmed Plan Of Treatment No Information Insurance Providers Payer Name Payer Address Payer Phone Subscriber Number Group Number Insured Name Patient Relationship to Insured Coverage Start Date Coverage End Date [place] of [place] [employer] [address] [place] [phone] [id number] Hill Lin Self - patient is the insured 8 DO NOT USE BCBS OF [place] [address] [place] [address] [phone] [id number] Hill Lin Self - patient is the insured 8 Medical (General) History Medical History History ICD Code Hypertension I10 Glaucoma H40.9 Surgical History Surgery Date(Month/Year) spinal fusion 2017 Hand surgery 2000 prostate surgery 2014 [facility] 1979 Hospitalization History Reason Date(Month/Year) Lower leg edema 2016
--- OUTSIDE RECORDS SUMMARY | 2025-08-12 16:24 | XMS_ITS | Encounter Summary ---
Author Organization [facility] Address [address] [place] [address] Care Team Providers Care Storage Garage Manager Name Role Phone Irineo Kimble MD Primary Care Provider [phone] Encounter Details Date Type Department Care Team (Late st Contact Info) Description 05/14/2024 Scanned Document [place] [id number] Irineo Kimble MD [address] [place] [address] Social History Tobacco Use Types Packs/Day Years [...] on filedocumented in this encounter Care Teams Storage Garage Manager Relationship Specialty Start Date End Date Irineo Kimble MD [address] [place] [address] PCP - General Cardiovascular Disease 05/12/24 documented as of this encounter
--- OUTSIDE RECORDS SUMMARY | 2025-08-12 16:24 | XMS_ITS | Encounter Summary ---
Author Organization [facility] Address [address] [place] [address] Care Team Providers Care Area Sales Manager Name Role Phone Irineo Kimble MD Primary Care Provider [phone] Encounter Details Date Type Department Care Team (Late st Contact Info) Description 05/14/2024 Scanned Document [place] [id number] Crystal Cantu MD [address] [facility] [place] [address] Social History Tobacco Use Types Packs/Day Years [...] on filedocumented in this encounter Care Teams Area Sales Manager Relationship Specialty Start Date End Date Irineo Kimble MD [address] [place] [address] [address] [place] [address] PCP - General Cardiovascular Disease 05/12/24 documented as of this encounter
--- OUTSIDE RECORDS SUMMARY | 2025-08-12 16:24 | XMS_ITS | Clinical Summary ---
Author Organization [facility] Address [address] [place] [address] Care Team Providers Care Swaging Machine Operator Name Role Phone Irineo Kimble MD Primary Care Provider [phone] Allergies Active Allergy Reactions Criticality Noted Date [...] complete [place] [id number] MEDICARE PART [place] [id number] [facility] Care Teams Swaging Machine Operator Relationship Specialty Start Date End Date Irineo Kimble MD [address] [place] [address] [address] [place] [address] PCP - General Cardiovascular Disease 05/12/24
== END 2025-08-12 09:35 | disposition home or self-care (01) ==
LOC: HO.HMCC 08:44
PROVIDERS: PCP Internal Medicine; Visit Provider Internal Medicine
DX: M25.562 Pain in left knee (principal)

== ENCOUNTER → 2025-08-12 08:43 | Outpatient (BNVA) | payer MEDICARE, BC, SELFPAY | PROVIDERS: PCP Internal Medicine; Visit Provider Internal Medicine | DX: M25.562 Pain in left knee (principal); Z87.891 Personal history of nicotine dependence | CPT/HCPCS: 99212 ==

== ENCOUNTER → 2025-09-09 12:55 | Outpatient (REF) | payer MEDICARE, BC, SELFPAY ==
--- NOTE | 2025-09-09 12:57 | CA_ITS ---
Transthoracic Echocardiogram Patient (Last, First, Middle): Hill Lin A Gender: Male Date of : 1940 Age: 85 Procedure Date: 09/09/2025 Procedure Type: Transthoracic Echocardiogram Location: OP Height: 177.8 cm Weight: 91.17 kg BSA: 2.09 m2 Heart Rate: bpm BP: 118 / 62 mmHg School Patrol: PENNIE Referring MD: Sherly Blanc COLORER MACHINE-Tyesha Quill Cleaning Machine Operator: Jacky Erickson MD Symptoms: I48.0 - Paroxysmal atrial fibrillation Study Quality: Fair ECG Rhythm: Sinus with PVCs Conclusions: - 1. Mildly reduced LV ejection fraction 45-50% with impaired relaxation filling pattern 2. Calcific aortic valve changes noted with early mild aortic stenosis 3. Normal RV systolic pressure 4. Mildly dilated ascending aorta at 4.3 cm 5. No gross pericardial effusion Findings Left Ventricle Normal left ventricular cavity size. There is normal left ventricular wall thickness. The left ventricular systolic function is mildly decreased. The visually estimated ejection fraction is between 45-50%. There is paradoxical septal motion consistent with a left bundle branch block. Spectral Doppler is indicative of an impaired relaxation filling pattern. E/E prime ratio is between 8 and 15 consistent with indeterminate filling pressures. Right Ventricle Normal right ventricular cavity size and systolic function. Atria The left atrium is mildly dilated. There is no evidence of interatrial shunt. The right atrium is likely dilated. Aortic Valve There is a doming trileaflet aortic valve. There is mild calcification of the aortic valve. There is mild thickening of the aortic valve. The peak aortic gradient is 19 mmHg.The mean gradient is 10 mmHg. The aortic valve area is 2.58 cm2. There is no aortic valve regurgitation. Mitral Valve Likely normal mitral valve structure and function. There is mild anterior mitral leaflet thickening. There is trace mitral valve regurgitation. There is no mitral valve stenosis. Pulmonic Valve The pulmonic valve is likely normal. Tricuspid Valve Normal tricuspid valve structure. There is mild tricuspid valve regurgitation. The right ventricular systolic pressure is normal. The right ventricular systolic pressure is 32 mmHg. Normal right atrial pressure. There is no evidence of pulmonary hypertension. Great Vessels The pulmonary artery was not well visualized. There is mild dilatation of the ascending aorta measuring 4.30 cm. Small plaque is seen in the sino tubular ridge. Venous The inferior vena cava is normal in size and collapses greater than 50% with inspiration. Pericardium/Pleural There is no evidence of pericardial effusion. Prior Study Comparison No significant change compared to prior study dated: 10/10/2022. Measurements 2D Linear Measurements IVSd: 1.19 0.6-0.9/0.6-1.0 cm LVIDd: 5.49 3.9-5.3/4.2-5.9 cm LVIDd Index: 2.63 2.4-3.2/2.2-3.1 cm/m2 LVIDs: 4.30 2.0-3.6 cm LVPWd: 1.12 0.7-1.1 cm LA Diam: 4.10 2.7-3.8/3.0-4.0 cm LAIDs Index: 1.96 1.5-2.3 cm/m2 LV Mass: 321.45 67-162/88-224 g LV Mass Index: 153.80 43-95/49-115 g/m2 LVOT Diam: 2.50 3.0+(-)1.3 cm 2D Systolic Function EF 4C: 45.80 >55% EF 2C: 44.20 >55% EF BiP: 46.10 >55% Mitral Valve MV Pk E: 0.69 MV PK A: 0.64 MV Decel Time: 278.00 E/A: 1.10 E'Lateral: 6.74 E'Medial: 4.57 E/E' Med: 15.00 E/E' Lat: 10.20 PHT: 81.00 MVA PHT: 2.72 Decel Stafford: 2.46 Aortic Valve AoV Pk Will: 2.17 AoV Mn Will: 1.53 AoV VTI: 0.45 AoV Pk Grad: 19.00 Aov Mn Grad: 10.00 MARIA ELENA Cont.VTI: 2.58 LVOT LVOT Pk Will: 1.13 LVOT Mn Will: 0.82 LVOT VTI: 0.24 LVOT Pk Grad: 5.00 LVOT Mn Grad: 3.00 LVOT Diam: 2.50 LVOT Area: 4.91 Diastolic Function MV Pk E: 0.69 MV Pk A: 0.64 E/A: 1.10 E'Medial: 4.57 E/E' Med: 15.00 E' Laterial: 6.74 E/E' Lat: 10.20 Right Ventricle TAPSE (mm): 22.10 TVS' Will: 9.79 Tricuspid Valve TR Pk Will: 2.47 TR Pk Grad: 24.00 RA Press: 8.00 RVSP: 32.00 Great Vessels Aorta Sinus of Valsalva: 4.22 2.0-3.[address] Ridge: 3.22 1.7-3.4 cm Ao Asc: 4.30 2.1-3.4 cm Ao Arch: 3.70 Updated in Other Vendor System with Status of Final Jacky Erickson MD electronically signed on 09/10/2025 8:41:20 AM with status of Final
--- OUTSIDE RECORDS SUMMARY | 2025-09-09 16:58 | XMS_ITS | Encounter Summary ---
Author Organization [facility] Address [address] [place] [address] Care Team Providers Care Patient Access Manager Name Role Phone Irineo Kimble MD Primary Care Provider [phone] Encounter Details Date Type Department Care Team (Late st Contact Info) Description 05/14/2024 Scanned Document [place] [id number] Crystal Cantu MD [address] [place] [address] Social History Tobacco Use Types Packs/Day Years [...] on filedocumented in this encounter Care Teams Patient Access Manager Relationship Specialty Start Date End Date Irineo Kimble MD [address] [place] [address] [address] [place] [address] PCP - General Cardiovascular Disease 05/12/24 documented as of this encounter
--- OUTSIDE RECORDS SUMMARY | 2025-09-09 16:58 | XMS_ITS | Clinical Summary ---
Author Organization [facility] Address [address] [place] [address] Care Team Providers Care Diving Supervisor Name Role Phone Irineo Kimble MD Primary Care Provider [phone] Allergies Active Allergy Reactions Criticality Noted Date [...] complete [place] [id number] MEDICARE PART A [place] [id number] [facility] Care Teams Diving Supervisor Relationship Specialty Start Date End Date Irineo Kimble MD [address] [place] [address] 3rd [place] [address] PCP - General Cardiovascular Disease 05/12/24
--- OUTSIDE RECORDS SUMMARY | 2025-09-09 16:58 | XMS_ITS | Patient Health Record ---
Author Organization [facility] Address [address] [place] [address] Care Team Providers Care Aeronautical Design Engineer Name Role Phone -Do Not use, PCP [...] Status W/U Status Risk Notes Problem Hypertension (84817717) Hypertension (I10) Active confirmed Plan Of Treatment No Information Insurance Providers Payer Name Payer Address Payer Phone Subscriber Number Group Number Insured Name Patient Relationship to Insured Coverage Start Date Coverage End Date Medicare of [place] [employer] [address] [place] [phone] [id number] Hill Lin Self - patient is the insured 8 DO NOT USE BCBS OF [place] [address] [place] [address] [phone] [id number] Hill Lin Self - patient is the insured 8 Medical (General) History Medical History History ICD Code Hypertension I10 Glaucoma H40.9 Surgical History Surgery Date(Month/Year) spinal fusion 2017 Hand surgery 2000 prostate surgery 2014 [facility] 1979 Hospitalization History Reason Date(Month/Year) Lower leg edema 2016
--- OUTSIDE RECORDS SUMMARY | 2025-09-09 16:58 | XMS_ITS | Encounter Summary ---
Author Organization [facility] Address [address] [place] [address] Care Team Providers Care Coronary Care Unit Nurse Name Role Phone Irineo Kimble MD Primary Care Provider [phone] Encounter Details Date Type Department Care Team (Late st Contact Info) Description 05/14/2024 Scanned Document [place] [id number] Irineo Kimble MD [address] [place] [address] Social History Tobacco Use Types Packs/Day Years [...] on filedocumented in this encounter Care Teams Coronary Care Unit Nurse Relationship Specialty Start Date End Date Irineo Kimble MD [address] [place] [address] PCP - General Cardiovascular Disease 05/12/24 documented as of this encounter
--- OUTSIDE RECORDS SUMMARY | 2025-09-09 16:59 | XMS_ITS | Patient Health Record ---
Author Organization [facility] Address [address] [place] [address] Care Team Providers Care Public Services Librarian Name Role Phone Pepe ROMO, [facility] Primary Care Provider Mehdi Ureña [phone] Allergies Allergen (clinical drug ingredient) Drug/Non Drug Allergy documented on EMR Reaction Allergy Type Onset Date Status esomeprazole Esomeprazole Magnesium diarrhea Drug Allergy Active amiodarone Amiodarone Unknown Drug Allergy Activ e mexiletine Mexiletine Unknown Drug Allergy Activ e omeprazole Omeprazole diarrhea Drug Allergy Activ e timolol Timolol Unknown Drug Allergy Active Reason For Referral No Information Medications Medication SIG (Take, Route, Frequency, Duration) Notes Start Date End Date Status Aspirin 81 81 MG Tablet Chewable 1 tablet Orally Once a day Active Latanoprost 0.005 % Solution Ophthalmic; Duration: 56 Days Active Lisinopril 20 MG Tablet Oral; Duration: 90 Days Active Social History Tobacco Use: Social History Observation Description Date Details (start date - stop date) Former Smoker NA - NA Social History Drug/Alcohol: Social Info Question Answer Notes AUDIT-C (Standard) Did you have a drink containing alcohol in the past year? No Points 0 Interpretation Negative Tobacco Use: Social Info Question Answer Notes Tobacco Control (Standard) Tobacco use: Former smoker How long has it been since you last smoked? Greater than 10 years Additional Details Category Social Info Options Details Miscellaneous: Marital status: Occupation: retired Vital Signs Blood pressure diastolic 77 mm Hg 03/26/2025 Height 71 in 03/26/2025 Blood pressure systolic 111 mm Hg 03/26/2025 Weight 195 lbs 03/26/2025 BMI 27.19 kg/m2 03/26/2025 Encounters Encounter Location Date Provider Diagnosis [facility] [address] [place] [address] 03/26/2025 Mehdi Delgado Abdominal discomfort R10.9 Assessments [...] Provider Name:Mehdi Delgado , 09/29/2025 09:30:00 AM, [address] [place] [address], [address], [place], [address], Insurance Providers Payer Name Payer Address Payer Phone Subscriber Number Group Number Insured Name Patient Relationship to Insured Coverage Start Date Coverage End Date MEDICARE OF [place] [address] [place] [address] [phone] [id number] CJ SOLIS Self - patient is the insured [address] [place] [address] [address] [place] [address] [id number] CJ SOLIS Self - patient is the insured Medical (General) History Medical History History ICD Code Hypertension Afib-Dr. Kimble AAA-stenting by Dr. Brown Cardiomyopathy/CAD Denies OK,DM,CVA,Lung disease,renal dise ase Surgical History Surgery Date(Month/Year) Prostate for BPHr 2014 Spinal fusion Hand surgery Bilateral inguinal hernia repair
--- OUTSIDE RECORDS SUMMARY | 2025-09-09 16:59 | XMS_ITS | Patient Health Record ---
Author Organization [facility] [address] Address [address] [place] [address] Care Team Providers Care Data Center Operator Name Role Phone Kevin Curry M.D. 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 Problem Ventricular premature depolarization (621499351) Ventricular premature depolarization (I49.3) Active confirmed Problem Abdominal aortic aneurysm without rupture (disorder) (50568089) Abdominal aortic aneurysm (AAA) without rupture (I71.4) Active confirmed Problem Bradycardia (84865580) Bradycardia (R00.1) Active confirmed Problem Mild aortic valve regurgitation (039932559) Mild aortic valve regurgitation (I35.1) Active confirmed Problem Mild mitral valve regurgitation (639049660) Mild mitral valve regurgitation (I34.0) Active confirmed Problem Mild tricuspid valve regurgitation (943789255) 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) Active confirmed Problem Heart disease (29670061) Grade I diastolic dysfunction (I51.9) Active confirmed Problem Atherosclerotic heart disease of [place] coronary artery without angina pectoris (793310808880399) 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 Active confirmed Problem Preoperative cardiovascular examination (155815141) EXAMINATION, PREOPERATIVE CARDIOVASCULAR (V72.81) 014 Problem resolved confirmed [place] [phone] Plan Of Treatment No Information Insurance Providers Payer Name Payer Address Payer Phone Subscriber Number Group Number Insured Name Patient Relationship to Insured Coverage Start Date Coverage End Date [place] of [place] / [facility] [address] [place] [address] [id number] Hill Lin Self - patient is the insured /[facility] [address] [place] [address] [id number] Hill Lin Self - patient is the insured Medical (General) History Medical History History ICD Code Lower Back Pain Atherosclerotic heart diseas e of [place] coronary artery without angina pectoris I25.10 Ischemic [...]
== END ==
LOC: HO.CARD 12:55
PROVIDERS: PCP Internal Medicine; Visit Provider Nurse Practitioner Family
DX: I48.0 Paroxysmal atrial fibrillation (principal); I42.8 Other cardiomyopathies; I49.3 Ventricular premature depolarization
CPT/HCPCS: 93242; 93306

== ENCOUNTER → 2025-09-09 12:57 | Outpatient (BNV) | payer MEDICARE, BC, SELFPAY | PROVIDERS: PCP Internal Medicine; Visit Provider Internal Medicine Cardiovascular Disease | DX: I35.8 Other nonrheumatic aortic valve disorders (principal); I34.0 Nonrheumatic mitral (valve) insufficiency | CPT/HCPCS: 93306 ==